=== PATIENT | male | born 1955 | race Caucasian/White ===

== ENCOUNTER 2021-08-02 10:50 | Inpatient (IN) | payer BC ==
[2021-08-02] MEDS ORDERED: IPRATROPIUM-ALBUTEROL 3 ML NEB INHALATION STA (12:41)
[2021-08-02] MEDS ORDERED: SODIUM CHLORIDE 0.9% 500 ML 500 ML IV ONE (12:41)
[2021-08-02] MEDS ORDERED: IBUPROFEN 600 MG TAB PO STA (12:42)
[2021-08-02] MEDS ORDERED: ACETAMINOPHEN TAB 500 MG TAB PO STA (12:42)
[2021-08-02] MEDS ORDERED: ALBUTEROL HFA INHALER INHALATION STA (13:13)
[2021-08-02 13:16] LABS: Basophils % (A) 0 %; Eosinophils % (A) 0 %; HCT 46.9 % (39.0-53.0); HGB 15.6 gm/dL (13.0-17.5); Lymphocytes # (A) 0.4 k/uL (1.0-4.8); Lymphocytes % (A) 5 %; MCH 30.8 pg (25.0-35.0); MCHC 33.3 g/dL (31.0-37.0); MCV 92.4 fL (80.0-100.0); Mean Platelet Volume 8.6; Monocytes # (A) 0.4 k/uL (0-1.0); Monocytes % (A) 6 %; Neutrophils # (A) 6.6 k/uL (1.3-7.7); Neutrophils % (A) 88 %; Platelet Count 207 k/uL (150-450); RBC 5.07 m/uL (4.30-5.90); RDW 13.2 % (11.5-15.5); WBC 7.5 k/uL (3.8-10.6)
--- NOTE | 2021-08-02 13:20 | ED ---
General Adult HPI - General Chief complaint: Shortness of Breath Stated complaint: covid+/sob Time Seen by Provider: 08/02/21 12:15 Source: patient, RN notes reviewed, old records reviewed Mode of arrival: wheelchair - History of Present Illness Initial comments: This is a 65-year-old male who presents to the emergency department complaining of difficulty breathing. Patient states he has not got the COVID vaccine. Patient states he was starting to feel ill on first of July patient tested positive on July 30. Dates difficulty breathing is gotten worse since then. Patient denies chest pain or palpitations. Patient denies abdominal pain patient's nausea vomiting diarrhea. Patient denies lightheadedness or dizziness. Patient states he felt warm last couple of days but he hasn't taken his temperature. - Related Data Home Medications Medication Instructions Recorded Confirmed Atorvastatin [Lipitor] 10 mg PO HS 12/24/15 08/02/21 lisinopriL [Zestril] 2.5 tab PO DAILY 12/24/15 08/02/21 Albuterol Sulfate [Proair Hfa] 2 puff INHALATION RT-Q6H PRN 08/02/21 08/02/21 Azithromycin [Zithromax] 500 mg PO DAILY 08/02/21 08/02/21 Canagliflozin/Metformin HCl 1 tab PO HS 08/02/21 08/02/21 [Invokamet Xr 150-1,000 mg Tab] Dexamethasone 6 mg PO DAILY 08/02/21 08/02/21 Allergies Allergy/AdvReac Type Severity Reaction Status Date / Time No Known Allergies Allergy Verified 08/02/21 14:28 Review of Systems ROS Statement: Those systems with pertinent positive or pertinent negative responses have been documented in the HPI. ROS Other: All systems not noted in ROS Statement are negative. Past Medical History Past Medical History: Hyperlipidemia History of Any Multi-Drug Resistant Organisms: None Reported Past Surgical History: Cholecystectomy, Orthopedic Surgery Past Psychological History: No Psychological Hx Reported Smoking Status: Never smoker Past Alcohol Use History: Rare Past Drug Use History: None Reported General Exam - General Exam Comments Initial Comments: GENERAL: Patient is well-developed and well-nourished. Patient is nontoxic and well- hydrated and is in mild distress. ENT: Neck is soft and supple. No significant lymphadenopathy is noted. Oropharynx is clear. Moist mucous membranes. Neck has full range of motion without daniela citing any pain. EYES: The sclera were anicteric and conjunctiva were pink and moist. Extraocular movements were intact and pupils were equal round and reactive to light. Eyelids were unremarkable. PULMONARY: Patient has crackles bilaterally CARDIOVASCULAR: There is a regular rate and rhythm without any murmurs gallops or rubs. ABDOMEN: Soft and nontender with normal bowel sounds. No palpable organomegaly was noted. There is no palpable pulsatile mass. SKIN: Skin is clear with no lesions or rashes and otherwise unremarkable. NEUROLOGIC: Patient is alert and oriented x3. Cranial nerves II through XII are grossly intact. Motor and sensory are also intact. Normal speech, volume and content. Symmetrical smile. MUSCULOSKELETAL: Normal extremities with adequate strength and full range of motion. LYMPHATICS: No significant lymphadenopathy is noted PSYCHIATRIC: Normal psychiatric evaluation. Course Vital Signs 08/02/21 08/02/21 08/02/21 12:12 12:40 14:00 Temperature 100 F H 98.1 F Pulse Rate 100 68 81 Respiratory 24 26 H 16 Rate Blood Pressure 115/69 125/71 O2 Sat by Pulse 86 L 90 L 93 L Oximetry Medical Decision Making - Medical Decision Making X-ray shows bilateral infiltrates consistent with COVID pneumonia. Patient's COVID test was positive. Patient already took Decadron 6 mg at home today. I spoke with physicians he agreed to admit the patient and the patient I wrote admitting orders I consult to Dr. Grimaldo. - Lab Data Result diagrams: 08/02/21 12:54 08/02/21 12:54 Lab Results 08/02/21 08/02/21 08/02/21 Range/Units 12:54 12:54 12:54 WBC 7.5 (3.8-10.6) k/uL RBC 5.07 (4.30-5.90) m/uL Hgb 15.6 (13.0-17.5) gm/dL Hct 46.9 (39.0-53.0) % MCV 92.4 (80.0-100.0) fL MCH 30.8 (25.0-35.0) pg MCHC 33.3 (31.0-37.0) g/dL RDW 13.2 (11.5-15.5) % Plt Count 207 (150-450) k/uL MPV 8.6 Neutrophils % 88 % Lymphocytes % 5 % Monocytes % 6 % Eosinophils % 0 % Basophils % 0 % Neutrophils # 6.6 (1.3-7.7) k/uL Lymphocytes # 0.4 L (1.0-4.8) k/uL Monocytes # 0.4 (0-1.0) k/uL Eosinophils # 0.0 (0-0.7) k/uL Basophils # 0.0 (0-0.2) k/uL Sodium 132 L (137-145) mmol/L Potassium 5.3 H (3.5-5.1) mmol/L Chloride 103 (98-107) mmol/L Carbon Dioxide 20 L (22-30) mmol/L Anion Gap 9 mmol/L BUN 19 (9-20) mg/dL Creatinine 0.80 (0.66-1.25) mg/dL Est GFR (CKD-EPI)AfAm >90 (>60 ml/min/1.73 sqM) Est GFR (CKD-EPI)NonAf >90 (>60 ml/min/1.73 sqM) Glucose 159 H (74-99) mg/dL Calcium 8.6 (8.4-10.2) mg/dL Total Bilirubin 1.0 (0.2-1.3) mg/dL AST 75 H (17-59) U/L ALT 79 H (4-49) U/L Alkaline Phosphatase 51 (38-126) U/L Total Protein 7.7 (6.3-8.2) g/dL Albumin 3.8 (3.5-5.0) g/dL Coronavirus (PCR) Detected A (Not Detectd) Disposition Clinical Impression: Pneumonia due to COVID-19 virus Disposition: ADMITTED IP TO THIS HOSP Referrals: Jayden Gould MD [Primary Care Provider] - 1-2 days Time of Disposition: 14:40
[2021-08-02 13:36] LABS: ALT 79 U/L (4-49); African American GFR (CKD) >90 (>60 ml/min/1.73 sqM); Anion Gap 9 mmol/L; Blood Urea Nitrogen 19 mg/dL (9-20); Calcium 8.6 mg/dL (8.4-10.2); Carbon Dioxide 20 mmol/L (22-30); Chloride 103 mmol/L (98-107); Glucose 159 mg/dL (74-99); Non-African American GFR(CKD) >90 (>60 ml/min/1.73 sqM); Sodium 132 mmol/L (137-145)
[2021-08-02 13:39] LABS: Albumin 3.8 g/dL (3.5-5.0); Potassium 5.3 mmol/L (3.5-5.1); Total Protein 7.7 g/dL (6.3-8.2)
[2021-08-02 13:40] LABS: AST 75 U/L (17-59); Alkaline Phosphatase 51 U/L (38-126)
--- NOTE | 2021-08-02 13:55 | XR ---
EXAMINATION TYPE: XR chest 2V DATE OF EXAM: 08/02/2021 COMPARISON: Chest x-ray October 31, 2011 HISTORY: Difficulty in breathing. TECHNIQUE: Frontal and lateral views of the chest are obtained. FINDINGS: Low lung volumes redemonstrated. New multifocal bilateral mid to lower lung opacities. No pleural effusion or pneumothorax seen bilaterally. The cardiac silhouette size is stable and upper li mits of normal. The osseous structures are intact. IMPRESSION: New bilateral mid to lower lung multifocal opacities consistent with covid-19 infection are redemonstrated.
[2021-08-02] MEDS ORDERED: SODIUM CHLORIDE 0.9% 1,000 ML IV ONE (14:40)
--- NOTE | 2021-08-02 15:39 | P.HPIM ---
History of Present Illness H&P Date: 08/02/21 The patient is 65-year-old male with a PMH of mild COPD, hypertension, hyperlipidemia, and type II DM who presents to the emergency room with gradually worsening shortness of breath. The patient reports that his symptoms started on 07/25/21 and gradually worsened. On 07/28, he was tested for COVID and was positive. He contacted his PMD who prescribed an oral dexamethasone course. The patient's symptoms however gradually worsened and he subsequently came to the emergency room. He states his primary concern is his shortness of breath. He also reports mild nausea with dry heaving over the past 2 days. Also reports mild cough nonproductive. Denied chest pain, fever, chills, abdominal pain, diarrhea. Also denied headaches, weakness, numbness, tingling, visual disturbances. The patient was hypoxic in the emergency room with an SpO2 of 86% on room air with temperature 100F. Chest x-ray in the emergency room was consistent with COVID-19 pneumonia with laboratory evaluation remarkable for abnormal LFTs with AST 75, ALT 79, glucose 159, and sodium 132. Review of systems: Pertinent positives and negatives as discussed in HPI, a complete review of systems was performed and all other systems are negative. Physical examination: General: non toxic, no distress, appears at stated age, obese Derm: no unusual rashes/lesions no unusual ecchymoses, warm, dry Head: atraumatic, normocephalic, symmetric Eyes: EOMI, no lid lag, anicteric sclera, pupils equal round reactive to light ENT: Nose and ears atraumatic, no thrush, no pharyngeal erythema Neck: No thyromegaly, no cervical lymphadenopathy, trachea midline, supple Mouth: no lip lesion, mucus membranes moist Cardiovascular: S1S2 reg, no murmur, positive posterior tibial pulse bilateral, no edema, capillary refill less than 2 seconds Lungs: Diffuse bilateral rales and rhonchi, no accessory muscle use Abdominal: soft, nontender to palpation, no guarding, no appreciable organomegaly, normal bowel sounds Ext: no gross muscle atrophy, muscle strength 5 out of 5 in all 4 extremities grossly, no contractures, Neuro: CN II-XI grossly intact, light touch intact all 4 extremities, finger to nose within normal limits, Psych: Alert, oriented, appropriate affect Assessment/plan COVID 19 pneumonia with acute hypoxic respiratory failure -Continue Decadron -Zinc, vitamin C, vitamin D -Supplemental oxygen -Pulmonary consult -IV fluids Hyponatremia -Likely secondary to poor oral intake -Continue with IV fluids Chronic conditions: Type II DM, hypertension, hyperlipidemia -Lispro insulin sliding scale blood glucose monitoring -Continue the remaining home medications DVT prophylaxis -Lovenox The patient is admitted with an anticipated greater than 2 midnight stay for evaluation of COVID CODE STATUS: Full Code Discussed with: Patient Anticipated discharge date: Unclear Anticipated discharge place: Home Past Medical History Past Medical History: Hyperlipidemia History of Any Multi-Drug Resistant Organisms: None Reported Past Surgical History: Cholecystectomy, Orthopedic Surgery Past Psychological History: No Psychological Hx Reported Smoking Status: Never smoker Past Alcohol Use History: Rare Past Drug Use History: None Reported - Past Family History Father Family Medical History: Hypertension Medications and Allergies Home Medications Medication Instructions Recorded Confirmed Type Atorvastatin [Lipitor] 10 mg PO HS 12/24/15 08/02/21 History lisinopriL [Zestril] 2.5 tab PO DAILY 12/24/15 08/02/21 History Albuterol Sulfate [Proair Hfa] 2 puff INHALATION RT-Q6H PRN 08/02/21 08/02/21 History Azithromycin [Zithromax] 500 mg PO DAILY 08/02/21 08/02/21 History Canagliflozin/Metformin HCl 1 tab PO HS 08/02/21 08/02/21 History [Invokamet Xr 150-1,000 mg Tab] Dexamethasone 6 mg PO DAILY 08/02/21 08/02/21 History Allergies Allergy/AdvReac Type Severity Reaction Status Date / Time No Known Allergies Allergy Verified 08/02/21 14:28 Physical Exam Vitals: Vital Signs Temp Pulse Resp BP Pulse Ox 08/02/21 14:00 98.1 F 81 16 125/71 93 L 08/02/21 12:40 68 26 H 90 L 08/02/21 12:12 100 F H 100 24 115/69 86 L Intake and Output 08/02/21 08/02/21 08/02/21 06:59 14:59 22:59 Other: Weight 129.274 kg Results CBC & Chem 7: 08/02/21 12:54 08/02/21 12:54 Labs: Abnormal Lab Results - Last 24 Hours (Table) 08/02/21 08/02/21 08/02/21 Range/Units 12:54 12:54 12:54 Lymphocytes # 0.4 L (1.0-4.8) k/uL Sodium 132 L (137-145) mmol/L Potassium 5.3 H (3.5-5.1) mmol/L Carbon Dioxide 20 L (22-30) mmol/L Glucose 159 H (74-99) mg/dL AST 75 H (17-59) U/L ALT 79 H (4-49) U/L Coronavirus (PCR) Detected A (Not Detectd)
[2021-08-02 17:27] LABS: Glucose,Whole Blood 243 mg/dL (75-99)
[2021-08-02] MEDS: INSULIN ASPART (NovoLOG) 100 UNIT/ML VIAL SQ SCH ×2 (17:31→21:27)
--- NOTE | 2021-08-02 18:08 | P.CNPUL ---
History of Present Illness Consult date: 08/02/21 Reason for consult: dyspnea, pneumonia History of present illness: 65-year-old male patient was being Hospital as for COVID 19nrelated pneumonia. The patient is known to have COPD, hypertension and hyperlipidemia and diabetes mellitus. He presented emergency department with worsening shortness of breath. He reports that his symptoms started on 07/26/2021 and he progressively got worse. On he tested positive for COVID 19 and the patient received Decadron through his primary care physician. Unfortunately his condition got worse. He continued to have increased shortness of breath and dry cough. He was febrile. He presented to the ED with a pulse ox of mid 80s. His chest x- ray showed diffuse bilateral pulmonary infiltrates consistent with Covid 19 related pneumonia. His blood work showed a potassium level of 5.3, sodium level of 132, serum bicarb was 20, BUN was 19 with a creatinine of 0.8, lymphocyte count of 0.4 with a white cell count of 7.5. The patient was started on Decadron 6 mg by mouth daily and the patient was also given Lovenox 40 mg subcu daily prophylaxis. He is currently on IV fluids with normal saline at the rate of 75 mL an hour. He is on oxygen. He was placed on 6 L and he is currently do wn to 4 L per minute nasal cannula.He is not vaccinated Review of Systems Constitutional: Reports fatigue, Reports fever, Reports lethargy, Reports weakness Eyes: denies as per HPI, denies blurred vision, denies bulging eye, denies dec reased vision, denies diplopia, denies discharge, denies dry eye, denies irritation, denies itching, denies pain, denies photophobia, denies loss of peripheral vision, denies loss of vision, denies tunnel vision/blind spots Ears: deny: decreased hearing, ear discharge, earache, tinnitus Ears, nose, mouth and throat: Reports as per HPI Breasts: absent: as per HPI, gynecomastia Cardiovascular: Reports decreased exercise tolerance, Reports dyspnea on exertion Respiratory: Reports as per HPI, Reports cough, Reports dyspnea Gastrointestinal: Reports as per HPI Genitourinary: Reports as per HPI Musculoskeletal: Reports as per HPI Musculoskeletal: absent: ankle pain, ankle stiffness, ankle swelling, as per HPI, elbow pain, elbow stiffness, elbow swelling, foot pain, foot stiffness, foot swelling, hand pain, hand stiffness, hand swelling, hip pain, hip stiffness, hip swelling, knee pain, knee stiffness, knee swelling, shoulder pain, shoulder stiffness, shoulder swelling, wrist pain, wrist stiffness, wrist swelling Integumentary: Reports as per HPI, Reports darkening of skin Neurological: Reports weakness Psychiatric: Reports as per HPI Endocrine: Reports as per HPI, Reports fatigue Hematologic/Lymphatic: Reports as per HPI Allergic/Immunologic: Reports as per HPI Past Medical History Past Medical History: Hyperlipidemia Additional Past Medical History / Comment(s): History of pneumonia/empyema requiring percutaneous drainage with the tube probably in the 1980s History of Any Multi-Drug Resistant Organisms: None Reported Past Surgical History: Cholecystectomy, Orthopedic Surgery Past Psychological History: No Psychological Hx Reported Smoking Status: Never smoker Past Alcohol Use History: Rare Past Drug Use History: None Reported - Past Family History Father Family Medical History: Hypertension Medications and Allergies Home Medications Medication Instructions Recorded Confirmed Type Atorvastatin [Lipitor] 10 mg PO HS 12/24/15 08/02/21 History lisinopriL [Zestril] 2.5 tab PO DAILY 12/24/15 08/02/21 History Albuterol Sulfate [Proair Hfa] 2 puff INHALATION RT-Q6H PRN 08/02/21 08/02/21 History Azithromycin [Zithromax] 500 mg PO DAILY 08/02/21 08/02/21 History Canagliflozin/Metformin HCl 1 tab PO HS 08/02/21 08/02/21 History [Invokamet Xr 150-1,000 mg Tab] Dexamethasone 6 mg PO DAILY 08/02/21 08/02/21 History Allergies Allergy/AdvReac Type Severity Reaction Status Date / Time No Known Allergies Allergy Verified 08/02/21 14:28 Physical Exam Vitals: Vital Signs Temp Pulse Resp BP Pulse Ox 08/02/21 15:00 25 H 08/02/21 14:00 98.1 F 81 16 125/71 93 L 08/02/21 12:40 68 26 H 90 L 08/02/21 12:12 100 F H 100 24 115/69 86 L Intake and Output 08/02/21 08/02/21 08/02/21 06:59 14:59 22:59 Other: Weight 129.274 kg General: non toxic, no distress, appears at stated age, obese Derm: no unusual rashes/lesions no unusual ecchymoses, warm, dry Head: atraumatic, normocephalic, symmetric Eyes: EOMI, no lid lag, anicteric sclera, pupils equal round reactive to light ENT: Nose and ears atraumatic, no thrush, no pharyngeal erythema Neck: No thyromegaly, no cervical lymphadenopathy, trachea midline, supple Mouth: no lip lesion, mucus membranes moist Cardiovascular: S1S2 reg, no murmur, positive posterior tibial pulse bilateral, no edema, capillary refill less than 2 seconds Lungs: Diffuse bilateral rales and rhonchi, no accessory muscle use Abdominal: soft, nontender to palpation, no guarding, no appreciable organomegaly, normal bowel sounds Ext: no gross muscle atrophy, muscle strength 5 out of 5 in all 4 extremities grossly, no contractures, Neuro: CN II-XI grossly intact, light touch intact all 4 extremities, finger to nose within normal limits, Results - Laboratory Findings CBC and BMP: 08/02/21 12:54 08/02/21 12:54 Abnormal lab findings: Abnormal Labs 08/02/21 08/02/21 08/02/21 12:54 12:54 12:54 Lymphocytes # 0.4 L Sodium 132 L Potassium 5.3 H Carbon Dioxide 20 L Glucose 159 H AST 75 H ALT 79 H Coronavirus (PCR) Detected A - Diagnostic Findings Chest x-ray: image reviewed Assessment and Plan Plan: 1 acute Covid 19 related pneumonia with diffuse bilateral pulmonary infiltrates. The patient is presenting with worsening shortness of breath and a dry cough and hypoxemia. Currently on 4 L of oxygen when cannula. The patient was treated with Decadron outpatient basis. He is unvaccinated. 2 acute hypoxic respiratory failure secondary to above 3 diabetes mellitus 4 hypertension 5 hyperlipidemia 6 obesity with a BMI of 39.7 Plan titrate the FiO2 to maintain saturation above 90%, currently on 4 L continue Decadron increase the dose up to 6 mg every 12 hours. We'll decrease the steroid dose knowing that the patient has failed outpatient steroid treatment, we'll start the patient also on obesity per protocol as the patient falls within the window. Symptoms started on 07/26/2021 check pro calcitonin levels, d-dimer, LDH, CRP Continue Lovenox 40 mg subcu DVT prophylaxis Monitor the blood sugar and offered the patient a insulin sliding scale coverage Monitor the blood work Chest x-ray was noted \
[2021-08-02] MEDS ORDERED: REMDESIVIR 200 MG in SODIUM CHLORIDE 0.9% 250 ML IVPB ONE (18:30)
[2021-08-02 19:19] LABS: Glucose,Whole Blood 243 mg/dL (75-99)
[2021-08-02] MEDS: dexAMETHasone 2 MG TAB PO SCH (21:02)
[2021-08-02] MEDS: ATORVASTATIN 10 MG TAB PO SCH (21:02)
[2021-08-02 21:22] LABS: Glucose,Whole Blood 147 mg/dL (75-99)
[2021-08-03] MEDS ORDERED: dexAMETHasone 2 MG TAB PO SCH (09:00)
[2021-08-03 09:22] LABS: HGB 14.5 g/dL (13.0-17.0); MCH 30.7 pg (27.0-32.0); Mean Platelet Volume 11.3 fL (9.5-12.2); Platelet Count 227 X 10*3/uL (140-440); RBC 4.73 X 10*6/uL (4.40-5.60); RDW 13.3 % (11.5-14.5); WBC 6.35 X 10*3/uL (4.50-10.00)
[2021-08-03 09:35] LABS: Glucose,Whole Blood 170 mg/dL (75-99)
[2021-08-03] MEDS: INSULIN ASPART (NovoLOG) 100 UNIT/ML VIAL SQ SCH ×4 (09:39→22:05)
[2021-08-03] MEDS: ENOXAPARIN 40 MG/0.4 ML SYRINGE SQ SCH (09:40)
[2021-08-03] MEDS: ASCORBIC ACID 500 MG TAB PO SCH (09:40)
[2021-08-03] MEDS: CHOLECALCIFEROL 25 MCG (1000 IU) TABLET PO SCH (09:41)
[2021-08-03] MEDS: ZINC SULFATE 220 MG CAP PO SCH (09:42)
[2021-08-03] MEDS: dexAMETHasone 2 MG TAB PO SCH ×2 (09:49→22:05)
--- NOTE | 2021-08-03 10:58 | P.PN ---
Subjective Progress Note Date: 08/03/21 65-year-old male patient was being Hospital as for COVID 19nrelated pneumonia. The patient is known to have COPD, hypertension and hyperlipidemia and diabetes mellitus. He presented emergency department with worsening shortness of breath. He reports that his symptoms started on 07/26/2021 and he progressively got worse. On he tested positive for COVID 19 and the patient received Decadron through his primary care physician. Unfortunately his condition got worse. He continued to have increased shortness of breath and dry cough. He was febrile. He presented to the ED with a pulse ox of mid 80s. His chest x- ray showed diffuse bilateral pulmonary infiltrates consistent with Covid 19 related pneumonia. His blood work showed a potassium level of 5.3, sodium level of 132, serum bicarb was 20, BUN was 19 with a creatinine of 0.8, lymphocyte count of 0.4 with a white cell count of 7.5. The patient was started on Decadron 6 mg by mouth daily and the patient was also given Lovenox 40 mg subcu daily prophylaxis. He is currently on IV fluids with normal saline at the rate of 75 mL an hour. He is on oxygen. He was placed on 6 L and he is currently down to 4 L per minute nasal cannula.He is not vaccinated 08/03/2021, the patient is being seen for a follow-up. The patient remains in The emergency department. I saw him yesterday in consultation. He was only on 4 L, he was brought up to 6 L and subsequently he is up to 13 L for now and his current pulse ox is around 88-90%. As such, his FiO2 needs to be further titrated to bring him above 90%. Meanwhile, I started him on a combination of Decadron under the severe yesterday. I think of the severity needs to be switched to Baricitinib and will continue Decadron for now. He is coughing. He is hemodynamically stable. White cell count is 6.3. D-dimer 0.3. Inflammatory markers are still pending for now. Blood sugars today as 170. He is on insulin sliding scale coverage for blood sugar control. Objective - Vital Signs Vital signs: Vital Signs Temp 97.4 F L 08/02/21 20:00 Pulse 79 08/03/21 09:54 Resp 24 08/03/21 09:54 BP 121/70 08/03/21 09:54 Pulse Ox 88 L 08/03/21 09:54 Intake & Output 08/02/21 08/03/21 08/03/21 18:59 06:59 18:59 Intake Total 600 Balance 600 Weight 129.274 kg Intake: Intake, IV Titration 600 Amount Sodium Chloride 0.9% 1, 600 000 ml @ 75 mls/hr IV . [id number] Rx#:[id number] - Exam General: non toxic, no distress, appears at stated age, obese, currently on 13 L per minute nasal cannula Derm: no unusual rashes/lesions no unusual ecchymoses, warm, dry Head: atraumatic, normocephalic, symmetric Eyes: EOMI, no lid lag, anicteric sclera, pupils equal round reactive to light ENT: Nose and ears atraumatic, no thrush, no pharyngeal erythema Neck: No thyromegaly, no cervical lymphadenopathy, trachea midline, supple Mouth: no lip lesion, mucus membranes moist Cardiovascular: S1S2 reg, no murmur, positive posterior tibial pulse bilateral, no edema, capillary refill less than 2 seconds Lungs: Diffuse bilateral rales and rhonchi, no accessory muscle use Abdominal: soft, nontender to palpation, no guarding, no appreciable organomegaly, normal bowel sounds Ext: no gross muscle atrophy, muscle strength 5 out of 5 in all 4 extremities grossly, no contractures, Neuro: CN II-XI grossly intact, light touch intact all 4 extremities, finger to nose within normal limits, - Labs CBC & Chem 7: 08/03/21 05:54 08/02/21 12:54 Labs: Abnormal Lab Results - Last 24 Hours (Table) 08/02/21 08/02/21 08/02/21 Range/Units 12:54 12:54 12:54 Lymphocytes # 0.4 L (1.0-4.8) k/uL Sodium 132 L (137-145) mmol/L Potassium 5.3 H (3.5-5.1) mmol/L Carbon Dioxide 20 L (22-30) mmol/L Glucose 159 H (74-99) mg/dL POC Glucose (mg/dL) (75-99) mg/dL AST 75 H (17-59) U/L ALT 79 H (4-49) U/L Procalcitonin (0.02-0.09) ng/mL Coronavirus (PCR) Detected A (Not Detectd) 08/02/21 08/02/21 08/02/21 Range/Units 12:54 17:26 19:18 Lymphocytes # (1.0-4.8) k/uL Sodium (137-145) mmol/L Potassium (3.5-5.1) mmol/L Carbon Dioxide (22-30) mmol/L Glucose (74-99) mg/dL POC Glucose (mg/dL) 243 H 243 H (75-99) mg/dL AST (17-59) U/L ALT (4-49) U/L Procalcitonin 0.10 H (0.02-0.09) ng/mL Coronavirus (PCR) (Not Detectd) 08/02/21 08/03/21 Range/Units 21:12 09:34 Lymphocytes # (1.0-4.8) k/uL Sodium (137-145) mmol/L Potassium (3.5-5.1) mmol/L Carbon Dioxide (22-30) mmol/L Glucose (74-99) mg/dL POC Glucose (mg/dL) 147 H 170 H (75-99) mg/dL AST (17-59) U/L ALT (4-49) U/L Procalcitonin (0.02-0.09) ng/mL Coronavirus (PCR) (Not Detectd) Assessment and Plan Plan: 1 acute Covid 19 related pneumonia with diffuse bilateral pulmonary infiltrates. The patient is presenting with worsening shortness of breath and a dry cough and hypoxemia. Currently on 13 L nasal cannula. The patient's condition decompensated since yesterday especially with his oxygenation getting progressively worse from 4 L up to 6 L and currently up to 13 L. Would like to step up his treatment specially the patient has been treated with Decadron outpatient basis. The patient was treated with Decadron outpatient basis. He is unvaccinated. The patient was initially started on of the severe and Decadron combination. This will be modified to include a combination of Decadron and Baricitinib. 2 acute hypoxic respiratory failure secondary to above 3 diabetes mellitus 4 hypertension 5 hyperlipidemia 6 obesity with a BMI of 39.7 Plan titrate the FiO2 to maintain saturation above 90%, currently on 13 L continue Decadron increase the dose up to 6 mg every 12 hours. We'll decrease the steroid dose knowing that the patient has failed outpatient steroid treatment, we'll start the patient on Baricitinib and will discontinue the Remdesivir check pro calcitonin levels, d-dimer, LDH, CRP, pro calcitonin level is low and the rest of the inflammatory markers are still pending. D-dimer is also low. Continue Lovenox 40 mg subcu DVT prophylaxis Monitor the blood sugar and offered the patient a insulin sliding scale coverage Monitor the blood work Chest x-ray was noted He will be admitted to the hospital and the patient is still awaiting a room. Meanwhile, he remains in the emergency. \
[2021-08-03 12:42] LABS: African American GFR (CKD) 103.9 (60.0-200.0); Albumin 3.8 g/dL (3.8-4.9); Albumin/Globulin Ratio 1.17 (1.60-3.17); Anion Gap 13.2 mmol/L (4.00-12.00); BUN/Creat Ratio 23.74 Ratio (12.00-20.00); Blood Urea Nitrogen 21.2 mg/dL (9.0-27.0); Calcium 8.5 mg/dL (8.7-10.3); Carbon Dioxide 20.7 mmol/L (21.6-31.8); Globulin 3.3 g/dL (1.6-3.3); Non-African American GFR(CKD) 89.6 (60.0-200.0); Potassium 5.1 mmol/L (3.5-5.5); Total Bilirubin 0.5 mg/dL (0.30-1.20); Total Protein 7.1 g/dL (6.2-8.2)
[2021-08-03 12:45] LABS: Glucose,Whole Blood 113 mg/dL (75-99)
--- NOTE | 2021-08-03 12:48 | P.PN ---
Subjective Progress Note Date: 08/03/21 Principal diagnosis: COVID-19 Patient states that she is feeling okay. No significant pain or shortness of breath. Still requiring oxygen for high flow nasal cannula, currently at 15 L, with O2 saturations in the 90s. Objective - Vital Signs Vital signs: Vital Signs Temp 97.4 F L 08/02/21 20:00 Pulse 79 08/03/21 09:54 Resp 24 08/03/21 09:54 BP 121/70 08/03/21 09:54 Pulse Ox 89 L 08/03/21 12:30 Intake & Output 08/02/21 08/03/21 08/03/21 18:59 06:59 18:59 Intake Total 600 Balance 600 Weight 129.274 kg Intake: Intake, IV Titration 600 Amount Sodium Chloride 0.9% 1, 600 000 ml @ 75 mls/hr IV . [id number] ONE Rx#:[id number] - Exam Constitutional: No acute distress, conversant, pleasant Eyes:Anicteric sclerae, moist conjunctiva, no lid-lag, PERRLA, ENMT: Oropharynx clear, no erythema, exudates Neck: Supple, FROM, no masses, or JVD, No carotid bruits, No thyromegaly Lungs: Clear to auscultation, Clear to percussion, Normal respiratory effort, no accessory muscle use Cardiovascular: Heart regular in rate and rhythm, No murmurs, gallops, or rubs, No peripheral edema Abdominal: Soft, Nontender, no guarding, rebound or rigidity, Normoactive bowel sounds, No hepatomegaly, No splenomegaly, No palpable mass Skin: Normal temperature, tone, texture, turgor, no induration, No subcutaneous nodules, No rash, lesions, No ulcers Extremities: No digital cyanosis, No clubbing, Pedal pulses intact and symmetrical, Radial pulses intact and symmetrical, No calf tenderness Psychiatric: Alert and oriented to person, place and time, appropriate affect, intact judgement Neuro: Muscles Strength 5/5 in all 4 extremities, Sensation to light touch grossly present throughout, Cranial nerves II-XII grossly intact, no focal sensory deficits - Labs CBC & Chem 7: 08/03/21 05:54 08/03/21 05:54 Labs: Abnormal Lab Results - Last 24 Hours (Table) 08/02/21 08/02/21 08/02/21 Range/Units 12:54 12:54 12:54 Lymphocytes # 0.4 L (1.0-4.8) k/uL Sodium 132 L (137-145) mmol/L Potassium 5.3 H (3.5-5.1) mmol/L Carbon Dioxide 20 L (22-30) mmol/L Anion Gap (4.00-12.00) mmol/L BUN/Creatinine Ratio (12.00-20.00) Ratio Glucose 159 H (74-99) mg/dL POC Glucose (mg/dL) (75-99) mg/dL Calcium (8.7-10.3) mg/dL AST 75 H (17-59) U/L ALT 79 H (4-49) U/L Albumin/Globulin Ratio (1.60-3.17) g/dL Procalcitonin (0.02-0.09) ng/mL Coronavirus (PCR) Detected A (Not Detectd) 08/02/21 08/02/21 08/02/21 Range/Units 12:54 17:26 19:18 Lymphocytes # (1.0-4.8) k/uL Sodium (137-145) mmol/L Potassium (3.5-5.1) mmol/L Carbon Dioxide (22-30) mmol/L Anion Gap (4.00-12.00) mmol/L BUN/Creatinine Ratio (12.00-20.00) Ratio Glucose (74-99) mg/dL POC Glucose (mg/dL) 243 H 243 H (75-99) mg/dL Calcium (8.7-10.3) mg/dL AST (17-59) U/L ALT (4-49) U/L Albumin/Globulin Ratio (1.60-3.17) g/dL Procalcitonin 0.10 H (0.02-0.09) ng/mL Coronavirus (PCR) (Not Detectd) 08/02/21 08/03/21 08/03/21 Range/Units 21:12 05:54 09:34 Lymphocytes # (1.0-4.8) k/uL Sodium (137-145) mmol/L Potassium (3.5-5.1) mmol/L Carbon Dioxide 20.7 L (22-30) mmol/L Anion Gap 13.20 H (4.00-12.00) mmol/L BUN/Creatinine Ratio 23.74 H (12.00-20.00) Ratio Glucose 151 H (74-99) mg/dL POC Glucose (mg/dL) 147 H 170 H (75-99) mg/dL Calcium 8.5 L (8.7-10.3) mg/dL AST 53 H (17-59) U/L ALT 76 H (4-49) U/L Albumin/Globulin Ratio 1.17 L (1.60-3.17) g/dL Procalcitonin (0.02-0.09) ng/mL Coronavirus (PCR) (Not Detectd) Assessment and Plan Plan: COVID 19 pneumonia with acute hypoxic respiratory failure -Supplemental oxygen -Pulmonary following, he is being treated with Decadron and barcitinib Hyponatremia -Likely secondary to poor oral intake -D/c IV fluids Chronic conditions: Type II DM, hypertension, hyperlipidemia -Lispro insulin sliding scale blood glucose monitoring -Continue the remaining home medications DVT prophylaxis -Lovenox CODE STATUS: Full Code Discussed with: Patient Anticipated discharge date: Unclear Anticipated discharge place: Home
[2021-08-03] MEDS: BARICITINIB 2 MG TABLET PO SCH (15:59)
[2021-08-03 16:48] LABS: Glucose,Whole Blood 163 mg/dL (75-99)
[2021-08-03] MEDS ORDERED: REMDESIVIR 100 MG in SODIUM CHLORIDE 0.9% 250 ML IVPB SCH (18:30)
[2021-08-03 20:56] LABS: Glucose,Whole Blood 216 mg/dL (75-99)
[2021-08-03] MEDS: ATORVASTATIN 10 MG TAB PO SCH (22:05)
[2021-08-04 00:13] LABS: C Reactive Protein 5.9 mg/dL (0.00-0.80)
[2021-08-04 06:55] LABS: Glucose,Whole Blood 163 mg/dL (75-99)
[2021-08-04] MEDS: dexAMETHasone 2 MG TAB PO SCH ×2 (08:49→23:18)
[2021-08-04] MEDS: ENOXAPARIN 40 MG/0.4 ML SYRINGE SQ SCH (08:49)
[2021-08-04] MEDS: ASCORBIC ACID 500 MG TAB PO SCH (08:50)
[2021-08-04] MEDS: CHOLECALCIFEROL 25 MCG (1000 IU) TABLET PO SCH (08:50)
[2021-08-04] MEDS: INSULIN ASPART (NovoLOG) 100 UNIT/ML VIAL SQ SCH ×4 (08:51→23:17)
[2021-08-04] MEDS: BARICITINIB 2 MG TABLET PO SCH (08:52)
[2021-08-04] MEDS: ZINC SULFATE 220 MG CAP PO SCH (08:53)
--- NOTE | 2021-08-04 09:35 | XR ---
EXAMINATION TYPE: XR chest 1V portable DATE OF EXAM: 08/04/2021 COMPARISON: 08/02/2021 INDICATION: Covid pneumonia TECHNIQUE: Single frontal view of the chest is obtained. FINDINGS: The heart size is normal. The pulmonary vasculature is normal. Scattered bilateral peripheral infiltrates are present. This is nonspecific but can be compatible wit h atypical pneumonia IMPRESSION: 1. Scattered bilateral lung infiltrates are nonspecific but can be compatible with atypical pneumonia . Findings are stable from comparison.
--- NOTE | 2021-08-04 11:54 | P.PN ---
Subjective Progress Note Date: 08/04/21 65-year-old male patient was being Hospital as for COVID 19nrelated pneumonia. The patient is known to have COPD, hypertension and hyperlipidemia and diabetes mellitus. He presented emergency department with worsening shortness of breath. He reports that his symptoms started on 07/26/2021 and he progressively got worse. On he tested positive for COVID 19 and the patient received Decadron through his primary care physician. Unfortunately his condition got worse. He continued to have increased shortness of breath and dry cough. He was febrile. He presented to the ED with a pulse ox of mid 80s. His chest x- ray showed diffuse bilateral pulmonary infiltrates consistent with Covid 19 related pneumonia. His blood work showed a potassium level of 5.3, sodium level of 132, serum bicarb was 20, BUN was 19 with a creatinine of 0.8, lymphocyte count of 0.4 with a white cell count of 7.5. The patient was started on Decadron 6 mg by mouth daily and the patient was also given Lovenox 40 mg subcu daily prophylaxis. He is currently on IV fluids with normal saline at the rate of 75 mL an hour. He is on oxygen. He was placed on 6 L and he is currently down to 4 L per minute nasal cannula.He is not vaccinated 08/03/2021, the patient is being seen for a follow-up. The patient remains in The emergency department. I saw him yesterday in consultation. He was only on 4 L, he was brought up to 6 L and subsequently he is up to 13 L for now and his current pulse ox is around 88-90%. As such, his FiO2 needs to be further titrated to bring him above 90%. Meanwhile, I started him on a combination of Decadron under the severe yesterday. I think of the severity needs to be switched to Baricitinib and will continue Decadron for now. He is coughing. He is hemodynamically stable. White cell count is 6.3. D-dimer 0.3. Inflammatory markers are still pending for now. Blood sugars today as 170. He is on insulin sliding scale coverage for blood sugar control. 08/04/2021, the patient is 1100% nonrebreather facemask. I'm seeing this patient for a follow-up today. Note that his oxygenation was gradually getting worse. He came in to us with 4 L and subsequently and up on a nonrebreather facemask. During the course of his progression, I'm stop the Remdesivir put the patient on a combination of Decadron and Baricitinib. Blood work from today still pending. I do have a d-dimer that is showing is 0.44 level. The glucose is 163. In terms of the inflammatory markers, the pro-calcitonin level was 0.1. The patient remains on Lovenox for DVT prophylaxis. Repeat chest x-ray shows no major interval change in the findings are essentially stable. Objective - Vital Signs Vital signs: Vital Signs Temp 97.8 F 08/04/21 10:05 Pulse 73 08/04/21 10:05 Resp 18 08/04/21 10:05 BP 107/58 08/04/21 10:05 Pulse Ox 91 L 08/04/21 10:05 Intake & Output 08/03/21 08/04/21 08/04/21 18:59 06:59 18:59 Other: Voiding Method Urinal # Voids 1 3 - Exam General: non toxic, no distress, appears at stated age, obese, currently on 15 L per minute nasal cannula and a 100%NRB Derm: no unusual rashes/lesions no unusual ecchymoses, warm, dry Head: atraumatic, normocephalic, symmetric Eyes: EOMI, no lid lag, anicteric sclera, pupils equal round reactive to light ENT: Nose and ears atraumatic, no thrush, no pharyngeal erythema Neck: No thyromegaly, no cervical lymphadenopathy, trachea midline, supple Mouth: no lip lesion, mucus membranes moist Cardiovascular: S1S2 reg, no murmur, positive posterior tibial pulse bilateral, no edema, capillary refill less than 2 seconds Lungs: Diffuse bilateral rales and rhonchi, no accessory muscle use Abdominal: soft, nontender to palpation, no guarding, no appreciable organomegaly, normal bowel sounds Ext: no gross muscle atrophy, muscle strength 5 out of 5 in all 4 extremities grossly, no contractures, Neuro: CN II-XI grossly intact, light touch intact all 4 extremities, finger to nose within normal limits, - Labs CBC & Chem 7: 08/03/21 05:54 08/03/21 05:54 Labs: Abnormal Lab Results - Last 24 Hours (Table) 08/03/21 08/03/21 08/03/21 Range/Units 05:54 05:54 05:54 Carbon Dioxide 20.7 L (21.6-31.8) mmol/L Anion Gap 13.20 H (4.00-12.00) mmol/L BUN/Creatinine Ratio 23.74 H (12.00-20.00) Ratio Glucose 151 H (70-110) mg/dL POC Glucose (mg/dL) (75-99) mg/dL Hemoglobin A1c 6.9 H (4.0-6.0) % Calcium 8.5 L (8.7-10.3) mg/dL AST 53 H (14-35) U/L ALT 76 H (10-49) U/L Lactate Dehydrogenase 401 H (120-246) U/L C-Reactive Protein 5.90 H (0.00-0.80) mg/dL Albumin/Globulin Ratio 1.17 L (1.60-3.17) g/dL 08/03/21 08/03/21 08/03/21 Range/Units 12:42 16:46 20:55 Carbon Dioxide (21.6-31.8) mmol/L Anion Gap (4.00-12.00) mmol/L BUN/Creatinine Ratio (12.00-20.00) Ratio Glucose (70-110) mg/dL POC Glucose (mg/dL) 113 H 163 H 216 H (75-99) mg/dL Hemoglobin A1c (4.0-6.0) % Calcium (8.7-10.3) mg/dL AST (14-35) U/L ALT (10-49) U/L Lactate Dehydrogenase (120-246) U/L C-Reactive Protein (0.00-0.80) mg/dL Albumin/Globulin Ratio (1.60-3.17) g/dL 08/04/21 Range/Units 06:53 Carbon Dioxide (21.6-31.8) mmol/L Anion Gap (4.00-12.00) mmol/L BUN/Creatinine Ratio (12.00-20.00) Ratio Glucose (70-110) mg/dL POC Glucose (mg/dL) 163 H (75-99) mg/dL Hemoglobin A1c (4.0-6.0) % Calcium (8.7-10.3) mg/dL AST (14-35) U/L ALT (10-49) U/L Lactate Dehydrogenase (120-246) U/L C-Reactive Protein (0.00-0.80) mg/dL Albumin/Globulin Ratio (1.60-3.17) g/dL Assessment and Plan Plan: 1 acute Covid 19 related pneumonia with diffuse bilateral pulmonary infiltrates. The patient is presenting with worsening shortness of breath and a dry cough and hypoxemia. Patient is currently on 100% nonrebreather in addition to 15 L nasal cannula. He feels well. He states that since yesterday, he had a good night sleep and is not getting any worse. I started him on a combination of Decadron and Baricitinib. Remdesivir was discontinued. He remains on Lovenox. Extremity markers are being monitored. D-dimer is at low.. 2 acute hypoxic respiratory failure secondary to above 3 diabetes mellitus 4 hypertension 5 hyperlipidemia 6 obesity with a BMI of 39.7 Plan titrate the FiO2 to maintain saturation above 90%, currently on the 15th liters along with 100% nonrebreather continue Decadron 6 mg every 12 hours. Patient was also started on Baricitinib per protocol. Remdesivir was discontinued. check pro calcitonin levels, d-dimer, LDH, CRP, pro calcitonin level is low and the rest of the inflammatory markers are still pending. D-dimer is also low. Continue Lovenox 40 mg subcu DVT prophylaxis Monitor the blood sugar and offered the patient a insulin sliding scale coverage Monitor the blood work Chest x-ray was noted and the chest x-ray stable for now We'll reevaluate the patient's condition in a.m. His condition is stable. He needs to be monitored very closely. . \
[2021-08-04 13:53] LABS: C Reactive Protein 1.8 mg/dL (0.00-0.80)
[2021-08-04 14:00] LABS: Glucose,Whole Blood 203 mg/dL (75-99)
--- NOTE | 2021-08-04 14:24 | P.PN ---
Subjective Progress Note Date: 08/04/21 Patient seen and examined at bedside. Patient continues to be on a nonrebreather saturating 91%. Patient denies chest pain. Patient continues to be short of breath. Patient does have a cough. Patient denies fever or chills. Objective - Vital Signs Vital signs: Vital Signs Temp 97.8 F 08/04/21 10:05 Pulse 73 08/04/21 10:05 Resp 18 08/04/21 10:05 BP 107/58 08/04/21 10:05 Pulse Ox 91 L 08/04/21 10:05 Intake & Output 08/03/21 08/04/21 08/04/21 18:59 06:59 18:59 Other: Voiding Method Urinal Urinal # Voids 1 3 - Exam General: [non toxic], [no distress], [appears at stated age] Derm: [warm], [dry] Head: [atraumatic], [normocephalic], [symmetric] Eyes: [EOMI], [no lid lag], [anicteric sclera] Mouth: [no lip lesion], [mucus membranes moist] Cardiovascular: [S1S2 reg], [no murmur], [positive posterior tibial pulse bilateral], Lungs: [CTA bilateral], [no rhonchi, no rales] , [no accessory muscle use] Abdominal: [soft], [ nontender to palpation], [no guarding], [no appreciable organomegaly] Ext: [no gross muscle atrophy], [no edema], [no contractures] Neuro: [ CN II-XI grossly intact], [no focal neuro deficits] Psych: [Alert], [oriented], [appropriate affect] - Labs CBC & Chem 7: 08/03/21 05:54 08/03/21 05:54 Labs: Abnormal Lab Results - Last 24 Hours (Table) 08/03/21 08/03/21 08/03/21 Range/Units 05:54 05:54 16:46 POC Glucose (mg/dL) 163 H (75-99) mg/dL Hemoglobin A1c 6.9 H (4.0-6.0) % Lactate Dehydrogenase 401 H (120-246) U/L C-Reactive Protein 5.90 H (0.00-0.80) mg/dL 08/03/21 08/04/2121 Range/Units 20:55 06:53 06:59 POC Glucose (mg/dL) 216 H 163 H (75-99) mg/dL Hemoglobin A1c (4.0-6.0) % Lactate Dehydrogenase (120-246) U/L C-Reactive Protein 1.80 H (0.00-0.80) mg/dL 08/04/21 Range/Units 13:58 POC Glucose (mg/dL) 203 H (75-99) mg/dL Hemoglobin A1c (4.0-6.0) % Lactate Dehydrogenase (120-246) U/L C-Reactive Protein (0.00-0.80) mg/dL Assessment and Plan Assessment: COVID 19 pneumonia with acute hypoxic respiratory failure -Supplemental oxygen -Pulmonary following, he is being treated with Decadron and barcitinib Chronic conditions: Type II DM, hypertension, hyperlipidemia -Lispro insulin sliding scale blood glucose monitoring -Continue the remaining home medications DVT prophylaxis -Lovenox CODE STATUS: Full Code Discussed with: Patient Anticipated discharge date: Unclear Anticipated discharge place: Home
[2021-08-04 16:36] LABS: Glucose,Whole Blood 170 mg/dL (75-99)
[2021-08-04 20:53] LABS: Glucose,Whole Blood 191 mg/dL (75-99)
[2021-08-04] MEDS: ATORVASTATIN 10 MG TAB PO SCH (23:18)
[2021-08-05] MEDS: dexAMETHasone 2 MG TAB PO SCH ×2 (07:33→22:17)
[2021-08-05] MEDS: BARICITINIB 2 MG TABLET PO SCH (07:33)
[2021-08-05] MEDS: ASCORBIC ACID 500 MG TAB PO SCH (07:33)
[2021-08-05] MEDS: CHOLECALCIFEROL 25 MCG (1000 IU) TABLET PO SCH (07:33)
[2021-08-05] MEDS: INSULIN ASPART (NovoLOG) 100 UNIT/ML VIAL SQ SCH ×4 (07:34→22:16)
[2021-08-05] MEDS: ZINC SULFATE 220 MG CAP PO SCH (07:34)
[2021-08-05] MEDS: ENOXAPARIN 40 MG/0.4 ML SYRINGE SQ SCH (07:34)
[2021-08-05 10:03] LABS: C Reactive Protein 0.7 mg/dL (<1.0)
[2021-08-05 10:11] LABS: ALT 301 U/L (4-49); AST 250 U/L (17-59); African American GFR (CKD) >90 (>60 ml/min/1.73 sqM); Albumin 3.7 g/dL (3.5-5.0); Alkaline Phosphatase 66 U/L (38-126); Anion Gap 10 mmol/L; Blood Urea Nitrogen 25 mg/dL (9-20); Carbon Dioxide 22 mmol/L (22-30); Chloride 103 mmol/L (98-107); Globulin 3.6 g/dL; Glucose 157 mg/dL (74-99); Non-African American GFR(CKD) >90 (>60 ml/min/1.73 sqM); Potassium 4.8 mmol/L (3.5-5.1); Sodium 135 mmol/L (137-145); Total Bilirubin 0.9 mg/dL (0.2-1.3); Total Protein 7.3 g/dL (6.3-8.2)
[2021-08-05 10:12] LABS: Basophils % (A) 0 %; Eosinophils % (A) 0 %; HCT 46.4 % (39.0-53.0); HGB 15.3 gm/dL (13.0-17.5); Lymphocytes % (A) 10 %; MCH 30.7 pg (25.0-35.0); MCV 93.1 fL (80.0-100.0); Mean Platelet Volume 8.4; Monocytes # (A) 0.7 k/uL (0-1.0); Monocytes % (A) 6 %; Neutrophils # (A) 8.8 k/uL (1.3-7.7); Neutrophils % (A) 82 %; Platelet Count 321 k/uL (150-450); RBC 4.99 m/uL (4.30-5.90); RDW 12.9 % (11.5-15.5); WBC 10.8 k/uL (3.8-10.6)
--- NOTE | 2021-08-05 11:11 | P.PN ---
Subjective Progress Note Date: 08/05/21 65-year-old male patient was being Hospital as for COVID 19nrelated pneumonia. The patient is known to have COPD, hypertension and hyperlipidemia and diabetes mellitus. He presented emergency department with worsening shortness of breath. He reports that his symptoms started on 07/26/2021 and he progressively got worse. On he tested positive for COVID 19 and the patient received Decadron through his primary care physician. Unfortunately his condition got worse. He continued to have increased shortness of breath and dry cough. He was febrile. He presented to the ED with a pulse ox of mid 80s. His chest x- ray showed diffuse bilateral pulmonary infiltrates consistent with Covid 19 related pneumonia. His blood work showed a potassium level of 5.3, sodium level of 132, serum bicarb was 20, BUN was 19 with a creatinine of 0.8, lymphocyte count of 0.4 with a white cell count of 7.5. The patient was started on Decadron 6 mg by mouth daily and the patient was also given Lovenox 40 mg subcu daily prophylaxis. He is currently on IV fluids with normal saline at the rate of 75 mL an hour. He is on oxygen. He was placed on 6 L and he is currently down to 4 L per minute nasal cannula.He is not vaccinated 08/03/2021, the patient is being seen for a follow-up. The patient remains in The emergency department. I saw him yesterday in consultation. He was only on 4 L, he was brought up to 6 L and subsequently he is up to 13 L for now and his current pulse ox is around 88-90%. As such, his FiO2 needs to be further titrated to bring him above 90%. Meanwhile, I started him on a combination of Decadron under the severe yesterday. I think of the severity needs to be switched to Baricitinib and will continue Decadron for now. He is coughing. He is hemodynamically stable. White cell count is 6.3. D-dimer 0.3. Inflammatory markers are still pending for now. Blood sugars today as 170. He is on insulin sliding scale coverage for blood sugar control. 08/04/2021, the patient is 1100% nonrebreather facemask. I'm seeing this patient for a follow-up today. Note that his oxygenation was gradually getting worse. He came in to us with 4 L and subsequently and up on a nonrebreather facemask. During the course of his progression, I'm stop the Remdesivir put the patient on a combination of Decadron and Baricitinib. Blood work from today still pending. I do have a d-dimer that is showing is 0.44 level. The glucose is 163. In terms of the inflammatory markers, the pro-calcitonin level was 0.1. The patient remains on Lovenox for DVT prophylaxis. Repeat chest x-ray shows no major interval change in the findings are essentially stable. On 08/05/2021, the patient remains on 15 L nasal cannula and 100% on a beta facemask. Earlier, there was a unsuccessful attempt by RT to switch this patient to a high flow oxygen. I think the idea was very good. The execution and the results are not to be not good and the patient desaturated significantly and the medication quite anxious. For that reason the patient was placed back o n his original settings. His white cell count is at 10.8 with a hemoglobin of 15.3. D-dimer remains low at 0.55. Electrolytes are all within normal limits per normal renal function. His LDH level is higher and currently is at 1568 with a CRP of 0.7. I have this patient on a combination of Decadron 6 mg twice a day and he is also on Baricitinib per protocol. He remains on Lovenox 40 mg subcu on a daily basis. No other significant events otherwise for now. The most recent chest x-ray from yesterday showed stable bilateral pulmonary infiltrates without any significant interval change. As such, overall condition is still stable. This patient is not vaccinated. He has COVID 19 related pneumonia. He has COPD and hypertension hyperlipidemia and diabetes mellitus. Objective - Vital Signs Vital signs: Vital Signs Temp 98.6 F 08/05/21 05:57 Pulse 74 08/05/21 05:57 Resp 22 08/05/21 05:57 BP 114/76 08/05/21 05:57 Pulse Ox 89 L 08/05/21 05:57 Intake & Output 08/04/21 08/05/21 08/05/21 18:59 06:59 18:59 Other: Voiding Method Urinal Urinal # Voids 3 - Exam General: non toxic, no distress, appears at stated age, obese, currently on 15 L per minute nasal cannula and a 100%NRB Derm: no unusual rashes/lesions no unusual ecchymoses, warm, dry Head: atraumatic, normocephalic, symmetric Eyes: EOMI, no lid lag, anicteric sclera, pupils equal round reactive to light ENT: Nose and ears atraumatic, no thrush, no pharyngeal erythema Neck: No thyromegaly, no cervical lymphadenopathy, trachea midline, supple Mouth: no lip lesion, mucus membranes moist Cardiovascular: S1S2 reg, no murmur, positive posterior tibial pulse bilateral, no edema, capillary refill less than 2 seconds Lungs: Diffuse bilateral rales and rhonchi, no accessory muscle use Abdominal: soft, nontender to palpation, no guarding, no appreciable organomegaly, normal bowel sounds Ext: no gross muscle atrophy, muscle strength 5 out of 5 in all 4 extremities grossly, no contractures, Neuro: CN II-XI grossly intact, light touch intact all 4 extremities, finger to nose within normal limits, - Labs CBC & Chem 7: 08/05/21 09:20 08/05/21 09:20 Labs: Abnormal Lab Results - Last 24 Hours (Table) 08/04/21 08/04/21 08/04/21 Range/Units 06:59 13:58 16:34 WBC (3.8-10.6) k/uL Neutrophils # (1.3-7.7) k/uL Sodium (137-145) mmol/L BUN (9-20) mg/dL Glucose (74-99) mg/dL POC Glucose (mg/dL) 203 H 170 H (75-99) mg/dL AST (17-59) U/L ALT (4-49) U/L Lactate Dehydrogenase 390 H (120-246) U/L C-Reactive Protein 1.80 H (0.00-0.80) mg/dL 08/04/21 08/05/21 08/05/21 Range/Units 20:52 09:20 09:20 WBC 10.8 H (3.8-10.6) k/uL Neutrophils # 8.8 H (1.3-7.7) k/uL Sodium (137-145) mmol/L BUN (9-20) mg/dL Glucose (74-99) mg/dL POC Glucose (mg/dL) 191 H (75-99) mg/dL AST (17-59) U/L ALT (4-49) U/L Lactate Dehydrogenase 1567 H (120-246) U/L C-Reactive Protein (0.00-0.80) mg/dL 08/05/21 Range/Units 09:20 WBC (3.8-10.6) k/uL Neutrophils # (1.3-7.7) k/uL Sodium 135 L (137-145) mmol/L BUN 25 H (9-20) mg/dL Glucose 157 H (74-99) mg/dL POC Glucose (mg/dL) (75-99) mg/dL AST 250 H (17-59) U/L ALT 301 H (4-49) U/L Lactate Dehydrogenase (120-246) U/L C-Reactive Protein (0.00-0.80) mg/dL Assessment and Plan Plan: 1 acute Covid 19 related pneumonia with diffuse bilateral pulmonary infiltrates. The patient is presenting with worsening shortness of breath and a dry cough and hypoxemia. Patient is currently on 100% nonrebreather in addition to 15 L nasal cannula. He feels well. He states that since yesterday, he had a good night sleep and is not getting any worse. I started him on a combination of Decadron and Baricitinib. Remdesivir was discontinued. He remains on Lovenox. The inflammatory markers are being monitored. D-dimer is at low.. I noticed that the patient's LDH level is on the rise. Nevertheless, because the same treatment. Chest x-ray findings from yesterday stable. He remains in the 100% on a beta facemask along with 15 L. He failed airvo 2 acute hypoxic respiratory failure secondary to above 3 diabetes mellitus 4 hypertension 5 hyperlipidemia 6 obesity with a BMI of 39.7 Plan titrate the FiO2 to maintain saturation above 90%, currently on the 15th liters along with 100% nonrebreather continue Decadron 6 mg every 12 hours. Patient was also started on Baricitinib per protocol. Remdesivir was discontinued. The patient will be kept on the same setting. I've instructed RT not to make any switches on his oxygen delivery system at this point in time. He does do better with a full face mask. Inflammatory markers are elevated including LDH. This will be monitored. Chest is a findings are stable. Continue Lovenox 40 mg subcu DVT prophylaxis Monitor the blood sugar and offered the patient a insulin sliding scale coverage Monitor the blood work Chest x-ray was noted and the chest x-ray stable for now We'll reevaluate the patient's condition in a.m. His condition is stable. He needs to be monitored very closely. . \
[2021-08-05 11:44] LABS: Glucose,Whole Blood 198 mg/dL (75-99)
[2021-08-05] MEDS: ALPRAZolam 0.5 MG TAB PO PRN ×2 (11:53→22:17)
--- NOTE | 2021-08-05 13:58 | P.PN ---
Subjective Patient seen and examined at bedside. Patient saturating 94% on high flow 15. Patient denies chest pain. Patient continues to be short of breath. Patient does have a cough. Patient denies fever or chills. Objective - Vital Signs Vital signs: Vital Signs Temp 97.5 F L 08/05/21 13:27 Pulse 79 08/05/21 13:27 Resp 22 08/05/21 13:27 BP 104/68 08/05/21 13:27 Pulse Ox 94 L 08/05/21 13:27 Intake & Output 08/04/21 08/05/21 08/05/21 18:59 06:59 18:59 Other: Voiding Method Urinal Urinal # Voids 3 - Exam General: [non toxic], [no distress], [appears at stated age] Derm: [warm], [dry] Head: [atraumatic], [normocephalic], [symmetric] Eyes: [EOMI], [no lid lag], [anicteric sclera] Mouth: [no lip lesion], [mucus membranes moist] Cardiovascular: [S1S2 reg], [no murmur], [positive posterior tibial pulse bilateral], Lungs: [CTA bilateral], [no rhonchi, no rales] , [no accessory muscle use] Abdominal: [soft], [ nontender to palpation], [no guarding], [no appreciable organomegaly] Ext: [no gross muscle atrophy], [no edema], [no contractures] Neuro: [ CN II-XI grossly intact], [no focal neuro deficits] Psych: [Alert], [oriented], [appropriate affect.] - Labs CBC & Chem 7: 08/05/21 09:20 08/05/21 09:20 Labs: Abnormal Lab Results - Last 24 Hours (Table) 08/04/21 08/04/21 08/04/21 Range/Units 06:59 13:58 16:34 WBC (3.8-10.6) k/uL Neutrophils # (1.3-7.7) k/uL Sodium (137-145) mmol/L BUN (9-20) mg/dL Glucose (74-99) mg/dL POC Glucose (mg/dL) 203 H 170 H (75-99) mg/dL AST (17-59) U/L ALT (4-49) U/L Lactate Dehydrogenase 390 H (120-246) U/L 08/04/21 08/05/21 08/05/21 Range/Units 20:52 09:20 09:20 WBC 10.8 H (3.8-10.6) k/uL Neutrophils # 8.8 H (1.3-7.7) k/uL Sodium (137-145) mmol/L BUN (9-20) mg/dL Glucose (74-99) mg/dL POC Glucose (mg/dL) 191 H (75-99) mg/dL AST (17-59) U/L ALT (4-49) U/L Lactate Dehydrogenase 1567 H (120-246) U/L 08/05/21 08/05/21 Range/Units 09:20 11:38 WBC (3.8-10.6) k/uL Neutrophils # (1.3-7.7) k/uL Sodium 135 L (137-145) mmol/L BUN 25 H (9-20) mg/dL Glucose 157 H (74-99) mg/dL POC Glucose (mg/dL) 198 H (75-99) mg/dL AST 250 H (17-59) U/L ALT 301 H (4-49) U/L Lactate Dehydrogenase (120-246) U/L Assessment and Plan Assessment: COVID 19 pneumonia with acute hypoxic respiratory failure -Supplemental oxygen -Pulmonary following, he is being treated with Decadron and barcitinib Chronic conditions: Type II DM, hypertension, hyperlipidemia -Lispro insulin sliding scale blood glucose monitoring -Continue the remaining home medications DVT prophylaxis -Lovenox CODE STATUS: Full Code Discussed with: Patient Anticipated discharge. date: Unclear Anticipated discharge place: Home
[2021-08-05 16:19] LABS: Glucose,Whole Blood 213 mg/dL (75-99)
[2021-08-05 21:00] LABS: Glucose,Whole Blood 194 mg/dL (75-99)
[2021-08-05] MEDS: ATORVASTATIN 10 MG TAB PO SCH (22:17)
[2021-08-06 07:28] LABS: Glucose,Whole Blood 150 mg/dL (75-99)
[2021-08-06 08:40] LABS: Basophils # (A) 0.1 k/uL (0-0.2); Basophils % (A) 0 %; Eosinophils % (A) 0 %; HCT 48.4 % (39.0-53.0); HGB 15.9 gm/dL (13.0-17.5); Lymphocytes # (A) 0.7 k/uL (1.0-4.8); Lymphocytes % (A) 6 %; MCH 30.7 pg (25.0-35.0); MCHC 32.9 g/dL (31.0-37.0); MCV 93.6 fL (80.0-100.0); Mean Platelet Volume 8.3; Monocytes # (A) 0.6 k/uL (0-1.0); Monocytes % (A) 5 %; Neutrophils # (A) 10.1 k/uL (1.3-7.7); Neutrophils % (A) 86 %; Platelet Count 344 k/uL (150-450); RBC 5.17 m/uL (4.30-5.90); WBC 11.7 k/uL (3.8-10.6)
[2021-08-06 08:50] LABS: ALT 501 U/L (4-49); AST 231 U/L (17-59); African American GFR (CKD) >90 (>60 ml/min/1.73 sqM); Albumin 3.7 g/dL (3.5-5.0); Albumin/Globulin Ratio 1.1; Alkaline Phosphatase 65 U/L (38-126); Anion Gap 14 mmol/L; Blood Urea Nitrogen 23 mg/dL (9-20); Calcium 8.5 mg/dL (8.4-10.2); Carbon Dioxide 21 mmol/L (22-30); Chloride 100 mmol/L (98-107); Globulin 3.5 g/dL; LDH 1598 U/L (313-618); Non-African American GFR(CKD) >90 (>60 ml/min/1.73 sqM); Potassium 5.2 mmol/L (3.5-5.1); Sodium 135 mmol/L (137-145); Total Bilirubin 0.9 mg/dL (0.2-1.3); Total Protein 7.2 g/dL (6.3-8.2)
[2021-08-06 08:51] LABS: Glucose 157 mg/dL (74-99)
[2021-08-06] MEDS: CHOLECALCIFEROL 25 MCG (1000 IU) TABLET PO SCH (08:52)
[2021-08-06] MEDS: INSULIN ASPART (NovoLOG) 100 UNIT/ML VIAL SQ SCH ×4 (08:52→21:15)
[2021-08-06] MEDS: ZINC SULFATE 220 MG CAP PO SCH (08:52)
[2021-08-06] MEDS: ENOXAPARIN 40 MG/0.4 ML SYRINGE SQ SCH (08:52)
[2021-08-06] MEDS: ASCORBIC ACID 500 MG TAB PO SCH (08:52)
[2021-08-06] MEDS: dexAMETHasone 2 MG TAB PO SCH ×2 (08:52→21:15)
[2021-08-06 08:59] LABS: ALT 523 U/L (4-49); AST 252 U/L (17-59); African American GFR (CKD) >90 (>60 ml/min/1.73 sqM); Albumin 3.9 g/dL (3.5-5.0); Albumin/Globulin Ratio 1.1; Alkaline Phosphatase 72 U/L (38-126); Anion Gap 11 mmol/L; Blood Urea Nitrogen 23 mg/dL (9-20); Calcium 9.1 mg/dL (8.4-10.2); Carbon Dioxide 23 mmol/L (22-30); Chloride 103 mmol/L (98-107); Globulin 3.7 g/dL; Glucose 189 mg/dL (74-99); Non-African American GFR(CKD) >90 (>60 ml/min/1.73 sqM); Potassium 4.9 mmol/L (3.5-5.1); Sodium 137 mmol/L (137-145); Total Bilirubin 0.9 mg/dL (0.2-1.3); Total Protein 7.6 g/dL (6.3-8.2)
[2021-08-06 10:13] LABS: C Reactive Protein <0.5 mg/dL (<1.0)
[2021-08-06 11:35] LABS: Glucose,Whole Blood 192 mg/dL (75-99)
--- NOTE | 2021-08-06 16:01 | P.PN ---
Subjective Progress Note Date: 08/06/21 Hospital course: Patient is a 65-year-old male with a past medical history of hypertension, hyperlipidemia, and type II [id number] diabetes mellitus. He presented to the hospital on 08/02/21 with a chief complaint of shortness of breath and coughing. Patient was unvaccinated for Covid and reports he began experiencing complaints of shortness of breath and wheezing around July 23 and after these symptoms progressively worsened he was seen and evaluated on July 30 and tested positive for Covid 19 virus infection. upon arrival to the emergency department, patient found to be significantly hypoxic requiring oxygen supplementation. Patient initially 86% on room air. Chest x-ray revealed bilateral mid to lower lung multifocal opacities consistent with Covid 19 infection. Pt admitted under the services with consultation to pulmonology. LDH 1598 and d-dimer 3.78. CT PE ordered. Physical examination: patient seen and fully evaluated at the bedside this morning. Patient on 15 L high flow nasal cannula and 15 L nonrebreather. Patient was noted conversatio nal dyspnea. Patient reports continued shortness of breath worsening with minimal exertion. Patient encouraged to refrain from exerting self and use urinal at bedside. lungs with equal air movement, no wheezing, rhonchi or rales Pt does have crackles at bilateral bases. patient denies experiencing any headache, lightheadedness, dizziness, chest pain, palpitations, nausea, vomiting, or experiencing any numbness/tingling/weakness in his extremities. General: Nontoxic, mild distress secondary to conversational dyspnea. Derm: Skin warm and dry, normal coloration for ethnicity. Head: Atraumatic, normocephalic and symmetric. Eyes: EOMs intact, no lid lag, and anicteric sclera Mouth: no lip lesions, mucus membranes moist Cardiovascular: regular rate and rhythm with normal S1S2, no murmur, positive posterior tibial pulses bilaterally, and cap refill < 2 seconds. Lungs: increased respiratory effort, conversational dyspnea. bibasilar crackles. Patient on 15 L high flow nasal cannula and 15 L nonrebreather. Abdominal: soft, nontender to palpation, no guarding, no appreciable organome james Ext: ROM intact. No gross muscle atrophy, no edema, no contractures Neuro: Speech clear, face symmetrical and CN II-XII grossly intact with no noted focal neuro deficits Psych: Alert and oriented to person, place, time, and situation. Appropriate and pleasant affect. Assessment and Plan of Care: Acute respiratory failure with hypoxia secondary to COVID 19 pneumonia -Oxygenation to be administered and titrated as needed to maintain SPO2 equal to or greater than 90% -Telemetry monitoring. -Continue trending inflammatory markers -Pt received two doses of Baricitinib -Encourage Incentive Spirometry 10-15x hourly while awake -Steroids: Decadron 6 mg daily, day 01/29 -Continue vitamin C, Vitamin D, and Zinc. -Pulmonology following, appreciate further recommendations. Type II [id number] diabetes mellitus Hold Glucophage at this time and place patient on glycemic protocol with NovoLog sliding scale. Hypertension Monitor vital signs and continue daily medication regimen with lisinopril. CODE STATUS: full code DVT prophylaxis: Lovenox Discussed with: Pt and RN Anticipated discharge date: clinical course to determine Anticipated discharge place: Home A total of 45 minutes was spent on the care of this complex patient more than 50% of the time was spent in counseling and care coordination. Objective - Vital Signs Vital signs: Vital Signs Temp 97.4 F L 08/06/21 05:51 Pulse 80 08/06/21 05:51 Resp 17 08/06/21 05:51 BP 109/74 08/06/21 05:51 Pulse Ox 90 L 08/06/21 05:51 Intake & Output 08/05/21 08/06/21 08/06/21 18:59 06:59 18:59 Output Total 800 Balance -800 Output: Urine 800 Other: Voiding Method Urinal # Voids 3 # Bowel Movements 1 - Labs CBC & Chem 7: 08/06/21 07:43 08/06/21 08:39 Labs: Abnormal Lab Results - Last 24 Hours (Table) 08/05/21 08/05/21 08/05/21 Range/Units 09:20 09:20 09:20 WBC 10.8 H (3.8-10.6) k/uL Neutrophils # 8.8 H (1.3-7.7) k/uL Sodium 135 L (137-145) mmol/L BUN 25 H (9-20) mg/dL Glucose 157 H (74-99) mg/dL POC Glucose (mg/dL) (75-99) mg/dL AST 250 H (17-59) U/L ALT 301 H (4-49) U/L Lactate Dehydrogenase 1567 H (313-618) U/L 08/05/21 08/05/21 08/05/21 Range/Units 11:38 16:18 20:57 WBC (3.8-10.6) k/uL Neutrophils # (1.3-7.7) k/uL Sodium (137-145) mmol/L BUN (9-20) mg/dL Glucose (74-99) mg/dL POC Glucose (mg/dL) 198 H 213 H 194 H (75-99) mg/dL AST (17-59) U/L ALT (4-49) U/L Lactate Dehydrogenase (313-618) U/L 08/06/21 Range/Units 07:17 WBC (3.8-10.6) k/uL Neutrophils # (1.3-7.7) k/uL Sodium (137-145) mmol/L BUN (9-20) mg/dL Glucose (74-99) mg/dL POC Glucose (mg/dL) 150 H (75-99) mg/dL AST (17-59) U/L ALT (4-49) U/L Lactate Dehydrogenase (313-618) U/L
[2021-08-06 17:10] LABS: Glucose,Whole Blood 166 mg/dL (75-99)
--- NOTE | 2021-08-06 18:24 | P.PN ---
Subjective Progress Note Date: 08/06/21 Principal diagnosis: Hypoxia, pneumonia, COVID-19 65-year-old male patient was being Hospital as for COVID 19nrelated pneumonia. The patient is known to have COPD, hypertension and hyperlipidemia and diabetes mellitus. He presented emergency department with worsening shortness of breath. He reports that his symptoms started on 07/26/2021 and he progressively got worse. On he tested positive for COVID 19 and the patient received Decadron through his primary care physician. Unfortunately his condition got worse. He continued to have increased shortness of breath and dry cough. He was febrile. He presented to the ED with a pulse ox of mid 80s. His chest x- ray showed diffuse bilateral pulmonary infiltrates consistent with Covid 19 related pneumonia. His blood work showed a potassium level of 5.3, sodium level of 132, serum bicarb was 20, BUN was 19 with a creatinine of 0.8, lymphocyte count of 0.4 with a white cell count of 7.5. The patient was started on Decadron 6 mg by mouth daily and the patient was also given Lovenox 40 mg subcu daily prophylaxis. He is currently on IV fluids with normal saline at the rate of 75 mL an hour. He is on oxygen. He was placed on 6 L and he is currently down to 4 L per minute nasal cannula.He is not vaccinated 08/03/2021, the patient is being seen for a follow-up. The patient remains in The emergency department. I saw him yesterday in consultation. He was only on 4 L, he was brought up to 6 L and subsequently he is up to 13 L for now and his current pulse ox is around 88-90%. As such, his FiO2 needs to be further titrated to bring him above 90%. Meanwhile, I started him on a combination of D ecadron under the severe yesterday. I think of the severity needs to be switched to Baricitinib and will continue Decadron for now. He is coughing. He is hemodynamically stable. White cell count is 6.3. D-dimer 0.3. Inflammatory markers are still pending for now. Blood sugars today as 170. He is on insulin sliding scale coverage for blood sugar control. 08/04/2021, the patient is 1100% nonrebreather facemask. I'm seeing this patient for a follow-up today. Note that his oxygenation was gradually getting worse. He came in to us with 4 L and subsequently and up on a nonrebreather facemask. During the course of his progression, I'm stop the Remdesivir put the patient on a combination of Decadron and Baricitinib. Blood work from today still pending. I do have a d-dimer that is showing is 0.44 level. The glucose is 163. In terms of the inflammatory markers, the pro-calcitonin level was 0.1. The patient remains on Lovenox for DVT prophylaxis. Repeat chest x-ray shows no major interval change in the findings are essentially stable. On 08/05/2021, the patient remains on 15 L nasal cannula and 100% on a beta facemask. Earlier, there was a unsuccessful attempt by RT to switch this patient to a high flow oxygen. I think the idea was very good. The execution and the results are not to be not good and the patient desaturated significantly and the medication quite anxious. For that reason the patient was placed back on his original settings. His white cell count is at 10.8 with a hemoglobin of 15.3. D-dimer remains low at 0.55. Electrolytes are all within normal limits per normal renal function. His LDH level is higher and currently is at 1568 with a CRP of 0.7. I have this patient on a combination of Decadron 6 mg twice a day and he is also on Baricitinib per protocol. He remains on Lovenox 40 mg subcu on a daily basis. No other significant events otherwise for now. The most recent chest x-ray from yesterday showed stable bilateral pulmonary infilt rates without any significant interval change. As such, overall condition is still stable. This patient is not vaccinated. He has COVID 19 related pneumonia. He has COPD and hypertension hyperlipidemia and diabetes mellitus. On 08/06/2021 patient seen in follow-up on medical surgical floor. He is currently on 15 L per high flow nasal cannula, and 100% nonrebreather mask, his pulse ox is ranging between 80 1993%, afebrile, hemodynamically he is stable, she is short of breath with any activity. Denies any chest discomfort. Has occasional nonproductive cough. On today's labs as LFTs noted to be still elevated with AST 252, ALT of 523, and alkaline phosphatase is 72, and his Baricitinib was discontinued and Lipitor was placed on hold. His LDH on today's labs is 1598, and CRP is less than 0.5. The d-dimer today is 3.78. CT of the chest has been ordered and pending at this time, current treatment for COVID-19 pneumonia it consisting of Decadron 6 mg twice a day, Lovenox 40 mg daily, and COVID-19 vitamins. Objective - Vital Signs Vital signs: Vital Signs Temp 96.9 F L 08/06/21 18:11 Pulse 86 08/06/21 18:11 Resp 17 08/06/21 18:11 BP 133/79 08/06/21 18:11 Pulse Ox 90 L 08/06/21 18:11 Intake & Output 08/05/21 08/06/21 08/06/21 18:59 06:59 18:59 Output Total 800 550 Balance -800 -550 Output: Urine 800 550 Other: Voiding Method Urinal # Voids 3 1 # Bowel Movements 1 - Exam GENERAL EXAM: Alert, very pleasant, 65-year-old white male, on 15 L per high flow nasal cannula, and her percent nonrebreather mask with a pulse ox of 93% comfortable in no apparent distress. HEAD: Normocephalic/atraumatic. EYES: Normal reaction of pupils, equal size. Conjunctiva pink, sclera white. NOSE: Clear with pink turbinates. THROAT: No erythema or exudates. NECK: No masses, no JVD, no thyroid enlargement, no adenopathy. CHEST: No chest wall deformity. Symmetrical expansion. LUNGS: Equal air entry with bilateral crackles CVS: Regular rate and rhythm, normal S1 and S2, no gallops, no murmurs, no rubs ABDOMEN: Soft, nontender. No hepatosplenomegaly, normal bowel sounds, no guarding or rigidity. EXTREMITIES: No clubbing, no edema, no cyanosis, 2+ pulses and upper and lower extremities. MUSCULOSKELETAL: Muscle strength and tone normal. SPINE: No scoliosis or deformity SKIN: No rashes CENTRAL NERVOUS SYSTEM: Alert and oriented -3. No focal deficits, tone is normal in all 4 extremities. PSYCHIATRIC: Alert and oriented -3. Appropriate affect. Intact judgment and insight. - Labs CBC & Chem 7: 08/06/21 07:43 08/06/21 08:39 Labs: Abnormal Lab Results - Last 24 Hours (Table) 08/05/21 08/06/21 08/06/21 Range/Units 20:57 07:17 07:43 WBC 11.7 H (3.8-10.6) k/uL Neutrophils # 10.1 H (1.3-7.7) k/uL Lymphocytes # 0.7 L (1.0-4.8) k/uL D-Dimer (<0.60) mg/L FEU Sodium (137-145) mmol/L Potassium (3.5-5.1) mmol/L Carbon Dioxide (22-30) mmol/L BUN (9-20) mg/dL Glucose (74-99) mg/dL POC Glucose (mg/dL) 194 H 150 H (75-99) mg/dL AST (17-59) U/L ALT (4-49) U/L Lactate Dehydrogenase (313-618) U/L 08/06/21 08/06/21 08/06/21 Range/Units 08:20 08:39 08:39 WBC (3.8-10.6) k/uL Neutrophils # (1.3-7.7) k/uL Lymphocytes # (1.0-4.8) k/uL D-Dimer 3.78 H (<0.60) mg/L FEU Sodium 135 L (137-145) mmol/L Potassium 5.2 H (3.5-5.1) mmol/L Carbon Dioxide 21 L (22-30) mmol/L BUN 23 H 23 H (9-20) mg/dL Glucose 157 H 189 H (74-99) mg/dL POC Glucose (mg/dL) (75-99) mg/dL AST 231 H 252 H (17-59) U/L ALT 501 H 523 H (4-49) U/L Lactate Dehydrogenase 1598 H (313-618) U/L 08/06/21 08/06/21 Range/Units 11:19 17:08 WBC (3.8-10.6) k/uL Neutrophils # (1.3-7.7) k/uL Lymphocytes # (1.0-4.8) k/uL D-Dimer (<0.60) mg/L FEU Sodium (137-145) mmol/L Potassium (3.5-5.1) mmol/L Carbon Dioxide (22-30) mmol/L BUN (9-20) mg/dL Glucose (74-99) mg/dL POC Glucose (mg/dL) 192 H 166 H (75-99) mg/dL AST (17-59) U/L ALT (4-49) U/L Lactate Dehydrogenase (313-618) U/L Assessment and Plan Plan: Assessment: #1. Acute hypoxic respiratory failure related to acute COVID-19 pneumonia. Patient received a single dose of Remdesivir in the emergency department, however in view of rapid progression of his hypoxemia he was started on a combination of Decadron and baricitinib. #2. Increased inflammatory markers related to the above #3. Elevated d-dimer, CTA of the chest is pending #4. Diabetes mellitus type II #5. Hypertension #6. Hyperlipidemia #7. Obesity with BMI of 39.70 #8. Increased LFTs, related to viral pneumonia or medication related, Baricitinib discontinued on 08/06/2021 Plan: Continue current medical treatment Continue Decadron Continue Lovenox We'll stop the Baricitinib We'll monitor LFTs Obtain CTA chest to rule out possibility of pulmonary embolism We'll continue to follow his clinical course Overall prognosis is guarded I performed a history & physical examination of the patient and discussed their management with my nurse practitioner, Mari Le. I reviewed the nurse practitioner's note and agree with the documented findings and plan of care. Lung sounds are positive for diffuse crackles throughout the lung dai. The findings and the impression was discussed with the patient. I attest to the documentation by the nurse practitioner. Time with Patient: Less than 30
[2021-08-06 20:09] LABS: Glucose,Whole Blood 190 mg/dL (75-99)
--- NOTE | 2021-08-06 20:13 | CT ---
EXAMINATION TYPE: CT chest angio for PE DATE OF EXAM: 08/06/2021 COMPARISON: None HISTORY: Difficulty breathing and elevated d-dimer. CT DLP: 636 mGycm Automated exposure control for dose reduction was used. CONTRAST: Performed with IV Contrast, patient injected with 100 mL of Isovue 370. Images obtained from the thoracic inlet to the diaphragm with IV contrast. There are 3-D post process ed images. There is moderate patchy interstitial and airspace infiltrate and atelectasis in both lung dai. Th ere is some coalescent density at the posterior lung bases. Heart size is normal. There is no pericar dial effusion. There is no mediastinal adenopathy. There are no hilar masses. There is normal contras t opacification of the pulmonary arteries. There are a few bronchial lymph nodes up to 1 cm. Thoracic aorta is intact. There is no aneurysm or dissection. The bony thorax is intact. There is no compression fracture. IMPRESSION: No evidence of pulmonary embolism. Extensive bilateral pulmonary infiltrates.
[2021-08-07 07:18] LABS: Glucose,Whole Blood 161 mg/dL (75-99)
[2021-08-07] MEDS: CHOLECALCIFEROL 25 MCG (1000 IU) TABLET PO SCH (07:26)
[2021-08-07] MEDS: dexAMETHasone 2 MG TAB PO SCH ×2 (07:26→21:02)
[2021-08-07] MEDS: ZINC SULFATE 220 MG CAP PO SCH (07:26)
[2021-08-07] MEDS: ASCORBIC ACID 500 MG TAB PO SCH (07:26)
[2021-08-07] MEDS: INSULIN ASPART (NovoLOG) 100 UNIT/ML VIAL SQ SCH ×4 (07:26→21:02)
[2021-08-07] MEDS: ENOXAPARIN 40 MG/0.4 ML SYRINGE SQ SCH (07:27)
--- NOTE | 2021-08-07 10:07 | US ---
EXAMINATION TYPE: US venous doppler duplex LE DATE OF EXAM: 08/07/2021 9:53 AM COMPARISON: NONE CLINICAL HISTORY: elevated d-dimer. SOB SIDE PERFORMED: Bilateral TECHNIQUE: The lower extremity deep venous system is examined utilizing real time linear array sonog sarah with graded compression, doppler sonography and color-flow sonography. VESSELS IMAGED: Common Femoral Vein Deep Femoral Vein Greater Saphenous Vein * Femoral Vein Popliteal Vein Small Saphenous Vein * Proximal Calf Veins (* superficial vessels) Right Leg: Negative for DVT Left Leg: Negative for DVT IMPRESSION: Grayscale, color doppler, spectral doppler imaging performed of the deep veins of the lo wer extremities. There is normal flow, compressibility, vascular waveforms.
[2021-08-07 11:37] LABS: Glucose,Whole Blood 180 mg/dL (75-99)
--- NOTE | 2021-08-07 12:22 | P.PN ---
Subjective Progress Note Date: 08/07/21 Principal diagnosis: Hypoxia, pneumonia, COVID-19 65-year-old male patient was being Hospital as for COVID 19nrelated pneumonia. The patient is known to have COPD, hypertension and hyperlipidemia and diabetes mellitus. He presented emergency department with worsening shortness of breath. He reports that his symptoms started on 07/26/2021 and he progressively got worse. On he tested positive for COVID 19 and the patient received Decadron through his primary care physician. Unfortunately his condition got worse. He continued to have increased shortness of breath and dry cough. He was febrile. He presented to the ED with a pulse ox of mid 80s. His chest x- ray showed diffuse bilateral pulmonary infiltrates consistent with Covid 19 related pneumonia. His blood work showed a potassium level of 5.3, sodium level of 132, serum bicarb was 20, BUN was 19 with a creatinine of 0.8, lymphocyte count of 0.4 with a white cell count of 7.5. The patient was started on Decadron 6 mg by mouth daily and the patient was also given Lovenox 40 mg subcu daily prophylaxis. He is currently on IV fluids with normal saline at the rate of 75 mL an hour. He is on oxygen. He was placed on 6 L and he is currently down to 4 L per minute nasal cannula.He is not vaccinated 08/03/2021, the patient is being seen for a follow-up. The patient remains in The emergency department. I saw him yesterday in consultation. He was only on 4 L, he was brought up to 6 L and subsequently he is up to 13 L for now and his current pulse ox is around 88-90%. As such, his FiO2 needs to be further titrated to bring him above 90%. Meanwhile, I started him on a combination of D ecadron under the severe yesterday. I think of the severity needs to be switched to Baricitinib and will continue Decadron for now. He is coughing. He is hemodynamically stable. White cell count is 6.3. D-dimer 0.3. Inflammatory markers are still pending for now. Blood sugars today as 170. He is on insulin sliding scale coverage for blood sugar control. 08/04/2021, the patient is 1100% nonrebreather facemask. I'm seeing this patient for a follow-up today. Note that his oxygenation was gradually getting worse. He came in to us with 4 L and subsequently and up on a nonrebreather facemask. During the course of his progression, I'm stop the Remdesivir put the patient on a combination of Decadron and Baricitinib. Blood work from today still pending. I do have a d-dimer that is showing is 0.44 level. The glucose is 163. In terms of the inflammatory markers, the pro-calcitonin level was 0.1. The patient remains on Lovenox for DVT prophylaxis. Repeat chest x-ray shows no major interval change in the findings are essentially stable. On 08/05/2021, the patient remains on 15 L nasal cannula and 100% on a beta facemask. Earlier, there was a unsuccessful attempt by RT to switch this patient to a high flow oxygen. I think the idea was very good. The execution and the results are not to be not good and the patient desaturated significantly and the medication quite anxious. For that reason the patient was placed back on his original settings. His white cell count is at 10.8 with a hemoglobin of 15.3. D-dimer remains low at 0.55. Electrolytes are all within normal limits per normal renal function. His LDH level is higher and currently is at 1568 with a CRP of 0.7. I have this patient on a combination of Decadron 6 mg twice a day and he is also on Baricitinib per protocol. He remains on Lovenox 40 mg subcu on a daily basis. No other significant events otherwise for now. The most recent chest x-ray from yesterday showed stable bilateral pulmonary infilt rates without any significant interval change. As such, overall condition is still stable. This patient is not vaccinated. He has COVID 19 related pneumonia. He has COPD and hypertension hyperlipidemia and diabetes mellitus. On 08/06/2021 patient seen in follow-up on medical surgical floor. He is currently on 15 L per high flow nasal cannula, and 100% nonrebreather mask, his pulse ox is ranging between 80 1993%, afebrile, hemodynamically he is stable, she is short of breath with any activity. Denies any chest discomfort. Has occasional nonproductive cough. On today's labs as LFTs noted to be still elevated with AST 252, ALT of 523, and alkaline phosphatase is 72, and his Baricitinib was discontinued and Lipitor was placed on hold. His LDH on today's labs is 1598, and CRP is less than 0.5. The d-dimer today is 3.78. CT of the chest has been ordered and pending at this time, current treatment for COVID-19 pneumonia it consisting of Decadron 6 mg twice a day, Lovenox 40 mg daily, and COVID-19 vitamins. On 08/07/2021 patient seen in follow-up on medical surgical floor. He remains on 15 L per high flow nasal cannula, and 100% nonrebreather mask, his pulse ox is 89-90%, patient easily desaturates with any activity, he is a bit more dyspneic on today's exam, however he could not tolerate the Airvo, he felt that he was very bulky, and was drying out his nasal airways. Denies any chest pain, his been afebrile, hemodynamically has been stable, lung sounds reveal diffuse crackles at bilateral lower bases. CT chest has been completed and showed no evidence of pulmonary embolism, there were extensive bilateral pulmonary infiltrates. Yesterday we stopped his Baricitinib and Lipitor in view of increasing LFTs, today's labs are still pending today. D-dimer and LFTs in addition to inflammatory markers were ordered, however only d-dimer has resulted so far, and it is uptrending and is up to 6.4 on today's labs. Lower extremity Dopplers showed no evidence of DVT. Current treatment includes Decadron 6 mg twice daily, he is on Lovenox 40 mg daily, and he is on COVID-19 vitamins. He is on sliding scale NovoLog, his blood sugars are in the 180s to 190s. Objective - Vital Signs Vital signs: Vital Signs Temp 97.8 F 08/07/21 10:00 Pulse 86 08/07/21 10:00 Resp 22 08/07/21 10:00 BP 121/76 08/07/21 10:00 Pulse Ox 90 L 08/07/21 10:00 Intake & Output 08/06/21 08/07/21 08/07/21 18:59 06:59 18:59 Output Total 550 300 Balance -550 -300 Output: Urine 550 300 Other: Voiding Method Urinal # Voids 1 - Exam GENERAL EXAM: Alert, very pleasant, 65-year-old white male, on 15 L per high flow nasal cannula, and 100% percent nonrebreather mask with a pulse ox of 89- 90% dyspneic at rest HEAD: Normocephalic/atraumatic. EYES: Normal reaction of pupils, equal size. Conjunctiva pink, sclera white. NOSE: Clear with pink turbinates. THROAT: No erythema or exudates. NECK: No masses, no JVD, no thyroid enlargement, no adenopathy. CHEST: No chest wall deformity. Symmetrical expansion. LUNGS: Equal air entry with bilateral crackles CVS: Regular rate and rhythm, normal S1 and S2, no gallops, no murmurs, no rubs ABDOMEN: Soft, nontender. No hepatosplenomegaly, normal bowel sounds, no guarding or rigidity. EXTREMITIES: No clubbing, no edema, no cyanosis, 2+ pulses and upper and lower extremities. MUSCULOSKELETAL: Muscle strength and tone normal. SPINE: No scoliosis or deformity SKIN: No rashes CENTRAL NERVOUS SYSTEM: Alert and oriented -3. No focal deficits, tone is normal in all 4 extremities. PSYCHIATRIC: Alert and oriented -3. Appropriate affect. Intact judgment and insight. - Labs CBC & Chem 7: 08/06/21 07:43 08/06/21 08:39 Labs: Abnormal Lab Results - Last 24 Hours (Table) 08/06/21 08/06/21 08/07/21 Range/Units 17:08 20:06 06:07 D-Dimer 6.40 H (<0.60) mg/L FEU POC Glucose (mg/dL) 166 H 190 H (75-99) mg/dL 08/07/21 08/07/21 Range/Units 07:17 11:36 D-Dimer (<0.60) mg/L FEU POC Glucose (mg/dL) 161 H 180 H (75-99) mg/dL Assessment and Plan Plan: Assessment: #1. Acute hypoxic respiratory failure related to acute COVID-19 pneumonia. Patient received a single dose of Remdesivir in the emergency department, however in view of rapid progression of his hypoxemia he was started on a combination of Decadron and baricitinib. #2. Increased inflammatory markers related to the above #3. Elevated d-dimer, CTA of the chest is pending #4. Diabetes mellitus type II #5. Hypertension #6. Hyperlipidemia #7. Obesity with BMI of 39.70 #8. Increased LFTs, related to viral pneumonia or medication related, Baricitinib discontinued on 08/06/2021 Plan: Patient continues on high flow oxygen, currently with a combination of 15 L nasal cannula and 100 percent nonrebreather mask Could not tolerate Airvo May have to offer BiPAP support if develops worsening dyspnea, and respiratory fatigue Baricitinib remains on hold Follow-up LFTs have been ordered and pending at this time Lower extremity Dopplers were negative for DVT, CT angiogram of the chest was negative for PE continue current dose Lovenox Continue Decadron If further deterioration we will transfer to the intensive care unit Continue current medical treatment Overall prognosis is very guarded I performed a history & physical examination of the patient and discussed their management with my nurse practitioner, Mari Le. I reviewed the nurse practitioner's note and agree with the documented findings and plan of care. Lung sounds are positive for diffuse crackles throughout the lung dai. The findings and the impression was discussed with the patient. I attest to the documentation by the nurse practitioner. Time with Patient: Less than 30
[2021-08-07 16:33] LABS: Glucose,Whole Blood 167 mg/dL (75-99)
--- NOTE | 2021-08-07 17:09 | P.PN ---
Subjective Progress Note Date: 08/07/21 Hospital course: Patient is a 65-year-old male with a past medical history of hypertension, hyperlipidemia, and type II [id number] diabetes mellitus. He presented to the hospital on 08/02/21 with a chief complaint of shortness of breath and coughing. Patient was unvaccinated for Covid and reports he began experiencing complaints of shortness of breath and wheezing around July 23 and after these symptoms progressively worsened he was seen and evaluated on July 30 and tested positive for Covid 19 virus infection. upon arrival to the emergency department, patient found to be significantly hypoxic requiring oxygen supplementation. Patient initially 86% on room air. Chest x-ray revealed bilateral mid to lower lung multifocal opacities consistent with Covid 19 infection. Pt admitted under the services with consultation to pulmonology. LDH 1598 and d-dimer 3.78. CT PE ordered. Physical examination: Patient seen and fully evaluated at the bedside this morning. Patient remains on 15 L high flow nasal cannula +15 L nonrebreather mask. Patient continues to report dyspnea with exertion and at rest. Inflammatory markers continue to rise with d-dimer of 6.40, and LDH of 444. Patient underwent bilateral lower extremity. Dopplers negative for DVT. CTA chest negative for PE showing extensi ve bilateral pulmonary infiltrates consistent with Covid 19 pneumonia. Pt does have crackles at bilateral bases. Patient denies experiencing any headache, lightheadedness, dizziness, chest pain, palpitations, nausea, vomiting, or experiencing any numbness/tingling/weakness in his extremities. General: Nontoxic, mild distress secondary to conversational dyspnea. Derm: Skin warm and dry, normal coloration for ethnicity. Head: Atraumatic, normocephalic and symmetric. Eyes: EOMs intact, no lid lag, and anicteric sclera Mouth: no lip lesions, mucus membranes moist Cardiovascular: regular rate and rhythm with normal S1S2, no murmur, positive posterior tibial pulses bilaterally, and cap refill < 2 seconds. Lungs: increased respiratory effort, conversational dyspnea. bibasilar crackles. Patient on 15 L high flow nasal cannula and 15 L nonrebreather. Abdominal: soft, nontender to palpation, no guarding, no appreciable organomegaly Ext: ROM intact. No gross muscle atrophy, no edema, no contractures. pt with amputation Neuro: Speech clear, face symmetrical and CN II-XII grossly intact with no noted focal neuro deficits Psych: Alert and oriented to person, place, time, and situation. Appropriate and pleasant affect. Assessment and Plan of Care: Acute respiratory failure with hypoxia secondary to COVID 19 pneumonia -Oxygenation to be administered and titrated as needed to maintain SPO2 equal to or greater than 90% -Telemetry monitoring. -Continue trending inflammatory markers -Pt received two doses of Baricitinib -Encourage Incentive Spirometry 10-15x hourly while awake -Steroids: Decadron 6 mg twice daily, day 03/01 -Continue vitamin C, Vitamin D, and Zinc. -Pulmonology following, appreciate further recommendations. Type II [id number] diabetes mellitus Hold Glucophage at this time and place patient on glycemic protocol with NovoLog sliding scale. Hypertension Monitor vital signs and continue daily medication regimen with lisinopril. CODE STATUS: full code DVT prophylaxis: Lovenox Discussed with: Pt and RN and pt's Nancy via telephone Anticipated discharge date: clinical course to determine Anticipated discharge place: Home A total of 45 minutes was spent on the care of this complex patient more than 50% of the time was spent in counseling and care coordination. Objective - Vital Signs Vital signs: Vital Signs Temp 98.3 F 08/06/21 22:12 Pulse 95 08/07/21 05:21 Resp 18 08/07/21 05:21 BP 100/69 08/07/21 05:21 Pulse Ox 94 L 08/07/21 08:25 Intake & Output 08/06/21 08/07/21 08/07/21 18:59 06:59 18:59 Output Total 550 300 Balance -550 -300 Output: Urine 550 300 Other: Voiding Method Urinal # Voids 1 - Labs CBC & Chem 7: 08/06/21 07:43 08/06/21 08:39 Labs: Abnormal Lab Results - Last 24 Hours (Table) 08/06/21 08/06/21 08/06/21 Range/Units 07:43 08:20 08:39 WBC 11.7 H (3.8-10.6) k/uL Neutrophils # 10.1 H (1.3-7.7) k/uL Lymphocytes # 0.7 L (1.0-4.8) k/uL D-Dimer 3.78 H (<0.60) mg/L FEU Sodium 135 L (137-145) mmol/L Potassium 5.2 H (3.5-5.1) mmol/L Carbon Dioxide 21 L (22-30) mmol/L BUN 23 H (9-20) mg/dL Glucose 157 H (74-99) mg/dL POC Glucose (mg/dL) (75-99) mg/dL AST 231 H (17-59) U/L ALT 501 H (4-49) U/L Lactate Dehydrogenase 1598 H (313-618) U/L 08/06/21 08/06/21 08/06/21 Range/Units 08:39 11:19 17:08 WBC (3.8-10.6) k/uL Neutrophils # (1.3-7.7) k/uL Lymphocytes # (1.0-4.8) k/uL D-Dimer (<0.60) mg/L FEU Sodium (137-145) mmol/L Potassium (3.5-5.1) mmol/L Carbon Dioxide (22-30) mmol/L BUN 23 H (9-20) mg/dL Glucose 189 H (74-99) mg/dL POC Glucose (mg/dL) 192 H 166 H (75-99) mg/dL AST 252 H (17-59) U/L ALT 523 H (4-49) U/L Lactate Dehydrogenase (313-618) U/L 08/06/21 08/07/21 08/07/21 Range/Units 20:06 06:07 07:17 WBC (3.8-10.6) k/uL Neutrophils # (1.3-7.7) k/uL Lymphocytes # (1.0-4.8) k/uL D-Dimer 6.40 H (<0.60) mg/L FEU Sodium (137-145) mmol/L Potassium (3.5-5.1) mmol/L Carbon Dioxide (22-30) mmol/L BUN (9-20) mg/dL Glucose (74-99) mg/dL POC Glucose (mg/dL) 190 H 161 H (75-99) mg/dL AST (17-59) U/L ALT (4-49) U/L Lactate Dehydrogenase (313-618) U/L
[2021-08-07] MEDS: ALPRAZolam 0.5 MG TAB PO PRN (17:25)
[2021-08-07 18:44] LABS: African American GFR (CKD) 99.4 (60.0-200.0); Albumin 3.9 g/dL (3.8-4.9); Albumin/Globulin Ratio 1.16 (1.60-3.17); Anion Gap 16.3 mmol/L (4.00-12.00); BUN/Creat Ratio 22.13 Ratio (12.00-20.00); Blood Urea Nitrogen 20.6 mg/dL (9.0-27.0); C Reactive Protein 1.6 mg/dL (0.00-0.80); Calcium 8.9 mg/dL (8.7-10.3); Carbon Dioxide 18.7 mmol/L (21.6-31.8); Globulin 3.3 g/dL (1.6-3.3); Non-African American GFR(CKD) 85.7 (60.0-200.0); Total Bilirubin 0.6 mg/dL (0.30-1.20); Total Protein 7.2 g/dL (6.2-8.2)
[2021-08-07 21:11] LABS: Glucose,Whole Blood 246 mg/dL (75-99)
[2021-08-08] MEDS: ALPRAZolam 0.5 MG TAB PO PRN (00:30)
[2021-08-08 07:31] LABS: Glucose,Whole Blood 144 mg/dL (75-99)
[2021-08-08] MEDS: ENOXAPARIN 40 MG/0.4 ML SYRINGE SQ SCH (07:47)
[2021-08-08] MEDS: INSULIN ASPART (NovoLOG) 100 UNIT/ML VIAL SQ SCH ×4 (07:47→20:30)
[2021-08-08] MEDS: ASCORBIC ACID 500 MG TAB PO SCH (07:47)
[2021-08-08] MEDS: dexAMETHasone 2 MG TAB PO SCH ×2 (07:47→20:30)
[2021-08-08] MEDS: CHOLECALCIFEROL 25 MCG (1000 IU) TABLET PO SCH (07:47)
[2021-08-08] MEDS: ZINC SULFATE 220 MG CAP PO SCH (07:48)
[2021-08-08 11:57] LABS: Glucose,Whole Blood 344 mg/dL (75-99)
--- NOTE | 2021-08-08 12:16 | P.PN ---
Subjective Progress Note Date: 08/08/21 Principal diagnosis: Hypoxia, pneumonia, COVID-19 65-year-old male patient was being Hospital as for COVID 19nrelated pneumonia. The patient is known to have COPD, hypertension and hyperlipidemia and diabetes mellitus. He presented emergency department with worsening shortness of breath. He reports that his symptoms started on 07/26/2021 and he progressively got worse. On he tested positive for COVID 19 and the patient received Decadron through his primary care physician. Unfortunately his condition got worse. He continued to have increased shortness of breath and dry cough. He was febrile. He presented to the ED with a pulse ox of mid 80s. His chest x- ray showed diffuse bilateral pulmonary infiltrates consistent with Covid 19 related pneumonia. His blood work showed a potassium level of 5.3, sodium level of 132, serum bicarb was 20, BUN was 19 with a creatinine of 0.8, lymphocyte count of 0.4 with a white cell count of 7.5. The patient was started on Decadron 6 mg by mouth daily and the patient was also given Lovenox 40 mg subcu daily prophylaxis. He is currently on IV fluids with normal saline at the rate of 75 mL an hour. He is on oxygen. He was placed on 6 L and he is currently down to 4 L per minute nasal cannula.He is not vaccinated 08/03/2021, the patient is being seen for a follow-up. The patient remains in The emergency department. I saw him yesterday in consultation. He was only on 4 L, he was brought up to 6 L and subsequently he is up to 13 L for now and his current pulse ox is around 88-90%. As such, his FiO2 needs to be further titrated to bring him above 90%. Meanwhile, I started him on a combination of D ecadron under the severe yesterday. I think of the severity needs to be switched to Baricitinib and will continue Decadron for now. He is coughing. He is hemodynamically stable. White cell count is 6.3. D-dimer 0.3. Inflammatory markers are still pending for now. Blood sugars today as 170. He is on insulin sliding scale coverage for blood sugar control. 08/04/2021, the patient is 1100% nonrebreather facemask. I'm seeing this patient for a follow-up today. Note that his oxygenation was gradually getting worse. He came in to us with 4 L and subsequently and up on a nonrebreather facemask. During the course of his progression, I'm stop the Remdesivir put the patient on a combination of Decadron and Baricitinib. Blood work from today still pending. I do have a d-dimer that is showing is 0.44 level. The glucose is 163. In terms of the inflammatory markers, the pro-calcitonin level was 0.1. The patient remains on Lovenox for DVT prophylaxis. Repeat chest x-ray shows no major interval change in the findings are essentially stable. On 08/05/2021, the patient remains on 15 L nasal cannula and 100% on a beta facemask. Earlier, there was a unsuccessful attempt by RT to switch this patient to a high flow oxygen. I think the idea was very good. The execution and the results are not to be not good and the patient desaturated significantly and the medication quite anxious. For that reason the patient was placed back on his original settings. His white cell count is at 10.8 with a hemoglobin of 15.3. D-dimer remains low at 0.55. Electrolytes are all within normal limits per normal renal function. His LDH level is higher and currently is at 1568 with a CRP of 0.7. I have this patient on a combination of Decadron 6 mg twice a day and he is also on Baricitinib per protocol. He remains on Lovenox 40 mg subcu on a daily basis. No other significant events otherwise for now. The most recent chest x-ray from yesterday showed stable bilateral pulmonary infilt rates without any significant interval change. As such, overall condition is still stable. This patient is not vaccinated. He has COVID 19 related pneumonia. He has COPD and hypertension hyperlipidemia and diabetes mellitus. On 08/06/2021 patient seen in follow-up on medical surgical floor. He is currently on 15 L per high flow nasal cannula, and 100% nonrebreather mask, his pulse ox is ranging between 80 1993%, afebrile, hemodynamically he is stable, she is short of breath with any activity. Denies any chest discomfort. Has occasional nonproductive cough. On today's labs as LFTs noted to be still elevated with AST 252, ALT of 523, and alkaline phosphatase is 72, and his Baricitinib was discontinued and Lipitor was placed on hold. His LDH on today's labs is 1598, and CRP is less than 0.5. The d-dimer today is 3.78. CT of the chest has been ordered and pending at this time, current treatment for COVID-19 pneumonia it consisting of Decadron 6 mg twice a day, Lovenox 40 mg daily, and COVID-19 vitamins. On 08/07/2021 patient seen in follow-up on medical surgical floor. He remains on 15 L per high flow nasal cannula, and 100% nonrebreather mask, his pulse ox is 89-90%, patient easily desaturates with any activity, he is a bit more dyspneic on today's exam, however he could not tolerate the Airvo, he felt that he was very bulky, and was drying out his nasal airways. Denies any chest pain, his been afebrile, hemodynamically has been stable, lung sounds reveal diffuse crackles at bilateral lower bases. CT chest has been completed and showed no evidence of pulmonary embolism, there were extensive bilateral pulmonary infiltrates. Yesterday we stopped his Baricitinib and Lipitor in view of increasing LFTs, today's labs are still pending today. D-dimer and LFTs in addition to inflammatory markers were ordered, however only d-dimer has resulted so far, and it is uptrending and is up to 6.4 on today's labs. Lower extremity Dopplers showed no evidence of DVT. Current treatment includes Decadron 6 mg twice daily, he is on Lovenox 40 mg daily, and he is on COVID-19 vitamins. He is on sliding scale NovoLog, his blood sugars are in the 180s to 190s. On 08/08/2021 patient seen in follow-up on medical surgical floor. On today's exam although he remains on high flow oxygen with 15 L high flow and 100% nonrebreather he appears to be breathing more comfortably, does not appear to be tachypneic, no use of accessory muscles of breathing, he sitting up on the edge of the bed, and leaning over a table, he states that he breathes better that way. His pulse ox is 94%. He does easily desaturate to 80% even with a brief conversation, and any activity. His Baricitinib remains on hold, his LFTs were improving, follow-up LFTs have been ordered and pending for today, his Decadron dose of 6 mg twice daily, he remains on Lovenox 40 mg daily, CT chest showed no evidence of pulmonary embolism, and lower extremity Dopplers were negative for DVT. His d-dimer today is 13.24, increased from 6.4 on yesterday's labs, follow-up LDH and CRP are pending, however LDH was improving on yesterday's creatinine was down to 444, and CRP was slightly increased at 1.6. Objective - Vital Signs Vital signs: Vital Signs Temp 98.2 F 08/08/21 05:57 Pulse 91 08/08/21 10:08 Resp 17 08/08/21 10:08 BP 114/68 08/08/21 10:08 Pulse Ox 93 L 08/08/21 10:08 Intake & Output 08/07/21 08/08/21 08/08/21 18:59 06:59 18:59 Intake Total 480 Output Total 300 Balance 180 Intake: Oral 480 Output: Urine 300 Other: Voiding Method Urinal # Voids 2 - Exam GENERAL EXAM: Alert, very pleasant, 65-year-old white male, on 15 L per high flow nasal cannula, and 100% percent nonrebreather mask with a pulse ox of 94% dyspneic at rest HEAD: Normocephalic/atraumatic. EYES: Normal reaction of pupils, equal size. Conjunctiva pink, sclera white. NOSE: Clear with pink turbinates. THROAT: No erythema or exudates. NECK: No masses, no JVD, no thyroid enlargement, no adenopathy. CHEST: No chest wall deformity. Symmetrical expansion. LUNGS: Equal air entry with bilateral crackles CVS: Regular rate and rhythm, normal S1 and S2, no gallops, no murmurs, no rubs ABDOMEN: Soft, nontender. No hepatosplenomegaly, normal bowel sounds, no guarding or rigidity. EXTREMITIES: No clubbing, no edema, no cyanosis, 2+ pulses and upper and lower extremities. MUSCULOSKELETAL: Muscle strength and tone normal. SPINE: No scoliosis or deformity SKIN: No rashes CENTRAL NERVOUS SYSTEM: Alert and oriented -3. No focal deficits, tone is normal in all 4 extremities. PSYCHIATRIC: Alert and oriented -3. Appropriate affect. Intact judgment and insight. - Labs CBC & Chem 7: 08/06/21 07:43 08/07/21 06:07 Labs: Abnormal Lab Results - Last 24 Hours (Table) 08/07/21 08/07/21 08/07/21 Range/Units 06:07 16:30 20:56 D-Dimer (<0.60) mg/L FEU Carbon Dioxide 18.7 L (21.6-31.8) mmol/L Anion Gap 16.30 H (4.00-12.00) mmol/L BUN/Creatinine Ratio 22.13 H (12.00-20.00) Ratio Glucose 173 H (70-110) mg/dL POC Glucose (mg/dL) 167 H 246 H (75-99) mg/dL AST 97 H (14-35) U/L ALT 421 H (10-49) U/L Lactate Dehydrogenase 444 H (120-246) U/L C-Reactive Protein 1.60 H (0.00-0.80) mg/dL Albumin/Globulin Ratio 1.16 L (1.60-3.17) g/dL 08/08/21 08/08/21 08/08/21 Range/Units 06:19 07:30 11:56 D-Dimer 13.24 H (<0.60) mg/L FEU Carbon Dioxide (21.6-31.8) mmol/L Anion Gap (4.00-12.00) mmol/L BUN/Creatinine Ratio (12.00-20.00) Ratio Glucose (70-110) mg/dL POC Glucose (mg/dL) 144 H 344 H (75-99) mg/dL AST (14-35) U/L ALT (10-49) U/L Lactate Dehydrogenase (120-246) U/L C-Reactive Protein (0.00-0.80) mg/dL Albumin/Globulin Ratio (1.60-3.17) g/dL Assessment and Plan Plan: Assessment: #1. Acute hypoxic respiratory failure related to acute COVID-19 pneumonia. Patient received a single dose of Remdesivir in the emergency department, however in view of rapid progression of his hypoxemia he was started on a combination of Decadron and baricitinib. #2. Increased inflammatory markers related to the above #3. Elevated d-dimer, CTA of the chest showed no evidence of pulmonary embolism, and lower extremity Dopplers were negative #4. Diabetes mellitus type II #5. Hypertension #6. Hyperlipidemia #7. Obesity with BMI of 39.70 #8. Increased LFTs, related to viral pneumonia or medication related, Baricitinib discontinued on 08/06/2021, improving Plan: Continue current treatment Continue Decadron and Lovenox No CTA evidence of PE and no evidence of DVT Clinically appears better on today's exam, breathing more comfortably Inflammatory markers improved Will continue to follow clinical course I performed a history & physical examination of the patient and discussed their management with my nurse practitioner, Mari Le. I reviewed the nurse practitioner's note and agree with the documented findings and plan of care. Lung sounds are positive for diffuse crackles throughout the lung dai. The findings and the impression was discussed with the patient. I attest to the documentation by the nurse practitioner. Time with Patient: Less than 30
--- NOTE | 2021-08-08 12:47 | P.PN ---
Subjective Progress Note Date: 08/08/21 Hospital course: Patient is a 65-year-old male with a past medical history of hypertension, hyperlipidemia, and type II [id number] diabetes mellitus. He presented to the hospital on 08/02/21 with a chief complaint of shortness of breath and coughing. Patient was unvaccinated for Covid and reports he began experiencing complaints of shortness of breath and wheezing around July 23 and after these symptoms progressively worsened he was seen and evaluated on July 30 and tested positive for Covid 19 virus infection. upon arrival to the emergency department, patient found to be significantly hypoxic requiring oxygen supplementation. Patient initially 86% on room air. Chest x-ray revealed bilateral mid to lower lung multifocal opacities consistent with Covid 19 infection. Pt admitted under the services with consultation to pulmonology. Moy blanca underwent bilateral lower extremity which were negative for DVT. CTA chest negative for PE showing extensive bilateral pulmonary infiltrates consistent with Covid 19 pneumonia. Physical examination: Patient seen and fully evaluated at the bedside this morning. Patient sitting up on edge of bed, remains on 15 L high flow nasal cannula +15 L nonrebreather mask. Pt reports he continues to feel exhausted and short of breath, but states he is starting to feel better. He denies any needs or complaints at this time. Denies headache, lightheadedness, dizziness, chest pain, palpitations, or experiencing any numbness/tingling/weakness in his extremities. Patient continues to have conversational dyspnea with noted desaturations. Pt again encouraged to use beside commode and urinal and refrain from exerting self. Inflammatory markers continue to rise with d-dimer of 13.24, and LDH of 444. General: Nontoxic, mild distress secondary to conversational dyspnea. Derm: Skin warm and dry, normal coloration for ethnicity. Head: Atraumatic, normocephalic and symmetric. Eyes: EOMs intact, no lid lag, and anicteric sclera Mouth: no lip lesions, mucus membranes moist Cardiovascular: regular rate and rhythm with normal S1S2, no murmur, positive posterior tibial pulses bilaterally, and cap refill < 2 seconds. Lungs: increased respiratory effort, conversational dyspnea. bibasilar crackles. Patient on 15 L high flow nasal cannula and 15 L nonrebreather. Abdominal: soft, nontender to palpation, no guarding, no appreciable organomegaly Ext: ROM intact. No gross muscle atrophy, no edema, no contractures. pt with amputation Neuro: Speech clear, face symmetrical and CN II-XII grossly intact with no noted focal neuro deficits Psych: Alert and oriented to person, place, time, and situation. Appropriate and pleasant affect. Assessment and Plan of Care: Acute respiratory failure with hypoxia secondary to COVID 19 pneumonia -Oxygenation to be administered and titrated as needed to maintain SPO2 equal to or greater than 90% -Telemetry monitoring. -Continue trending inflammatory markers -Pt received two doses of Baricitinib, remainder of doses on hold secondary to elevated liver enzymes -Encourage Incentive Spirometry 10-15x hourly while awake -Steroids: Decadron 6 mg twice daily, day 03/31 -Continue vitamin C, Vitamin D, and Zinc. -Pulmonology following, appreciate further recommendations. Type II [id number] diabetes mellitus Hold Glucophage at this time and place patient on glycemic protocol with NovoLog sliding scale. Hypertension Monitor vital signs and continue daily medication regimen with lisinopril. CODE STATUS: full code DVT prophylaxis: Lovenox Discussed with: Pt and RN Anticipated discharge date: clinical course to determine Anticipated discharge place: Home A total of 45 minutes was spent on the care of this complex patient more than 50% of the time was spent in counseling and care coordination. Objective - Vital Signs Vital signs: Vital Signs Temp 98.2 F 08/08/21 05:57 Pulse 85 08/08/21 05:57 Resp 21 08/08/21 05:57 BP 104/66 08/08/21 05:57 Pulse Ox 94 L 08/08/21 05:57 Intake & Output 08/07/21 08/08/21 08/08/21 18:59 06:59 18:59 Intake Total 480 Output Total 300 Balance 180 Intake: Oral 480 Output: Urine 300 Other: # Voids 2 - Labs CBC & Chem 7: 08/06/21 07:43 08/07/21 06:07 Labs: Abnormal Lab Results - Last 24 Hours (Table) 08/07/21 08/07/21 08/07/21 Range/Units 06:07 11:36 16:30 D-Dimer (<0.60) mg/L FEU Carbon Dioxide 18.7 L (21.6-31.8) mmol/L Anion Gap 16.30 H (4.00-12.00) mmol/L BUN/Creatinine Ratio 22.13 H (12.00-20.00) Ratio Glucose 173 H (70-110) mg/dL POC Glucose (mg/dL) 180 H 167 H (75-99) mg/dL AST 97 H (14-35) U/L ALT 421 H (10-49) U/L Lactate Dehydrogenase 444 H (120-246) U/L C-Reactive Protein 1.60 H (0.00-0.80) mg/dL Albumin/Globulin Ratio 1.16 L (1.60-3.17) g/dL 08/07/21 08/08/21 08/08/21 Range/Units 20:56 06:19 07:30 D-Dimer 13.24 H (<0.60) mg/L FEU Carbon Dioxide (21.6-31.8) mmol/L Anion Gap (4.00-12.00) mmol/L BUN/Creatinine Ratio (12.00-20.00) Ratio Glucose (70-110) mg/dL POC Glucose (mg/dL) 246 H 144 H (75-99) mg/dL AST (14-35) U/L ALT (10-49) U/L Lactate Dehydrogenase (120-246) U/L C-Reactive Protein (0.00-0.80) mg/dL Albumin/Globulin Ratio (1.60-3.17) g/dL
[2021-08-08 13:45] VITALS: BMI 39.7
[2021-08-08 17:02] LABS: Glucose,Whole Blood 236 mg/dL (75-99)
[2021-08-08 20:07] LABS: Glucose,Whole Blood 144 mg/dL (75-99)
[2021-08-08 20:49] LABS: Glucose,Whole Blood 166 mg/dL (75-99)
[2021-08-09 07:26] LABS: Glucose,Whole Blood 194 mg/dL (75-99)
[2021-08-09] MEDS: CHOLECALCIFEROL 25 MCG (1000 IU) TABLET PO SCH (08:39)
[2021-08-09] MEDS: ZINC SULFATE 220 MG CAP PO SCH (08:39)
[2021-08-09] MEDS: INSULIN ASPART (NovoLOG) 100 UNIT/ML VIAL SQ SCH ×4 (08:39→20:49)
[2021-08-09] MEDS: dexAMETHasone 2 MG TAB PO SCH ×2 (08:39→20:49)
[2021-08-09] MEDS: ENOXAPARIN 40 MG/0.4 ML SYRINGE SQ SCH (08:40)
[2021-08-09] MEDS: ASCORBIC ACID 500 MG TAB PO SCH (08:40)
[2021-08-09 09:14] LABS: Basophils # (A) 0.05 X 10*3/uL (0.00-0.10); Basophils % (A) 0.4 %; Eosinophils # (A) 0.11 X 10*3/uL (0.04-0.35); Eosinophils % (A) 0.8 %; HCT 44.5 % (39.6-50.0); HGB 15.1 g/dL (13.0-17.0); Lymphocytes # (A) 0.55 X 10*3/uL (0.90-5.00); MCH 31.7 pg (27.0-32.0); MCHC 33.9 g/dL (32.0-37.0); MCV 93.5 fL (80.0-97.0); Monocytes % (A) 2.9 %; Neutrophils # (A) 12.41 X 10*3/uL (1.80-7.70); Neutrophils % (A) 89.3 %; Platelet Count 249 X 10*3/uL (140-440); RBC 4.76 X 10*6/uL (4.40-5.60); RDW 13.2 % (11.5-14.5); WBC 13.88 X 10*3/uL (4.50-10.00)
[2021-08-09 11:36] LABS: Glucose,Whole Blood 160 mg/dL (75-99)
--- NOTE | 2021-08-09 13:21 | P.PN ---
Subjective Progress Note Date: 08/09/21 Principal diagnosis: Hypoxia, pneumonia, COVID-19 65-year-old male patient was being Hospital as for COVID 19nrelated pneumonia. The patient is known to have COPD, hypertension and hyperlipidemia and diabetes mellitus. He presented emergency department with worsening shortness of breath. He reports that his symptoms started on 07/26/2021 and he progressively got worse. On he tested positive for COVID 19 and the patient received Decadron through his primary care physician. Unfortunately his condition got worse. He continued to have increased shortness of breath and dry cough. He was febrile. He presented to the ED with a pulse ox of mid 80s. His chest x- ray showed diffuse bilateral pulmonary infiltrates consistent with Covid 19 related pneumonia. His blood work showed a potassium level of 5.3, sodium level of 132, serum bicarb was 20, BUN was 19 with a creatinine of 0.8, lymphocyte count of 0.4 with a white cell count of 7.5. The patient was started on Decadron 6 mg by mouth daily and the patient was also given Lovenox 40 mg subcu daily prophylaxis. He is currently on IV fluids with normal saline at the rate of 75 mL an hour. He is on oxygen. He was placed on 6 L and he is currently down to 4 L per minute nasal cannula.He is not vaccinated 08/03/2021, the patient is being seen for a follow-up. The patient remains in The emergency department. I saw him yesterday in consultation. He was only on 4 L, he was brought up to 6 L and subsequently he is up to 13 L for now and his current pulse ox is around 88-90%. As such, his FiO2 needs to be further titrated to bring him above 90%. Meanwhile, I started him on a combination of D ecadron under the severe yesterday. I think of the severity needs to be switched to Baricitinib and will continue Decadron for now. He is coughing. He is hemodynamically stable. White cell count is 6.3. D-dimer 0.3. Inflammatory markers are still pending for now. Blood sugars today as 170. He is on insulin sliding scale coverage for blood sugar control. 08/04/2021, the patient is 1100% nonrebreather facemask. I'm seeing this patient for a follow-up today. Note that his oxygenation was gradually getting worse. He came in to us with 4 L and subsequently and up on a nonrebreather facemask. During the course of his progression, I'm stop the Remdesivir put the patient on a combination of Decadron and Baricitinib. Blood work from today still pending. I do have a d-dimer that is showing is 0.44 level. The glucose is 163. In terms of the inflammatory markers, the pro-calcitonin level was 0.1. The patient remains on Lovenox for DVT prophylaxis. Repeat chest x-ray shows no major interval change in the findings are essentially stable. On 08/05/2021, the patient remains on 15 L nasal cannula and 100% on a beta facemask. Earlier, there was a unsuccessful attempt by RT to switch this patient to a high flow oxygen. I think the idea was very good. The execution and the results are not to be not good and the patient desaturated significantly and the medication quite anxious. For that reason the patient was placed back on his original settings. His white cell count is at 10.8 with a hemoglobin of 15.3. D-dimer remains low at 0.55. Electrolytes are all within normal limits per normal renal function. His LDH level is higher and currently is at 1568 with a CRP of 0.7. I have this patient on a combination of Decadron 6 mg twice a day and he is also on Baricitinib per protocol. He remains on Lovenox 40 mg subcu on a daily basis. No other significant events otherwise for now. The most recent chest x-ray from yesterday showed stable bilateral pulmonary infilt rates without any significant interval change. As such, overall condition is still stable. This patient is not vaccinated. He has COVID 19 related pneumonia. He has COPD and hypertension hyperlipidemia and diabetes mellitus. On 08/06/2021 patient seen in follow-up on medical surgical floor. He is currently on 15 L per high flow nasal cannula, and 100% nonrebreather mask, his pulse ox is ranging between 80 1993%, afebrile, hemodynamically he is stable, she is short of breath with any activity. Denies any chest discomfort. Has occasional nonproductive cough. On today's labs as LFTs noted to be still elevated with AST 252, ALT of 523, and alkaline phosphatase is 72, and his Baricitinib was discontinued and Lipitor was placed on hold. His LDH on today's labs is 1598, and CRP is less than 0.5. The d-dimer today is 3.78. CT of the chest has been ordered and pending at this time, current treatment for COVID-19 pneumonia it consisting of Decadron 6 mg twice a day, Lovenox 40 mg daily, and COVID-19 vitamins. On 08/07/2021 patient seen in follow-up on medical surgical floor. He remains on 15 L per high flow nasal cannula, and 100% nonrebreather mask, his pulse ox is 89-90%, patient easily desaturates with any activity, he is a bit more dyspneic on today's exam, however he could not tolerate the Airvo, he felt that he was very bulky, and was drying out his nasal airways. Denies any chest pain, his been afebrile, hemodynamically has been stable, lung sounds reveal diffuse crackles at bilateral lower bases. CT chest has been completed and showed no evidence of pulmonary embolism, there were extensive bilateral pulmonary infiltrates. Yesterday we stopped his Baricitinib and Lipitor in view of increasing LFTs, today's labs are still pending today. D-dimer and LFTs in addition to inflammatory markers were ordered, however only d-dimer has resulted so far, and it is uptrending and is up to 6.4 on today's labs. Lower extremity Dopplers showed no evidence of DVT. Current treatment includes Decadron 6 mg twice daily, he is on Lovenox 40 mg daily, and he is on COVID-19 vitamins. He is on sliding scale NovoLog, his blood sugars are in the 180s to 190s. On 08/08/2021 patient seen in follow-up on medical surgical floor. On today's exam although he remains on high flow oxygen with 15 L high flow and 100% nonrebreather he appears to be breathing more comfortably, does not appear to be tachypneic, no use of accessory muscles of breathing, he sitting up on the edge of the bed, and leaning over a table, he states that he breathes better that way. His pulse ox is 94%. He does easily desaturate to 80% even with a brief conversation, and any activity. His Baricitinib remains on hold, his LFTs were improving, follow-up LFTs have been ordered and pending for today, his Decadron dose of 6 mg twice daily, he remains on Lovenox 40 mg daily, CT chest showed no evidence of pulmonary embolism, and lower extremity Dopplers were negative for DVT. His d-dimer today is 13.24, increased from 6.4 on yesterday's labs, follow-up LDH and CRP are pending, however LDH was improving on yesterday's creatinine was down to 444, and CRP was slightly increased at 1.6. On 08/09/2021 patient seen in follow-up on medical surgical floor. Patient still remains on 15 L per high flow nasal cannula, and on percent nonrebreather, however his O2 saturations seem to have slightly improved and are around 92-94%. However patient easily desaturates with any exertion, and even speaking, does not appear to be tachypneic does not appear to be in any acute distress. Sounds reveal some minimal crackles at bilateral bases, no rhonchi or wheezing, remains on Decadron 6 mg twice daily, prophylactic Lovenox, and COVID-19 vitamins. His LFTs were improving on his labs from 2 days ago, follow-up labs are pending for today, his d-dimer today is improving and is down to 6.16, his white count is 13.8, hemoglobin is 15.1. Vital signs have been stable, has had no fever or chills. Objective - Vital Signs Vital signs: Vital Signs Temp 97.8 F 08/09/21 11:00 Pulse 108 H 08/09/21 11:00 Resp 22 08/09/21 11:00 BP 116/63 08/09/21 11:00 Pulse Ox 92 L 08/09/21 11:00 Intake & Output 08/08/21 08/09/21 08/09/21 18:59 06:59 18:59 Intake Total 500 Balance 500 Weight 129.274 kg Intake: Oral 500 Other: Voiding Method Urinal - Exam GENERAL EXAM: Alert, very pleasant, 65-year-old white male, on 15 L per high flow nasal cannula, and 100% percent nonrebreather mask with a pulse ox of 94% dyspneic at rest HEAD: Normocephalic/atraumatic. EYES: Normal reaction of pupils, equal size. Conjunctiva pink, sclera white. NOSE: Clear with pink turbinates. THROAT: No erythema or exudates. NECK: No masses, no JVD, no thyroid enlargement, no adenopathy. CHEST: No chest wall deformity. Symmetrical expansion. LUNGS: Equal air entry with bilateral crackles CVS: Regular rate and rhythm, normal S1 and S2, no gallops, no murmurs, no rubs ABDOMEN: Soft, nontender. No hepatosplenomegaly, normal bowel sounds, no guarding or rigidity. EXTREMITIES: No clubbing, no edema, no cyanosis, 2+ pulses and upper and lower extremities. MUSCULOSKELETAL: Muscle strength and tone normal. SPINE: No scoliosis or deformity SKIN: No rashes CENTRAL NERVOUS SYSTEM: Alert and oriented -3. No focal deficits, tone is normal in all 4 extremities. PSYCHIATRIC: Alert and oriented -3. Appropriate affect. Intact judgment and insight. - Labs CBC & Chem 7: 08/09/21 06:12 08/07/21 06:07 Labs: Abnormal Lab Results - Last 24 Hours (Table) 08/05/21 08/08/21 08/08/21 Range/Units 06:53 17:01 20:04 WBC (4.50-10.00) X 10*3/uL Immature Gran # (0.00-0.04) X 10*3/uL Neutrophils # (1.80-7.70) X 10*3/uL Lymphocytes # (0.90-5.00) X 10*3/uL D-Dimer (<0.60) mg/L FEU POC Glucose (mg/dL) 166 H 236 H 144 H (75-99) mg/dL 08/09/21 08/09/21 08/09/21 Range/Units 06:07 06:12 07:14 WBC 13.88 H (4.50-10.00) X 10*3/uL Immature Gran # 0.36 H (0.00-0.04) X 10*3/uL Neutrophils # 12.41 H (1.80-7.70) X 10*3/uL Lymphocytes # 0.55 L (0.90-5.00) X 10*3/uL D-Dimer 6.16 H (<0.60) mg/L FEU POC Glucose (mg/dL) 194 H (75-99) mg/dL 11/18/21 Range/Units 11:34 WBC (4.50-10.00) X 10*3/uL Immature Gran # (0.00-0.04) X 10*3/uL Neutrophils # (1.80-7.70) X 10*3/uL Lymphocytes # (0.90-5.00) X 10*3/uL D-Dimer (<0.60) mg/L FEU POC Glucose (mg/dL) 160 H (75-99) mg/dL Assessment and Plan Plan: Assessment: #1. Acute hypoxic respiratory failure related to acute COVID-19 pneumonia. Patient received a single dose of Remdesivir in the emergency department, however in view of rapid progression of his hypoxemia he was started on a combination of Decadron and baricitinib. #2. Increased inflammatory markers related to the above #3. Elevated d-dimer, CTA of the chest showed no evidence of pulmonary embolism, and lower extremity Dopplers were negative #4. Diabetes mellitus type II #5. Hypertension #6. Hyperlipidemia #7. Obesity with BMI of 39.70 #8. Increased LFTs, related to viral pneumonia or medication related, Baricitinib discontinued on 08/06/2021, improving Plan: Continue current treatment Continue Decadron and Lovenox Clinically appears better on today's exam, breathing more comfortably O2 saturations seem to have slightly improved and are around 92-94% on 15 L of high flow oxygen and nonrebreather mask We'll continue following his clinical course, Inflammatory markers and follow-up d-dimer tomorrow in addition to LFTs I performed a history & physical examination of the patient and discussed their management with my nurse practitioner, Mari Le. I reviewed the nurse practitioner's note and agree with the documented findings and plan of care. Lung sounds are positive for diffuse crackles throughout the lung dai. The findings and the impression was discussed with the patient. I attest to the documentation by the nurse practitioner. Time with Patient: Less than 30
[2021-08-09 13:39] LABS: C Reactive Protein 6.8 mg/dL (0.00-0.80)
--- NOTE | 2021-08-09 13:42 | P.PN ---
Subjective Progress Note Date: 08/09/21 Hospital course: Patient is a 65-year-old male with a past medical history of hypertension, hyperlipidemia, and type II [id number] diabetes mellitus. He presented to the hospital on 08/02/21 with a chief complaint of shortness of breath and coughing. Patient was unvaccinated for Covid and reports he began experiencing complaints of shortness of breath and wheezing around July 23 and after these symptoms progressively worsened he was seen and evaluated on July 30 and tested positive for Covid 19 virus infection. upon arrival to the emergency department, patient found to be significantly hypoxic requiring oxygen supplementation. Patient initially 86% on room air. Chest x-ray revealed bilateral mid to lower lung multifocal opacities consistent with Covid 19 infection. Pt admitted under our services with consultation to pulmonology. Moy blanca underwent bilateral lower extremity which were negative for DVT. CTA chest negative for PE showing extensive bilateral pulmonary infiltrates consistent with Covid 19 pneumonia. Physical examination: Patient seen and fully evaluated at the bedside this morning. Patient sitting up on edge of bed again this morning stating that it is easier to breath that way. He remains on 15 L high flow nasal cannula +15 L nonrebreather mask. Pt reports he continues to feel exhausted and short of breath, but denies any needs or complaints at this time. Denies headache, lightheadedness, dizziness, chest pain, palpitations, or experiencing any numbness/tingling/weakness in his extremities. Patient continues to have conversational dyspnea with noted desaturations (SPO2 94% and after a short sentence quickly desaturates down to 88-89%). Respirations are even and unlabored, no accessory muscle usage. D-dimer decreasing down to 6.16 from previous 13.24, awaiting remainder of morning lab results. General: Nontoxic, mild distress secondary to conversational dyspnea. Derm: Skin warm and dry, normal coloration for ethnicity. Head: Atraumatic, normocephalic and symmetric. Eyes: EOMs intact, no lid lag, and anicteric sclera Mouth: no lip lesions, mucus membranes moist Cardiovascular: regular rate and rhythm with normal S1S2, no murmur, positive posterior tibial pulses bilaterally, and cap refill < 2 seconds. Lungs: increased respiratory effort, conversational dyspnea. soft bibasilar crackles nearly resolved in RLL. Patient on 15 L high flow nasal cannula and 15 L nonrebreather. Abdominal: soft, nontender to palpation, no guarding, no appreciable organomegaly Ext: ROM intact. No gross muscle atrophy, no edema, no contractures. pt with amputation Neuro: Speech clear, face symmetrical and CN II-XII grossly intact with no noted focal neuro deficits Psych: Alert and oriented to person, place, time, and situation. Appropriate and pleasant affect. Assessment and Plan of Care: Acute respiratory failure with hypoxia secondary to COVID 19 pneumonia -Oxygenation to be administered and titrated as needed to maintain SPO2 equal to or greater than 90% -Telemetry monitoring. -Continue trending inflammatory markers -Pt received two doses of Baricitinib, remainder of doses on hold secondary to elevated liver enzymes -Encourage Incentive Spirometry 10-15x hourly while awake -Steroids: Decadron 6 mg twice daily, day 03/31 -Continue vitamin C, Vitamin D, and Zinc. -Pulmonology following, appreciate further recommendations. Type II [id number] diabetes mellitus Hold Glucophage at this time and place patient on glycemic protocol with NovoLog sliding scale. Hypertension Monitor vital signs and continue daily medication regimen with lisinopril. CODE STATUS: full code DVT prophylaxis: Lovenox Discussed with: Pt and RN Anticipated discharge date: clinical course to determine Anticipated discharge place: Home A total of 45 minutes was spent on the care of this complex patient more than 50% of the time was spent in counseling and care coordination. Objective - Vital Signs Vital signs: Vital Signs Temp 98.1 F 08/09/21 05:34 Pulse 56 L 08/09/21 05:34 Resp 15 08/09/21 05:34 BP 97/62 08/09/21 05:34 Pulse Ox 94 L 08/09/21 05:34 Intake & Output 08/08/21 08/09/21 08/09/21 18:59 06:59 18:59 Intake Total 500 Balance 500 Weight 129.274 kg Intake: Oral 500 Other: Voiding Method Urinal - Labs CBC & Chem 7: 08/09/21 06:12 08/07/21 06:07 Labs: Abnormal Lab Results - Last 24 Hours (Table) 08/05/21 08/08/21 08/08/21 Range/Units 06:53 11:56 17:01 D-Dimer (<0.60) mg/L FEU POC Glucose (mg/dL) 166 H 344 H 236 H (75-99) mg/dL 08/08/21 08/09/21 08/09/21 Range/Units 20:04 06:07 07:14 D-Dimer 6.16 H (<0.60) mg/L FEU POC Glucose (mg/dL) 144 H 194 H (75-99) mg/dL
[2021-08-09 13:56] LABS: African American GFR (CKD) 99.1 (60.0-200.0); Albumin 3.3 g/dL (3.8-4.9); Albumin/Globulin Ratio 1.01 (1.60-3.17); Anion Gap 14.6 mmol/L (4.00-12.00); BUN/Creat Ratio 24.12 Ratio (12.00-20.00); Blood Urea Nitrogen 22.5 mg/dL (9.0-27.0); Calcium 8.5 mg/dL (8.7-10.3); Carbon Dioxide 20.9 mmol/L (21.6-31.8); Globulin 3.3 g/dL (1.6-3.3); Non-African American GFR(CKD) 85.5 (60.0-200.0); Potassium 5.3 mmol/L (3.5-5.5); Total Bilirubin 0.6 mg/dL (0.30-1.20); Total Protein 6.6 g/dL (6.2-8.2)
[2021-08-09 17:22] LABS: Glucose,Whole Blood 230 mg/dL (75-99)
[2021-08-09 20:46] LABS: Glucose,Whole Blood 163 mg/dL (75-99)
[2021-08-10 07:02] LABS: Glucose,Whole Blood 179 mg/dL (75-99)
[2021-08-10] MEDS: dexAMETHasone 2 MG TAB PO SCH ×2 (07:34→20:47)
[2021-08-10] MEDS: ASCORBIC ACID 500 MG TAB PO SCH (07:34)
[2021-08-10] MEDS: ZINC SULFATE 220 MG CAP PO SCH (07:34)
[2021-08-10] MEDS: CHOLECALCIFEROL 25 MCG (1000 IU) TABLET PO SCH (07:35)
[2021-08-10] MEDS: ENOXAPARIN 40 MG/0.4 ML SYRINGE SQ SCH ×2 (07:37→20:47)
[2021-08-10] MEDS: INSULIN ASPART (NovoLOG) 100 UNIT/ML VIAL SQ SCH ×4 (07:37→20:48)
[2021-08-10 10:24] LABS: HCT 46.7 % (39.6-50.0); MCHC 34.3 g/dL (32.0-37.0); MCV 90.5 fL (80.0-97.0); Mean Platelet Volume 11.6 fL (9.5-12.2); Platelet Count 330 X 10*3/uL (140-440); RBC 5.16 X 10*6/uL (4.40-5.60); RDW 13.2 % (11.5-14.5)
[2021-08-10 11:32] LABS: Glucose,Whole Blood 176 mg/dL (75-99)
--- NOTE | 2021-08-10 11:37 | P.PN ---
Subjective Progress Note Date: 08/10/21 Principal diagnosis: Hypoxia, pneumonia, COVID-19 65-year-old male patient was being Hospital as for COVID 19nrelated pneumonia. The patient is known to have COPD, hypertension and hyperlipidemia and diabetes mellitus. He presented emergency department with worsening shortness of breath. He reports that his symptoms started on 07/26/2021 and he progressively got worse. On he tested positive for COVID 19 and the patient received Decadron through his primary care physician. Unfortunately his condition got worse. He continued to have increased shortness of breath and dry cough. He was febrile. He presented to the ED with a pulse ox of mid 80s. His chest x- ray showed diffuse bilateral pulmonary infiltrates consistent with Covid 19 related pneumonia. His blood work showed a potassium level of 5.3, sodium level of 132, serum bicarb was 20, BUN was 19 with a creatinine of 0.8, lymphocyte count of 0.4 with a white cell count of 7.5. The patient was started on Decadron 6 mg by mouth daily and the patient was also given Lovenox 40 mg subcu daily prophylaxis. He is currently on IV fluids with normal saline at the rate of 75 mL an hour. He is on oxygen. He was placed on 6 L and he is currently down to 4 L per minute nasal cannula.He is not vaccinated 08/03/2021, the patient is being seen for a follow-up. The patient remains in The emergency department. I saw him yesterday in consultation. He was only on 4 L, he was brought up to 6 L and subsequently he is up to 13 L for now and his current pulse ox is around 88-90%. As such, his FiO2 needs to be further titrated to bring him above 90%. Meanwhile, I started him on a combination of D ecadron under the severe yesterday. I think of the severity needs to be switched to Baricitinib and will continue Decadron for now. He is coughing. He is hemodynamically stable. White cell count is 6.3. D-dimer 0.3. Inflammatory markers are still pending for now. Blood sugars today as 170. He is on insulin sliding scale coverage for blood sugar control. 08/04/2021, the patient is 1100% nonrebreather facemask. I'm seeing this patient for a follow-up today. Note that his oxygenation was gradually getting worse. He came in to us with 4 L and subsequently and up on a nonrebreather facemask. During the course of his progression, I'm stop the Remdesivir put the patient on a combination of Decadron and Baricitinib. Blood work from today still pending. I do have a d-dimer that is showing is 0.44 level. The glucose is 163. In terms of the inflammatory markers, the pro-calcitonin level was 0.1. The patient remains on Lovenox for DVT prophylaxis. Repeat chest x-ray shows no major interval change in the findings are essentially stable. On 08/05/2021, the patient remains on 15 L nasal cannula and 100% on a beta facemask. Earlier, there was a unsuccessful attempt by RT to switch this patient to a high flow oxygen. I think the idea was very good. The execution and the results are not to be not good and the patient desaturated significantly and the medication quite anxious. For that reason the patient was placed back on his original settings. His white cell count is at 10.8 with a hemoglobin of 15.3. D-dimer remains low at 0.55. Electrolytes are all within normal limits per normal renal function. His LDH level is higher and currently is at 1568 with a CRP of 0.7. I have this patient on a combination of Decadron 6 mg twice a day and he is also on Baricitinib per protocol. He remains on Lovenox 40 mg subcu on a daily basis. No other significant events otherwise for now. The most recent chest x-ray from yesterday showed stable bilateral pulmonary infilt rates without any significant interval change. As such, overall condition is still stable. This patient is not vaccinated. He has COVID 19 related pneumonia. He has COPD and hypertension hyperlipidemia and diabetes mellitus. On 08/06/2021 patient seen in follow-up on medical surgical floor. He is currently on 15 L per high flow nasal cannula, and 100% nonrebreather mask, his pulse ox is ranging between 80 1993%, afebrile, hemodynamically he is stable, she is short of breath with any activity. Denies any chest discomfort. Has occasional nonproductive cough. On today's labs as LFTs noted to be still elevated with AST 252, ALT of 523, and alkaline phosphatase is 72, and his Baricitinib was discontinued and Lipitor was placed on hold. His LDH on today's labs is 1598, and CRP is less than 0.5. The d-dimer today is 3.78. CT of the chest has been ordered and pending at this time, current treatment for COVID-19 pneumonia it consisting of Decadron 6 mg twice a day, Lovenox 40 mg daily, and COVID-19 vitamins. On 08/07/2021 patient seen in follow-up on medical surgical floor. He remains on 15 L per high flow nasal cannula, and 100% nonrebreather mask, his pulse ox is 89-90%, patient easily desaturates with any activity, he is a bit more dyspneic on today's exam, however he could not tolerate the Airvo, he felt that he was very bulky, and was drying out his nasal airways. Denies any chest pain, his been afebrile, hemodynamically has been stable, lung sounds reveal diffuse crackles at bilateral lower bases. CT chest has been completed and showed no evidence of pulmonary embolism, there were extensive bilateral pulmonary infiltrates. Yesterday we stopped his Baricitinib and Lipitor in view of increasing LFTs, today's labs are still pending today. D-dimer and LFTs in addition to inflammatory markers were ordered, however only d-dimer has resulted so far, and it is uptrending and is up to 6.4 on today's labs. Lower extremity Dopplers showed no evidence of DVT. Current treatment includes Decadron 6 mg twice daily, he is on Lovenox 40 mg daily, and he is on COVID-19 vitamins. He is on sliding scale NovoLog, his blood sugars are in the 180s to 190s. On 08/08/2021 patient seen in follow-up on medical surgical floor. On today's exam although he remains on high flow oxygen with 15 L high flow and 100% nonrebreather he appears to be breathing more comfortably, does not appear to be tachypneic, no use of accessory muscles of breathing, he sitting up on the edge of the bed, and leaning over a table, he states that he breathes better that way. His pulse ox is 94%. He does easily desaturate to 80% even with a brief conversation, and any activity. His Baricitinib remains on hold, his LFTs were improving, follow-up LFTs have been ordered and pending for today, his Decadron dose of 6 mg twice daily, he remains on Lovenox 40 mg daily, CT chest showed no evidence of pulmonary embolism, and lower extremity Dopplers were negative for DVT. His d-dimer today is 13.24, increased from 6.4 on yesterday's labs, follow-up LDH and CRP are pending, however LDH was improving on yesterday's creatinine was down to 444, and CRP was slightly increased at 1.6. On 08/09/2021 patient seen in follow-up on medical surgical floor. Patient still remains on 15 L per high flow nasal cannula, and on percent nonrebreather, however his O2 saturations seem to have slightly improved and are around 92-94%. However patient easily desaturates with any exertion, and even speaking, does not appear to be tachypneic does not appear to be in any acute distress. Sounds reveal some minimal crackles at bilateral bases, no rhonchi or wheezing, remains on Decadron 6 mg twice daily, prophylactic Lovenox, and COVID-19 vitamins. His LFTs were improving on his labs from 2 days ago, follow-up labs are pending for today, his d-dimer today is improving and is down to 6.16, his white count is 13.8, hemoglobin is 15.1. Vital signs have been stable, has had no fever or chills. On 08/10/2021 patient seen in follow-up on medical surgical floor. Patient currently on 15 L of oxygen and nonrebreather mask, he is leaning on his left side, he states he seems to be breathing easier, and oxygenating better when he's laying on his left side, his pulse ox is ranging between 91-95%, afebrile, blood pressure is been stable. Coarse crackles over left upper and lower lung, clear on the right side. Patient has had no acute events overnight, today's labs have been reviewed, d-dimer is improving and is down to 5.15, with blood cell count is 17.1, hemoglobin is 16. Objective - Vital Signs Vital signs: Vital Signs Temp 97.6 F 08/10/21 08:00 Pulse 84 08/10/21 08:00 Resp 16 08/10/21 08:00 BP 102/63 08/10/21 08:00 Pulse Ox 95 08/10/21 08:00 Intake & Output 08/09/21 08/10/21 08/10/21 18:59 06:59 18:59 Output Total 700 Balance -700 Output: Urine 700 Other: Voiding Method Urinal - Exam GENERAL EXAM: Alert, very pleasant, 65-year-old white male, on 15 L per high flow nasal cannula, and 100% percent nonrebreather mask with a pulse ox of 95% dyspneic at rest HEAD: Normocephalic/atraumatic. EYES: Normal reaction of pupils, equal size. Conjunctiva pink, sclera white. NOSE: Clear with pink turbinates. THROAT: No erythema or exudates. NECK: No masses, no JVD, no thyroid enlargement, no adenopathy. CHEST: No chest wall deformity. Symmetrical expansion. LUNGS: Equal air entry with bilateral crackles CVS: Regular rate and rhythm, normal S1 and S2, no gallops, no murmurs, no rubs ABDOMEN: Soft, nontender. No hepatosplenomegaly, normal bowel sounds, no guarding or rigidity. EXTREMITIES: No clubbing, no edema, no cyanosis, 2+ pulses and upper and lower extremities. MUSCULOSKELETAL: Muscle strength and tone normal. SPINE: No scoliosis or deformity SKIN: No rashes CENTRAL NERVOUS SYSTEM: Alert and oriented -3. No focal deficits, tone is normal in all 4 extremities. PSYCHIATRIC: Alert and oriented -3. Appropriate affect. Intact judgment and insight. - Labs CBC & Chem 7: 08/10/21 06:19 08/09/21 06:07 Labs: Abnormal Lab Results - Last 24 Hours (Table) 08/09/21 08/09/21 08/09/21 Range/Units 06:07 11:34 17:21 WBC (4.50-10.00) X 10*3/uL D-Dimer (<0.60) mg/L FEU Sodium 134 L (135-145) mmol/L Carbon Dioxide 20.9 L (21.6-31.8) mmol/L Anion Gap 14.60 H (4.00-12.00) mmol/L BUN/Creatinine Ratio 24.12 H (12.00-20.00) Ratio Glucose 166 H (70-110) mg/dL POC Glucose (mg/dL) 160 H 230 H (75-99) mg/dL Calcium 8.5 L (8.7-10.3) mg/dL AST 38 H (14-35) U/L ALT 186 H (10-49) U/L Lactate Dehydrogenase 426 H (120-246) U/L C-Reactive Protein 6.80 H (0.00-0.80) mg/dL Albumin 3.3 L (3.8-4.9) g/dL Albumin/Globulin Ratio 1.01 L (1.60-3.17) g/dL 08/09/21 08/10/21 08/10/21 Range/Units 20:43 06:19 06:19 WBC 17.10 H (4.50-10.00) X 10*3/uL D-Dimer 5.15 H (<0.60) mg/L FEU Sodium (135-145) mmol/L Carbon Dioxide (21.6-31.8) mmol/L Anion Gap (4.00-12.00) mmol/L BUN/Creatinine Ratio (12.00-20.00) Ratio Glucose (70-110) mg/dL POC Glucose (mg/dL) 163 H (75-99) mg/dL Calcium (8.7-10.3) mg/dL AST (14-35) U/L ALT (10-49) U/L Lactate Dehydrogenase (120-246) U/L C-Reactive Protein (0.00-0.80) mg/dL Albumin (3.8-4.9) g/dL Albumin/Globulin Ratio (1.60-3.17) g/dL 08/10/21 Range/Units 06:59 WBC (4.50-10.00) X 10*3/uL D-Dimer (<0.60) mg/L FEU Sodium (135-145) mmol/L Carbon Dioxide (21.6-31.8) mmol/L Anion Gap (4.00-12.00) mmol/L BUN/Creatinine Ratio (12.00-20.00) Ratio Glucose (70-110) mg/dL POC Glucose (mg/dL) 179 H (75-99) mg/dL Calcium (8.7-10.3) mg/dL AST (14-35) U/L ALT (10-49) U/L Lactate Dehydrogenase (120-246) U/L C-Reactive Protein (0.00-0.80) mg/dL Albumin (3.8-4.9) g/dL Albumin/Globulin Ratio (1.60-3.17) g/dL Assessment and Plan Plan: Assessment: #1. Acute hypoxic respiratory failure related to acute COVID-19 pneumonia. Patient received a single dose of Remdesivir in the emergency department, however in view of rapid progression of his hypoxemia he was started on a combi nation of Decadron and baricitinib. #2. Increased inflammatory markers related to the above #3. Elevated d-dimer, CTA of the chest showed no evidence of pulmonary embolism, and lower extremity Dopplers were negative #4. Diabetes mellitus type II #5. Hypertension #6. Hyperlipidemia #7. Obesity with BMI of 39.70 #8. Increased LFTs, related to viral pneumonia or medication related, Bar icitinib discontinued on 08/06/2021, improving Plan: Continue current treatment Continue Decadron and Lovenox Clinically appears better on today's exam, breathing more comfortably, O2 saturations somewhat improved although still requiring high flow oxygen per nasal cannula and nonrebreather mask Continue encouraging the patient to reposition self in bed, patient has been compliant with this Inflammatory markers and d-dimer are improving LFTs are improving We'll continue to follow his clinical course I performed a history & physical examination of the patient and discussed their management with my nurse practitioner, Mari Le. I reviewed the nurse practitioner's note and agree with the documented findings and plan of care. Lung sounds are positive for diffuse crackles throughout the lung dai. The findings and the impression was discussed with the patient. I attest to the d ocumentation by the nurse practitioner. Time with Patient: Less than 30
--- NOTE | 2021-08-10 11:39 | P.PN ---
Subjective Progress Note Date: 08/10/21 Hospital course: Patient is a 65-year-old male with a past medical history of hypertension, hyperlipidemia, and type II [id number] diabetes mellitus. He presented to the hospital on 08/02/21 with a chief complaint of shortness of breath and coughing. Patient was unvaccinated for Covid and reports he began experiencing complaints of shortness of breath and wheezing around July 23 and after these symptoms progressively worsened he was seen and evaluated on July 30 and tested positive for Covid 19 virus infection. upon arrival to the emergency department, patient found to be significantly hypoxic requiring oxygen supplementation. Patient initially 86% on room air. Chest x-ray revealed bilateral mid to lower lung multifocal opacities consistent with Covid 19 infection. Pt admitted under our services with consultation to pulmonology. Moy blanca underwent bilateral lower extremity which were negative for DVT. CTA chest negative for PE showing extensive bilateral pulmonary infiltrates consistent with Covid 19 pneumonia. Physical examination: Patient seen and fully evaluated at the bedside this morning. Patient lying right lateral recumbent in bed, he remains on 15 L high flow nasal cannula +15 L nonrebreather mask at this time. He is maintaining SpO2 at 93% upon assessment. Patient continues to have conversational dyspnea and desaturations with minimal exertions. Pt encouraged to lie prone, states that he is not able to, but will continue laying as much on his side as he can. He denies having any headache, lightheadedness, dizziness, chest pain, palpitations, or experiencing any numbness/tingling/weakness in his extremities. D-dimer continues to decrease and is down to 5.15 this morning and awaiting remainder of labs to result at this time. General: Nontoxic, mild distress secondary to conversational dyspnea. Derm: Skin warm and dry, normal coloration for ethnicity. Head: Atraumatic, normocephalic and symmetric. Eyes: EOMs intact, no lid lag, and anicteric sclera Mouth: no lip lesions, mucus membranes moist Cardiovascular: regular rate and rhythm with normal S1S2, no murmur, positive posterior tibial pulses bilaterally, and cap refill < 2 seconds. Lungs: increased respiratory effort, conversational dyspnea. soft bibasilar crackles nearly resolved in RLL. Patient on 15 L high flow nasal cannula and 15 L nonrebreather. Abdominal: soft, nontender to palpation, no guarding, no appreciable organomegaly Ext: ROM intact. No gross muscle atrophy, no edema, no contractures. pt with amputation Neuro: Speech clear, face symmetrical and CN II-XII grossly intact with no noted focal neuro deficits Psych: Alert and oriented to person, place, time, and situation. Appropriate and pleasant affect. Assessment and Plan of Care: Acute respiratory failure with hypoxia secondary to COVID 19 pneumonia -Oxygenation to be administered and titrated as needed to maintain SPO2 equal to or greater than 90% -Telemetry monitoring. -Continue trending inflammatory markers -Pt received two doses of Baricitinib, remainder of doses on hold secondary to elevated liver enzymes -Encourage Incentive Spirometry 10-15x hourly while awake -Steroids: Decadron 6 mg twice daily, day 05/01 -Continue vitamin C, Vitamin D, and Zinc. -Pulmonology following, appreciate further recommendations. Type II [id number] diabetes mellitus Hold Glucophage at this time and place patient on glycemic protocol with NovoLog sliding scale. Hypertension Monitor vital signs and continue daily medication regimen with lisinopril. CODE STATUS: full code DVT prophylaxis: Lovenox Discussed with: Pt, pt's and RN Anticipated discharge date: clinical course to determine Anticipated discharge place: Home A total of 45 minutes was spent on the care of this complex patient more than 50% of the time was spent in counseling and care coordination. Objective - Vital Signs Vital signs: Vital Signs Temp 97.1 F L 08/10/21 05:29 Pulse 86 08/10/21 05:29 Resp 21 08/10/21 07:30 BP 117/68 08/10/21 05:29 Pulse Ox 91 L 08/10/21 05:29 Intake & Output 08/09/21 08/10/21 08/10/21 18:59 06:59 18:59 Output Total 700 Balance -700 Output: Urine 700 Other: Voiding Method Urinal - Labs CBC & Chem 7: 08/10/21 06:19 08/09/21 06:07 Labs: Abnormal Lab Results - Last 24 Hours (Table) 08/09/21 08/09/21 08/09/21 Range/Units 06:07 11:34 17:21 D-Dimer (<0.60) mg/L FEU Sodium 134 L (135-145) mmol/L Carbon Dioxide 20.9 L (21.6-31.8) mmol/L Anion Gap 14.60 H (4.00-12.00) mmol/L BUN/Creatinine Ratio 24.12 H (12.00-20.00) Ratio Glucose 166 H (70-110) mg/dL POC Glucose (mg/dL) 160 H 230 H (75-99) mg/dL Calcium 8.5 L (8.7-10.3) mg/dL AST 38 H (14-35) U/L ALT 186 H (10-49) U/L Lactate Dehydrogenase 426 H (120-246) U/L C-Reactive Protein 6.80 H (0.00-0.80) mg/dL Albumin 3.3 L (3.8-4.9) g/dL Albumin/Globulin Ratio 1.01 L (1.60-3.17) g/dL 08/09/21 08/10/21 08/10/21 Range/Units 20:43 06:19 06:59 D-Dimer 5.15 H (<0.60) mg/L FEU Sodium (135-145) mmol/L Carbon Dioxide (21.6-31.8) mmol/L Anion Gap (4.00-12.00) mmol/L BUN/Creatinine Ratio (12.00-20.00) Ratio Glucose (70-110) mg/dL POC Glucose (mg/dL) 163 H 179 H (75-99) mg/dL Calcium (8.7-10.3) mg/dL AST (14-35) U/L ALT (10-49) U/L Lactate Dehydrogenase (120-246) U/L C-Reactive Protein (0.00-0.80) mg/dL Albumin (3.8-4.9) g/dL Albumin/Globulin Ratio (1.60-3.17) g/dL
[2021-08-10 13:07] LABS: C Reactive Protein 4.7 mg/dL (0.00-0.80)
[2021-08-10 16:35] LABS: Glucose,Whole Blood 245 mg/dL (75-99)
[2021-08-10 20:26] LABS: Glucose,Whole Blood 313 mg/dL (75-99)
[2021-08-11 07:04] LABS: Glucose,Whole Blood 120 mg/dL (75-99)
[2021-08-11] MEDS: INSULIN ASPART (NovoLOG) 100 UNIT/ML VIAL SQ SCH ×4 (07:54→21:21)
[2021-08-11] MEDS: ENOXAPARIN 40 MG/0.4 ML SYRINGE SQ SCH ×2 (08:27→21:21)
[2021-08-11] MEDS: ZINC SULFATE 220 MG CAP PO SCH (08:27)
[2021-08-11] MEDS: dexAMETHasone 2 MG TAB PO SCH ×2 (08:27→21:20)
[2021-08-11] MEDS: ASCORBIC ACID 500 MG TAB PO SCH (08:27)
[2021-08-11] MEDS: CHOLECALCIFEROL 25 MCG (1000 IU) TABLET PO SCH (08:27)
[2021-08-11 11:47] LABS: Glucose,Whole Blood 162 mg/dL (75-99)
--- NOTE | 2021-08-11 12:33 | P.PN ---
Subjective Progress Note Date: 08/11/21 Principal diagnosis: COVID-19 pneumonia 65-year-old male patient was being Hospital as for COVID 19nrelated pneumonia. The patient is known to have COPD, hypertension and hyperlipidemia and diabetes mellitus. He presented emergency department with worsening shortness of breath. He reports that his symptoms started on 07/26/2021 and he progressively got worse. On he tested positive for COVID 19 and the patient received Decadron through his primary care physician. Unfortunately his condition got worse. He continued to have increased shortness of breath and dry cough. He was febrile. He presented to the ED with a pulse ox of mid 80s. His chest x- ray showed diffuse bilateral pulmonary infiltrates consistent with Covid 19 related pneumonia. His blood work showed a potassium level of 5.3, sodium level of 132, serum bicarb was 20, BUN was 19 with a creatinine of 0.8, lymphocyte count of 0.4 with a white cell count of 7.5. The patient was started on D ecadron 6 mg by mouth daily and the patient was also given Lovenox 40 mg subcu daily prophylaxis. He is currently on IV fluids with normal saline at the rate of 75 mL an hour. He is on oxygen. He was placed on 6 L and he is currently down to 4 L per minute nasal cannula.He is not vaccinated 08/03/2021, the patient is being seen for a follow-up. The patient remains in The emergency department. I saw him yesterday in consultation. He was only on 4 L, he was brought up to 6 L and subsequently he is up to 13 L for now and his current pulse ox is around 88-90%. As such, his FiO2 needs to be further titrated to bring him above 90%. Meanwhile, I started him on a combination of Decadron under the severe yesterday. I think of the severity needs to be switched to Baricitinib and will continue Decadron for now. He is coughing. He is hemodynamically stable. White cell count is 6.3. D-dimer 0.3. Inflammatory markers are still pending for now. Blood sugars today as 170. He is on insulin sliding scale coverage for blood sugar control. 08/04/2021, the patient is 1100% nonrebreather facemask. I'm seeing this patient for a follow-up today. Note that his oxygenation was gradually getting worse. He came in to us with 4 L and subsequently and up on a nonrebreather facemask. During the course of his progression, I'm stop the Remdesivir put the patient on a combination of Decadron and Baricitinib. Blood work from today still pending. I do have a d-dimer that is showing is 0.44 level. The glucose is 163. In terms of the inflammatory markers, the pro-calcitonin level was 0.1. The patient remains on Lovenox for DVT prophylaxis. Repeat chest x-ray shows no major interval change in the findings are essentially stable. On 08/05/2021, the patient remains on 15 L nasal cannula and 100% on a beta facemask. Earlier, there was a unsuccessful attempt by RT to switch this patient to a high flow oxygen. I think the idea was very good. The execution and the results are not to be not good and the patient desaturated significantly and the medication quite anxious. For that reason the patient was placed back on his original settings. His white cell count is at 10.8 with a hemoglobin of 15.3. D-dimer remains low at 0.55. Electrolytes are all within normal limits per normal renal function. His LDH level is higher and currently is at 1568 with a CRP of 0.7. I have this patient on a combination of Decadron 6 mg twice a day and he is also on Baricitinib per protocol. He remains on Lovenox 40 mg subcu on a daily basis. No other significant events otherwise for now. The most recent chest x-ray from yesterday showed stable bilateral pulmonary infiltrates without any significant interval change. As such, overall condition is still stable. This patient is not vaccinated. He has COVID 19 related pneumonia. He has COPD and hypertension hyperlipidemia and diabetes mellitus. On 08/06/2021 patient seen in follow-up on medical surgical floor. He is curren tly on 15 L per high flow nasal cannula, and 100% nonrebreather mask, his pulse ox is ranging between 80 1993%, afebrile, hemodynamically he is stable, she is short of breath with any activity. Denies any chest discomfort. Has occasional nonproductive cough. On today's labs as LFTs noted to be still elevated with AST 252, ALT of 523, and alkaline phosphatase is 72, and his Baricitinib was discontinued and Lipitor was placed on hold. His LDH on today's labs is 1598, and CRP is less than 0.5. The d-dimer today is 3.78. CT of the chest has been ordered and pending at this time, current treatment for COVID-19 pneumonia it consisting of Decadron 6 mg twice a day, Lovenox 40 mg daily, and COVID-19 vitamins. On 08/07/2021 patient seen in follow-up on medical surgical floor. He remains on 15 L per high flow nasal cannula, and 100% nonrebreather mask, his pulse ox is 89-90%, patient easily desaturates with any activity, he is a bit more dyspneic on today's exam, however he could not tolerate the Airvo, he felt that he was very bulky, and was drying out his nasal airways. Denies any chest pain, his been afebrile, hemodynamically has been stable, lung sounds reveal diffuse crackles at bilateral lower bases. CT chest has been completed and showed no evidence of pulmonary embolism, there were extensive bilateral pulmonary infiltrates. Yesterday we stopped his Baricitinib and Lipitor in view of increasing LFTs, today's labs are still pending today. D-dimer and LFTs in addition to inflammatory markers were ordered, however only d-dimer has resulted so far, and it is uptrending and is up to 6.4 on today's labs. Lower extremity Dopplers showed no evidence of DVT. Current treatment includes Decadron 6 mg twice daily, he is on Lovenox 40 mg daily, and he is on COVID-19 vitamins. He is on sliding scale NovoLog, his blood sugars are in the 180s to 190s. On 08/08/2021 patient seen in follow-up on medical surgical floor. On today's exam although he remains on high flow oxygen with 15 L high flow and 100% nonrebreather he appears to be breathing more comfortably, does not appear to be tachypneic, no use of accessory muscles of breathing, he sitting up on the edge of the bed, and leaning over a table, he states that he breathes better that way. His pulse ox is 94%. He does easily desaturate to 80% even with a brief conversation, and any activity. His Baricitinib remains on hold, his LFTs were improving, follow-up LFTs have been ordered and pending for today, his Decadron dose of 6 mg twice daily, he remains on Lovenox 40 mg daily, CT chest showed no evidence of pulmonary embolism, and lower extremity Dopplers were negative for DVT. His d-dimer today is 13.24, increased from 6.4 on yesterday's labs, follow-up LDH and CRP are pending, however LDH was improving on yesterday's creatinine was down to 444, and CRP was slightly increased at 1.6. On 08/09/2021 patient seen in follow-up on medical surgical floor. Patient still remains on 15 L per high flow nasal cannula, and on percent nonrebreather, however his O2 saturations seem to have slightly improved and are around 92-94%. However patient easily desaturates with any exertion, and even speaking, does not appear to be tachypneic does not appear to be in any acute distress. Sounds reveal some minimal crackles at bilateral bases, no rhonchi or wheezing, remains on Decadron 6 mg twice daily, prophylactic Lovenox, and COVID-19 vitamins. His LFTs were improving on his labs from 2 days ago, follow-up labs are pending for today, his d-dimer today is improving and is down to 6.16, his white count is 13.8, hemoglobin is 15.1. Vital signs have been stable, has had no fever or chills. On 08/10/2021 patient seen in follow-up on medical surgical floor. Patient currently on 15 L of oxygen and nonrebreather mask, he is leaning on his left side, he states he seems to be breathing easier, and oxygenating better when he's laying on his left side, his pulse ox is ranging between 91-95%, afebrile, blood pressure is been stable. Coarse crackles over left upper and lower lung, clear on the right side. Patient has had no acute events overnight, today's labs have been reviewed, d-dimer is improving and is down to 5.15, with blood cell count is 17.1, hemoglobin is 16. The patient is seen today 08/11/2021 in follow-up on the regular medical floor. He is currently resting comfortably in bed. Laying prone. Maintaining O2 saturations in the low 90s on 15 L high flow nasal cannula plus a nonrebreather mask. He's been afebrile. Hemodynamically stable. Glucose 162. Continued on Lovenox 40 mg subcu twice a day, Decadron 6 mg by mouth twice a day, vitamin supplements. Peak d-dimer 13.2. Most recent 5.1. Objective - Vital Signs Vital signs: Vital Signs Temp 96.7 F L 08/11/21 10:00 Pulse 86 08/11/21 10:00 Resp 24 08/11/21 10:00 BP 104/61 08/11/21 10:00 Pulse Ox 97 08/11/21 10:00 Intake & Output 08/10/21 08/11/21 08/11/21 18:59 06:59 18:59 Output Total 640 1250 Balance -640 -1250 Output: Urine 640 1250 Other: Voiding Method Urinal Urinal # Voids 3 # Bowel Movements 0 - Exam GENERAL EXAM: Alert, 65-year-old gentleman, on 15 L high flow pleasant nonrebreather mask, fairly comfortable in no apparent distress. HEAD: Normocephalic. EYES: Normal reaction of pupils, equal size. NOSE: Clear with pink turbinates. THROAT: No erythema or exudates. NECK: No masses, no JVD. CHEST: No chest wall deformity. LUNGS: Equal air entry with crackles in the bilateral bases. CVS: S1 and S2 normal with no audible murmur, regular rhythm. ABDOMEN: No hepatosplenomegaly, normal bowel sounds, no guarding or rigidity. SPINE: No scoliosis or deformity SKIN: No rashes CENTRAL NERVOUS SYSTEM: No focal deficits, tone is normal in all 4 extremities. EXTREMITIES: There is no peripheral edema. No clubbing, no cyanosis. Peripher al pulses are intact. - Labs CBC & Chem 7: 08/10/21 06:19 08/09/21 06:07 Labs: Abnormal Lab Results - Last 24 Hours (Table) 08/10/21 08/10/21 08/10/21 Range/Units 06:19 16:32 20:24 POC Glucose (mg/dL) 245 H 313 H (75-99) mg/dL Lactate Dehydrogenase 373 H (120-246) U/L C-Reactive Protein 4.70 H (0.00-0.80) mg/dL 08/11/21 08/11/21 Range/Units 07:03 11:46 POC Glucose (mg/dL) 120 H 162 H (75-99) mg/dL Lactate Dehydrogenase (120-246) U/L C-Reactive Protein (0.00-0.80) mg/dL Assessment and Plan Assessment: 1 Acute hypoxic respiratory failure related to acute COVID-19 pneumonia. 2 Increased inflammatory markers related to the above 3 Elevated d-dimer, CTA of the chest showed no evidence of pulmonary embolism, and lower extremity Dopplers were negative 4 Diabetes mellitus type II 5 Hypertension 6 Hyperlipidemia 7 Obesity with BMI of 39.70 8 Increased LFTs, related to viral pneumonia or medication related, Baricitinib discontinued on 08/06/2021, improving Plan: The patient was seen and evaluated by Dr. Jones Continue to titrate the FiO2 as tolerated Remains on therapeutic Lovenox, Decadron, vitamin supplements Follow-up is x-ray and labs in the a.m. We will continue to follow I, the cosigning physician, performed a history & physical examination of the patient. Lungs sounds with crackles in the bilateral bases. Maintaining good O2 saturations in the 90s on 15 L high flow nasal cannula plus a nonrebreather mask. I discussed the assessment and plan of care with my nurse practitioner, Swapna Flores. I attest to the above note as dictated by her.
--- NOTE | 2021-08-11 13:22 | P.PN ---
Subjective Progress Note Date: 08/11/21 Hospital course: Patient is a 65-year-old male with a past medical history of hypertension, hyperlipidemia, and type II wqm-fxdmkep-smjioqgxm diabetes mellitus. He presented to the hospital on 08/02/21 with a chief complaint of shortness of breath and coughing. Patient was unvaccinated for Covid and reports he began experiencing complaints of shortness of breath and wheezing around July 23 and after these symptoms progressively worsened he was seen and evaluated on July 30 and tested positive for Covid 19 virus infection. upon arrival to the emergency department, patient found to be significantly hypoxic requiring oxygen supplementation. Patient initially 86% on room air. Chest x-ray revealed bilateral mid to lower lung multifocal opacities consistent with Covid 19 infection. Pt admitted under our services with consultation to pulmonology. Moy blanca underwent bilateral lower extremity which were negative for DVT. CTA chest negative for PE showing extensive bilateral pulmonary infiltrates consistent with Covid 19 pneumonia. Physical examination: Patient seen and fully evaluated at the bedside this morning. Patient was sitting up at time of assessment this morning. He remains on 15 L high flow nasal cannula +15 L nonrebreather mask. Oxygen saturations at time of assessment were 95%. Attempts made at removing nonrebreather mask and only leaving patient on 15L high flow NC resulted in patient desaturating quickly down to 82% accompanied by increased shortness of breath. Nonrebreather mask placed back on 15 L in addition to his 15 L NC with SpO2 increasing back to 91%. He denies having any headache, lightheadedness, dizziness, chest pain, palpitations, or experiencing any numbness/tingling/weakness in his extremities. General: Nontoxic, mild distress secondary to conversational dyspnea. Derm: Skin warm and dry, normal coloration for ethnicity. Head: Atraumatic, normocephalic and symmetric. Eyes: EOMs intact, no lid lag, and anicteric sclera Mouth: no lip lesions, mucus membranes moist Cardiovascular: regular rate and rhythm with normal S1S2, no murmur, positive posterior tibial pulses bilaterally, and cap refill < 2 seconds. Lungs: increased respiratory effort, conversational dyspnea. soft bibasilar crackles nearly resolved in RLL. Patient on 15 L high flow nasal cannula and 15 L nonrebreather. Abdominal: soft, nontender to palpation, no guarding, no appreciable organomegaly Ext: ROM intact. No gross muscle atrophy, no edema, no contractures. pt with amputation Neuro: Speech clear, face symmetrical and CN II-XII grossly intact with no noted focal neuro deficits Psych: Alert and oriented to person, place, time, and situation. Appropriate and pleasant affect. Assessment and Plan of Care: Acute respiratory failure with hypoxia secondary to COVID 19 pneumonia -Oxygenation to be administered and titrated as needed to maintain SPO2 equal to or greater than 90% -Telemetry monitoring. -Continue trending inflammatory markers -Pt received two doses of Baricitinib, remainder of doses on hold secondary to elevated liver enzymes -Encourage Incentive Spirometry 10-15x hourly while awake -Steroids: Decadron 6 mg twice daily, day 06/01 -Continue vitamin C, Vitamin D, and Zinc. -Pulmonology following, appreciate further recommendations. -Continue DVT prophylaxis with Lovenox 40 mg subcu every 12 hours Type II gbs-cjgmozw-ymfdhfohc diabetes mellitus Hold Glucophage at this time and place patient on glycemic protocol with NovoLog sliding scale. Hypertension Monitor vital signs and continue daily medication regimen with lisinopril. CODE STATUS: full code DVT prophylaxis: Lovenox Discussed with: Pt and RN Anticipated discharge date: clinical course to determine Anticipated discharge place: Home A total of 45 minutes was spent on the care of this complex patient more than 50% of the time was spent in counseling and care coordination. Objective - Vital Signs Vital signs: Vital Signs Temp 97.7 F 08/11/21 06:05 Pulse 79 08/11/21 06:05 Resp 20 08/11/21 06:05 BP 93/58 08/11/21 06:05 Pulse Ox 93 L 08/11/21 06:05 Intake & Output 08/10/21 08/11/21 08/11/21 18:59 06:59 18:59 Output Total 640 1250 Balance -640 -1250 Output: Urine 640 1250 Other: Voiding Method Urinal Urinal # Voids 3 # Bowel Movements 0 - Labs CBC & Chem 7: 08/10/21 06:19 08/09/21 06:07 Labs: Abnormal Lab Results - Last 24 Hours (Table) 08/10/21 08/10/21 08/10/21 Range/Units 06:19 06:19 11:27 WBC 17.10 H (4.50-10.00) X 10*3/uL POC Glucose (mg/dL) 176 H (75-99) mg/dL Lactate Dehydrogenase 373 H (120-246) U/L C-Reactive Protein 4.70 H (0.00-0.80) mg/dL 08/10/21 08/10/21 08/11/21 Range/Units 16:32 20:24 07:03 WBC (4.50-10.00) X 10*3/uL POC Glucose (mg/dL) 245 H 313 H 120 H (75-99) mg/dL Lactate Dehydrogenase (120-246) U/L C-Reactive Protein (0.00-0.80) mg/dL
[2021-08-11 16:35] LABS: Glucose,Whole Blood 194 mg/dL (75-99)
[2021-08-11 20:37] LABS: Glucose,Whole Blood 190 mg/dL (75-99)
[2021-08-12 07:16] LABS: Glucose,Whole Blood 168 mg/dL (75-99)
[2021-08-12] MEDS: CHOLECALCIFEROL 25 MCG (1000 IU) TABLET PO SCH (07:33)
[2021-08-12] MEDS: ZINC SULFATE 220 MG CAP PO SCH (07:33)
[2021-08-12] MEDS: ASCORBIC ACID 500 MG TAB PO SCH (07:33)
[2021-08-12] MEDS: ENOXAPARIN 40 MG/0.4 ML SYRINGE SQ SCH ×2 (07:33→21:41)
[2021-08-12] MEDS: dexAMETHasone 2 MG TAB PO SCH ×2 (07:33→21:41)
[2021-08-12] MEDS: INSULIN ASPART (NovoLOG) 100 UNIT/ML VIAL SQ SCH ×4 (07:33→21:41)
--- NOTE | 2021-08-12 09:47 | XR ---
EXAMINATION TYPE: XR chest 1V portable DATE OF EXAM: 08/12/2021 COMPARISON: 08/04/2021 HISTORY: 65 years Male. STUDY INDICATION GIVEN: CoVID pneumonia . TECHNIQUE: AP chest radiograph IMPRESSION: Bilateral left greater than right patchy airspace and interstitial opacities appear more prominent co mpared to the prior study which may be reflective of mild worsening however this may be just related to difference in x-ray technique. No pneumothorax or pleural effusion. Stable cardiomediastinal silhouette.
[2021-08-12 11:41] LABS: Glucose,Whole Blood 197 mg/dL (75-99)
[2021-08-12 12:10] LABS: Basophils % (A) 0 %; Eosinophils % (A) 0 %; HCT 47.6 % (39.0-53.0); HGB 15.4 gm/dL (13.0-17.5); Lymphocytes # (A) 0.5 k/uL (1.0-4.8); Lymphocytes % (A) 3 %; MCH 30.2 pg (25.0-35.0); MCHC 32.3 g/dL (31.0-37.0); MCV 93.4 fL (80.0-100.0); Mean Platelet Volume 8.5; Monocytes # (A) 0.7 k/uL (0-1.0); Monocytes % (A) 5 %; Neutrophils # (A) 13.3 k/uL (1.3-7.7); Neutrophils % (A) 91 %; Platelet Count 294 k/uL (150-450); RBC 5.09 m/uL (4.30-5.90); RDW 12.9 % (11.5-15.5); WBC 14.7 k/uL (3.8-10.6)
--- NOTE | 2021-08-12 13:22 | P.PN ---
<Jaquan Torrez - Last Filed: 08/12/21 13:12> Subjective Progress Note Date: 08/12/21 Hospital course: Patient is a 65-year-old male with a past medical history of hypertension, hyp erlipidemia, and type II xwi-jktkcrd-gshfkmbii diabetes mellitus. He presented to the hospital on 08/02/21 with a chief complaint of shortness of breath and coughing. Patient was unvaccinated for Covid and reports he began experiencing complaints of shortness of breath and wheezing around July 23 and after these symptoms progressively worsened he was seen and evaluated on July 30 and tested positive for Covid 19 virus infection. upon arrival to the emergency department, patient found to be significantly hypoxic requiring oxygen supplementation. Patient initially 86% on room air. Chest x-ray revealed bilateral mid to lower lung multifocal opacities consistent with Covid 19 infection. Pt admitted under our services with consultation to pulmonology. Patient underwent bilateral lower extremity which were negative for DVT. CTA chest negative for PE showing extensive bilateral pulmonary infiltrates consistent with Covid 19 pneumonia. Physical examination: Patient seen and fully evaluated at the bedside this morning. He remains on 15 L flow nasal cannula +15 L nonrebreather mask. Patient laying left lateral recumbent at time of assessment. Inflammatory markers continue to decrease with d-dimer 3.18, LDH 373, and CRP of 4.73. Patient reports overall that he is feeling a lot better, SpO2 currently 96% on 15+15. We will attempt to wean oxygen as patient tolerates. At this time patient to continue with medication regimen consisting of vitamin C, vitamin D, zinc, Decadron, and Lovenox. He denies having any headache, lightheadedness, dizziness, chest pain, palpitations, or experiencing any numbness/tingling/weakness in his extremities. General: Nontoxic, mild distress secondary to conversational dyspnea. Derm: Skin warm and dry, normal coloration for ethnicity. Head: Atraumatic, normocephalic and symmetric. Eyes: EOMs intact, no lid lag, and anicteric sclera Mouth: no lip lesions, mucus membranes moist Cardiovascular: regular rate and rhythm with normal S1S2, no murmur, positive posterior tibial pulses bilaterally, and cap refill < 2 seconds. Lungs: increased respiratory effort, conversational dyspnea. soft bibasilar crackles nearly resolved in RLL, more coarse left lower lobe. Patient on 15 L high flow nasal cannula and 15 L nonrebreather. Abdominal: soft, nontender to palpation, no guarding, no appreciable organomegaly Ext: ROM intact. No gross muscle atrophy, no edema, no contractures. pt with amputation Neuro: Speech clear, face symmetrical and CN II-XII grossly intact with no noted focal neuro deficits Psych: Alert and oriented to person, place, time, and situation. Appropriate and pleasant affect. Assessment and Plan of Care: Acute respiratory failure with hypoxia secondary to COVID 19 pneumonia -Oxygenation to be administered and titrated as needed to maintain SPO2 equal to or greater than 90% -Telemetry monitoring. -Continue trending inflammatory markers -Pt received two doses of Baricitinib, remainder of doses on hold secondary to elevated liver enzymes -Encourage Incentive Spirometry 10-15x hourly while awake -Steroids: Decadron 6 mg twice daily, day 06/01 -Continue vitamin C, Vitamin D, and Zinc. -Pulmonology following, appreciate further recommendations. -Continue DVT prophylaxis with Lovenox 40 mg subcu every 12 hours Type II xaz-qcjlyow-qtymbgvsa diabetes mellitus Hold Glucophage at this time and place patient on glycemic protocol with NovoLog sliding scale. Hypertension Monitor vital signs and continue daily medication regimen with lisinopril. CODE STATUS: full code DVT prophylaxis: Lovenox Discussed with: Pt and RN Anticipated discharge date: clinical course to determine Anticipated discharge place: Home A total of 45 minutes was spent on the care of this complex patient more than 50% of the time was spent in counseling and care coordination. Objective - Vital Signs Vital signs: Vital Signs Temp 97.6 F 08/12/21 05:57 Pulse 84 08/12/21 05:57 Resp 20 08/12/21 05:57 BP 108/71 08/12/21 05:57 Pulse Ox 90 L 08/12/21 05:57 Intake & Output 08/11/21 08/12/21 08/12/21 18:59 06:59 18:59 Other: Voiding Method Urinal # Voids 4 3 - Labs CBC & Chem 7: 08/12/21 11:48 08/09/21 06:07 Labs: Abnormal Lab Results - Last 24 Hours (Table) 08/11/21 08/11/21 08/11/21 Range/Units 11:46 16:34 20:34 POC Glucose (mg/dL) 162 H 194 H 190 H (75-99) mg/dL 08/12/21 Range/Units 07:15 POC Glucose (mg/dL) 168 H (75-99) mg/dL <Kassidy Abrams - Last Filed: 08/12/21 17:59> Subjective I reviewed the documentation as provided by the KALINA above, who is the original author of this note. I agree with the documented assessment and plan, with the following changes: None Objective - Vital Signs Vital signs: Vital Signs Temp 98.4 F 08/12/21 14:00 Pulse 85 08/12/21 14:00 Resp 18 08/12/21 14:00 BP 103/65 08/12/21 14:00 Pulse Ox 94 L 08/12/21 15:58 Intake & Output 08/11/21 08/12/21 08/12/21 18:59 06:59 18:59 Other: Voiding Method Urinal # Voids 4 3 - Labs CBC & Chem 7: 08/12/21 11:48 08/12/21 09:25 Labs: Abnormal Lab Results - Last 24 Hours (Table) 08/11/21 08/12/21 08/12/21 Range/Units 20:34 07:15 09:25 WBC (3.8-10.6) k/uL Neutrophils # (1.3-7.7) k/uL Lymphocytes # (1.0-4.8) k/uL D-Dimer (<0.60) mg/L FEU Carbon Dioxide 13.8 L (21.6-31.8) mmol/L Anion Gap 23.10 H (4.00-12.00) mmol/L BUN/Creatinine Ratio 28.86 H (12.00-20.00) Ratio Glucose 175 H (70-110) mg/dL POC Glucose (mg/dL) 190 H 168 H (75-99) mg/dL AST 53 H (14-35) U/L ALT 191 H (10-49) U/L Lactate Dehydrogenase 439 H (120-246) U/L C-Reactive Protein 1.90 H (0.00-0.80) mg/dL Albumin 3.3 L (3.8-4.9) g/dL Globulin 3.6 H (1.6-3.3) g/dL Albumin/Globulin Ratio 0.91 L (1.60-3.17) g/dL 08/12/21 08/12/21 08/12/21 Range/Units 11:39 11:48 11:48 WBC 14.7 H (3.8-10.6) k/uL Neutrophils # 13.3 H (1.3-7.7) k/uL Lymphocytes # 0.5 L (1.0-4.8) k/uL D-Dimer 3.18 H (<0.60) mg/L FEU Carbon Dioxide (21.6-31.8) mmol/L Anion Gap (4.00-12.00) mmol/L BUN/Creatinine Ratio (12.00-20.00) Ratio Glucose (70-110) mg/dL POC Glucose (mg/dL) 197 H (75-99) mg/dL AST (14-35) U/L ALT (10-49) U/L Lactate Dehydrogenase (120-246) U/L C-Reactive Protein (0.00-0.80) mg/dL Albumin (3.8-4.9) g/dL Globulin (1.6-3.3) g/dL Albumin/Globulin Ratio (1.60-3.17) g/dL 08/12/21 Range/Units 17:08 WBC (3.8-10.6) k/uL Neutrophils # (1.3-7.7) k/uL Lymphocytes # (1.0-4.8) k/uL D-Dimer (<0.60) mg/L FEU Carbon Dioxide (21.6-31.8) mmol/L Anion Gap (4.00-12.00) mmol/L BUN/Creatinine Ratio (12.00-20.00) Ratio Glucose (70-110) mg/dL POC Glucose (mg/dL) 198 H (75-99) mg/dL AST (14-35) U/L ALT (10-49) U/L Lactate Dehydrogenase (120-246) U/L C-Reactive Protein (0.00-0.80) mg/dL Albumin (3.8-4.9) g/dL Globulin (1.6-3.3) g/dL Albumin/Globulin Ratio (1.60-3.17) g/dL
[2021-08-12 15:55] LABS: C Reactive Protein 1.9 mg/dL (0.00-0.80)
--- NOTE | 2021-08-12 16:01 | P.PN ---
Subjective Progress Note Date: 08/12/21 Principal diagnosis: COVID-19 pneumonia 65-year-old male patient was being Hospital as for COVID 19nrelated pneumonia. The patient is known to have COPD, hypertension and hyperlipidemia and diabetes mellitus. He presented emergency department with worsening shortness of breath. He reports that his symptoms started on 07/26/2021 and he progressively got worse. On he tested positive for COVID 19 and the patient received Decadron through his primary care physician. Unfortunately his condition got worse. He continued to have increased shortness of breath and dry cough. He was febrile. He presented to the ED with a pulse ox of mid 80s. His chest x- ray showed diffuse bilateral pulmonary infiltrates consistent with Covid 19 related pneumonia. His blood work showed a potassium level of 5.3, sodium level of 132, serum bicarb was 20, BUN was 19 with a creatinine of 0.8, lymphocyte count of 0.4 with a white cell count of 7.5. The patient was started on D ecadron 6 mg by mouth daily and the patient was also given Lovenox 40 mg subcu daily prophylaxis. He is currently on IV fluids with normal saline at the rate of 75 mL an hour. He is on oxygen. He was placed on 6 L and he is currently down to 4 L per minute nasal cannula.He is not vaccinated 08/03/2021, the patient is being seen for a follow-up. The patient remains in The emergency department. I saw him yesterday in consultation. He was only on 4 L, he was brought up to 6 L and subsequently he is up to 13 L for now and his current pulse ox is around 88-90%. As such, his FiO2 needs to be further titrated to bring him above 90%. Meanwhile, I started him on a combination of Decadron under the severe yesterday. I think of the severity needs to be switched to Baricitinib and will continue Decadron for now. He is coughing. He is hemodynamically stable. White cell count is 6.3. D-dimer 0.3. Inflammatory markers are still pending for now. Blood sugars today as 170. He is on insulin sliding scale coverage for blood sugar control. 08/04/2021, the patient is 1100% nonrebreather facemask. I'm seeing this patient for a follow-up today. Note that his oxygenation was gradually getting worse. He came in to us with 4 L and subsequently and up on a nonrebreather facemask. During the course of his progression, I'm stop the Remdesivir put the patient on a combination of Decadron and Baricitinib. Blood work from today still pending. I do have a d-dimer that is showing is 0.44 level. The glucose is 163. In terms of the inflammatory markers, the pro-calcitonin level was 0.1. The patient remains on Lovenox for DVT prophylaxis. Repeat chest x-ray shows no major interval change in the findings are essentially stable. On 08/05/2021, the patient remains on 15 L nasal cannula and 100% on a beta facemask. Earlier, there was a unsuccessful attempt by RT to switch this patient to a high flow oxygen. I think the idea was very good. The execution and the results are not to be not good and the patient desaturated significantly and the medication quite anxious. For that reason the patient was placed back on his original settings. His white cell count is at 10.8 with a hemoglobin of 15.3. D-dimer remains low at 0.55. Electrolytes are all within normal limits per normal renal function. His LDH level is higher and currently is at 1568 with a CRP of 0.7. I have this patient on a combination of Decadron 6 mg twice a day and he is also on Baricitinib per protocol. He remains on Lovenox 40 mg subcu on a daily basis. No other significant events otherwise for now. The most recent chest x-ray from yesterday showed stable bilateral pulmonary infiltrates without any significant interval change. As such, overall condition is still stable. This patient is not vaccinated. He has COVID 19 related pneumonia. He has COPD and hypertension hyperlipidemia and diabetes mellitus. On 08/06/2021 patient seen in follow-up on medical surgical floor. He is curren tly on 15 L per high flow nasal cannula, and 100% nonrebreather mask, his pulse ox is ranging between 80 1993%, afebrile, hemodynamically he is stable, she is short of breath with any activity. Denies any chest discomfort. Has occasional nonproductive cough. On today's labs as LFTs noted to be still elevated with AST 252, ALT of 523, and alkaline phosphatase is 72, and his Baricitinib was discontinued and Lipitor was placed on hold. His LDH on today's labs is 1598, and CRP is less than 0.5. The d-dimer today is 3.78. CT of the chest has been ordered and pending at this time, current treatment for COVID-19 pneumonia it consisting of Decadron 6 mg twice a day, Lovenox 40 mg daily, and COVID-19 vitamins. On 08/07/2021 patient seen in follow-up on medical surgical floor. He remains on 15 L per high flow nasal cannula, and 100% nonrebreather mask, his pulse ox is 89-90%, patient easily desaturates with any activity, he is a bit more dyspneic on today's exam, however he could not tolerate the Airvo, he felt that he was very bulky, and was drying out his nasal airways. Denies any chest pain, his been afebrile, hemodynamically has been stable, lung sounds reveal diffuse crackles at bilateral lower bases. CT chest has been completed and showed no evidence of pulmonary embolism, there were extensive bilateral pulmonary infiltrates. Yesterday we stopped his Baricitinib and Lipitor in view of increasing LFTs, today's labs are still pending today. D-dimer and LFTs in addition to inflammatory markers were ordered, however only d-dimer has resulted so far, and it is uptrending and is up to 6.4 on today's labs. Lower extremity Dopplers showed no evidence of DVT. Current treatment includes Decadron 6 mg twice daily, he is on Lovenox 40 mg daily, and he is on COVID-19 vitamins. He is on sliding scale NovoLog, his blood sugars are in the 180s to 190s. On 08/08/2021 patient seen in follow-up on medical surgical floor. On today's exam although he remains on high flow oxygen with 15 L high flow and 100% nonrebreather he appears to be breathing more comfortably, does not appear to be tachypneic, no use of accessory muscles of breathing, he sitting up on the edge of the bed, and leaning over a table, he states that he breathes better that way. His pulse ox is 94%. He does easily desaturate to 80% even with a brief conversation, and any activity. His Baricitinib remains on hold, his LFTs were improving, follow-up LFTs have been ordered and pending for today, his Decadron dose of 6 mg twice daily, he remains on Lovenox 40 mg daily, CT chest showed no evidence of pulmonary embolism, and lower extremity Dopplers were negative for DVT. His d-dimer today is 13.24, increased from 6.4 on yesterday's labs, follow-up LDH and CRP are pending, however LDH was improving on yesterday's creatinine was down to 444, and CRP was slightly increased at 1.6. On 08/09/2021 patient seen in follow-up on medical surgical floor. Patient still remains on 15 L per high flow nasal cannula, and on percent nonrebreather, however his O2 saturations seem to have slightly improved and are around 92-94%. However patient easily desaturates with any exertion, and even speaking, does not appear to be tachypneic does not appear to be in any acute distress. Sounds reveal some minimal crackles at bilateral bases, no rhonchi or wheezing, remains on Decadron 6 mg twice daily, prophylactic Lovenox, and COVID-19 vitamins. His LFTs were improving on his labs from 2 days ago, follow-up labs are pending for today, his d-dimer today is improving and is down to 6.16, his white count is 13.8, hemoglobin is 15.1. Vital signs have been stable, has had no fever or chills. On 08/10/2021 patient seen in follow-up on medical surgical floor. Patient currently on 15 L of oxygen and nonrebreather mask, he is leaning on his left side, he states he seems to be breathing easier, and oxygenating better when he's laying on his left side, his pulse ox is ranging between 91-95%, afebrile, blood pressure is been stable. Coarse crackles over left upper and lower lung, clear on the right side. Patient has had no acute events overnight, today's labs have been reviewed, d-dimer is improving and is down to 5.15, with blood cell count is 17.1, hemoglobin is 16. The patient is seen today 08/11/2021 in follow-up on the regular medical floor. He is currently resting comfortably in bed. Laying prone. Maintaining O2 saturations in the low 90s on 15 L high flow nasal cannula plus a nonrebreather mask. He's been afebrile. Hemodynamically stable. Glucose 162. Continued on Lovenox 40 mg subcu twice a day, Decadron 6 mg by mouth twice a day, vitamin supplements. Peak d-dimer 13.2. Most recent 5.1. The patient is seen today 08/12/2021 in follow-up on the regular medical floor. He is currently sitting up at the bedside. Awake alert in no acute distress. Still requiring 15 L high flow nasal cannula plus a nonrebreather mask to have an O2 saturation at 88%. He is feeling a bit better today compared to yesterday. His appetite is improved. He is feeling a bit stronger. X-ray continues to show bilateral left greater than right patchy airspace and interstitial opacities. No significant improvement. White count 14.7. Hemoglobin 15.4. Lymphocytes 0.5. D-dimer 3.18. He is continued on Decadron, Lovenox, vitamin supplements. Objective - Vital Signs Vital signs: Vital Signs Temp 97.6 F 08/12/21 10:00 Pulse 76 08/12/21 10:00 Resp 17 08/12/21 10:00 BP 108/71 08/12/21 05:57 Pulse Ox 99 08/12/21 10:00 Intake & Output 08/11/21 08/12/21 08/12/21 18:59 06:59 18:59 Other: Voiding Method Urinal # Voids 4 3 - Exam GENERAL EXAM: Alert, very pleasant 65-year-old gentleman, on 15 L high flow nasal cannula plus a nonrebreather mask, fairly comfortable in no apparent distress. HEAD: Normocephalic. EYES: Normal reaction of pupils, equal size. NOSE: Clear with pink turbinates. THROAT: No erythema or exudates. NECK: No masses, no JVD. CHEST: No chest wall deformity. LUNGS: Equal air entry with crackles in the bilateral bases. CVS: S1 and S2 normal with no audible murmur, regular rhythm. ABDOMEN: No hepatosplenomegaly, normal bowel sounds, no guarding or rigidity. SPINE: No scoliosis or deformity SKIN: No rashes CENTRAL NERVOUS SYSTEM: No focal deficits, tone is normal in all 4 extremities. EXTREMITIES: There is no peripheral edema. No clubbing, no cyanosis. Peripheral pulses are intact. - Labs CBC & Chem 7: 08/12/21 11:48 08/09/21 06:07 Labs: Abnormal Lab Results - Last 24 Hours (Table) 08/11/21 08/11/21 08/12/21 Range/Units 16:34 20:34 07:15 WBC (3.8-10.6) k/uL Neutrophils # (1.3-7.7) k/uL Lymphocytes # (1.0-4.8) k/uL D-Dimer (<0.60) mg/L FEU POC Glucose (mg/dL) 194 H 190 H 168 H (75-99) mg/dL 08/12/21 08/12/21 08/12/21 Range/Units 11:39 11:48 11:48 WBC 14.7 H (3.8-10.6) k/uL Neutrophils # 13.3 H (1.3-7.7) k/uL Lymphocytes # 0.5 L (1.0-4.8) k/uL D-Dimer 3.18 H (<0.60) mg/L FEU POC Glucose (mg/dL) 197 H (75-99) mg/dL Assessment and Plan Assessment: 1 Acute hypoxic respiratory failure related to acute COVID-19 pneumonia. 2 Increased inflammatory markers related to the above 3 Elevated d-dimer, CTA of the chest showed no evidence of pulmonary embolism, and lower extremity Dopplers were negative 4 Diabetes mellitus type II 5 Hypertension 6 Hyperlipidemia 7 Obesity with BMI of 39.70 8 Increased LFTs, related to viral pneumonia or medication related, Baricitinib discontinued on 08/06/2021, improving Plan: The patient was seen and evaluated by Dr. Jones Continue to titrate the FiO2 as tolerated Remains on therapeutic Lovenox, Decadron, vitamin supplements We will continue to follow I, the cosigning physician, performed a history & physical examination of the patient. Lungs sounds with crackles in the bilateral bases. Maintaining good O2 saturations in the 90s on 15 L high flow nasal cannula plus a nonrebreather mask. I discussed the assessment and plan of care with my nurse practitioner, Swapna Flores. I attest to the above note as dictated by her.
[2021-08-12 16:07] LABS: African American GFR (CKD) 108.4 (60.0-200.0); Albumin 3.3 g/dL (3.8-4.9); Albumin/Globulin Ratio 0.91 (1.60-3.17); Anion Gap 23.1 mmol/L (4.00-12.00); BUN/Creat Ratio 28.86 Ratio (12.00-20.00); Blood Urea Nitrogen 23.2 mg/dL (9.0-27.0); Calcium 8.8 mg/dL (8.7-10.3); Carbon Dioxide 13.8 mmol/L (21.6-31.8); Globulin 3.6 g/dL (1.6-3.3); Non-African American GFR(CKD) 93.6 (60.0-200.0); Potassium 5.1 mmol/L (3.5-5.5); Total Bilirubin 0.7 mg/dL (0.30-1.20)
[2021-08-12 17:09] LABS: Glucose,Whole Blood 198 mg/dL (75-99)
[2021-08-12 21:05] LABS: Glucose,Whole Blood 167 mg/dL (75-99)
[2021-08-13 07:46] LABS: Glucose,Whole Blood 136 mg/dL (75-99)
[2021-08-13] MEDS: ASCORBIC ACID 500 MG TAB PO SCH (07:52)
[2021-08-13] MEDS: CHOLECALCIFEROL 25 MCG (1000 IU) TABLET PO SCH (07:52)
[2021-08-13] MEDS: dexAMETHasone 2 MG TAB PO SCH ×2 (07:52→20:55)
[2021-08-13] MEDS: ZINC SULFATE 220 MG CAP PO SCH (07:52)
[2021-08-13] MEDS: INSULIN ASPART (NovoLOG) 100 UNIT/ML VIAL SQ SCH ×4 (07:52→21:24)
[2021-08-13] MEDS: ENOXAPARIN 40 MG/0.4 ML SYRINGE SQ SCH ×2 (07:53→20:55)
[2021-08-13 11:28] LABS: Glucose,Whole Blood 167 mg/dL (75-99)
--- NOTE | 2021-08-13 12:15 | P.PN ---
<Jaquan Torrez - Last Filed: 08/13/21 12:07> Subjective Progress Note Date: 08/13/21 Hospital course: Patient is a 65-year-old male with a past medical history of hypertension, hyp erlipidemia, and type II [id number] diabetes mellitus. He presented to the hospital on 08/02/21 with a chief complaint of shortness of breath and coughing. Patient was unvaccinated for Covid and reports he began experiencing complaints of shortness of breath and wheezing around July 23 and after these symptoms progressively worsened he was seen and evaluated on July 30 and tested positive for Covid 19 virus infection. upon arrival to the emergency department, patient found to be significantly hypoxic requiring oxygen supplementation. Patient initially 86% on room air. Chest x-ray revealed bilateral mid to lower lung multifocal opacities consistent with Covid 19 infection. Pt admitted under our services with consultation to pulmonology. Patient underwent bilateral lower extremity which were negative for DVT. CTA chest negative for PE showing extensive bilateral pulmonary infiltrates consistent with Covid 19 pneumonia. Physical examination: Patient seen and fully evaluated at the bedside this morning. He is now on 13 L flow nasal cannula +15 L nonrebreather mask. Patient sitting up at bedside upon assessment. He reports overall he feels as though it is beginning to get easier to breathe, it is getting easier to eat, and he feels as though he has more energy. He continues to deny any headache, lightheadedness, dizziness, chest pain, palpitations, or experiencing any numbness/tingling/weakness in his extremities. He appears to have an overall better outlook and reports that he has been calling his on face time a bit more because he is now able to talk more without his oxygen saturations dropping. At this time patient to continue with medication regimen consisting of vitamin C, vitamin D, zinc, Decadron, and Lovenox. We will continue to wean down oxygen as patient tolerates. General: Nontoxic, mild distress secondary to conversational dyspnea. Derm: Skin warm and dry, normal coloration for ethnicity. Head: Atraumatic, normocephalic and symmetric. Eyes: EOMs intact, no lid lag, and anicteric sclera Mouth: no lip lesions, mucus membranes moist Cardiovascular: regular rate and rhythm with normal S1S2, no murmur, positive posterior tibial pulses bilaterally, and cap refill < 2 seconds. Lungs: increased respiratory effort, conversational dyspnea. soft bibasilar crac kles nearly resolved in RLL, crackles in left lower lobe remain. Patient on 13 L high flow nasal cannula and 15 L nonrebreather. Abdominal: soft, nontender to palpation, no guarding, no appreciable organomegaly Ext: ROM intact. No gross muscle atrophy, no edema, no contractures. pt with amputation Neuro: Speech clear, face symmetrical and CN II-XII grossly intact with no noted focal neuro deficits Psych: Alert and oriented to person, place, time, and situation. Appropriate and pleasant affect. Assessment and Plan of Care: Acute respiratory failure with hypoxia secondary to COVID 19 pneumonia -Oxygenation to be administered and titrated as needed to maintain SPO2 equal to or greater than 90% -Telemetry monitoring. -Continue trending inflammatory markers -Pt received two doses of Baricitinib, remainder of doses held secondary to elevated liver enzymes -Encourage Incentive Spirometry 10-15x hourly while awake -Steroids: Decadron 6 mg twice daily, day 10 of steroid treatment -Continue vitamin C, Vitamin D, and Zinc. -Pulmonology following, appreciate further recommendations. -Continue DVT prophylaxis with Lovenox 40 mg subcu every 12 hours Type II [id number] diabetes mellitus Hold Glucophage at this time and place patient on glycemic protocol with NovoLog sliding scale. Hypertension Monitor vital signs and continue daily medication regimen with lisinopril. CODE STATUS: full code DVT prophylaxis: Lovenox Discussed with: Pt, pt's and RN Anticipated discharge date: clinical course to determine Anticipated discharge place: Home A total of 45 minutes was spent on the care of this complex patient more than 50% of the time was spent in counseling and care coordination. Objective - Vital Signs Vital signs: Vital Signs Temp 97.5 F L 08/13/21 10:00 Pulse 90 08/13/21 10:00 Resp 17 08/13/21 10:00 BP 102/63 08/13/21 06:29 Pulse Ox 93 L 08/13/21 10:00 Intake & Output 08/12/21 08/13/21 08/13/21 18:59 06:59 18:59 Output Total 1250 Balance -1250 Output: Urine 1250 Other: Voiding Method Urinal # Voids 3 2 # Bowel Movements 0 - Labs CBC & Chem 7: 08/12/21 11:48 08/12/21 09:25 Labs: Abnormal Lab Results - Last 24 Hours (Table) 08/12/21 08/12/21 08/12/21 Range/Units 09:25 11:48 11:48 WBC 14.7 H (3.8-10.6) k/uL Neutrophils # 13.3 H (1.3-7.7) k/uL Lymphocytes # 0.5 L (1.0-4.8) k/uL D-Dimer 3.18 H (<0.60) mg/L FEU Carbon Dioxide 13.8 L (21.6-31.8) mmol/L Anion Gap 23.10 H (4.00-12.00) mmol/L BUN/Creatinine Ratio 28.86 H (12.00-20.00) Ratio Glucose 175 H (70-110) mg/dL POC Glucose (mg/dL) (75-99) mg/dL AST 53 H (14-35) U/L ALT 191 H (10-49) U/L Lactate Dehydrogenase 439 H (120-246) U/L C-Reactive Protein 1.90 H (0.00-0.80) mg/dL Albumin 3.3 L (3.8-4.9) g/dL Globulin 3.6 H (1.6-3.3) g/dL Albumin/Globulin Ratio 0.91 L (1.60-3.17) g/dL 08/12/21 08/12/21 08/13/21 Range/Units 17:08 21:04 07:44 WBC (3.8-10.6) k/uL Neutrophils # (1.3-7.7) k/uL Lymphocytes # (1.0-4.8) k/uL D-Dimer (<0.60) mg/L FEU Carbon Dioxide (21.6-31.8) mmol/L Anion Gap (4.00-12.00) mmol/L BUN/Creatinine Ratio (12.00-20.00) Ratio Glucose (70-110) mg/dL POC Glucose (mg/dL) 198 H 167 H 136 H (75-99) mg/dL AST (14-35) U/L ALT (10-49) U/L Lactate Dehydrogenase (120-246) U/L C-Reactive Protein (0.00-0.80) mg/dL Albumin (3.8-4.9) g/dL Globulin (1.6-3.3) g/dL Albumin/Globulin Ratio (1.60-3.17) g/dL 08/13/21 Range/Units 11:26 WBC (3.8-10.6) k/uL Neutrophils # (1.3-7.7) k/uL Lymphocytes # (1.0-4.8) k/uL D-Dimer (<0.60) mg/L FEU Carbon Dioxide (21.6-31.8) mmol/L Anion Gap (4.00-12.00) mmol/L BUN/Creatinine Ratio (12.00-20.00) Ratio Glucose (70-110) mg/dL POC Glucose (mg/dL) 167 H (75-99) mg/dL AST (14-35) U/L ALT (10-49) U/L Lactate Dehydrogenase (120-246) U/L C-Reactive Protein (0.00-0.80) mg/dL Albumin (3.8-4.9) g/dL Globulin (1.6-3.3) g/dL Albumin/Globulin Ratio (1.60-3.17) g/dL <Kassidy Abrams - Last Filed: 08/13/21 13:56> Subjective I reviewed the documentation as provided by the KALINA above, who is the original author of this note. I agree with the documented assessment and plan, with the following changes: None Objective - Vital Signs Vital signs: Vital Signs Temp 97.5 F L 08/13/21 10:00 Pulse 90 08/13/21 10:00 Resp 17 08/13/21 10:00 BP 102/63 08/13/21 06:29 Pulse Ox 93 L 08/13/21 10:00 Intake & Output 08/12/21 08/13/21 08/13/21 18:59 06:59 18:59 Output Total 1250 Balance -1250 Output: Urine 1250 Other: Voiding Method Urinal # Voids 3 2 3 # Bowel Movements 0 - Labs CBC & Chem 7: 08/12/21 11:48 08/12/21 09:25 Labs: Abnormal Lab Results - Last 24 Hours (Table) 08/12/21 08/12/21 08/12/21 Range/Units 09:25 17:08 21:04 Carbon Dioxide 13.8 L (21.6-31.8) mmol/L Anion Gap 23.10 H (4.00-12.00) mmol/L BUN/Creatinine Ratio 28.86 H (12.00-20.00) Ratio Glucose 175 H (70-110) mg/dL POC Glucose (mg/dL) 198 H 167 H (75-99) mg/dL AST 53 H (14-35) U/L ALT 191 H (10-49) U/L Lactate Dehydrogenase 439 H (120-246) U/L C-Reactive Protein 1.90 H (0.00-0.80) mg/dL Albumin 3.3 L (3.8-4.9) g/dL Globulin 3.6 H (1.6-3.3) g/dL Albumin/Globulin Ratio 0.91 L (1.60-3.17) g/dL 08/13/21 08/13/21 Range/Units 07:44 11:26 Carbon Dioxide (21.6-31.8) mmol/L Anion Gap (4.00-12.00) mmol/L BUN/Creatinine Ratio (12.00-20.00) Ratio Glucose (70-110) mg/dL POC Glucose (mg/dL) 136 H 167 H (75-99) mg/dL AST (14-35) U/L ALT (10-49) U/L Lactate Dehydrogenase (120-246) U/L C-Reactive Protein (0.00-0.80) mg/dL Albumin (3.8-4.9) g/dL Globulin (1.6-3.3) g/dL Albumin/Globulin Ratio (1.60-3.17) g/dL
--- NOTE | 2021-08-13 14:30 | P.PN ---
Subjective Progress Note Date: 08/13/21 Principal diagnosis: Hypoxia, pneumonia, COVID-19 65-year-old male patient was being Hospital as for COVID 19nrelated pneumonia. The patient is known to have COPD, hypertension and hyperlipidemia and diabetes mellitus. He presented emergency department with worsening shortness of breath. He reports that his symptoms started on 07/26/2021 and he progressively got worse. On he tested positive for COVID 19 and the patient received Decadron through his primary care physician. Unfortunately his condition got worse. He continued to have increased shortness of breath and dry cough. He was febrile. He presented to the ED with a pulse ox of mid 80s. His chest x- ray showed diffuse bilateral pulmonary infiltrates consistent with Covid 19 related pneumonia. His blood work showed a potassium level of 5.3, sodium level of 132, serum bicarb was 20, BUN was 19 with a creatinine of 0.8, lymphocyte count of 0.4 with a white cell count of 7.5. The patient was started on Decadron 6 mg by mouth daily and the patient was also given Lovenox 40 mg subcu daily prophylaxis. He is currently on IV fluids with normal saline at the rate of 75 mL an hour. He is on oxygen. He was placed on 6 L and he is currently down to 4 L per minute nasal cannula.He is not vaccinated 08/03/2021, the patient is being seen for a follow-up. The patient remains in The emergency department. I saw him yesterday in consultation. He was only on 4 L, he was brought up to 6 L and subsequently he is up to 13 L for now and his current pulse ox is around 88-90%. As such, his FiO2 needs to be further titrated to bring him above 90%. Meanwhile, I started him on a combination of D ecadron under the severe yesterday. I think of the severity needs to be switched to Baricitinib and will continue Decadron for now. He is coughing. He is hemodynamically stable. White cell count is 6.3. D-dimer 0.3. Inflammatory markers are still pending for now. Blood sugars today as 170. He is on insulin sliding scale coverage for blood sugar control. 08/04/2021, the patient is 1100% nonrebreather facemask. I'm seeing this patient for a follow-up today. Note that his oxygenation was gradually getting worse. He came in to us with 4 L and subsequently and up on a nonrebreather facemask. During the course of his progression, I'm stop the Remdesivir put the patient on a combination of Decadron and Baricitinib. Blood work from today still pending. I do have a d-dimer that is showing is 0.44 level. The glucose is 163. In terms of the inflammatory markers, the pro-calcitonin level was 0.1. The patient remains on Lovenox for DVT prophylaxis. Repeat chest x-ray shows no major interval change in the findings are essentially stable. On 08/05/2021, the patient remains on 15 L nasal cannula and 100% on a beta facemask. Earlier, there was a unsuccessful attempt by RT to switch this patient to a high flow oxygen. I think the idea was very good. The execution and the results are not to be not good and the patient desaturated significantly and the medication quite anxious. For that reason the patient was placed back on his original settings. His white cell count is at 10.8 with a hemoglobin of 15.3. D-dimer remains low at 0.55. Electrolytes are all within normal limits per normal renal function. His LDH level is higher and currently is at 1568 with a CRP of 0.7. I have this patient on a combination of Decadron 6 mg twice a day and he is also on Baricitinib per protocol. He remains on Lovenox 40 mg subcu on a daily basis. No other significant events otherwise for now. The most recent chest x-ray from yesterday showed stable bilateral pulmonary infilt rates without any significant interval change. As such, overall condition is still stable. This patient is not vaccinated. He has COVID 19 related pneumonia. He has COPD and hypertension hyperlipidemia and diabetes mellitus. On 08/06/2021 patient seen in follow-up on medical surgical floor. He is currently on 15 L per high flow nasal cannula, and 100% nonrebreather mask, his pulse ox is ranging between 80 1993%, afebrile, hemodynamically he is stable, she is short of breath with any activity. Denies any chest discomfort. Has occasional nonproductive cough. On today's labs as LFTs noted to be still elevated with AST 252, ALT of 523, and alkaline phosphatase is 72, and his Baricitinib was discontinued and Lipitor was placed on hold. His LDH on today's labs is 1598, and CRP is less than 0.5. The d-dimer today is 3.78. CT of the chest has been ordered and pending at this time, current treatment for COVID-19 pneumonia it consisting of Decadron 6 mg twice a day, Lovenox 40 mg daily, and COVID-19 vitamins. On 08/07/2021 patient seen in follow-up on medical surgical floor. He remains on 15 L per high flow nasal cannula, and 100% nonrebreather mask, his pulse ox is 89-90%, patient easily desaturates with any activity, he is a bit more dyspneic on today's exam, however he could not tolerate the Airvo, he felt that he was very bulky, and was drying out his nasal airways. Denies any chest pain, his been afebrile, hemodynamically has been stable, lung sounds reveal diffuse crackles at bilateral lower bases. CT chest has been completed and showed no evidence of pulmonary embolism, there were extensive bilateral pulmonary infiltrates. Yesterday we stopped his Baricitinib and Lipitor in view of increasing LFTs, today's labs are still pending today. D-dimer and LFTs in addition to inflammatory markers were ordered, however only d-dimer has resulted so far, and it is uptrending and is up to 6.4 on today's labs. Lower extremity Dopplers showed no evidence of DVT. Current treatment includes Decadron 6 mg twice daily, he is on Lovenox 40 mg daily, and he is on COVID-19 vitamins. He is on sliding scale NovoLog, his blood sugars are in the 180s to 190s. On 08/08/2021 patient seen in follow-up on medical surgical floor. On today's exam although he remains on high flow oxygen with 15 L high flow and 100% nonrebreather he appears to be breathing more comfortably, does not appear to be tachypneic, no use of accessory muscles of breathing, he sitting up on the edge of the bed, and leaning over a table, he states that he breathes better that way. His pulse ox is 94%. He does easily desaturate to 80% even with a brief conversation, and any activity. His Baricitinib remains on hold, his LFTs were improving, follow-up LFTs have been ordered and pending for today, his Decadron dose of 6 mg twice daily, he remains on Lovenox 40 mg daily, CT chest showed no evidence of pulmonary embolism, and lower extremity Dopplers were negative for DVT. His d-dimer today is 13.24, increased from 6.4 on yesterday's labs, follow-up LDH and CRP are pending, however LDH was improving on yesterday's creatinine was down to 444, and CRP was slightly increased at 1.6. On 08/09/2021 patient seen in follow-up on medical surgical floor. Patient still remains on 15 L per high flow nasal cannula, and on percent nonrebreather, however his O2 saturations seem to have slightly improved and are around 92-94%. However patient easily desaturates with any exertion, and even speaking, does not appear to be tachypneic does not appear to be in any acute distress. Sounds reveal some minimal crackles at bilateral bases, no rhonchi or wheezing, remains on Decadron 6 mg twice daily, prophylactic Lovenox, and COVID-19 vitamins. His LFTs were improving on his labs from 2 days ago, follow-up labs are pending for today, his d-dimer today is improving and is down to 6.16, his white count is 13.8, hemoglobin is 15.1. Vital signs have been stable, has had no fever or chills. On 08/10/2021 patient seen in follow-up on medical surgical floor. Patient currently on 15 L of oxygen and nonrebreather mask, he is leaning on his left side, he states he seems to be breathing easier, and oxygenating better when he's laying on his left side, his pulse ox is ranging between 91-95%, afebrile, blood pressure is been stable. Coarse crackles over left upper and lower lung, clear on the right side. Patient has had no acute events overnight, today's labs have been reviewed, d-dimer is improving and is down to 5.15, with blood cell count is 17.1, hemoglobin is 16. On 08/13/2021 patient seen in follow-up on medical surgical floor, he is breathing fairly comfortably, he is currently on 15 L per high flow nasal cannula, and the nonrebreather mask, he is eating lunch, he does desaturate with eating and speaking, but overall he is breathing comfortably, he states he feels better, does occasionally cough, no phlegm production, no chest discomfort, no fever or chills, less tachypneic and looks quite comfortable. He remains on Decadron 6 mg twice daily, he is on Lovenox for milligrams twice daily, and he is on vitamin C, vitamin D and zinc. His chest x-ray from yesterday showing bilateral left greater than right patchy airspace and interstitial opacities that appeared more prominent compared to the prior study. No new labs today, his d-dimer from yesterday approving it was down to 3.18, his LDH was 439, and CRP was improving and down to 1.9. Objective - Vital Signs Vital signs: Vital Signs Temp 97.5 F L 08/13/21 10:00 Pulse 90 08/13/21 10:00 Resp 17 08/13/21 10:00 BP 102/63 08/13/21 06:29 Pulse Ox 93 L 08/13/21 10:00 Intake & Output 08/12/21 08/13/21 08/13/21 18:59 06:59 18:59 Output Total 1250 Balance -1250 Output: Urine 1250 Other: Voiding Method Urinal # Voids 3 2 3 # Bowel Movements 0 - Exam GENERAL EXAM: Alert, very pleasant, 65-year-old white male, on 15 L per high flow nasal cannula, and 100% percent nonrebreather mask with a pulse ox of 95% dyspneic at rest HEAD: Normocephalic/atraumatic. EYES: Normal reaction of pupils, equal size. Conjunctiva pink, sclera white. NOSE: Clear with pink turbinates. THROAT: No erythema or exudates. NECK: No masses, no JVD, no thyroid enlargement, no adenopathy. CHEST: No chest wall deformity. Symmetrical expansion. LUNGS: Equal air entry with bilateral crackles CVS: Regular rate and rhythm, normal S1 and S2, no gallops, no murmurs, no rubs ABDOMEN: Soft, nontender. No hepatosplenomegaly, normal bowel sounds, no guarding or rigidity. EXTREMITIES: No clubbing, no edema, no cyanosis, 2+ pulses and upper and lower extremities. MUSCULOSKELETAL: Muscle strength and tone normal. SPINE: No scoliosis or deformity SKIN: No rashes CENTRAL NERVOUS SYSTEM: Alert and oriented -3. No focal deficits, tone is normal in all 4 extremities. PSYCHIATRIC: Alert and oriented -3. Appropriate affect. Intact judgment and insight. - Labs CBC & Chem 7: 08/12/21 11:48 08/12/21 09:25 Labs: Abnormal Lab Results - Last 24 Hours (Table) 08/12/21 08/12/21 08/12/21 Range/Units 09:25 17:08 21:04 Carbon Dioxide 13.8 L (21.6-31.8) mmol/L Anion Gap 23.10 H (4.00-12.00) mmol/L BUN/Creatinine Ratio 28.86 H (12.00-20.00) Ratio Glucose 175 H (70-110) mg/dL POC Glucose (mg/dL) 198 H 167 H (75-99) mg/dL AST 53 H (14-35) U/L ALT 191 H (10-49) U/L Lactate Dehydrogenase 439 H (120-246) U/L C-Reactive Protein 1.90 H (0.00-0.80) mg/dL Albumin 3.3 L (3.8-4.9) g/dL Globulin 3.6 H (1.6-3.3) g/dL Albumin/Globulin Ratio 0.91 L (1.60-3.17) g/dL 08/13/21 08/13/21 Range/Units 07:44 11:26 Carbon Dioxide (21.6-31.8) mmol/L Anion Gap (4.00-12.00) mmol/L BUN/Creatinine Ratio (12.00-20.00) Ratio Glucose (70-110) mg/dL POC Glucose (mg/dL) 136 H 167 H (75-99) mg/dL AST (14-35) U/L ALT (10-49) U/L Lactate Dehydrogenase (120-246) U/L C-Reactive Protein (0.00-0.80) mg/dL Albumin (3.8-4.9) g/dL Globulin (1.6-3.3) g/dL Albumin/Globulin Ratio (1.60-3.17) g/dL Assessment and Plan Plan: Assessment: #1. Acute hypoxic respiratory failure related to acute COVID-19 pneumonia. P atient received a single dose of Remdesivir in the emergency department, however in view of rapid progression of his hypoxemia he was started on a combination of Decadron and baricitinib. #2. Increased inflammatory markers related to the above #3. Elevated d-dimer, CTA of the chest showed no evidence of pulmonary embolism, and lower extremity Dopplers were negative #4. Diabetes mellitus type II #5. Hypertension #6. Hyperlipidemia #7. Obesity with BMI of 39.70 #8. Increased LFTs, related to viral pneumonia or medication related, Baricitinib discontinued on 08/06/2021, improving Plan: Patient is breathing comfortably although still requiring high concentration of oxygen Continue current treatment Continue Decadron and Lovenox Current the patient to reposition self in bed, Obtain follow-up labs for tomorrow, inflammatory markers, d-dimer and CMP We'll continue to monitor his clinical course Overall seems to be stable, without worsening dyspnea or hypoxia I performed a history & physical examination of the patient and discussed their management with my nurse practitioner, Mari Le. I reviewed the nurse practitioner's note and agree with the documented findings and plan of care. Lung sounds are positive for diffuse crackles throughout the lung dai. The findings and the impression was discussed with the patient. I attest to the documentation by the nurse practitioner. Time with Patient: Less than 30
[2021-08-13 17:19] LABS: Glucose,Whole Blood 203 mg/dL (75-99)
[2021-08-13] MEDS: ALPRAZolam 0.5 MG TAB PO PRN (20:55)
[2021-08-13 21:21] LABS: Glucose,Whole Blood 163 mg/dL (75-99)
[2021-08-13] MEDS ORDERED: DOCUSATE 100 MG CAP PO STA (21:50)
[2021-08-14 07:08] LABS: Glucose,Whole Blood 171 mg/dL (75-99)
[2021-08-14] MEDS: dexAMETHasone 2 MG TAB PO SCH ×2 (07:37→20:44)
[2021-08-14] MEDS: ZINC SULFATE 220 MG CAP PO SCH (07:38)
[2021-08-14] MEDS: ASCORBIC ACID 500 MG TAB PO SCH (07:38)
[2021-08-14] MEDS: ENOXAPARIN 40 MG/0.4 ML SYRINGE SQ SCH ×2 (07:38→20:43)
[2021-08-14] MEDS: CHOLECALCIFEROL 25 MCG (1000 IU) TABLET PO SCH (07:38)
[2021-08-14] MEDS: INSULIN ASPART (NovoLOG) 100 UNIT/ML VIAL SQ SCH ×6 (07:39→20:44)
[2021-08-14 09:20] LABS: HCT 44.5 % (39.6-50.0); HGB 14.6 g/dL (13.0-17.0); MCH 30.8 pg (27.0-32.0); MCHC 32.8 g/dL (32.0-37.0); MCV 93.9 fL (80.0-97.0); Mean Platelet Volume 11.7 fL (9.5-12.2); Platelet Count 248 X 10*3/uL (140-440); RBC 4.74 X 10*6/uL (4.40-5.60); WBC 11.96 X 10*3/uL (4.50-10.00)
[2021-08-14 10:04] LABS: C Reactive Protein 0.7 mg/dL (0.00-0.80); Magnesium 2.3 mg/dL (1.5-2.4)
[2021-08-14 10:18] LABS: African American GFR (CKD) 108.6 (60.0-200.0); Albumin 3.3 g/dL (3.8-4.9); Albumin/Globulin Ratio 1.06 (1.60-3.17); Anion Gap 9.9 mmol/L (4.00-12.00); BUN/Creat Ratio 25.75 Ratio (12.00-20.00); Blood Urea Nitrogen 20.6 mg/dL (9.0-27.0); Calcium 8.4 mg/dL (8.7-10.3); Carbon Dioxide 26.1 mmol/L (21.6-31.8); Globulin 3.1 g/dL (1.6-3.3); Non-African American GFR(CKD) 93.7 (60.0-200.0); Potassium 5.2 mmol/L (3.5-5.5); Total Bilirubin 0.6 mg/dL (0.30-1.20); Total Protein 6.4 g/dL (6.2-8.2)
[2021-08-14 11:48] LABS: Glucose,Whole Blood 157 mg/dL (75-99)
--- NOTE | 2021-08-14 14:00 | P.PN ---
Subjective Progress Note Date: 08/14/21 Patient has no new complaints, inflammatory markers are slightly improved. Ongoing oxygen requirement. Objective - Vital Signs Vital signs: Vital Signs Temp 97.7 F 08/14/21 10:00 Pulse 78 08/14/21 10:00 Resp 18 08/14/21 10:00 BP 122/69 08/14/21 10:00 Pulse Ox 88 L 08/14/21 12:32 Intake & Output 08/13/21 08/14/21 08/14/21 18:59 06:59 18:59 Output Total 600 Balance -600 Output: Urine 600 Other: Voiding Method Urinal Urinal # Voids 3 # Bowel Movements 1 - Exam Gen: awake, alert HEENT: normocephalic, atraumatic, good hearing acuity, moist mucous membranes Resp: Diminished air exchange, breathing comfortably with no accessory muscle use CVS: good distal perfusion x 4, GI: soft, NTTP, ND : no SPT, no CVAT, medina catheter not present MSK: no pitting edema, no clubbing Neuro: non-focal, moving all extremities Psych: cooperative, euthymic mood - Labs CBC & Chem 7: 08/14/21 05:59 08/14/21 05:59 Labs: Abnormal Lab Results - Last 24 Hours (Table) 08/13/21 08/13/21 08/14/21 Range/Units 17:14 21:01 05:59 WBC 11.96 H (4.50-10.00) X 10*3/uL D-Dimer (<0.60) mg/L FEU Sodium (135-145) mmol/L BUN/Creatinine Ratio (12.00-20.00) Ratio Glucose (70-110) mg/dL POC Glucose (mg/dL) 203 H 163 H (75-99) mg/dL Calcium (8.7-10.3) mg/dL AST (14-35) U/L ALT (10-49) U/L Lactate Dehydrogenase (120-246) U/L Albumin (3.8-4.9) g/dL Albumin/Globulin Ratio (1.60-3.17) g/dL 08/14/21 08/14/21 08/14/21 Range/Units 05:59 05:59 07:04 WBC (4.50-10.00) X 10*3/uL D-Dimer 2.90 H (<0.60) mg/L FEU Sodium 134 L (135-145) mmol/L BUN/Creatinine Ratio 25.75 H (12.00-20.00) Ratio Glucose 166 H (70-110) mg/dL POC Glucose (mg/dL) 171 H (75-99) mg/dL Calcium 8.4 L (8.7-10.3) mg/dL AST 53 H (14-35) U/L ALT 227 H (10-49) U/L Lactate Dehydrogenase 319 H (120-246) U/L Albumin 3.3 L (3.8-4.9) g/dL Albumin/Globulin Ratio 1.06 L (1.60-3.17) g/dL 08/14/21 Range/Units 11:47 WBC (4.50-10.00) X 10*3/uL D-Dimer (<0.60) mg/L FEU Sodium (135-145) mmol/L BUN/Creatinine Ratio (12.00-20.00) Ratio Glucose (70-110) mg/dL POC Glucose (mg/dL) 157 H (75-99) mg/dL Calcium (8.7-10.3) mg/dL AST (14-35) U/L ALT (10-49) U/L Lactate Dehydrogenase (120-246) U/L Albumin (3.8-4.9) g/dL Albumin/Globulin Ratio (1.60-3.17) g/dL Assessment and Plan Assessment: Acute respiratory failure with hypoxia ARDS secondary to COVID 19 pneumonia -Oxygenation to be administered and titrated as needed to maintain SPO2 equal to or greater than 90% -Telemetry monitoring. -Continue trending inflammatory markers -Pt received two doses of Baricitinib, remainder of doses held secondary to elevated liver enzymes -Encourage Incentive Spirometry 10-15x hourly while awake -Steroids: Decadron 6 mg twice daily, day 10 of steroid treatment -Continue vitamin C, Vitamin D, and Zinc. -Pulmonology following, appreciate further recommendations. -Continue DVT prophylaxis with Lovenox 40 mg subcu every 12 hours Type II [id number] diabetes mellitus Hold Glucophage at this time and place patient on glycemic protocol with NovoLog sliding scale. Hypertension Monitor vital signs and continue daily medication regimen with lisinopril. CODE STATUS: full code DVT prophylaxis: Lovenox Anticipated discharge date: clinical course to determine
--- NOTE | 2021-08-14 14:54 | P.PN ---
Subjective Progress Note Date: 08/14/21 Principal diagnosis: Hypoxia, pneumonia, COVID-19 65-year-old male patient was being Hospital as for COVID 19nrelated pneumonia. The patient is known to have COPD, hypertension and hyperlipidemia and diabetes mellitus. He presented emergency department with worsening shortness of breath. He reports that his symptoms started on 07/26/2021 and he progressively got worse. On he tested positive for COVID 19 and the patient received Decadron through his primary care physician. Unfortunately his condition got worse. He continued to have increased shortness of breath and dry cough. He was febrile. He presented to the ED with a pulse ox of mid 80s. His chest x- ray showed diffuse bilateral pulmonary infiltrates consistent with Covid 19 related pneumonia. His blood work showed a potassium level of 5.3, sodium level of 132, serum bicarb was 20, BUN was 19 with a creatinine of 0.8, lymphocyte count of 0.4 with a white cell count of 7.5. The patient was started on Decadron 6 mg by mouth daily and the patient was also given Lovenox 40 mg subcu daily prophylaxis. He is currently on IV fluids with normal saline at the rate of 75 mL an hour. He is on oxygen. He was placed on 6 L and he is currently down to 4 L per minute nasal cannula.He is not vaccinated 08/03/2021, the patient is being seen for a follow-up. The patient remains in The emergency department. I saw him yesterday in consultation. He was only on 4 L, he was brought up to 6 L and subsequently he is up to 13 L for now and his current pulse ox is around 88-90%. As such, his FiO2 needs to be further titrated to bring him above 90%. Meanwhile, I started him on a combination of D ecadron under the severe yesterday. I think of the severity needs to be switched to Baricitinib and will continue Decadron for now. He is coughing. He is hemodynamically stable. White cell count is 6.3. D-dimer 0.3. Inflammatory markers are still pending for now. Blood sugars today as 170. He is on insulin sliding scale coverage for blood sugar control. 08/04/2021, the patient is 1100% nonrebreather facemask. I'm seeing this patient for a follow-up today. Note that his oxygenation was gradually getting worse. He came in to us with 4 L and subsequently and up on a nonrebreather facemask. During the course of his progression, I'm stop the Remdesivir put the patient on a combination of Decadron and Baricitinib. Blood work from today still pending. I do have a d-dimer that is showing is 0.44 level. The glucose is 163. In terms of the inflammatory markers, the pro-calcitonin level was 0.1. The patient remains on Lovenox for DVT prophylaxis. Repeat chest x-ray shows no major interval change in the findings are essentially stable. On 08/05/2021, the patient remains on 15 L nasal cannula and 100% on a beta facemask. Earlier, there was a unsuccessful attempt by RT to switch this patient to a high flow oxygen. I think the idea was very good. The execution and the results are not to be not good and the patient desaturated significantly and the medication quite anxious. For that reason the patient was placed back on his original settings. His white cell count is at 10.8 with a hemoglobin of 15.3. D-dimer remains low at 0.55. Electrolytes are all within normal limits per normal renal function. His LDH level is higher and currently is at 1568 with a CRP of 0.7. I have this patient on a combination of Decadron 6 mg twice a day and he is also on Baricitinib per protocol. He remains on Lovenox 40 mg subcu on a daily basis. No other significant events otherwise for now. The most recent chest x-ray from yesterday showed stable bilateral pulmonary infilt rates without any significant interval change. As such, overall condition is still stable. This patient is not vaccinated. He has COVID 19 related pneumonia. He has COPD and hypertension hyperlipidemia and diabetes mellitus. On 08/06/2021 patient seen in follow-up on medical surgical floor. He is currently on 15 L per high flow nasal cannula, and 100% nonrebreather mask, his pulse ox is ranging between 80 1993%, afebrile, hemodynamically he is stable, she is short of breath with any activity. Denies any chest discomfort. Has occasional nonproductive cough. On today's labs as LFTs noted to be still elevated with AST 252, ALT of 523, and alkaline phosphatase is 72, and his Baricitinib was discontinued and Lipitor was placed on hold. His LDH on today's labs is 1598, and CRP is less than 0.5. The d-dimer today is 3.78. CT of the chest has been ordered and pending at this time, current treatment for COVID-19 pneumonia it consisting of Decadron 6 mg twice a day, Lovenox 40 mg daily, and COVID-19 vitamins. On 08/07/2021 patient seen in follow-up on medical surgical floor. He remains on 15 L per high flow nasal cannula, and 100% nonrebreather mask, his pulse ox is 89-90%, patient easily desaturates with any activity, he is a bit more dyspneic on today's exam, however he could not tolerate the Airvo, he felt that he was very bulky, and was drying out his nasal airways. Denies any chest pain, his been afebrile, hemodynamically has been stable, lung sounds reveal diffuse crackles at bilateral lower bases. CT chest has been completed and showed no evidence of pulmonary embolism, there were extensive bilateral pulmonary infiltrates. Yesterday we stopped his Baricitinib and Lipitor in view of increasing LFTs, today's labs are still pending today. D-dimer and LFTs in addition to inflammatory markers were ordered, however only d-dimer has resulted so far, and it is uptrending and is up to 6.4 on today's labs. Lower extremity Dopplers showed no evidence of DVT. Current treatment includes Decadron 6 mg twice daily, he is on Lovenox 40 mg daily, and he is on COVID-19 vitamins. He is on sliding scale NovoLog, his blood sugars are in the 180s to 190s. On 08/08/2021 patient seen in follow-up on medical surgical floor. On today's exam although he remains on high flow oxygen with 15 L high flow and 100% nonrebreather he appears to be breathing more comfortably, does not appear to be tachypneic, no use of accessory muscles of breathing, he sitting up on the edge of the bed, and leaning over a table, he states that he breathes better that way. His pulse ox is 94%. He does easily desaturate to 80% even with a brief conversation, and any activity. His Baricitinib remains on hold, his LFTs were improving, follow-up LFTs have been ordered and pending for today, his Decadron dose of 6 mg twice daily, he remains on Lovenox 40 mg daily, CT chest showed no evidence of pulmonary embolism, and lower extremity Dopplers were negative for DVT. His d-dimer today is 13.24, increased from 6.4 on yesterday's labs, follow-up LDH and CRP are pending, however LDH was improving on yesterday's creatinine was down to 444, and CRP was slightly increased at 1.6. On 08/09/2021 patient seen in follow-up on medical surgical floor. Patient still remains on 15 L per high flow nasal cannula, and on percent nonrebreather, however his O2 saturations seem to have slightly improved and are around 92-94%. However patient easily desaturates with any exertion, and even speaking, does not appear to be tachypneic does not appear to be in any acute distress. Sounds reveal some minimal crackles at bilateral bases, no rhonchi or wheezing, remains on Decadron 6 mg twice daily, prophylactic Lovenox, and COVID-19 vitamins. His LFTs were improving on his labs from 2 days ago, follow-up labs are pending for today, his d-dimer today is improving and is down to 6.16, his white count is 13.8, hemoglobin is 15.1. Vital signs have been stable, has had no fever or chills. On 08/10/2021 patient seen in follow-up on medical surgical floor. Patient currently on 15 L of oxygen and nonrebreather mask, he is leaning on his left side, he states he seems to be breathing easier, and oxygenating better when he's laying on his left side, his pulse ox is ranging between 91-95%, afebrile, blood pressure is been stable. Coarse crackles over left upper and lower lung, clear on the right side. Patient has had no acute events overnight, today's labs have been reviewed, d-dimer is improving and is down to 5.15, with blood cell count is 17.1, hemoglobin is 16. On 08/13/2021 patient seen in follow-up on medical surgical floor, he is breathing fairly comfortably, he is currently on 15 L per high flow nasal cannula, and the nonrebreather mask, he is eating lunch, he does desaturate with eating and speaking, but overall he is breathing comfortably, he states he feels better, does occasionally cough, no phlegm production, no chest discomfort, no fever or chills, less tachypneic and looks quite comfortable. He remains on Decadron 6 mg twice daily, he is on Lovenox for milligrams twice daily, and he is on vitamin C, vitamin D and zinc. His chest x-ray from yesterday showing bilateral left greater than right patchy airspace and interstitial opacities that appeared more prominent compared to the prior study. No new labs today, his d-dimer from yesterday approving it was down to 3.18, his LDH was 439, and CRP was improving and down to 1.9. On 08/14/2021 patient seen in follow-up on medical surgical floor. He is accompanied to bed, breathing comfortably, patient still remains on 15 L of oxygen per high flow nasal cannula, and nonrebreather mask, he does desaturate with eating, attempts have been made to wean down the FiO2 however during times of desaturation during meals FiO2 is turned back up. Otherwise he denies any worsening dyspnea, he states overall he is feeling better, lung sounds reveal mild crackles over right base. No fever or chills, repositioning self in bed, is on Decadron 6 mg twice daily, he remains on multivitamins and Lovenox 40 mg twice daily. Objective - Vital Signs Vital signs: Vital Signs Temp 97.7 F 08/14/21 10:00 Pulse 78 08/14/21 10:00 Resp 18 08/14/21 10:00 BP 122/69 08/14/21 10:00 Pulse Ox 88 L 08/14/21 12:32 Intake & Output 08/13/21 08/14/21 08/14/21 18:59 06:59 18:59 Output Total 600 Balance -600 Output: Urine 600 Other: Voiding Method Urinal Urinal # Voids 3 # Bowel Movements 1 - Exam GENERAL EXAM: Alert, very pleasant, 65-year-old white male, on 15 L per high flow nasal cannula, and 100% percent nonrebreather mask with a pulse ox of 88% dyspneic at rest HEAD: Normocephalic/atraumatic. EYES: Normal reaction of pupils, equal size. Conjunctiva pink, sclera white. NOSE: Clear with pink turbinates. THROAT: No erythema or exudates. NECK: No masses, no JVD, no thyroid enlargement, no adenopathy. CHEST: No chest wall deformity. Symmetrical expansion. LUNGS: Equal air entry with bilateral crackles CVS: Regular rate and rhythm, normal S1 and S2, no gallops, no murmurs, no rubs ABDOMEN: Soft, nontender. No hepatosplenomegaly, normal bowel sounds, no guarding or rigidity. EXTREMITIES: No clubbing, no edema, no cyanosis, 2+ pulses and upper and lower extremities. MUSCULOSKELETAL: Muscle strength and tone normal. SPINE: No scoliosis or deformity SKIN: No rashes CENTRAL NERVOUS SYSTEM: Alert and oriented -3. No focal deficits, tone is normal in all 4 extremities. PSYCHIATRIC: Alert and oriented -3. Appropriate affect. Intact judgment and insight. - Labs CBC & Chem 7: 08/14/21 05:59 08/14/21 05:59 Labs: Abnormal Lab Results - Last 24 Hours (Table) 08/13/21 08/13/21 08/14/21 Range/Units 17:14 21:01 05:59 WBC 11.96 H (4.50-10.00) X 10*3/uL D-Dimer (<0.60) mg/L FEU Sodium (135-145) mmol/L BUN/Creatinine Ratio (12.00-20.00) Ratio Glucose (70-110) mg/dL POC Glucose (mg/dL) 203 H 163 H (75-99) mg/dL Calcium (8.7-10.3) mg/dL AST (14-35) U/L ALT (10-49) U/L Lactate Dehydrogenase (120-246) U/L Albumin (3.8-4.9) g/dL Albumin/Globulin Ratio (1.60-3.17) g/dL 08/14/21 08/14/21 08/14/21 Range/Units 05:59 05:59 07:04 WBC (4.50-10.00) X 10*3/uL D-Dimer 2.90 H (<0.60) mg/L FEU Sodium 134 L (135-145) mmol/L BUN/Creatinine Ratio 25.75 H (12.00-20.00) Ratio Glucose 166 H (70-110) mg/dL POC Glucose (mg/dL) 171 H (75-99) mg/dL Calcium 8.4 L (8.7-10.3) mg/dL AST 53 H (14-35) U/L ALT 227 H (10-49) U/L Lactate Dehydrogenase 319 H (120-246) U/L Albumin 3.3 L (3.8-4.9) g/dL Albumin/Globulin Ratio 1.06 L (1.60-3.17) g/dL 08/14/21 Range/Units 11:47 WBC (4.50-10.00) X 10*3/uL D-Dimer (<0.60) mg/L FEU Sodium (135-145) mmol/L BUN/Creatinine Ratio (12.00-20.00) Ratio Glucose (70-110) mg/dL POC Glucose (mg/dL) 157 H (75-99) mg/dL Calcium (8.7-10.3) mg/dL AST (14-35) U/L ALT (10-49) U/L Lactate Dehydrogenase (120-246) U/L Albumin (3.8-4.9) g/dL Albumin/Globulin Ratio (1.60-3.17) g/dL Assessment and Plan Plan: Assessment: #1. Acute hypoxic respiratory failure related to acute COVID-19 pneumonia. Patient received a single dose of Remdesivir in the emergency department, however in view of rapid progression of his hypoxemia he was started on a combination of Decadron and baricitinib. #2. Increased inflammatory markers related to the above #3. Elevated d-dimer, CTA of the chest showed no evidence of pulmonary embolism, and lower extremity Dopplers were negative #4. Diabetes mellitus type II #5. Hypertension #6. Hyperlipidemia #7. Obesity with BMI of 39.70 #8. Increased LFTs, related to viral pneumonia or medication related, Baricitin ib discontinued on 08/06/2021, improving Plan: No acute events overnight Clinically stable, no worsening hypoxia or work of breathing Still requiring high concentration of oxygen Continue current treatment We'll continue to monitor his clinical course I performed a history & physical examination of the patient and discussed their management with my nurse practitioner, Mari Le. I reviewed the nurse practitioner's note and agree with the documented findings and plan of care. Lung sounds are positive for diffuse crackles throughout the lung dai. The findings and the impression was discussed with the patient. I attest to the documentation by the nurse practitioner. Time with Patient: Less than 30
[2021-08-14 17:06] LABS: Glucose,Whole Blood 161 mg/dL (75-99)
[2021-08-14 20:16] LABS: Glucose,Whole Blood 171 mg/dL (75-99)
[2021-08-15 07:31] LABS: Glucose,Whole Blood 147 mg/dL (75-99)
[2021-08-15] MEDS: INSULIN ASPART (NovoLOG) 100 UNIT/ML VIAL SQ SCH ×7 (08:15→21:36)
[2021-08-15] MEDS: ASCORBIC ACID 500 MG TAB PO SCH (08:15)
[2021-08-15] MEDS: dexAMETHasone 2 MG TAB PO SCH ×2 (08:15→21:35)
[2021-08-15] MEDS: CHOLECALCIFEROL 25 MCG (1000 IU) TABLET PO SCH (08:15)
[2021-08-15] MEDS: ENOXAPARIN 40 MG/0.4 ML SYRINGE SQ SCH ×2 (08:15→21:36)
[2021-08-15] MEDS: ZINC SULFATE 220 MG CAP PO SCH (08:15)
[2021-08-15 11:17] LABS: Glucose,Whole Blood 166 mg/dL (75-99)
--- NOTE | 2021-08-15 13:21 | P.PN ---
Subjective Progress Note Date: 08/15/21 Patient has no new complaints, inflammatory markers are slightly improved. Ongoing oxygen requirement, but breathing is improved per patient. Objective - Vital Signs Vital signs: Vital Signs Temp 97.9 F 08/15/21 09:33 Pulse 62 08/15/21 09:33 Resp 18 08/15/21 09:33 BP 107/62 08/15/21 04:56 Pulse Ox 96 08/15/21 09:33 Intake & Output 08/14/21 08/15/21 08/15/21 18:59 06:59 18:59 Output Total 600 1000 450 Balance -600 -1000 -450 Output: Urine 600 1000 450 Other: Voiding Method Urinal # Voids 1 - Exam Gen: awake, alert HEENT: normocephalic, atraumatic, good hearing acuity, moist mucous membranes Resp: Diminished air exchange, breathing comfortably with no accessory muscle use CVS: good distal perfusion x 4, GI: soft, NTTP, ND : no SPT, no CVAT, medina catheter not present MSK: no pitting edema, no clubbing Neuro: non-focal, moving all extremities Psych: cooperative, euthymic mood - Labs CBC & Chem 7: 08/14/21 05:59 08/14/21 05:59 Labs: Abnormal Lab Results - Last 24 Hours (Table) 08/14/21 08/14/21 08/15/21 Range/Units 17:04 20:14 07:25 POC Glucose (mg/dL) 161 H 171 H 147 H (75-99) mg/dL 08/15/21 Range/Units 11:00 POC Glucose (mg/dL) 166 H (75-99) mg/dL Assessment and Plan Assessment: Acute respiratory failure with hypoxia ARDS secondary to COVID 19 pneumonia -Oxygenation to be administered and titrated as needed to maintain SPO2 equal to or greater than 90% -Telemetry monitoring. -Continue trending inflammatory markers -Pt received two doses of Baricitinib, remainder of doses held secondary to elevated liver enzymes -Encourage Incentive Spirometry 10-15x hourly while awake -Steroids: Decadron 6 mg twice daily, day 10 of steroid treatment -Continue vitamin C, Vitamin D, and Zinc. -Pulmonology following, appreciate further recommendations. -Continue DVT prophylaxis with Lovenox 40 mg subcu every 12 hours Type II [id number] diabetes mellitus Hold Glucophage at this time and place patient on glycemic protocol with NovoLog sliding scale. Hypertension Monitor vital signs and continue daily medication regimen with lisinopril. CODE STATUS: full code DVT prophylaxis: Lovenox Anticipated discharge date: clinical course to determine
[2021-08-15 16:10] LABS: Glucose,Whole Blood 169 mg/dL (75-99)
--- NOTE | 2021-08-15 16:44 | P.PN ---
Subjective Progress Note Date: 08/15/21 Principal diagnosis: COVID-19 pneumonia 65-year-old male patient was being Hospital as for COVID 19nrelated pneumonia. The patient is known to have COPD, hypertension and hyperlipidemia and diabetes mellitus. He presented emergency department with worsening shortness of breath. He reports that his symptoms started on 07/26/2021 and he progressively got worse. On he tested positive for COVID 19 and the patient received Decadron through his primary care physician. Unfortunately his condition got worse. He continued to have increased shortness of breath and dry cough. He was febrile. He presented to the ED with a pulse ox of mid 80s. His chest x- ray showed diffuse bilateral pulmonary infiltrates consistent with Covid 19 related pneumonia. His blood work showed a potassium level of 5.3, sodium level of 132, serum bicarb was 20, BUN was 19 with a creatinine of 0.8, lymphocyte count of 0.4 with a white cell count of 7.5. The patient was started on D ecadron 6 mg by mouth daily and the patient was also given Lovenox 40 mg subcu daily prophylaxis. He is currently on IV fluids with normal saline at the rate of 75 mL an hour. He is on oxygen. He was placed on 6 L and he is currently down to 4 L per minute nasal cannula.He is not vaccinated 08/03/2021, the patient is being seen for a follow-up. The patient remains in The emergency department. I saw him yesterday in consultation. He was only on 4 L, he was brought up to 6 L and subsequently he is up to 13 L for now and his current pulse ox is around 88-90%. As such, his FiO2 needs to be further titrated to bring him above 90%. Meanwhile, I started him on a combination of Decadron under the severe yesterday. I think of the severity needs to be switched to Baricitinib and will continue Decadron for now. He is coughing. He is hemodynamically stable. White cell count is 6.3. D-dimer 0.3. Inflammatory markers are still pending for now. Blood sugars today as 170. He is on insulin sliding scale coverage for blood sugar control. 08/04/2021, the patient is 1100% nonrebreather facemask. I'm seeing this patient for a follow-up today. Note that his oxygenation was gradually getting worse. He came in to us with 4 L and subsequently and up on a nonrebreather facemask. During the course of his progression, I'm stop the Remdesivir put the patient on a combination of Decadron and Baricitinib. Blood work from today still pending. I do have a d-dimer that is showing is 0.44 level. The glucose is 163. In terms of the inflammatory markers, the pro-calcitonin level was 0.1. The patient remains on Lovenox for DVT prophylaxis. Repeat chest x-ray shows no major interval change in the findings are essentially stable. On 08/05/2021, the patient remains on 15 L nasal cannula and 100% on a beta facemask. Earlier, there was a unsuccessful attempt by RT to switch this patient to a high flow oxygen. I think the idea was very good. The execution and the results are not to be not good and the patient desaturated significantly and the medication quite anxious. For that reason the patient was placed back on his original settings. His white cell count is at 10.8 with a hemoglobin of 15.3. D-dimer remains low at 0.55. Electrolytes are all within normal limits per normal renal function. His LDH level is higher and currently is at 1568 with a CRP of 0.7. I have this patient on a combination of Decadron 6 mg twice a day and he is also on Baricitinib per protocol. He remains on Lovenox 40 mg subcu on a daily basis. No other significant events otherwise for now. The most recent chest x-ray from yesterday showed stable bilateral pulmonary infiltrates without any significant interval change. As such, overall condition is still stable. This patient is not vaccinated. He has COVID 19 related pneumonia. He has COPD and hypertension hyperlipidemia and diabetes mellitus. On 08/06/2021 patient seen in follow-up on medical surgical floor. He is curren tly on 15 L per high flow nasal cannula, and 100% nonrebreather mask, his pulse ox is ranging between 80 1993%, afebrile, hemodynamically he is stable, she is short of breath with any activity. Denies any chest discomfort. Has occasional nonproductive cough. On today's labs as LFTs noted to be still elevated with AST 252, ALT of 523, and alkaline phosphatase is 72, and his Baricitinib was discontinued and Lipitor was placed on hold. His LDH on today's labs is 1598, and CRP is less than 0.5. The d-dimer today is 3.78. CT of the chest has been ordered and pending at this time, current treatment for COVID-19 pneumonia it consisting of Decadron 6 mg twice a day, Lovenox 40 mg daily, and COVID-19 vitamins. On 08/07/2021 patient seen in follow-up on medical surgical floor. He remains on 15 L per high flow nasal cannula, and 100% nonrebreather mask, his pulse ox is 89-90%, patient easily desaturates with any activity, he is a bit more dyspneic on today's exam, however he could not tolerate the Airvo, he felt that he was very bulky, and was drying out his nasal airways. Denies any chest pain, his been afebrile, hemodynamically has been stable, lung sounds reveal diffuse crackles at bilateral lower bases. CT chest has been completed and showed no evidence of pulmonary embolism, there were extensive bilateral pulmonary infiltrates. Yesterday we stopped his Baricitinib and Lipitor in view of increasing LFTs, today's labs are still pending today. D-dimer and LFTs in addition to inflammatory markers were ordered, however only d-dimer has resulted so far, and it is uptrending and is up to 6.4 on today's labs. Lower extremity Dopplers showed no evidence of DVT. Current treatment includes Decadron 6 mg twice daily, he is on Lovenox 40 mg daily, and he is on COVID-19 vitamins. He is on sliding scale NovoLog, his blood sugars are in the 180s to 190s. On 08/08/2021 patient seen in follow-up on medical surgical floor. On today's exam although he remains on high flow oxygen with 15 L high flow and 100% nonrebreather he appears to be breathing more comfortably, does not appear to be tachypneic, no use of accessory muscles of breathing, he sitting up on the edge of the bed, and leaning over a table, he states that he breathes better that way. His pulse ox is 94%. He does easily desaturate to 80% even with a brief conversation, and any activity. His Baricitinib remains on hold, his LFTs were improving, follow-up LFTs have been ordered and pending for today, his Decadron dose of 6 mg twice daily, he remains on Lovenox 40 mg daily, CT chest showed no evidence of pulmonary embolism, and lower extremity Dopplers were negative for DVT. His d-dimer today is 13.24, increased from 6.4 on yesterday's labs, follow-up LDH and CRP are pending, however LDH was improving on yesterday's creatinine was down to 444, and CRP was slightly increased at 1.6. On 08/09/2021 patient seen in follow-up on medical surgical floor. Patient still remains on 15 L per high flow nasal cannula, and on percent nonrebreather, however his O2 saturations seem to have slightly improved and are around 92-94%. However patient easily desaturates with any exertion, and even speaking, does not appear to be tachypneic does not appear to be in any acute distress. Sounds reveal some minimal crackles at bilateral bases, no rhonchi or wheezing, remains on Decadron 6 mg twice daily, prophylactic Lovenox, and COVID-19 vitamins. His LFTs were improving on his labs from 2 days ago, follow-up labs are pending for today, his d-dimer today is improving and is down to 6.16, his white count is 13.8, hemoglobin is 15.1. Vital signs have been stable, has had no fever or chills. On 08/10/2021 patient seen in follow-up on medical surgical floor. Patient currently on 15 L of oxygen and nonrebreather mask, he is leaning on his left side, he states he seems to be breathing easier, and oxygenating better when he's laying on his left side, his pulse ox is ranging between 91-95%, afebrile, blood pressure is been stable. Coarse crackles over left upper and lower lung, clear on the right side. Patient has had no acute events overnight, today's labs have been reviewed, d-dimer is improving and is down to 5.15, with blood cell count is 17.1, hemoglobin is 16. The patient is seen today 08/11/2021 in follow-up on the regular medical floor. He is currently resting comfortably in bed. Laying prone. Maintaining O2 saturations in the low 90s on 15 L high flow nasal cannula plus a nonrebreather mask. He's been afebrile. Hemodynamically stable. Glucose 162. Continued on Lovenox 40 mg subcu twice a day, Decadron 6 mg by mouth twice a day, vitamin supplements. Peak d-dimer 13.2. Most recent 5.1. The patient is seen today 08/12/2021 in follow-up on the regular medical floor. He is currently sitting up at the bedside. Awake alert in no acute distress. Still requiring 15 L high flow nasal cannula plus a nonrebreather mask to have an O2 saturation at 88%. He is feeling a bit better today compared to yesterday. His appetite is improved. He is feeling a bit stronger. X-ray continues to show bilateral left greater than right patchy airspace and interstitial opacities. No significant improvement. White count 14.7. Hemoglobin 15.4. Lymphocytes 0.5. D-dimer 3.18. He is continued on Decadron, Lovenox, vitamin supplements. The patient is seen today 08/15/2021 in follow-up on the regular medical floor. He is currently resting comfortably in bed. Awake and alert in no acute distress. Breathing a bit easier today compared to yesterday. He is still on 13 L high flow nasal cannula plus a partial rebreather mask at times. No worsening shortness of breath. Blood glucose 169. He remains on Decadron, Lovenox, vitamin supplements. Objective - Vital Signs Vital signs: Vital Signs Temp 97.5 F L 08/15/21 14:15 Pulse 74 08/15/21 14:15 Resp 20 08/15/21 14:15 BP 104/63 08/15/21 14:15 Pulse Ox 95 08/15/21 14:15 Intake & Output 08/14/21 08/15/21 08/15/21 18:59 06:59 18:59 Output Total 600 1000 450 Balance -600 -1000 -450 Output: Urine 600 1000 450 Other: Voiding Method Urinal # Voids 1 - Exam GENERAL EXAM: Alert, very pleasant 65-year-old gentleman, on 13 L high flow nasal cannula plus a partial rebreather mask, fairly comfortable in no apparent distress. HEAD: Normocephalic. EYES: Normal reaction of pupils, equal size. NOSE: Clear with pink turbinates. THROAT: No erythema or exudates. NECK: No masses, no JVD. CHEST: No chest wall deformity. LUNGS: Equal air entry with crackles in the bilateral bases. CVS: S1 and S2 normal with no audible murmur, regular rhythm. ABDOMEN: No hepatosplenomegaly, normal bowel sounds, no guarding or rigidity. SPINE: No scoliosis or deformity SKIN: No rashes CENTRAL NERVOUS SYSTEM: No focal deficits, tone is normal in all 4 extremities. EXTREMITIES: There is no peripheral edema. No clubbing, no cyanosis. Peripheral pulses are intact. - Labs CBC & Chem 7: 08/14/21 05:59 08/14/21 05:59 Labs: Abnormal Lab Results - Last 24 Hours (Table) 08/14/21 08/14/21 08/15/21 Range/Units 17:04 20:14 07:25 POC Glucose (mg/dL) 161 H 171 H 147 H (75-99) mg/dL 08/15/21 08/15/21 Range/Units 11:00 16:07 POC Glucose (mg/dL) 166 H 169 H (75-99) mg/dL Assessment and Plan Assessment: 1 Acute hypoxic respiratory failure related to acute COVID-19 pneumonia. 2 Increased inflammatory markers related to the above 3 Elevated d-dimer, CTA of the chest showed no evidence of pulmonary embolism, and lower extremity Dopplers were negative 4 Diabetes mellitus type II 5 Hypertension 6 Hyperlipidemia 7 Obesity with BMI of 39.70 8 Increased LFTs, related to viral pneumonia or medication related, Baricitinib discontinued on 08/06/2021, improving Plan: The patient was seen and evaluated by Dr. Camilo Continue to titrate the FiO2 as tolerated Increase his activity as tolerated Remains on Lovenox, Decadron, vitamin supplements We will continue to follow I, the cosigning physician, performed a history & physical examination of the patient. Lungs sounds with crackles in the bilateral bases. Maintaining good O2 saturations in the 90s on 13 L high flow nasal cannula plus a partial rebreather mask. I discussed the assessment and plan of care with my nurse practitioner, Swapna Flores. I attest to the above note as dictated by her.
[2021-08-15 20:50] LABS: Glucose,Whole Blood 129 mg/dL (75-99)
--- NOTE | 2021-08-16 07:15 | XR ---
EXAMINATION TYPE: XR chest 1V portable DATE OF EXAM: 08/16/2021 CLINICAL HISTORY: Difficulty breathing and covid progress study. TECHNIQUE: Single AP portable upright view of the chest is obtained. COMPARISON: Chest x-ray from 4 days earlier and older studies FINDINGS: Persistent bilateral left greater than right multifocal and confluent opacities on backgro und low lung volumes. Cardiac silhouette size stable and within normal limits. Osseous structures are intact. IMPRESSION: Findings consistent with known covid-19 infection redemonstrated, no significant change f rom most recent x-ray.
[2021-08-16 07:43] LABS: Glucose,Whole Blood 145 mg/dL (75-99)
[2021-08-16] MEDS: ENOXAPARIN 40 MG/0.4 ML SYRINGE SQ SCH ×2 (08:18→20:23)
[2021-08-16] MEDS: ZINC SULFATE 220 MG CAP PO SCH (08:18)
[2021-08-16] MEDS: INSULIN ASPART (NovoLOG) 100 UNIT/ML VIAL SQ SCH ×7 (08:18→20:24)
[2021-08-16] MEDS: ASCORBIC ACID 500 MG TAB PO SCH (08:19)
[2021-08-16] MEDS: CHOLECALCIFEROL 25 MCG (1000 IU) TABLET PO SCH (08:19)
[2021-08-16] MEDS: dexAMETHasone 2 MG TAB PO SCH ×2 (08:19→20:22)
[2021-08-16] MEDS: ALPRAZolam 0.5 MG TAB PO PRN (10:33)
[2021-08-16 11:26] LABS: Glucose,Whole Blood 148 mg/dL (75-99)
--- NOTE | 2021-08-16 12:07 | P.PN ---
Subjective Progress Note Date: 08/16/21 Patient has no new complaints, inflammatory markers pending today. Ongoing oxygen requirement with no change. Pt reports breathing is the same as yesterday. Objective - Vital Signs Vital signs: Vital Signs Temp 96.0 F L 08/16/21 10:00 Pulse 91 08/16/21 10:00 Resp 18 08/16/21 10:00 BP 111/70 08/16/21 10:00 Pulse Ox 95 08/16/21 10:00 Intake & Output 08/15/21 08/16/21 08/16/21 18:59 06:59 18:59 Output Total 1050 500 Balance -1050 -500 Output: Urine 1050 500 Other: Voiding Method Urinal # Voids 1 1 - Exam Gen: awake, alert HEENT: normocephalic, atraumatic, good hearing acuity, moist mucous membranes Resp: Diminished air exchange, breathing comfortably with no accessory muscle use CVS: good distal perfusion x 4, GI: soft, NTTP, ND : no SPT, no CVAT, medina catheter not present MSK: no pitting edema, no clubbing Neuro: non-focal, moving all extremities Psych: cooperative, euthymic mood - Labs CBC & Chem 7: 08/14/21 05:59 08/14/21 05:59 Labs: Abnormal Lab Results - Last 24 Hours (Table) 08/15/21 08/15/21 08/16/21 Range/Units 16:07 20:49 07:41 POC Glucose (mg/dL) 169 H 129 H 145 H (75-99) mg/dL 08/16/21 Range/Units 11:23 POC Glucose (mg/dL) 148 H (75-99) mg/dL Assessment and Plan Assessment: Acute respiratory failure with hypoxia ARDS secondary to COVID 19 pneumonia -Oxygenation to be administered and titrated as needed to maintain SPO2 equal to or greater than 90% -Telemetry monitoring. -Continue trending inflammatory markers -Pt received two doses of Baricitinib, remainder of doses held secondary to elevated liver enzymes -Encourage Incentive Spirometry 10-15x hourly while awake -Steroids: Decadron 6 mg twice daily, day 14 of steroid treatment -Continue vitamin C, Vitamin D, and Zinc. -Pulmonology following, appreciate further recommendations. -Continue DVT prophylaxis with Lovenox 40 mg subcu every 12 hours Type II [id number] diabetes mellitus Hold Glucophage at this time and place patient on glycemic protocol with NovoLog sliding scale. Hypertension Monitor vital signs and continue daily medication regimen with lisinopril. CODE STATUS: full code DVT prophylaxis: Lovenox Anticipated discharge date: clinical course to determine
--- NOTE | 2021-08-16 15:50 | P.PN ---
Subjective Progress Note Date: 08/16/21 Principal diagnosis: COVID-19 pneumonia 65-year-old male patient was being Hospital as for COVID 19nrelated pneumonia. The patient is known to have COPD, hypertension and hyperlipidemia and diabetes mellitus. He presented emergency department with worsening shortness of breath. He reports that his symptoms started on 07/26/2021 and he progressively got worse. On he tested positive for COVID 19 and the patient received Decadron through his primary care physician. Unfortunately his condition got worse. He continued to have increased shortness of breath and dry cough. He was febrile. He presented to the ED with a pulse ox of mid 80s. His chest x- ray showed diffuse bilateral pulmonary infiltrates consistent with Covid 19 related pneumonia. His blood work showed a potassium level of 5.3, sodium level of 132, serum bicarb was 20, BUN was 19 with a creatinine of 0.8, lymphocyte count of 0.4 with a white cell count of 7.5. The patient was started on D ecadron 6 mg by mouth daily and the patient was also given Lovenox 40 mg subcu daily prophylaxis. He is currently on IV fluids with normal saline at the rate of 75 mL an hour. He is on oxygen. He was placed on 6 L and he is currently down to 4 L per minute nasal cannula.He is not vaccinated 08/03/2021, the patient is being seen for a follow-up. The patient remains in The emergency department. I saw him yesterday in consultation. He was only on 4 L, he was brought up to 6 L and subsequently he is up to 13 L for now and his current pulse ox is around 88-90%. As such, his FiO2 needs to be further titrated to bring him above 90%. Meanwhile, I started him on a combination of Decadron under the severe yesterday. I think of the severity needs to be switched to Baricitinib and will continue Decadron for now. He is coughing. He is hemodynamically stable. White cell count is 6.3. D-dimer 0.3. Inflammatory markers are still pending for now. Blood sugars today as 170. He is on insulin sliding scale coverage for blood sugar control. 08/04/2021, the patient is 1100% nonrebreather facemask. I'm seeing this patient for a follow-up today. Note that his oxygenation was gradually getting worse. He came in to us with 4 L and subsequently and up on a nonrebreather facemask. During the course of his progression, I'm stop the Remdesivir put the patient on a combination of Decadron and Baricitinib. Blood work from today still pending. I do have a d-dimer that is showing is 0.44 level. The glucose is 163. In terms of the inflammatory markers, the pro-calcitonin level was 0.1. The patient remains on Lovenox for DVT prophylaxis. Repeat chest x-ray shows no major interval change in the findings are essentially stable. On 08/05/2021, the patient remains on 15 L nasal cannula and 100% on a beta facemask. Earlier, there was a unsuccessful attempt by RT to switch this patient to a high flow oxygen. I think the idea was very good. The execution and the results are not to be not good and the patient desaturated significantly and the medication quite anxious. For that reason the patient was placed back on his original settings. His white cell count is at 10.8 with a hemoglobin of 15.3. D-dimer remains low at 0.55. Electrolytes are all within normal limits per normal renal function. His LDH level is higher and currently is at 1568 with a CRP of 0.7. I have this patient on a combination of Decadron 6 mg twice a day and he is also on Baricitinib per protocol. He remains on Lovenox 40 mg subcu on a daily basis. No other significant events otherwise for now. The most recent chest x-ray from yesterday showed stable bilateral pulmonary infiltrates without any significant interval change. As such, overall condition is still stable. This patient is not vaccinated. He has COVID 19 related pneumonia. He has COPD and hypertension hyperlipidemia and diabetes mellitus. On 08/06/2021 patient seen in follow-up on medical surgical floor. He is curren tly on 15 L per high flow nasal cannula, and 100% nonrebreather mask, his pulse ox is ranging between 80 1993%, afebrile, hemodynamically he is stable, she is short of breath with any activity. Denies any chest discomfort. Has occasional nonproductive cough. On today's labs as LFTs noted to be still elevated with AST 252, ALT of 523, and alkaline phosphatase is 72, and his Baricitinib was discontinued and Lipitor was placed on hold. His LDH on today's labs is 1598, and CRP is less than 0.5. The d-dimer today is 3.78. CT of the chest has been ordered and pending at this time, current treatment for COVID-19 pneumonia it consisting of Decadron 6 mg twice a day, Lovenox 40 mg daily, and COVID-19 vitamins. On 08/07/2021 patient seen in follow-up on medical surgical floor. He remains on 15 L per high flow nasal cannula, and 100% nonrebreather mask, his pulse ox is 89-90%, patient easily desaturates with any activity, he is a bit more dyspneic on today's exam, however he could not tolerate the Airvo, he felt that he was very bulky, and was drying out his nasal airways. Denies any chest pain, his been afebrile, hemodynamically has been stable, lung sounds reveal diffuse crackles at bilateral lower bases. CT chest has been completed and showed no evidence of pulmonary embolism, there were extensive bilateral pulmonary infiltrates. Yesterday we stopped his Baricitinib and Lipitor in view of increasing LFTs, today's labs are still pending today. D-dimer and LFTs in addition to inflammatory markers were ordered, however only d-dimer has resulted so far, and it is uptrending and is up to 6.4 on today's labs. Lower extremity Dopplers showed no evidence of DVT. Current treatment includes Decadron 6 mg twice daily, he is on Lovenox 40 mg daily, and he is on COVID-19 vitamins. He is on sliding scale NovoLog, his blood sugars are in the 180s to 190s. On 08/08/2021 patient seen in follow-up on medical surgical floor. On today's exam although he remains on high flow oxygen with 15 L high flow and 100% nonrebreather he appears to be breathing more comfortably, does not appear to be tachypneic, no use of accessory muscles of breathing, he sitting up on the edge of the bed, and leaning over a table, he states that he breathes better that way. His pulse ox is 94%. He does easily desaturate to 80% even with a brief conversation, and any activity. His Baricitinib remains on hold, his LFTs were improving, follow-up LFTs have been ordered and pending for today, his Decadron dose of 6 mg twice daily, he remains on Lovenox 40 mg daily, CT chest showed no evidence of pulmonary embolism, and lower extremity Dopplers were negative for DVT. His d-dimer today is 13.24, increased from 6.4 on yesterday's labs, follow-up LDH and CRP are pending, however LDH was improving on yesterday's creatinine was down to 444, and CRP was slightly increased at 1.6. On 08/09/2021 patient seen in follow-up on medical surgical floor. Patient still remains on 15 L per high flow nasal cannula, and on percent nonrebreather, however his O2 saturations seem to have slightly improved and are around 92-94%. However patient easily desaturates with any exertion, and even speaking, does not appear to be tachypneic does not appear to be in any acute distress. Sounds reveal some minimal crackles at bilateral bases, no rhonchi or wheezing, remains on Decadron 6 mg twice daily, prophylactic Lovenox, and COVID-19 vitamins. His LFTs were improving on his labs from 2 days ago, follow-up labs are pending for today, his d-dimer today is improving and is down to 6.16, his white count is 13.8, hemoglobin is 15.1. Vital signs have been stable, has had no fever or chills. On 08/10/2021 patient seen in follow-up on medical surgical floor. Patient currently on 15 L of oxygen and nonrebreather mask, he is leaning on his left side, he states he seems to be breathing easier, and oxygenating better when he's laying on his left side, his pulse ox is ranging between 91-95%, afebrile, blood pressure is been stable. Coarse crackles over left upper and lower lung, clear on the right side. Patient has had no acute events overnight, today's labs have been reviewed, d-dimer is improving and is down to 5.15, with blood cell count is 17.1, hemoglobin is 16. The patient is seen today 08/11/2021 in follow-up on the regular medical floor. He is currently resting comfortably in bed. Laying prone. Maintaining O2 saturations in the low 90s on 15 L high flow nasal cannula plus a nonrebreather mask. He's been afebrile. Hemodynamically stable. Glucose 162. Continued on Lovenox 40 mg subcu twice a day, Decadron 6 mg by mouth twice a day, vitamin supplements. Peak d-dimer 13.2. Most recent 5.1. The patient is seen today 08/12/2021 in follow-up on the regular medical floor. He is currently sitting up at the bedside. Awake alert in no acute distress. Still requiring 15 L high flow nasal cannula plus a nonrebreather mask to have an O2 saturation at 88%. He is feeling a bit better today compared to yesterday. His appetite is improved. He is feeling a bit stronger. X-ray continues to show bilateral left greater than right patchy airspace and interstitial opacities. No significant improvement. White count 14.7. Hemoglobin 15.4. Lymphocytes 0.5. D-dimer 3.18. He is continued on Decadron, Lovenox, vitamin supplements. The patient is seen today 08/15/2021 in follow-up on the regular medical floor. He is currently resting comfortably in bed. Awake and alert in no acute distress. Breathing a bit easier today compared to yesterday. He is still on 13 L high flow nasal cannula plus a partial rebreather mask at times. No worsening shortness of breath. Blood glucose 169. He remains on Decadron, Lovenox, vitamin supplements. The patient is seen today 08/16/2021 in follow-up on the regular medical floor. He is currently sitting up at the bedside. Awake and alert in no acute distress. Doing about the same today compared to yesterday. No worse. He is maintaining O2 saturations in the mid 90s on 13 L high flow nasal cannula occasionally he is in the nonrebreather mask. He is afebrile. Chest x-ray continues to show bilateral left greater than right multifocal and confluent opacities consistent with COVID-19 infection. No significant change compared to previous. Blood glucose 148. He remains on Lovenox, Decadron, vitamin supplements. Objective - Vital Signs Vital signs: Vital Signs Temp 97.6 F 08/16/21 13:44 Pulse 117 H 08/16/21 13:44 Resp 17 08/16/21 13:44 BP 106/60 08/16/21 13:44 Pulse Ox 87 L 08/16/21 13:44 Intake & Output 08/15/21 08/16/21 08/16/21 18:59 06:59 18:59 Output Total 1050 500 Balance -1050 -500 Output: Urine 1050 500 Other: Voiding Method Urinal # Voids 1 1 - Exam GENERAL EXAM: Alert, very pleasant 65-year-old gentleman, on 13 L high flow nasa l cannula plus a partial rebreather mask, fairly comfortable in no apparent distress. HEAD: Normocephalic. EYES: Normal reaction of pupils, equal size. NOSE: Clear with pink turbinates. THROAT: No erythema or exudates. NECK: No masses, no JVD. CHEST: No chest wall deformity. LUNGS: Equal air entry with crackles in the bilateral bases. CVS: S1 and S2 normal with no audible murmur, regular rhythm. ABDOMEN: No hepatosplenomegaly, normal bowel sounds, no guarding or rigidity. SPINE: No scoliosis or deformity SKIN: No rashes CENTRAL NERVOUS SYSTEM: No focal deficits, tone is normal in all 4 extremities. EXTREMITIES: There is no peripheral edema. No clubbing, no cyanosis. Peripheral pulses are intact. - Labs CBC & Chem 7: 08/14/21 05:59 08/14/21 05:59 Labs: Abnormal Lab Results - Last 24 Hours (Table) 08/15/21 08/15/21 08/16/21 Range/Units 16:07 20:49 07:41 POC Glucose (mg/dL) 169 H 129 H 145 H (75-99) mg/dL 08/16/21 Range/Units 11:23 POC Glucose (mg/dL) 148 H (75-99) mg/dL Assessment and Plan Assessment: 1 Acute hypoxic respiratory failure related to acute COVID-19 pneumonia. 2 Increased inflammatory markers related to the above 3 Elevated d-dimer, CTA of the chest showed no evidence of pulmonary embolism, and lower extremity Dopplers were negative 4 Diabetes mellitus type II 5 Hypertension 6 Hyperlipidemia 7 Obesity with BMI of 39.70 8 Increased LFTs, related to viral pneumonia or medication related, Baricitinib discontinued on 08/06/2021, improving Plan: The patient was seen and evaluated by Dr. Camilo Chest x-ray reviewed, no significant changes Remains on 13 L high flow nasal cannula plus a nonrebreather mask Continue to titrate the FiO2 as tolerated Increase his activity as tolerated Remains on Lovenox, Decadron, vitamin supplements We will continue to follow I, the cosigning physician, performed a history & physical examination of the patient. Lungs sounds with crackles in the bilateral bases. Maintaining good O2 saturations in the 90s on 13 L high flow nasal cannula plus a partial rebreather mask. I discussed the assessment and plan of care with my nurse practitioner, Swapna Flores. I attest to the above note as dictated by her.
[2021-08-16 16:37] LABS: Glucose,Whole Blood 278 mg/dL (75-99)
[2021-08-16 20:23] LABS: Glucose,Whole Blood 164 mg/dL (75-99)
[2021-08-16 23:12] LABS: Basophils # (A) 0.1 k/uL (0-0.2); Basophils % (A) 1 %; Eosinophils # (A) 0.2 k/uL (0-0.7); Eosinophils % (A) 2 %; HCT 42.8 % (39.0-53.0); HGB 13.9 gm/dL (13.0-17.5); Lymphocytes # (A) 0.7 k/uL (1.0-4.8); Lymphocytes % (A) 6 %; MCH 30.2 pg (25.0-35.0); MCHC 32.5 g/dL (31.0-37.0); MCV 93.1 fL (80.0-100.0); Mean Platelet Volume 8.3; Monocytes # (A) 0.8 k/uL (0-1.0); Monocytes % (A) 6 %; Neutrophils # (A) 10.7 k/uL (1.3-7.7); Neutrophils % (A) 84 %; Platelet Count 231 k/uL (150-450); WBC 12.7 k/uL (3.8-10.6)
[2021-08-16 23:30] LABS: African American GFR (CKD) >90 (>60 ml/min/1.73 sqM); Anion Gap 5 mmol/L; Blood Urea Nitrogen 25 mg/dL (9-20); C Reactive Protein 1.2 mg/dL (<1.0); Calcium 8.7 mg/dL (8.4-10.2); Carbon Dioxide 25 mmol/L (22-30); Chloride 101 mmol/L (98-107); Glucose 147 mg/dL (74-99); LDH 671 U/L (313-618); Non-African American GFR(CKD) >90 (>60 ml/min/1.73 sqM); Potassium 4.9 mmol/L (3.5-5.1); Sodium 131 mmol/L (137-145)
[2021-08-17 06:59] LABS: Glucose,Whole Blood 155 mg/dL (75-99)
[2021-08-17] MEDS: ENOXAPARIN 40 MG/0.4 ML SYRINGE SQ SCH ×2 (08:00→21:21)
[2021-08-17] MEDS: ZINC SULFATE 220 MG CAP PO SCH (08:01)
[2021-08-17] MEDS: CHOLECALCIFEROL 25 MCG (1000 IU) TABLET PO SCH (08:01)
[2021-08-17] MEDS: INSULIN ASPART (NovoLOG) 100 UNIT/ML VIAL SQ SCH ×7 (08:01→21:21)
[2021-08-17] MEDS: ASCORBIC ACID 500 MG TAB PO SCH (08:01)
[2021-08-17] MEDS: dexAMETHasone 2 MG TAB PO SCH ×2 (08:02→21:21)
--- NOTE | 2021-08-17 11:05 | P.PN ---
Subjective Progress Note Date: 08/17/21 Patient has no new complaints, inflammatory markers mildly worse to stable. Ongoing oxygen requirement with mild improvement. Pt reports breathing is the same as yesterday. Objective - Vital Signs Vital signs: Vital Signs Temp 97.6 F 08/17/21 09:32 Pulse 75 08/17/21 09:32 Resp 17 08/17/21 09:32 BP 103/64 08/17/21 09:32 Pulse Ox 95 08/17/21 09:32 Intake & Output 08/16/21 08/17/21 08/17/21 18:59 06:59 18:59 Intake Total 240 Balance 240 Intake: Oral 240 Other: Voiding Method Toilet Toilet Urinal Urinal # Voids 1 # Bowel Movements 1 - Exam Gen: awake, alert HEENT: normocephalic, atraumatic, good hearing acuity, moist mucous membranes Resp: Diminished air exchange, breathing comfortably with no accessory muscle use CVS: good distal perfusion x 4, GI: soft, NTTP, ND : no SPT, no CVAT, medina catheter not present MSK: no pitting edema, no clubbing Neuro: non-focal, moving all extremities Psych: cooperative, euthymic mood - Labs CBC & Chem 7: 08/16/21 22:54 08/16/21 22:54 Labs: Abnormal Lab Results - Last 24 Hours (Table) 08/16/21 08/16/21 08/16/21 Range/Units 11:23 16:34 20:22 WBC (3.8-10.6) k/uL Neutrophils # (1.3-7.7) k/uL Lymphocytes # (1.0-4.8) k/uL D-Dimer (<0.60) mg/L FEU Sodium (137-145) mmol/L BUN (9-20) mg/dL Glucose (74-99) mg/dL POC Glucose (mg/dL) 148 H 278 H 164 H (75-99) mg/dL Lactate Dehydrogenase (313-618) U/L C-Reactive Protein (<1.0) mg/dL 08/16/21 08/16/21 08/16/21 Range/Units 22:54 22:54 22:54 WBC 12.7 H (3.8-10.6) k/uL Neutrophils # 10.7 H (1.3-7.7) k/uL Lymphocytes # 0.7 L (1.0-4.8) k/uL D-Dimer 2.45 H (<0.60) mg/L FEU Sodium 131 L (137-145) mmol/L BUN 25 H (9-20) mg/dL Glucose 147 H (74-99) mg/dL POC Glucose (mg/dL) (75-99) mg/dL Lactate Dehydrogenase 671 H (313-618) U/L C-Reactive Protein 1.2 H (<1.0) mg/dL 08/17/21 Range/Units 06:56 WBC (3.8-10.6) k/uL Neutrophils # (1.3-7.7) k/uL Lymphocytes # (1.0-4.8) k/uL D-Dimer (<0.60) mg/L FEU Sodium (137-145) mmol/L BUN (9-20) mg/dL Glucose (74-99) mg/dL POC Glucose (mg/dL) 155 H (75-99) mg/dL Lactate Dehydrogenase (313-618) U/L C-Reactive Protein (<1.0) mg/dL Assessment and Plan Assessment: Acute respiratory failure with hypoxia ARDS secondary to COVID 19 pneumonia -Oxygenation to be administered and titrated as needed to maintain SPO2 equal to or greater than 90% -Telemetry monitoring. -Continue trending inflammatory markers -Pt received two doses of Baricitinib, remainder of doses held secondary to elevated liver enzymes -Encourage Incentive Spirometry 10-15x hourly while awake -Steroids: Decadron 6 mg twice daily, day 15 of steroid treatment -Continue vitamin C, Vitamin D, and Zinc. -Pulmonology following, appreciate further recommendations. -Continue DVT prophylaxis with Lovenox 40 mg subcu every 12 hours Type II [id number] diabetes mellitus Hold Glucophage at this time and place patient on glycemic protocol with NovoLog sliding scale. Hypertension Monitor vital signs and continue daily medication regimen with lisinopril. CODE STATUS: full code DVT prophylaxis: Lovenox Anticipated discharge date: clinical course to determine
[2021-08-17 11:46] LABS: Glucose,Whole Blood 145 mg/dL (75-99)
[2021-08-17 16:42] LABS: Glucose,Whole Blood 180 mg/dL (75-99)
--- NOTE | 2021-08-17 19:36 | P.PN ---
Subjective Progress Note Date: 08/17/21 Principal diagnosis: COVID-19 pneumonia 65-year-old male patient was being Hospital as for COVID 19nrelated pneumonia. The patient is known to have COPD, hypertension and hyperlipidemia and diabetes mellitus. He presented emergency department with worsening shortness of breath. He reports that his symptoms started on 07/26/2021 and he progressively got worse. On he tested positive for COVID 19 and the patient received Decadron through his primary care physician. Unfortunately his condition got worse. He continued to have increased shortness of breath and dry cough. He was febrile. He presented to the ED with a pulse ox of mid 80s. His chest x- ray showed diffuse bilateral pulmonary infiltrates consistent with Covid 19 related pneumonia. His blood work showed a potassium level of 5.3, sodium level of 132, serum bicarb was 20, BUN was 19 with a creatinine of 0.8, lymphocyte count of 0.4 with a white cell count of 7.5. The patient was started on D ecadron 6 mg by mouth daily and the patient was also given Lovenox 40 mg subcu daily prophylaxis. He is currently on IV fluids with normal saline at the rate of 75 mL an hour. He is on oxygen. He was placed on 6 L and he is currently down to 4 L per minute nasal cannula.He is not vaccinated 08/03/2021, the patient is being seen for a follow-up. The patient remains in The emergency department. I saw him yesterday in consultation. He was only on 4 L, he was brought up to 6 L and subsequently he is up to 13 L for now and his current pulse ox is around 88-90%. As such, his FiO2 needs to be further titrated to bring him above 90%. Meanwhile, I started him on a combination of Decadron under the severe yesterday. I think of the severity needs to be switched to Baricitinib and will continue Decadron for now. He is coughing. He is hemodynamically stable. White cell count is 6.3. D-dimer 0.3. Inflammatory markers are still pending for now. Blood sugars today as 170. He is on insulin sliding scale coverage for blood sugar control. 08/04/2021, the patient is 1100% nonrebreather facemask. I'm seeing this patient for a follow-up today. Note that his oxygenation was gradually getting worse. He came in to us with 4 L and subsequently and up on a nonrebreather facemask. During the course of his progression, I'm stop the Remdesivir put the patient on a combination of Decadron and Baricitinib. Blood work from today still pending. I do have a d-dimer that is showing is 0.44 level. The glucose is 163. In terms of the inflammatory markers, the pro-calcitonin level was 0.1. The patient remains on Lovenox for DVT prophylaxis. Repeat chest x-ray shows no major interval change in the findings are essentially stable. On 08/05/2021, the patient remains on 15 L nasal cannula and 100% on a beta facemask. Earlier, there was a unsuccessful attempt by RT to switch this patient to a high flow oxygen. I think the idea was very good. The execution and the results are not to be not good and the patient desaturated significantly and the medication quite anxious. For that reason the patient was placed back on his original settings. His white cell count is at 10.8 with a hemoglobin of 15.3. D-dimer remains low at 0.55. Electrolytes are all within normal limits per normal renal function. His LDH level is higher and currently is at 1568 with a CRP of 0.7. I have this patient on a combination of Decadron 6 mg twice a day and he is also on Baricitinib per protocol. He remains on Lovenox 40 mg subcu on a daily basis. No other significant events otherwise for now. The most recent chest x-ray from yesterday showed stable bilateral pulmonary infiltrates without any significant interval change. As such, overall condition is still stable. This patient is not vaccinated. He has COVID 19 related pneumonia. He has COPD and hypertension hyperlipidemia and diabetes mellitus. On 08/06/2021 patient seen in follow-up on medical surgical floor. He is curren tly on 15 L per high flow nasal cannula, and 100% nonrebreather mask, his pulse ox is ranging between 80 1993%, afebrile, hemodynamically he is stable, she is short of breath with any activity. Denies any chest discomfort. Has occasional nonproductive cough. On today's labs as LFTs noted to be still elevated with AST 252, ALT of 523, and alkaline phosphatase is 72, and his Baricitinib was discontinued and Lipitor was placed on hold. His LDH on today's labs is 1598, and CRP is less than 0.5. The d-dimer today is 3.78. CT of the chest has been ordered and pending at this time, current treatment for COVID-19 pneumonia it consisting of Decadron 6 mg twice a day, Lovenox 40 mg daily, and COVID-19 vitamins. On 08/07/2021 patient seen in follow-up on medical surgical floor. He remains on 15 L per high flow nasal cannula, and 100% nonrebreather mask, his pulse ox is 89-90%, patient easily desaturates with any activity, he is a bit more dyspneic on today's exam, however he could not tolerate the Airvo, he felt that he was very bulky, and was drying out his nasal airways. Denies any chest pain, his been afebrile, hemodynamically has been stable, lung sounds reveal diffuse crackles at bilateral lower bases. CT chest has been completed and showed no evidence of pulmonary embolism, there were extensive bilateral pulmonary infiltrates. Yesterday we stopped his Baricitinib and Lipitor in view of increasing LFTs, today's labs are still pending today. D-dimer and LFTs in addition to inflammatory markers were ordered, however only d-dimer has resulted so far, and it is uptrending and is up to 6.4 on today's labs. Lower extremity Dopplers showed no evidence of DVT. Current treatment includes Decadron 6 mg twice daily, he is on Lovenox 40 mg daily, and he is on COVID-19 vitamins. He is on sliding scale NovoLog, his blood sugars are in the 180s to 190s. On 08/08/2021 patient seen in follow-up on medical surgical floor. On today's exam although he remains on high flow oxygen with 15 L high flow and 100% nonrebreather he appears to be breathing more comfortably, does not appear to be tachypneic, no use of accessory muscles of breathing, he sitting up on the edge of the bed, and leaning over a table, he states that he breathes better that way. His pulse ox is 94%. He does easily desaturate to 80% even with a brief conversation, and any activity. His Baricitinib remains on hold, his LFTs were improving, follow-up LFTs have been ordered and pending for today, his Decadron dose of 6 mg twice daily, he remains on Lovenox 40 mg daily, CT chest showed no evidence of pulmonary embolism, and lower extremity Dopplers were negative for DVT. His d-dimer today is 13.24, increased from 6.4 on yesterday's labs, follow-up LDH and CRP are pending, however LDH was improving on yesterday's creatinine was down to 444, and CRP was slightly increased at 1.6. On 08/09/2021 patient seen in follow-up on medical surgical floor. Patient still remains on 15 L per high flow nasal cannula, and on percent nonrebreather, however his O2 saturations seem to have slightly improved and are around 92-94%. However patient easily desaturates with any exertion, and even speaking, does not appear to be tachypneic does not appear to be in any acute distress. Sounds reveal some minimal crackles at bilateral bases, no rhonchi or wheezing, remains on Decadron 6 mg twice daily, prophylactic Lovenox, and COVID-19 vitamins. His LFTs were improving on his labs from 2 days ago, follow-up labs are pending for today, his d-dimer today is improving and is down to 6.16, his white count is 13.8, hemoglobin is 15.1. Vital signs have been stable, has had no fever or chills. On 08/10/2021 patient seen in follow-up on medical surgical floor. Patient currently on 15 L of oxygen and nonrebreather mask, he is leaning on his left side, he states he seems to be breathing easier, and oxygenating better when he's laying on his left side, his pulse ox is ranging between 91-95%, afebrile, blood pressure is been stable. Coarse crackles over left upper and lower lung, clear on the right side. Patient has had no acute events overnight, today's labs have been reviewed, d-dimer is improving and is down to 5.15, with blood cell count is 17.1, hemoglobin is 16. The patient is seen today 08/11/2021 in follow-up on the regular medical floor. He is currently resting comfortably in bed. Laying prone. Maintaining O2 saturations in the low 90s on 15 L high flow nasal cannula plus a nonrebreather mask. He's been afebrile. Hemodynamically stable. Glucose 162. Continued on Lovenox 40 mg subcu twice a day, Decadron 6 mg by mouth twice a day, vitamin supplements. Peak d-dimer 13.2. Most recent 5.1. The patient is seen today 08/12/2021 in follow-up on the regular medical floor. He is currently sitting up at the bedside. Awake alert in no acute distress. Still requiring 15 L high flow nasal cannula plus a nonrebreather mask to have an O2 saturation at 88%. He is feeling a bit better today compared to yesterday. His appetite is improved. He is feeling a bit stronger. X-ray continues to show bilateral left greater than right patchy airspace and interstitial opacities. No significant improvement. White count 14.7. Hemoglobin 15.4. Lymphocytes 0.5. D-dimer 3.18. He is continued on Decadron, Lovenox, vitamin supplements. The patient is seen today 08/15/2021 in follow-up on the regular medical floor. He is currently resting comfortably in bed. Awake and alert in no acute distress. Breathing a bit easier today compared to yesterday. He is still on 13 L high flow nasal cannula plus a partial rebreather mask at times. No worsening shortness of breath. Blood glucose 169. He remains on Decadron, Lovenox, vitamin supplements. The patient is seen today 08/16/2021 in follow-up on the regular medical floor. He is currently sitting up at the bedside. Awake and alert in no acute distress. Doing about the same today compared to yesterday. No worse. He is maintaining O2 saturations in the mid 90s on 13 L high flow nasal cannula occasionally he is in the nonrebreather mask. He is afebrile. Chest x-ray continues to show bilateral left greater than right multifocal and confluent opacities consistent with COVID-19 infection. No significant change compared to previous. Blood glucose 148. He remains on Lovenox, Decadron, vitamin supplements. The patient is seen today 08/17/2021 in follow-up on the regular medical floor. He is currently awake and alert in no acute distress. Sitting up at the bedside. Denies any worsening shortness of breath, cough or congestion. Still requiring 14 L high flow nasal cannula to maintain O2 saturations in the 90s. He is continued on Lovenox, Decadron, vitamin supplements. Blood glucose 180. Objective - Vital Signs Vital signs: Vital Signs Temp 98.0 F 08/17/21 17:30 Pulse 71 08/17/21 17:30 Resp 18 08/17/21 17:30 BP 108/72 08/17/21 17:30 Pulse Ox 97 08/17/21 17:30 Intake & Output 08/17/21 08/17/21 08/18/21 06:59 18:59 06:59 Intake Total 240 Balance 240 Intake: Oral 240 Other: Voiding Method Toilet Toilet Urinal Urinal # Voids 1 - Exam GENERAL EXAM: Alert, very pleasant 65-year-old gentleman, on 14 L high flow nasal cannula plus a partial rebreather mask, fairly comfortable in no apparent distress. HEAD: Normocephalic. EYES: Normal reaction of pupils, equal size. NOSE: Clear with pink turbinates. THROAT: No erythema or exudates. NECK: No masses, no JVD. CHEST: No chest wall deformity. LUNGS: Equal air entry with crackles in the bilateral bases. CVS: S1 and S2 normal with no audible murmur, regular rhythm. ABDOMEN: No hepatosplenomegaly, normal bowel sounds, no guarding or rigidity. SPINE: No scoliosis or deformity SKIN: No rashes CENTRAL NERVOUS SYSTEM: No focal deficits, tone is normal in all 4 extremities. EXTREMITIES: There is no peripheral edema. No clubbing, no cyanosis. Peripheral pulses are intact. - Labs CBC & Chem 7: 08/16/21 22:54 08/16/21 22:54 Labs: Abnormal Lab Results - Last 24 Hours (Table) 08/16/21 08/16/21 08/16/21 Range/Units 20:22 22:54 22:54 WBC 12.7 H (3.8-10.6) k/uL Neutrophils # 10.7 H (1.3-7.7) k/uL Lymphocytes # 0.7 L (1.0-4.8) k/uL D-Dimer 2.45 H (<0.60) mg/L FEU Sodium (137-145) mmol/L BUN (9-20) mg/dL Glucose (74-99) mg/dL POC Glucose (mg/dL) 164 H (75-99) mg/dL Lactate Dehydrogenase (313-618) U/L C-Reactive Protein (<1.0) mg/dL 08/16/21 08/17/21 08/17/21 Range/Units 22:54 06:56 11:33 WBC (3.8-10.6) k/uL Neutrophils # (1.3-7.7) k/uL Lymphocytes # (1.0-4.8) k/uL D-Dimer (<0.60) mg/L FEU Sodium 131 L (137-145) mmol/L BUN 25 H (9-20) mg/dL Glucose 147 H (74-99) mg/dL POC Glucose (mg/dL) 155 H 145 H (75-99) mg/dL Lactate Dehydrogenase 671 H (313-618) U/L C-Reactive Protein 1.2 H (<1.0) mg/dL 08/17/21 Range/Units 16:40 WBC (3.8-10.6) k/uL Neutrophils # (1.3-7.7) k/uL Lymphocytes # (1.0-4.8) k/uL D-Dimer (<0.60) mg/L FEU Sodium (137-145) mmol/L BUN (9-20) mg/dL Glucose (74-99) mg/dL POC Glucose (mg/dL) 180 H (75-99) mg/dL Lactate Dehydrogenase (313-618) U/L C-Reactive Protein (<1.0) mg/dL Assessment and Plan Assessment: 1 Acute hypoxic respiratory failure related to acute COVID-19 pneumonia. 2 Increased inflammatory markers related to the above 3 Elevated d-dimer, CTA of the chest showed no evidence of pulmonary embolism, and lower extremity Dopplers were negative 4 Diabetes mellitus type II 5 Hypertension 6 Hyperlipidemia 7 Obesity with BMI of 39.70 8 Increased LFTs, related to viral pneumonia or medication related, Baricitinib discontinued on 08/06/2021, improving Plan: The patient was seen and evaluated by Dr. Camilo Remains on 14 L high flow nasal cannula Continue to titrate the FiO2 as tolerated Increase his activity as tolerated Remains on Lovenox, Decadron, vitamin supplements We will continue to follow I, the cosigning physician, performed a history & physical examination of the patient. Lungs sounds with crackles in the bilateral bases. Maintaining good O2 saturations in the 90s on 14 L high flow nasal cannula plus a partial rebreather mask. I discussed the assessment and plan of care with my nurse practitioner, Swapna Flores. I attest to the above note as dictated by her.
[2021-08-17 20:23] LABS: Glucose,Whole Blood 165 mg/dL (75-99)
[2021-08-18 06:57] LABS: Glucose,Whole Blood 131 mg/dL (75-99)
[2021-08-18] MEDS: ENOXAPARIN 40 MG/0.4 ML SYRINGE SQ SCH ×2 (08:55→21:06)
[2021-08-18] MEDS: CHOLECALCIFEROL 25 MCG (1000 IU) TABLET PO SCH (08:56)
[2021-08-18] MEDS: dexAMETHasone 2 MG TAB PO SCH ×2 (08:56→21:05)
[2021-08-18] MEDS: ZINC SULFATE 220 MG CAP PO SCH (08:56)
[2021-08-18] MEDS: INSULIN ASPART (NovoLOG) 100 UNIT/ML VIAL SQ SCH ×7 (08:56→21:06)
[2021-08-18] MEDS: ASCORBIC ACID 500 MG TAB PO SCH (08:56)
[2021-08-18 11:33] LABS: Glucose,Whole Blood 115 mg/dL (75-99)
--- NOTE | 2021-08-18 11:34 | P.PN ---
Subjective Progress Note Date: 08/18/21 Patient has no new complaints. Ongoing oxygen requirement with no change. Patient had a rough night overnight, where he tried to take off his mask in get by with nasal cannula only, however, patient was unable to sustain this for very long and feels behind in terms of his breathing today. Objective - Vital Signs Vital signs: Vital Signs Temp 97.4 F L 08/18/21 08:50 Pulse 80 08/18/21 08:50 Resp 18 08/18/21 08:50 BP 108/69 08/18/21 08:50 Pulse Ox 98 08/18/21 08:50 Intake & Output 08/17/21 08/18/21 08/18/21 18:59 06:59 18:59 Other: Voiding Method Toilet Toilet Urinal Urinal # Voids 2 - Exam Gen: awake, alert HEENT: normocephalic, atraumatic, good hearing acuity, moist mucous membranes Resp: Diminished air exchange, breathing comfortably with no accessory muscle use CVS: good distal perfusion x 4, GI: soft, NTTP, ND : no SPT, no CVAT, medina catheter not present MSK: no pitting edema, no clubbing Neuro: non-focal, moving all extremities Psych: cooperative, euthymic mood - Labs CBC & Chem 7: 08/16/21 22:54 08/16/21 22:54 Labs: Abnormal Lab Results - Last 24 Hours (Table) 08/17/21 08/17/21 08/17/21 Range/Units 11:33 16:40 20:21 POC Glucose (mg/dL) 145 H 180 H 165 H (75-99) mg/dL 08/18/21 08/18/21 Range/Units 06:55 11:31 POC Glucose (mg/dL) 131 H 115 H (75-99) mg/dL Assessment and Plan Assessment: Acute respiratory failure with hypoxia ARDS secondary to COVID 19 pneumonia -Oxygenation to be administered and titrated as needed to maintain SPO2 equal to or greater than 90% -Telemetry monitoring. -Continue trending inflammatory markers -Pt received two doses of Baricitinib, remainder of doses held secondary to elevated liver enzymes -Encourage Incentive Spirometry 10-15x hourly while awake -Steroids: Decadron 6 mg twice daily, day 16 of steroid treatment -Continue vitamin C, Vitamin D, and Zinc. -Pulmonology following, appreciate further recommendations. -Continue DVT prophylaxis with Lovenox 40 mg subcu every 12 hours Type II [id number] diabetes mellitus Hold Glucophage at this time and place patient on glycemic protocol with NovoLog sliding scale. Hypertension Monitor vital signs and continue daily medication regimen with lisinopril. CODE STATUS: full code DVT prophylaxis: Lovenox Anticipated discharge date: clinical course to determine
[2021-08-18 16:29] LABS: Glucose,Whole Blood 171 mg/dL (75-99)
--- NOTE | 2021-08-18 16:56 | P.PN ---
Subjective Progress Note Date: 08/18/21 Principal diagnosis: Hypoxia, pneumonia, COVID-19 65-year-old male patient was being Hospital as for COVID 19nrelated pneumonia. The patient is known to have COPD, hypertension and hyperlipidemia and diabetes mellitus. He presented emergency department with worsening shortness of breath. He reports that his symptoms started on 07/26/2021 and he progressively got worse. On he tested positive for COVID 19 and the patient received Decadron through his primary care physician. Unfortunately his condition got worse. He continued to have increased shortness of breath and dry cough. He was febrile. He presented to the ED with a pulse ox of mid 80s. His chest x- ray showed diffuse bilateral pulmonary infiltrates consistent with Covid 19 related pneumonia. His blood work showed a potassium level of 5.3, sodium level of 132, serum bicarb was 20, BUN was 19 with a creatinine of 0.8, lymphocyte count of 0.4 with a white cell count of 7.5. The patient was started on Decadron 6 mg by mouth daily and the patient was also given Lovenox 40 mg subcu daily prophylaxis. He is currently on IV fluids with normal saline at the rate of 75 mL an hour. He is on oxygen. He was placed on 6 L and he is currently down to 4 L per minute nasal cannula.He is not vaccinated 08/03/2021, the patient is being seen for a follow-up. The patient remains in The emergency department. I saw him yesterday in consultation. He was only on 4 L, he was brought up to 6 L and subsequently he is up to 13 L for now and his current pulse ox is around 88-90%. As such, his FiO2 needs to be further titrated to bring him above 90%. Meanwhile, I started him on a combination of D ecadron under the severe yesterday. I think of the severity needs to be switched to Baricitinib and will continue Decadron for now. He is coughing. He is hemodynamically stable. White cell count is 6.3. D-dimer 0.3. Inflammatory markers are still pending for now. Blood sugars today as 170. He is on insulin sliding scale coverage for blood sugar control. 08/04/2021, the patient is 1100% nonrebreather facemask. I'm seeing this patient for a follow-up today. Note that his oxygenation was gradually getting worse. He came in to us with 4 L and subsequently and up on a nonrebreather facemask. During the course of his progression, I'm stop the Remdesivir put the patient on a combination of Decadron and Baricitinib. Blood work from today still pending. I do have a d-dimer that is showing is 0.44 level. The glucose is 163. In terms of the inflammatory markers, the pro-calcitonin level was 0.1. The patient remains on Lovenox for DVT prophylaxis. Repeat chest x-ray shows no major interval change in the findings are essentially stable. On 08/05/2021, the patient remains on 15 L nasal cannula and 100% on a beta facemask. Earlier, there was a unsuccessful attempt by RT to switch this patient to a high flow oxygen. I think the idea was very good. The execution and the results are not to be not good and the patient desaturated significantly and the medication quite anxious. For that reason the patient was placed back on his original settings. His white cell count is at 10.8 with a hemoglobin of 15.3. D-dimer remains low at 0.55. Electrolytes are all within normal limits per normal renal function. His LDH level is higher and currently is at 1568 with a CRP of 0.7. I have this patient on a combination of Decadron 6 mg twice a day and he is also on Baricitinib per protocol. He remains on Lovenox 40 mg subcu on a daily basis. No other significant events otherwise for now. The most recent chest x-ray from yesterday showed stable bilateral pulmonary infilt rates without any significant interval change. As such, overall condition is still stable. This patient is not vaccinated. He has COVID 19 related pneumonia. He has COPD and hypertension hyperlipidemia and diabetes mellitus. On 08/06/2021 patient seen in follow-up on medical surgical floor. He is currently on 15 L per high flow nasal cannula, and 100% nonrebreather mask, his pulse ox is ranging between 80 1993%, afebrile, hemodynamically he is stable, she is short of breath with any activity. Denies any chest discomfort. Has occasional nonproductive cough. On today's labs as LFTs noted to be still elevated with AST 252, ALT of 523, and alkaline phosphatase is 72, and his Baricitinib was discontinued and Lipitor was placed on hold. His LDH on today's labs is 1598, and CRP is less than 0.5. The d-dimer today is 3.78. CT of the chest has been ordered and pending at this time, current treatment for COVID-19 pneumonia it consisting of Decadron 6 mg twice a day, Lovenox 40 mg daily, and COVID-19 vitamins. On 08/07/2021 patient seen in follow-up on medical surgical floor. He remains on 15 L per high flow nasal cannula, and 100% nonrebreather mask, his pulse ox is 89-90%, patient easily desaturates with any activity, he is a bit more dyspneic on today's exam, however he could not tolerate the Airvo, he felt that he was very bulky, and was drying out his nasal airways. Denies any chest pain, his been afebrile, hemodynamically has been stable, lung sounds reveal diffuse crackles at bilateral lower bases. CT chest has been completed and showed no evidence of pulmonary embolism, there were extensive bilateral pulmonary infiltrates. Yesterday we stopped his Baricitinib and Lipitor in view of increasing LFTs, today's labs are still pending today. D-dimer and LFTs in addition to inflammatory markers were ordered, however only d-dimer has resulted so far, and it is uptrending and is up to 6.4 on today's labs. Lower extremity Dopplers showed no evidence of DVT. Current treatment includes Decadron 6 mg twice daily, he is on Lovenox 40 mg daily, and he is on COVID-19 vitamins. He is on sliding scale NovoLog, his blood sugars are in the 180s to 190s. On 08/08/2021 patient seen in follow-up on medical surgical floor. On today's exam although he remains on high flow oxygen with 15 L high flow and 100% nonrebreather he appears to be breathing more comfortably, does not appear to be tachypneic, no use of accessory muscles of breathing, he sitting up on the edge of the bed, and leaning over a table, he states that he breathes better that way. His pulse ox is 94%. He does easily desaturate to 80% even with a brief conversation, and any activity. His Baricitinib remains on hold, his LFTs were improving, follow-up LFTs have been ordered and pending for today, his Decadron dose of 6 mg twice daily, he remains on Lovenox 40 mg daily, CT chest showed no evidence of pulmonary embolism, and lower extremity Dopplers were negative for DVT. His d-dimer today is 13.24, increased from 6.4 on yesterday's labs, follow-up LDH and CRP are pending, however LDH was improving on yesterday's creatinine was down to 444, and CRP was slightly increased at 1.6. On 08/09/2021 patient seen in follow-up on medical surgical floor. Patient still remains on 15 L per high flow nasal cannula, and on percent nonrebreather, however his O2 saturations seem to have slightly improved and are around 92-94%. However patient easily desaturates with any exertion, and even speaking, does not appear to be tachypneic does not appear to be in any acute distress. Sounds reveal some minimal crackles at bilateral bases, no rhonchi or wheezing, remains on Decadron 6 mg twice daily, prophylactic Lovenox, and COVID-19 vitamins. His LFTs were improving on his labs from 2 days ago, follow-up labs are pending for today, his d-dimer today is improving and is down to 6.16, his white count is 13.8, hemoglobin is 15.1. Vital signs have been stable, has had no fever or chills. On 08/10/2021 patient seen in follow-up on medical surgical floor. Patient currently on 15 L of oxygen and nonrebreather mask, he is leaning on his left side, he states he seems to be breathing easier, and oxygenating better when he's laying on his left side, his pulse ox is ranging between 91-95%, afebrile, blood pressure is been stable. Coarse crackles over left upper and lower lung, clear on the right side. Patient has had no acute events overnight, today's labs have been reviewed, d-dimer is improving and is down to 5.15, with blood cell count is 17.1, hemoglobin is 16. On 08/13/2021 patient seen in follow-up on medical surgical floor, he is breathing fairly comfortably, he is currently on 15 L per high flow nasal cannula, and the nonrebreather mask, he is eating lunch, he does desaturate with eating and speaking, but overall he is breathing comfortably, he states he feels better, does occasionally cough, no phlegm production, no chest discomfort, no fever or chills, less tachypneic and looks quite comfortable. He remains on Decadron 6 mg twice daily, he is on Lovenox for milligrams twice daily, and he is on vitamin C, vitamin D and zinc. His chest x-ray from yesterday showing bilateral left greater than right patchy airspace and interstitial opacities that appeared more prominent compared to the prior study. No new labs today, his d-dimer from yesterday approving it was down to 3.18, his LDH was 439, and CRP was improving and down to 1.9. On 08/14/2021 patient seen in follow-up on medical surgical floor. He is accompanied to bed, breathing comfortably, patient still remains on 15 L of oxygen per high flow nasal cannula, and nonrebreather mask, he does desaturate with eating, attempts have been made to wean down the FiO2 however during times of desaturation during meals FiO2 is turned back up. Otherwise he denies any worsening dyspnea, he states overall he is feeling better, lung sounds reveal mild crackles over right base. No fever or chills, repositioning self in bed, is on Decadron 6 mg twice daily, he remains on multivitamins and Lovenox 40 mg twice daily. On 08/18/2001 patient in follow-up on medical surgical floor. He is currently on 13 L per high flow nasal cannula and nonrebreather mask. Yesterday nonrebreather mask was removed however patient subsequently became very short of breath, desatted, and he is currently back on both high flow nasal cannula and nonrebreather mask, he is dyspneic with conversation, dyspnea with exertion, but no acute distress, he states he feels that overall his breathing has improved since admission although he is still requiring high flow oxygen. His been repositioning self in bed from side to side. He remains on Decadron 6 mg twice daily, he is on Lovenox 40 mg twice daily, and COVID-19 vitamins. No new labs for last couple of days. His chest x-ray from 08/16/2021 showed persistent bilateral left greater than right multifocal and confluent opacities. Overall his inflammatory markers were improving compared admission levels Objective - Vital Signs Vital signs: Vital Signs Temp 97.6 F 08/18/21 14:17 Pulse 87 08/18/21 14:17 Resp 18 08/18/21 14:17 BP 150/99 08/18/21 14:17 Pulse Ox 99 08/18/21 14:17 Intake & Output 08/17/21 08/18/21 08/18/21 18:59 06:59 18:59 Other: Voiding Method Toilet Toilet Urinal Urinal # Voids 2 - Exam GENERAL EXAM: Alert, very pleasant, 65-year-old white male, on 15 L per high flow nasal cannula, and 100% percent nonrebreather mask with a pulse ox of 99% dyspneic at rest HEAD: Normocephalic/atraumatic. EYES: Normal reaction of pupils, equal size. Conjunctiva pink, sclera white. NOSE: Clear with pink turbinates. THROAT: No erythema or exudates. NECK: No masses, no JVD, no thyroid enlargement, no adenopathy. CHEST: No chest wall deformity. Symmetrical expansion. LUNGS: Equal air entry with bilateral crackles CVS: Regular rate and rhythm, normal S1 and S2, no gallops, no murmurs, no rubs ABDOMEN: Soft, nontender. No hepatosplenomegaly, normal bowel sounds, no guarding or rigidity. EXTREMITIES: No clubbing, no edema, no cyanosis, 2+ pulses and upper and lower extremities. MUSCULOSKELETAL: Muscle strength and tone normal. SPINE: No scoliosis or deformity SKIN: No rashes CENTRAL NERVOUS SYSTEM: Alert and oriented -3. No focal deficits, tone is normal in all 4 extremities. PSYCHIATRIC: Alert and oriented -3. Appropriate affect. Intact judgment and insight. - Labs CBC & Chem 7: 08/16/21 22:54 08/16/21 22:54 Labs: Abnormal Lab Results - Last 24 Hours (Table) 08/17/21 08/18/21 08/18/21 Range/Units 20:21 06:55 11:31 POC Glucose (mg/dL) 165 H 131 H 115 H (75-99) mg/dL 08/18/21 Range/Units 16:26 POC Glucose (mg/dL) 171 H (75-99) mg/dL Assessment and Plan Plan: Assessment: #1. Acute hypoxic respiratory failure related to acute COVID-19 pneumonia. Patient received a single dose of Remdesivir in the emergency department, however in view of rapid progression of his hypoxemia he was started on a combination of Decadron and baricitinib. Baricitinib discontinued on 08/06/2021 related to increase in LFTs #2. Increased inflammatory markers related to the above #3. Elevated d-dimer, CTA of the chest showed no evidence of pulmonary embolism, and lower extremity Dopplers were negative #4. Diabetes mellitus type II #5. Hypertension #6. Hyperlipidemia #7. Obesity with BMI of 39.70 #8. Increased LFTs, related to viral pneumonia or medication related, Baricitinib discontinued on 08/06/2021, improving Plan: Continue attempting to wean FiO2 to maintain O2 saturations at or above 90% Currently on 13 L per high flow nasal cannula and nonrebreather mask We'll continue to wean FiO2 as tolerated No worsening dyspnea Inflammatory markers were improving since admission Obtain follow-up levels of LDH, CRP, and d-dimer Obtain basic labs including CBC and CMP We'll continue to follow I performed a history & physical examination of the patient and discussed their management with my nurse practitioner, Mari Le. I reviewed the nurse practitioner's note and agree with the documented findings and plan of care. Lung sounds are positive for diffuse crackles throughout the lung dai. The findings and the impression was discussed with the patient. I attest to the documentation by the nurse practitioner. Time with Patient: Less than 30
[2021-08-18 20:56] LABS: Glucose,Whole Blood 220 mg/dL (75-99)
[2021-08-19 06:54] LABS: Glucose,Whole Blood 145 mg/dL (75-99)
[2021-08-19] MEDS: ASCORBIC ACID 500 MG TAB PO SCH (09:04)
[2021-08-19] MEDS: dexAMETHasone 2 MG TAB PO SCH (09:04)
[2021-08-19] MEDS: ENOXAPARIN 40 MG/0.4 ML SYRINGE SQ SCH (09:04)
[2021-08-19] MEDS: INSULIN ASPART (NovoLOG) 100 UNIT/ML VIAL SQ SCH ×7 (09:04→21:04)
[2021-08-19] MEDS: CHOLECALCIFEROL 25 MCG (1000 IU) TABLET PO SCH (09:05)
[2021-08-19] MEDS: ZINC SULFATE 220 MG CAP PO SCH (09:05)
[2021-08-19 11:23] LABS: Basophils # (A) 0.04 X 10*3/uL (0.00-0.10); Basophils % (A) 0.4 %; Eosinophils # (A) 0.12 X 10*3/uL (0.04-0.35); Eosinophils % (A) 1.2 %; HCT 45.2 % (39.6-50.0); HGB 14.1 g/dL (13.0-17.0); Lymphocytes # (A) 1.01 X 10*3/uL (0.90-5.00); Lymphocytes % (A) 10.4 %; MCH 29.3 pg (27.0-32.0); MCHC 31.2 g/dL (32.0-37.0); Monocytes # (A) 0.54 X 10*3/uL (0.20-1.00); Monocytes % (A) 5.5 %; Neutrophils # (A) 7.92 X 10*3/uL (1.80-7.70); Neutrophils % (A) 81.5 %; Platelet Count 194 X 10*3/uL (140-440); RBC 4.81 X 10*6/uL (4.40-5.60); RDW 13.5 % (11.5-14.5); WBC 9.73 X 10*3/uL (4.50-10.00)
[2021-08-19 11:29] LABS: Glucose,Whole Blood 110 mg/dL (75-99)
[2021-08-19] MEDS: ALPRAZolam 0.5 MG TAB PO PRN (11:59)
[2021-08-19 12:00] LABS: ALT 202 U/L (10-49); AST 44 U/L (14-35); African American GFR (CKD) 113.3 (60.0-200.0); Albumin 3.3 g/dL (3.8-4.9); Albumin/Globulin Ratio 1.05 (1.60-3.17); Alkaline Phosphatase 84 U/L (41-126); BUN/Creat Ratio 31.26 Ratio (12.00-20.00); Bilirubin, Conjugated <0.20 mg/dL (0.20-0.40); Blood Urea Nitrogen 22.6 mg/dL (9.0-27.0); Calcium 8.7 mg/dL (8.7-10.3); Carbon Dioxide 22.3 mmol/L (20.0-27.5); Chloride 98 mmol/L (96-109); Globulin 3.1 g/dL (1.6-3.3); Glucose 139 mg/dL (70-110); Non-African American GFR(CKD) 97.7 (60.0-200.0); Sodium 132 mmol/L (135-145); Total Protein 6.5 g/dL (6.2-8.2)
[2021-08-19 12:06] LABS: LDH 375 U/L (120-246)
--- NOTE | 2021-08-19 13:37 | P.PN ---
Subjective Progress Note Date: 08/19/21 Pts oxygen mildly downtitrated to 12L HFNC + NRB. Inflammatory markers improving. Objective - Vital Signs Vital signs: Vital Signs Temp 97.1 F L 08/19/21 09:00 Pulse 99 08/19/21 09:00 Resp 18 08/19/21 09:00 BP 104/67 08/19/21 09:00 Pulse Ox 90 L 08/19/21 09:00 Intake & Output 08/18/21 08/19/21 08/19/21 18:59 06:59 18:59 Output Total 1500 600 Balance -1500 -600 Output: Urine 1500 600 Other: Voiding Method Urinal Urinal - Exam Gen: awake, alert HEENT: normocephalic, atraumatic, good hearing acuity, moist mucous membranes Resp: Diminished air exchange, breathing comfortably with no accessory muscle use CVS: good distal perfusion x 4, GI: soft, NTTP, ND : no SPT, no CVAT, medina catheter not present MSK: no pitting edema, no clubbing Neuro: non-focal, moving all extremities Psych: cooperative, euthymic mood - Labs CBC & Chem 7: 08/19/21 07:15 08/19/21 07:15 Labs: Abnormal Lab Results - Last 24 Hours (Table) 08/18/21 08/18/21 08/19/21 Range/Units 16:26 20:54 06:51 MCHC (32.0-37.0) g/dL Immature Gran # (0.00-0.04) X 10*3/uL Neutrophils # (1.80-7.70) X 10*3/uL D-Dimer (<0.60) mg/L FEU Sodium (135-145) mmol/L BUN/Creatinine Ratio (12.00-20.00) Ratio Glucose (70-110) mg/dL POC Glucose (mg/dL) 171 H 220 H 145 H (75-99) mg/dL Conjugated Bilirubin (0.20-0.40) mg/dL AST (14-35) U/L ALT (10-49) U/L Lactate Dehydrogenase (120-246) U/L Albumin (3.8-4.9) g/dL Albumin/Globulin Ratio (1.60-3.17) g/dL 08/19/21 08/19/21 08/19/21 Range/Units 07:15 07:15 07:15 MCHC 31.2 L (32.0-37.0) g/dL Immature Gran # 0.10 H (0.00-0.04) X 10*3/uL Neutrophils # 7.92 H (1.80-7.70) X 10*3/uL D-Dimer 1.43 H (<0.60) mg/L FEU Sodium 132 L (135-145) mmol/L BUN/Creatinine Ratio 31.26 H (12.00-20.00) Ratio Glucose 139 H (70-110) mg/dL POC Glucose (mg/dL) (75-99) mg/dL Conjugated Bilirubin <0.20 L (0.20-0.40) mg/dL AST 44 H (14-35) U/L ALT 202 H (10-49) U/L Lactate Dehydrogenase 375 H (120-246) U/L Albumin 3.3 L (3.8-4.9) g/dL Albumin/Globulin Ratio 1.05 L (1.60-3.17) g/dL 08/19/21 Range/Units 11:27 MCHC (32.0-37.0) g/dL Immature Gran # (0.00-0.04) X 10*3/uL Neutrophils # (1.80-7.70) X 10*3/uL D-Dimer (<0.60) mg/L FEU Sodium (135-145) mmol/L BUN/Creatinine Ratio (12.00-20.00) Ratio Glucose (70-110) mg/dL POC Glucose (mg/dL) 110 H (75-99) mg/dL Conjugated Bilirubin (0.20-0.40) mg/dL AST (14-35) U/L ALT (10-49) U/L Lactate Dehydrogenase (120-246) U/L Albumin (3.8-4.9) g/dL Albumin/Globulin Ratio (1.60-3.17) g/dL Assessment and Plan Assessment: Acute respiratory failure with hypoxia ARDS secondary to COVID 19 pneumonia -Oxygenation to be administered and titrated as needed to maintain SPO2 equal to or greater than 90% -Telemetry monitoring. -Continue trending inflammatory markers -Pt received two doses of Baricitinib, remainder of doses held secondary to elevated liver enzymes -Encourage Incentive Spirometry 10-15x hourly while awake -Steroids: Decadron 6 mg twice daily, day 17 of steroid treatment -Continue vitamin C, Vitamin D, and Zinc. -Pulmonology following, appreciate further recommendations. -Continue DVT prophylaxis with Lovenox 40 mg subcu every 12 hours Type II pob-[id number] diabetes mellitus Hold Glucophage at this time and place patient on glycemic protocol with NovoLog sliding scale. Hypertension Monitor vital signs and continue daily medication regimen with lisinopril. CODE STATUS: full code DVT prophylaxis: Lovenox Anticipated discharge date: clinical course to determine
[2021-08-19 16:29] LABS: Glucose,Whole Blood 200 mg/dL (75-99)
--- NOTE | 2021-08-19 17:50 | P.PN ---
Subjective Progress Note Date: 08/19/21 Principal diagnosis: COVID-19 pneumonia 65-year-old male patient was being Hospital as for COVID 19nrelated pneumonia. The patient is known to have COPD, hypertension and hyperlipidemia and diabetes mellitus. He presented emergency department with worsening shortness of breath. He reports that his symptoms started on 07/26/2021 and he progressively got worse. On he tested positive for COVID 19 and the patient received Decadron through his primary care physician. Unfortunately his condition got worse. He continued to have increased shortness of breath and dry cough. He was febrile. He presented to the ED with a pulse ox of mid 80s. His chest x- ray showed diffuse bilateral pulmonary infiltrates consistent with Covid 19 related pneumonia. His blood work showed a potassium level of 5.3, sodium level of 132, serum bicarb was 20, BUN was 19 with a creatinine of 0.8, lymphocyte count of 0.4 with a white cell count of 7.5. The patient was started on D ecadron 6 mg by mouth daily and the patient was also given Lovenox 40 mg subcu daily prophylaxis. He is currently on IV fluids with normal saline at the rate of 75 mL an hour. He is on oxygen. He was placed on 6 L and he is currently down to 4 L per minute nasal cannula.He is not vaccinated 08/03/2021, the patient is being seen for a follow-up. The patient remains in The emergency department. I saw him yesterday in consultation. He was only on 4 L, he was brought up to 6 L and subsequently he is up to 13 L for now and his current pulse ox is around 88-90%. As such, his FiO2 needs to be further titrated to bring him above 90%. Meanwhile, I started him on a combination of Decadron under the severe yesterday. I think of the severity needs to be switched to Baricitinib and will continue Decadron for now. He is coughing. He is hemodynamically stable. White cell count is 6.3. D-dimer 0.3. Inflammatory markers are still pending for now. Blood sugars today as 170. He is on insulin sliding scale coverage for blood sugar control. 08/04/2021, the patient is 1100% nonrebreather facemask. I'm seeing this patient for a follow-up today. Note that his oxygenation was gradually getting worse. He came in to us with 4 L and subsequently and up on a nonrebreather facemask. During the course of his progression, I'm stop the Remdesivir put the patient on a combination of Decadron and Baricitinib. Blood work from today still pending. I do have a d-dimer that is showing is 0.44 level. The glucose is 163. In terms of the inflammatory markers, the pro-calcitonin level was 0.1. The patient remains on Lovenox for DVT prophylaxis. Repeat chest x-ray shows no major interval change in the findings are essentially stable. On 08/05/2021, the patient remains on 15 L nasal cannula and 100% on a beta facemask. Earlier, there was a unsuccessful attempt by RT to switch this patient to a high flow oxygen. I think the idea was very good. The execution and the results are not to be not good and the patient desaturated significantly and the medication quite anxious. For that reason the patient was placed back on his original settings. His white cell count is at 10.8 with a hemoglobin of 15.3. D-dimer remains low at 0.55. Electrolytes are all within normal limits per normal renal function. His LDH level is higher and currently is at 1568 with a CRP of 0.7. I have this patient on a combination of Decadron 6 mg twice a day and he is also on Baricitinib per protocol. He remains on Lovenox 40 mg subcu on a daily basis. No other significant events otherwise for now. The most recent chest x-ray from yesterday showed stable bilateral pulmonary infiltrates without any significant interval change. As such, overall condition is still stable. This patient is not vaccinated. He has COVID 19 related pneumonia. He has COPD and hypertension hyperlipidemia and diabetes mellitus. On 08/06/2021 patient seen in follow-up on medical surgical floor. He is curren tly on 15 L per high flow nasal cannula, and 100% nonrebreather mask, his pulse ox is ranging between 80 1993%, afebrile, hemodynamically he is stable, she is short of breath with any activity. Denies any chest discomfort. Has occasional nonproductive cough. On today's labs as LFTs noted to be still elevated with AST 252, ALT of 523, and alkaline phosphatase is 72, and his Baricitinib was discontinued and Lipitor was placed on hold. His LDH on today's labs is 1598, and CRP is less than 0.5. The d-dimer today is 3.78. CT of the chest has been ordered and pending at this time, current treatment for COVID-19 pneumonia it consisting of Decadron 6 mg twice a day, Lovenox 40 mg daily, and COVID-19 vitamins. On 08/07/2021 patient seen in follow-up on medical surgical floor. He remains on 15 L per high flow nasal cannula, and 100% nonrebreather mask, his pulse ox is 89-90%, patient easily desaturates with any activity, he is a bit more dyspneic on today's exam, however he could not tolerate the Airvo, he felt that he was very bulky, and was drying out his nasal airways. Denies any chest pain, his been afebrile, hemodynamically has been stable, lung sounds reveal diffuse crackles at bilateral lower bases. CT chest has been completed and showed no evidence of pulmonary embolism, there were extensive bilateral pulmonary infiltrates. Yesterday we stopped his Baricitinib and Lipitor in view of increasing LFTs, today's labs are still pending today. D-dimer and LFTs in addition to inflammatory markers were ordered, however only d-dimer has resulted so far, and it is uptrending and is up to 6.4 on today's labs. Lower extremity Dopplers showed no evidence of DVT. Current treatment includes Decadron 6 mg twice daily, he is on Lovenox 40 mg daily, and he is on COVID-19 vitamins. He is on sliding scale NovoLog, his blood sugars are in the 180s to 190s. On 08/08/2021 patient seen in follow-up on medical surgical floor. On today's exam although he remains on high flow oxygen with 15 L high flow and 100% nonrebreather he appears to be breathing more comfortably, does not appear to be tachypneic, no use of accessory muscles of breathing, he sitting up on the edge of the bed, and leaning over a table, he states that he breathes better that way. His pulse ox is 94%. He does easily desaturate to 80% even with a brief conversation, and any activity. His Baricitinib remains on hold, his LFTs were improving, follow-up LFTs have been ordered and pending for today, his Decadron dose of 6 mg twice daily, he remains on Lovenox 40 mg daily, CT chest showed no evidence of pulmonary embolism, and lower extremity Dopplers were negative for DVT. His d-dimer today is 13.24, increased from 6.4 on yesterday's labs, follow-up LDH and CRP are pending, however LDH was improving on yesterday's creatinine was down to 444, and CRP was slightly increased at 1.6. On 08/09/2021 patient seen in follow-up on medical surgical floor. Patient still remains on 15 L per high flow nasal cannula, and on percent nonrebreather, however his O2 saturations seem to have slightly improved and are around 92-94%. However patient easily desaturates with any exertion, and even speaking, does not appear to be tachypneic does not appear to be in any acute distress. Sounds reveal some minimal crackles at bilateral bases, no rhonchi or wheezing, remains on Decadron 6 mg twice daily, prophylactic Lovenox, and COVID-19 vitamins. His LFTs were improving on his labs from 2 days ago, follow-up labs are pending for today, his d-dimer today is improving and is down to 6.16, his white count is 13.8, hemoglobin is 15.1. Vital signs have been stable, has had no fever or chills. On 08/10/2021 patient seen in follow-up on medical surgical floor. Patient currently on 15 L of oxygen and nonrebreather mask, he is leaning on his left side, he states he seems to be breathing easier, and oxygenating better when he's laying on his left side, his pulse ox is ranging between 91-95%, afebrile, blood pressure is been stable. Coarse crackles over left upper and lower lung, clear on the right side. Patient has had no acute events overnight, today's labs have been reviewed, d-dimer is improving and is down to 5.15, with blood cell count is 17.1, hemoglobin is 16. The patient is seen today 08/11/2021 in follow-up on the regular medical floor. He is currently resting comfortably in bed. Laying prone. Maintaining O2 saturations in the low 90s on 15 L high flow nasal cannula plus a nonrebreather mask. He's been afebrile. Hemodynamically stable. Glucose 162. Continued on Lovenox 40 mg subcu twice a day, Decadron 6 mg by mouth twice a day, vitamin supplements. Peak d-dimer 13.2. Most recent 5.1. The patient is seen today 08/12/2021 in follow-up on the regular medical floor. He is currently sitting up at the bedside. Awake alert in no acute distress. Still requiring 15 L high flow nasal cannula plus a nonrebreather mask to have an O2 saturation at 88%. He is feeling a bit better today compared to yesterday. His appetite is improved. He is feeling a bit stronger. X-ray continues to show bilateral left greater than right patchy airspace and interstitial opacities. No significant improvement. White count 14.7. Hemoglobin 15.4. Lymphocytes 0.5. D-dimer 3.18. He is continued on Decadron, Lovenox, vitamin supplements. The patient is seen today 08/15/2021 in follow-up on the regular medical floor. He is currently resting comfortably in bed. Awake and alert in no acute distress. Breathing a bit easier today compared to yesterday. He is still on 13 L high flow nasal cannula plus a partial rebreather mask at times. No worsening shortness of breath. Blood glucose 169. He remains on Decadron, Lovenox, vitamin supplements. The patient is seen today 08/16/2021 in follow-up on the regular medical floor. He is currently sitting up at the bedside. Awake and alert in no acute distress. Doing about the same today compared to yesterday. No worse. He is maintaining O2 saturations in the mid 90s on 13 L high flow nasal cannula occasionally he is in the nonrebreather mask. He is afebrile. Chest x-ray continues to show bilateral left greater than right multifocal and confluent opacities consistent with COVID-19 infection. No significant change compared to previous. Blood glucose 148. He remains on Lovenox, Decadron, vitamin supplements. The patient is seen today 08/17/2021 in follow-up on the regular medical floor. He is currently awake and alert in no acute distress. Sitting up at the bedside. Denies any worsening shortness of breath, cough or congestion. Still requiring 14 L high flow nasal cannula to maintain O2 saturations in the 90s. He is continued on Lovenox, Decadron, vitamin supplements. Blood glucose 180. The patient is seen today 08/19/2021 in follow-up on the regular medical floor. He is currently sitting up at the bedside. Awake and alert in no acute distress. She does still have some dyspnea on minimal exertion. He still gets quite anxious when he is short of breath. He is currently on 15 L high flow nasal cannula. He does use the nonrebreather mask in addition occasionally. white count 9.7. Hemoglobin 14.1. Lymphocytes 1.01. D-dimer 1.43. Sodium 132. Potassium 5.0. Creatinine 0.7. Glucose 139. LDH 375. C-reactive protein 0.6. He remains on Lovenox, Decadron, vitamin supplements. Objective - Vital Signs Vital signs: Vital Signs Temp 97.7 F 08/19/21 13:58 Pulse 94 08/19/21 13:58 Resp 18 08/19/21 09:00 BP 136/51 08/19/21 13:58 Pulse Ox 99 08/19/21 14:58 Intake & Output 08/18/21 08/19/21 08/19/21 18:59 06:59 18:59 Output Total 1500 600 900 Balance -1500 -600 -900 Output: Urine 1500 600 900 Other: Voiding Method Urinal Urinal # Bowel Movements 1 - Exam GENERAL EXAM: Alert, very pleasant 65-year-old gentleman, on 15 L high flow nasal cannula plus a partial rebreather mask, fairly comfortable in no apparent distress. HEAD: Normocephalic. EYES: Normal reaction of pupils, equal size. NOSE: Clear with pink turbinates. THROAT: No erythema or exudates. NECK: No masses, no JVD. CHEST: No chest wall deformity. LUNGS: Equal air entry with crackles in the bilateral bases. CVS: S1 and S2 normal with no audible murmur, regular rhythm. ABDOMEN: No hepatosplenomegaly, normal bowel sounds, no guarding or rigidity. SPINE: No scoliosis or deformity SKIN: No rashes CENTRAL NERVOUS SYSTEM: No focal deficits, tone is normal in all 4 extremities. EXTREMITIES: There is no peripheral edema. No clubbing, no cyanosis. P eripheral pulses are intact. - Labs CBC & Chem 7: 08/19/21 07:15 08/19/21 07:15 Labs: Abnormal Lab Results - Last 24 Hours (Table) 08/18/21 08/19/21 08/19/21 Range/Units 20:54 06:51 07:15 MCHC 31.2 L (32.0-37.0) g/dL Immature Gran # 0.10 H (0.00-0.04) X 10*3/uL Neutrophils # 7.92 H (1.80-7.70) X 10*3/uL D-Dimer (<0.60) mg/L FEU Sodium (135-145) mmol/L BUN/Creatinine Ratio (12.00-20.00) Ratio Glucose (70-110) mg/dL POC Glucose (mg/dL) 220 H 145 H (75-99) mg/dL Conjugated Bilirubin (0.20-0.40) mg/dL AST (14-35) U/L ALT (10-49) U/L Lactate Dehydrogenase (120-246) U/L Albumin (3.8-4.9) g/dL Albumin/Globulin Ratio (1.60-3.17) g/dL 08/19/21 08/19/21 08/19/21 Range/Units 07:15 07:15 11:27 MCHC (32.0-37.0) g/dL Immature Gran # (0.00-0.04) X 10*3/uL Neutrophils # (1.80-7.70) X 10*3/uL D-Dimer 1.43 H (<0.60) mg/L FEU Sodium 132 L (135-145) mmol/L BUN/Creatinine Ratio 31.26 H (12.00-20.00) Ratio Glucose 139 H (70-110) mg/dL POC Glucose (mg/dL) 110 H (75-99) mg/dL Conjugated Bilirubin <0.20 L (0.20-0.40) mg/dL AST 44 H (14-35) U/L ALT 202 H (10-49) U/L Lactate Dehydrogenase 375 H (120-246) U/L Albumin 3.3 L (3.8-4.9) g/dL Albumin/Globulin Ratio 1.05 L (1.60-3.17) g/dL 08/19/21 Range/Units 16:26 MCHC (32.0-37.0) g/dL Immature Gran # (0.00-0.04) X 10*3/uL Neutrophils # (1.80-7.70) X 10*3/uL D-Dimer (<0.60) mg/L FEU Sodium (135-145) mmol/L BUN/Creatinine Ratio (12.00-20.00) Ratio Glucose (70-110) mg/dL POC Glucose (mg/dL) 200 H (75-99) mg/dL Conjugated Bilirubin (0.20-0.40) mg/dL AST (14-35) U/L ALT (10-49) U/L Lactate Dehydrogenase (120-246) U/L Albumin (3.8-4.9) g/dL Albumin/Globulin Ratio (1.60-3.17) g/dL Assessment and Plan Assessment: 1 Acute hypoxic respiratory failure related to acute COVID-19 pneumonia. 2 Increased inflammatory markers related to the above 3 Elevated d-dimer, CTA of the chest showed no evidence of pulmonary embolism, and lower extremity Dopplers were negative 4 Diabetes mellitus type II 5 Hypertension 6 Hyperlipidemia 7 Obesity with BMI of 39.70 8 Increased LFTs, related to viral pneumonia or medication related, Baricitinib discontinued on 08/06/2021, improving Plan: The patient was seen and evaluated by Dr. Camilo He has been slow to progress Remains on 15 L high flow nasal cannula Continue to titrate the FiO2 as tolerated Increase his activity as tolerated Remains on Lovenox, Decadron, vitamin supplements We will continue to follow I, the cosigning physician, performed a history & physical examination of the patient. Lungs sounds with crackles in the bilateral bases. Maintaining good O2 saturations in the 90s on 15 L high flow nasal cannula plus a partial rebreather mask. I discussed the assessment and plan of care with my nurse practitioner, Swapna Flores. I attest to the above note as dictated by her.
[2021-08-19 20:38] LABS: Glucose,Whole Blood 187 mg/dL (75-99)
[2021-08-20 07:29] LABS: Glucose,Whole Blood 89 mg/dL (75-99)
--- NOTE | 2021-08-20 08:40 | XR ---
EXAMINATION TYPE: XR chest 1V portable DATE OF EXAM: 08/20/2021 COMPARISON: 08/16/2021 INDICATION: Covid TECHNIQUE: Single frontal view of the chest is obtained. FINDINGS: The heart size is normal. The pulmonary vasculature is normal. Peripheral infiltrates are present bilaterally. Findings have improved from comparison. IMPRESSION: 1. Improving peripheral bilateral lung infiltrates can be compatible with atypical pneumonia.
[2021-08-20] MEDS: INSULIN ASPART (NovoLOG) 100 UNIT/ML VIAL SQ SCH ×7 (09:48→21:23)
[2021-08-20] MEDS: ENOXAPARIN 40 MG/0.4 ML SYRINGE SQ SCH (09:52)
[2021-08-20] MEDS: dexAMETHasone 2 MG TAB PO SCH (09:53)
[2021-08-20] MEDS: CHOLECALCIFEROL 25 MCG (1000 IU) TABLET PO SCH (09:54)
[2021-08-20] MEDS: ASCORBIC ACID 500 MG TAB PO SCH (09:55)
[2021-08-20] MEDS: ZINC SULFATE 220 MG CAP PO SCH (10:02)
[2021-08-20 10:51] LABS: Basophils # (A) 0.05 X 10*3/uL (0.00-0.10); Basophils % (A) 0.5 %; Eosinophils # (A) 0.56 X 10*3/uL (0.04-0.35); Eosinophils % (A) 5.5 %; HCT 45.9 % (39.6-50.0); HGB 14.3 g/dL (13.0-17.0); Lymphocytes # (A) 1.34 X 10*3/uL (0.90-5.00); Lymphocytes % (A) 13.1 %; MCH 29.7 pg (27.0-32.0); MCHC 31.2 g/dL (32.0-37.0); MCV 95.4 fL (80.0-97.0); Mean Platelet Volume 11.6 fL (9.5-12.2); Monocytes # (A) 0.76 X 10*3/uL (0.20-1.00); Monocytes % (A) 7.4 %; Neutrophils # (A) 7.35 X 10*3/uL (1.80-7.70); Platelet Count 205 X 10*3/uL (140-440); RBC 4.81 X 10*6/uL (4.40-5.60); RDW 13.6 % (11.5-14.5); WBC 10.21 X 10*3/uL (4.50-10.00)
[2021-08-20 11:23] LABS: ALT 203 U/L (10-49); AST 43 U/L (14-35); African American GFR (CKD) 106.2 (60.0-200.0); Albumin 3.5 g/dL (3.8-4.9); Albumin/Globulin Ratio 1.09 (1.60-3.17); Alkaline Phosphatase 80 U/L (41-126); BUN/Creat Ratio 25.41 Ratio (12.00-20.00); Bilirubin, Conjugated <0.20 mg/dL (0.20-0.40); Blood Urea Nitrogen 21.5 mg/dL (9.0-27.0); Calcium 8.8 mg/dL (8.7-10.3); Chloride 97 mmol/L (96-109); Globulin 3.2 g/dL (1.6-3.3); Glucose 91 mg/dL (70-110); LDH 315 U/L (120-246); Magnesium 2.2 mg/dL (1.5-2.4); Non-African American GFR(CKD) 91.6 (60.0-200.0); Potassium 5.1 mmol/L (3.5-5.5); Sodium 136 mmol/L (135-145); Total Protein 6.7 g/dL (6.2-8.2)
[2021-08-20 11:32] LABS: Glucose,Whole Blood 106 mg/dL (75-99)
--- NOTE | 2021-08-20 13:24 | P.PN ---
Subjective Progress Note Date: 08/20/21 Principal diagnosis: Hypoxia, pneumonia, COVID-19 65-year-old male patient was being Hospital as for COVID 19nrelated pneumonia. The patient is known to have COPD, hypertension and hyperlipidemia and diabetes mellitus. He presented emergency department with worsening shortness of breath. He reports that his symptoms started on 07/26/2021 and he progressively got worse. On he tested positive for COVID 19 and the patient received Decadron through his primary care physician. Unfortunately his condition got worse. He continued to have increased shortness of breath and dry cough. He was febrile. He presented to the ED with a pulse ox of mid 80s. His chest x- ray showed diffuse bilateral pulmonary infiltrates consistent with Covid 19 related pneumonia. His blood work showed a potassium level of 5.3, sodium level of 132, serum bicarb was 20, BUN was 19 with a creatinine of 0.8, lymphocyte count of 0.4 with a white cell count of 7.5. The patient was started on Decadron 6 mg by mouth daily and the patient was also given Lovenox 40 mg subcu daily prophylaxis. He is currently on IV fluids with normal saline at the rate of 75 mL an hour. He is on oxygen. He was placed on 6 L and he is currently down to 4 L per minute nasal cannula.He is not vaccinated 08/03/2021, the patient is being seen for a follow-up. The patient remains in The emergency department. I saw him yesterday in consultation. He was only on 4 L, he was brought up to 6 L and subsequently he is up to 13 L for now and his current pulse ox is around 88-90%. As such, his FiO2 needs to be further titrated to bring him above 90%. Meanwhile, I started him on a combination of D ecadron under the severe yesterday. I think of the severity needs to be switched to Baricitinib and will continue Decadron for now. He is coughing. He is hemodynamically stable. White cell count is 6.3. D-dimer 0.3. Inflammatory markers are still pending for now. Blood sugars today as 170. He is on insulin sliding scale coverage for blood sugar control. 08/04/2021, the patient is 1100% nonrebreather facemask. I'm seeing this patient for a follow-up today. Note that his oxygenation was gradually getting worse. He came in to us with 4 L and subsequently and up on a nonrebreather facemask. During the course of his progression, I'm stop the Remdesivir put the patient on a combination of Decadron and Baricitinib. Blood work from today still pending. I do have a d-dimer that is showing is 0.44 level. The glucose is 163. In terms of the inflammatory markers, the pro-calcitonin level was 0.1. The patient remains on Lovenox for DVT prophylaxis. Repeat chest x-ray shows no major interval change in the findings are essentially stable. On 08/05/2021, the patient remains on 15 L nasal cannula and 100% on a beta facemask. Earlier, there was a unsuccessful attempt by RT to switch this patient to a high flow oxygen. I think the idea was very good. The execution and the results are not to be not good and the patient desaturated significantly and the medication quite anxious. For that reason the patient was placed back on his original settings. His white cell count is at 10.8 with a hemoglobin of 15.3. D-dimer remains low at 0.55. Electrolytes are all within normal limits per normal renal function. His LDH level is higher and currently is at 1568 with a CRP of 0.7. I have this patient on a combination of Decadron 6 mg twice a day and he is also on Baricitinib per protocol. He remains on Lovenox 40 mg subcu on a daily basis. No other significant events otherwise for now. The most recent chest x-ray from yesterday showed stable bilateral pulmonary infilt rates without any significant interval change. As such, overall condition is still stable. This patient is not vaccinated. He has COVID 19 related pneumonia. He has COPD and hypertension hyperlipidemia and diabetes mellitus. On 08/06/2021 patient seen in follow-up on medical surgical floor. He is currently on 15 L per high flow nasal cannula, and 100% nonrebreather mask, his pulse ox is ranging between 80 1993%, afebrile, hemodynamically he is stable, she is short of breath with any activity. Denies any chest discomfort. Has occasional nonproductive cough. On today's labs as LFTs noted to be still elevated with AST 252, ALT of 523, and alkaline phosphatase is 72, and his Baricitinib was discontinued and Lipitor was placed on hold. His LDH on today's labs is 1598, and CRP is less than 0.5. The d-dimer today is 3.78. CT of the chest has been ordered and pending at this time, current treatment for COVID-19 pneumonia it consisting of Decadron 6 mg twice a day, Lovenox 40 mg daily, and COVID-19 vitamins. On 08/07/2021 patient seen in follow-up on medical surgical floor. He remains on 15 L per high flow nasal cannula, and 100% nonrebreather mask, his pulse ox is 89-90%, patient easily desaturates with any activity, he is a bit more dyspneic on today's exam, however he could not tolerate the Airvo, he felt that he was very bulky, and was drying out his nasal airways. Denies any chest pain, his been afebrile, hemodynamically has been stable, lung sounds reveal diffuse crackles at bilateral lower bases. CT chest has been completed and showed no evidence of pulmonary embolism, there were extensive bilateral pulmonary infiltrates. Yesterday we stopped his Baricitinib and Lipitor in view of increasing LFTs, today's labs are still pending today. D-dimer and LFTs in addition to inflammatory markers were ordered, however only d-dimer has resulted so far, and it is uptrending and is up to 6.4 on today's labs. Lower extremity Dopplers showed no evidence of DVT. Current treatment includes Decadron 6 mg twice daily, he is on Lovenox 40 mg daily, and he is on COVID-19 vitamins. He is on sliding scale NovoLog, his blood sugars are in the 180s to 190s. On 08/08/2021 patient seen in follow-up on medical surgical floor. On today's exam although he remains on high flow oxygen with 15 L high flow and 100% nonrebreather he appears to be breathing more comfortably, does not appear to be tachypneic, no use of accessory muscles of breathing, he sitting up on the edge of the bed, and leaning over a table, he states that he breathes better that way. His pulse ox is 94%. He does easily desaturate to 80% even with a brief conversation, and any activity. His Baricitinib remains on hold, his LFTs were improving, follow-up LFTs have been ordered and pending for today, his Decadron dose of 6 mg twice daily, he remains on Lovenox 40 mg daily, CT chest showed no evidence of pulmonary embolism, and lower extremity Dopplers were negative for DVT. His d-dimer today is 13.24, increased from 6.4 on yesterday's labs, follow-up LDH and CRP are pending, however LDH was improving on yesterday's creatinine was down to 444, and CRP was slightly increased at 1.6. On 08/09/2021 patient seen in follow-up on medical surgical floor. Patient still remains on 15 L per high flow nasal cannula, and on percent nonrebreather, however his O2 saturations seem to have slightly improved and are around 92-94%. However patient easily desaturates with any exertion, and even speaking, does not appear to be tachypneic does not appear to be in any acute distress. Sounds reveal some minimal crackles at bilateral bases, no rhonchi or wheezing, remains on Decadron 6 mg twice daily, prophylactic Lovenox, and COVID-19 vitamins. His LFTs were improving on his labs from 2 days ago, follow-up labs are pending for today, his d-dimer today is improving and is down to 6.16, his white count is 13.8, hemoglobin is 15.1. Vital signs have been stable, has had no fever or chills. On 08/10/2021 patient seen in follow-up on medical surgical floor. Patient currently on 15 L of oxygen and nonrebreather mask, he is leaning on his left side, he states he seems to be breathing easier, and oxygenating better when he's laying on his left side, his pulse ox is ranging between 91-95%, afebrile, blood pressure is been stable. Coarse crackles over left upper and lower lung, clear on the right side. Patient has had no acute events overnight, today's labs have been reviewed, d-dimer is improving and is down to 5.15, with blood cell count is 17.1, hemoglobin is 16. On 08/13/2021 patient seen in follow-up on medical surgical floor, he is breathing fairly comfortably, he is currently on 15 L per high flow nasal cannula, and the nonrebreather mask, he is eating lunch, he does desaturate with eating and speaking, but overall he is breathing comfortably, he states he feels better, does occasionally cough, no phlegm production, no chest discomfort, no fever or chills, less tachypneic and looks quite comfortable. He remains on Decadron 6 mg twice daily, he is on Lovenox for milligrams twice daily, and he is on vitamin C, vitamin D and zinc. His chest x-ray from yesterday showing bilateral left greater than right patchy airspace and interstitial opacities that appeared more prominent compared to the prior study. No new labs today, his d-dimer from yesterday approving it was down to 3.18, his LDH was 439, and CRP was improving and down to 1.9. On 08/14/2021 patient seen in follow-up on medical surgical floor. He is accompanied to bed, breathing comfortably, patient still remains on 15 L of oxygen per high flow nasal cannula, and nonrebreather mask, he does desaturate with eating, attempts have been made to wean down the FiO2 however during times of desaturation during meals FiO2 is turned back up. Otherwise he denies any worsening dyspnea, he states overall he is feeling better, lung sounds reveal mild crackles over right base. No fever or chills, repositioning self in bed, is on Decadron 6 mg twice daily, he remains on multivitamins and Lovenox 40 mg twice daily. On 08/18/2001 patient in follow-up on medical surgical floor. He is currently on 13 L per high flow nasal cannula and nonrebreather mask. Yesterday nonrebreather mask was removed however patient subsequently became very short of breath, desatted, and he is currently back on both high flow nasal cannula and nonrebreather mask, he is dyspneic with conversation, dyspnea with exertion, but no acute distress, he states he feels that overall his breathing has improved since admission although he is still requiring high flow oxygen. His been repositioning self in bed from side to side. He remains on Decadron 6 mg twice daily, he is on Lovenox 40 mg twice daily, and COVID-19 vitamins. No new labs for last couple of days. His chest x-ray from 08/16/2021 showed persistent bilateral left greater than right multifocal and confluent opacities. Overall his inflammatory markers were improving compared admission levels On 08/20/2021 patient seen in follow-up on surgical surgical floor, he continues on 15 L per high flow nasal cannula, and 100% nonrebreather mask, and his pulse ox is 90-94%, afebrile, vital signs have been stable, no worsening dyspnea, still reports exertional dyspnea and desaturation with any exertion, even with eating. Today's chest x-ray shows improving bilateral infiltrates. Today's labs have been reviewed, his blood blood cell count is fairly stable at 10.2, hemoglobin stable at 14.3, d-dimer is 2.5, electrolytes and renal profile were unremarkable, of inflammatory markers have significantly improved since their peak, and LDH is currently at 315, and CRP at 0.40. Decadron has been cut back to once daily dosing and currently patient is receiving 6 mg daily, patient is on COVID-19 vitamins, and Lovenox 40 mg subcu daily. Objective - Vital Signs Vital signs: Vital Signs Temp 97.7 F 08/20/21 10:00 Pulse 77 08/20/21 10:00 Resp 17 08/20/21 10:00 BP 116/72 08/20/21 10:00 Pulse Ox 90 L 08/20/21 10:00 Intake & Output 08/19/21 08/20/21 08/20/21 18:59 06:59 18:59 Intake Total 300 Output Total 900 700 Balance -900 -400 Intake: Oral 300 Output: Urine 900 700 Other: Voiding Method Urinal Urinal Urinal # Bowel Movements 1 - Exam GENERAL EXAM: Alert, very pleasant, 65-year-old white male, on 15 L per high flow nasal cannula, and 100% percent nonrebreather mask with a pulse ox of 92% dyspneic at rest HEAD: Normocephalic/atraumatic. EYES: Normal reaction of pupils, equal size. Conjunctiva pink, sclera white. NOSE: Clear with pink turbinates. THROAT: No erythema or exudates. NECK: No masses, no JVD, no thyroid enlargement, no adenopathy. CHEST: No chest wall deformity. Symmetrical expansion. LUNGS: Equal air entry with bilateral crackles CVS: Regular rate and rhythm, normal S1 and S2, no gallops, no murmurs, no rubs ABDOMEN: Soft, nontender. No hepatosplenomegaly, normal bowel sounds, no guarding or rigidity. EXTREMITIES: No clubbing, no edema, no cyanosis, 2+ pulses and upper and lower extremities. MUSCULOSKELETAL: Muscle strength and tone normal. SPINE: No scoliosis or deformity SKIN: No rashes CENTRAL NERVOUS SYSTEM: Alert and oriented -3. No focal deficits, tone is normal in all 4 extremities. PSYCHIATRIC: Alert and oriented -3. Appropriate affect. Intact judgment and insight. - Labs CBC & Chem 7: 08/20/21 06:06 08/20/21 06:06 Labs: Abnormal Lab Results - Last 24 Hours (Table) 08/19/21 08/19/21 08/20/21 Range/Units 16:26 20:37 06:06 WBC 10.21 H (4.50-10.00) X 10*3/uL MCHC 31.2 L (32.0-37.0) g/dL Immature Gran # 0.15 H (0.00-0.04) X 10*3/uL Eosinophils # 0.56 H (0.04-0.35) X 10*3/uL D-Dimer (<0.60) mg/L FEU Carbon Dioxide (20.0-27.5) mmol/L BUN/Creatinine Ratio (12.00-20.00) Ratio POC Glucose (mg/dL) 200 H 187 H (75-99) mg/dL Conjugated Bilirubin (0.20-0.40) mg/dL AST (14-35) U/L ALT (10-49) U/L Lactate Dehydrogenase (120-246) U/L Albumin (3.8-4.9) g/dL Albumin/Globulin Ratio (1.60-3.17) g/dL 08/20/21 08/20/21 08/20/21 Range/Units 06:06 06:06 11:29 WBC (4.50-10.00) X 10*3/uL MCHC (32.0-37.0) g/dL Immature Gran # (0.00-0.04) X 10*3/uL Eosinophils # (0.04-0.35) X 10*3/uL D-Dimer 2.54 H (<0.60) mg/L FEU Carbon Dioxide 28.0 H (20.0-27.5) mmol/L BUN/Creatinine Ratio 25.41 H (12.00-20.00) Ratio POC Glucose (mg/dL) 106 H (75-99) mg/dL Conjugated Bilirubin <0.20 L (0.20-0.40) mg/dL AST 43 H (14-35) U/L ALT 203 H (10-49) U/L Lactate Dehydrogenase 315 H (120-246) U/L Albumin 3.5 L (3.8-4.9) g/dL Albumin/Globulin Ratio 1.09 L (1.60-3.17) g/dL Assessment and Plan Plan: Assessment: #1. Acute hypoxic respiratory failure related to acute COVID-19 pneumonia. Patient received a single dose of Remdesivir in the emergency department, however in view of rapid progression of his hypoxemia he was started on a combination of Decadron and baricitinib. Baricitinib discontinued on 08/06/2021 related to increase in LFTs #2. Increased inflammatory markers related to the above, continue improved sin e admission #3. Elevated d-dimer, CTA of the chest showed no evidence of pulmonary embolism, and lower extremity Dopplers were negative #4. Diabetes mellitus type II #5. Hypertension #6. Hyperlipidemia #7. Obesity with BMI of 39.70 #8. Increased LFTs, related to viral pneumonia or medication related, Baricitinib discontinued on 08/06/2021, improving Plan: Continue current medical treatment Patient seems to require high flow oxygen per high flow nasal cannula and nonrebreather mask Desaturates with any activity Today's chest x-ray has been reviewed showing improving bilateral infiltrates Today's labs have been reviewed showing improving inflammatory markers We'll continue with Decadron, continue current dose Lovenox Encouraged to patient to deep breathe and cough, reposition self in bed We'll continue to follow his clinical course I performed a history & physical examination of the patient and discussed their management with my nurse practitioner, Mari Le. I reviewed the nurse practitioner's note and agree with the documented findings and plan of care. Lung sounds are positive for diffuse crackles throughout the lung dai. The findings and the impression was discussed with the patient. I attest to the documentation by the nurse practitioner. Time with Patient: Less than 30
[2021-08-20 16:37] LABS: Glucose,Whole Blood 228 mg/dL (75-99)
--- NOTE | 2021-08-20 18:04 | P.PN ---
<Jaquan Torrez - Last Filed: 08/20/21 17:48> Subjective Progress Note Date: 08/20/21 Hospital course: Patient is a 65-year-old male with a past medical history of hypertension, hyp erlipidemia, and type II [id number] diabetes mellitus. He presented to the hospital on 08/02/21 with a chief complaint of shortness of breath and coughing. Patient was unvaccinated for Covid and reports he began experiencing complaints of shortness of breath and wheezing around July 23 and after these symptoms progressively worsened he was seen and evaluated on July 30 and tested positive for Covid 19 virus infection. upon arrival to the emergency department, patient found to be significantly hypoxic requiring oxygen supplementation. Patient initially 86% on room air. Chest x-ray revealed bilateral mid to lower lung multifocal opacities consistent with Covid 19 infection. Pt admitted under our services with consultation to pulmonology. Patient underwent bilateral lower extremity which were negative for DVT. CTA chest negative for PE showing extensive bilateral pulmonary infiltrates consistent with Covid 19 pneumonia. Physical examination: Patient seen and fully evaluated at the bedside this morning. He remains on 15 L flow nasal cannula +15 L nonrebreather mask. Patient lying left lateral recumbent upon assessment. Patient discouraged today and reports continued shortness of breath and dyspnea with mild exertion. Patient desaturated down to 78 this morning with eating and reports taking a little while to get his oxygen saturations back up. Morning labs reviewed and reveal continued improvement in inflammatory markers with LDH of 315 and CRP of 0.40 and d-dimer of 2.54. He remains on vitamin C, vitamin D, zinc, Decadron, and DVT prophylaxis with Lovenox. Repeat chest x-ray completed this morning revealing improving peripheral bilateral lung infiltrates. Updated patient's on patient's condition and answered all questions at this time. General: Nontoxic, mild distress secondary to conversational dyspnea. Derm: Skin warm and dry, normal coloration for ethnicity. Head: Atraumatic, normocephalic and symmetric. Eyes: EOMs intact, no lid lag, and anicteric sclera Mouth: no lip lesions, mucus membranes moist Cardiovascular: regular rate and rhythm with normal S1S2, no murmur, positive posterior tibial pulses bilaterally, and cap refill < 2 seconds. Lungs: increased respiratory effort, conversational dyspnea. Soft bibasilar crackles, Crackles in left lower lobe remain. Patient on 15 L high flow nasal cannula and 15 L nonrebreather. Abdominal: soft, nontender to palpation, no guarding, no appreciable o rganomegaly Ext: ROM intact. No gross muscle atrophy, no edema, no contractures. pt with amputation Neuro: Speech clear, face symmetrical and CN II-XII grossly intact with no noted focal neuro deficits Psych: Alert and oriented to person, place, time, and situation. Appropriate and pleasant affect. Assessment and Plan of Care: Acute respiratory failure with hypoxia secondary to COVID 19 pneumonia -Oxygenation to be administered and titrated as needed to maintain SPO2 equal to or greater than 90% -Telemetry monitoring. -Continue trending inflammatory markers. -Pt received two doses of Baricitinib, remainder of doses held secondary to elevated liver enzymes -Encourage Incentive Spirometry 10-15x hourly while awake. -Steroids: Decadron 6 mg daily -Continue vitamin C, Vitamin D, and Zinc. -Pulmonology following, appreciate further recommendations. -Continue DVT prophylaxis with Lovenox 40 mg subcu daily Type II [id number] diabetes mellitus Hold Glucophage at this time and place patient on glycemic protocol with NovoLog sliding scale. Hypertension Monitor vital signs and continue daily medication regimen with lisinopril. CODE STATUS: Full code DVT prophylaxis: Lovenox Discussed with: Pt and RN, as well pt's Anticipated discharge date: clinical course to determine Anticipated discharge place: Home A total of 45 minutes was spent on the care of this complex patient more than 50% of the time was spent in counseling and care coordination. Objective - Vital Signs Vital signs: Vital Signs Temp 97.7 F 08/20/21 10:00 Pulse 77 08/20/21 10:00 Resp 17 08/20/21 10:00 BP 116/72 08/20/21 10:00 Pulse Ox 90 L 08/20/21 10:00 Intake & Output 08/19/21 08/20/21 08/20/21 18:59 06:59 18:59 Intake Total 300 Output Total 900 700 Balance -900 -400 Intake: Oral 300 Output: Urine 900 700 Other: Voiding Method Urinal Urinal Urinal # Bowel Movements 1 - Labs CBC & Chem 7: 08/20/21 06:06 08/20/21 06:06 Labs: Abnormal Lab Results - Last 24 Hours (Table) 08/19/21 08/19/21 08/19/21 Range/Units 07:15 11:27 16:26 WBC (4.50-10.00) X 10*3/uL MCHC (32.0-37.0) g/dL Immature Gran # (0.00-0.04) X 10*3/uL Eosinophils # (0.04-0.35) X 10*3/uL D-Dimer (<0.60) mg/L FEU Sodium 132 L (135-145) mmol/L Carbon Dioxide (20.0-27.5) mmol/L BUN/Creatinine Ratio 31.26 H (12.00-20.00) Ratio Glucose 139 H (70-110) mg/dL POC Glucose (mg/dL) 110 H 200 H (75-99) mg/dL Conjugated Bilirubin <0.20 L (0.20-0.40) mg/dL AST 44 H (14-35) U/L ALT 202 H (10-49) U/L Lactate Dehydrogenase 375 H (120-246) U/L Albumin 3.3 L (3.8-4.9) g/dL Albumin/Globulin Ratio 1.05 L (1.60-3.17) g/dL 08/19/21 08/20/21 08/20/21 Range/Units 20:37 06:06 06:06 WBC 10.21 H (4.50-10.00) X 10*3/uL MCHC 31.2 L (32.0-37.0) g/dL Immature Gran # 0.15 H (0.00-0.04) X 10*3/uL Eosinophils # 0.56 H (0.04-0.35) X 10*3/uL D-Dimer 2.54 H (<0.60) mg/L FEU Sodium (135-145) mmol/L Carbon Dioxide (20.0-27.5) mmol/L BUN/Creatinine Ratio (12.00-20.00) Ratio Glucose (70-110) mg/dL POC Glucose (mg/dL) 187 H (75-99) mg/dL Conjugated Bilirubin (0.20-0.40) mg/dL AST (14-35) U/L ALT (10-49) U/L Lactate Dehydrogenase (120-246) U/L Albumin (3.8-4.9) g/dL Albumin/Globulin Ratio (1.60-3.17) g/dL 08/20/21 Range/Units 06:06 WBC (4.50-10.00) X 10*3/uL MCHC (32.0-37.0) g/dL Immature Gran # (0.00-0.04) X 10*3/uL Eosinophils # (0.04-0.35) X 10*3/uL D-Dimer (<0.60) mg/L FEU Sodium (135-145) mmol/L Carbon Dioxide 28.0 H (20.0-27.5) mmol/L BUN/Creatinine Ratio 25.41 H (12.00-20.00) Ratio Glucose (70-110) mg/dL POC Glucose (mg/dL) (75-99) mg/dL Conjugated Bilirubin <0.20 L (0.20-0.40) mg/dL AST 43 H (14-35) U/L ALT 203 H (10-49) U/L Lactate Dehydrogenase 315 H (120-246) U/L Albumin 3.5 L (3.8-4.9) g/dL Albumin/Globulin Ratio 1.09 L (1.60-3.17) g/dL <Kassidy Abrams - Last Filed: 08/20/21 18:04> Subjective I reviewed the documentation as provided by the KALINA above, who is the original author of this note. I agree with the documented assessment and plan, with the following changes: None Objective - Vital Signs Vital signs: Vital Signs Temp 97.7 F 08/20/21 13:47 Pulse 111 H 08/20/21 13:47 Resp 18 08/20/21 13:47 BP 108/71 08/20/21 13:47 Pulse Ox 95 08/20/21 13:47 Intake & Output 08/19/21 08/20/21 08/20/21 18:59 06:59 18:59 Intake Total 300 Output Total 900 700 600 Balance -900 -400 -600 Intake: Oral 300 Output: Urine 900 700 600 Other: Voiding Method Urinal Urinal Urinal # Bowel Movements 1 1 - Labs CBC & Chem 7: 08/20/21 06:06 08/20/21 06:06 Labs: Abnormal Lab Results - Last 24 Hours (Table) 08/19/21 08/20/21 08/20/21 Range/Units 20:37 06:06 06:06 WBC 10.21 H (4.50-10.00) X 10*3/uL MCHC 31.2 L (32.0-37.0) g/dL Immature Gran # 0.15 H (0.00-0.04) X 10*3/uL Eosinophils # 0.56 H (0.04-0.35) X 10*3/uL D-Dimer 2.54 H (<0.60) mg/L FEU Carbon Dioxide (20.0-27.5) mmol/L BUN/Creatinine Ratio (12.00-20.00) Ratio POC Glucose (mg/dL) 187 H (75-99) mg/dL Conjugated Bilirubin (0.20-0.40) mg/dL AST (14-35) U/L ALT (10-49) U/L Lactate Dehydrogenase (120-246) U/L Albumin (3.8-4.9) g/dL Albumin/Globulin Ratio (1.60-3.17) g/dL 08/20/21 08/20/21 08/20/21 Range/Units 06:06 11:29 16:33 WBC (4.50-10.00) X 10*3/uL MCHC (32.0-37.0) g/dL Immature Gran # (0.00-0.04) X 10*3/uL Eosinophils # (0.04-0.35) X 10*3/uL D-Dimer (<0.60) mg/L FEU Carbon Dioxide 28.0 H (20.0-27.5) mmol/L BUN/Creatinine Ratio 25.41 H (12.00-20.00) Ratio POC Glucose (mg/dL) 106 H 228 H (75-99) mg/dL Conjugated Bilirubin <0.20 L (0.20-0.40) mg/dL AST 43 H (14-35) U/L ALT 203 H (10-49) U/L Lactate Dehydrogenase 315 H (120-246) U/L Albumin 3.5 L (3.8-4.9) g/dL Albumin/Globulin Ratio 1.09 L (1.60-3.17) g/dL
[2021-08-20 20:57] LABS: Glucose,Whole Blood 159 mg/dL (75-99)
[2021-08-20] MEDS: MELATONIN 5 MG TABLET PO PRN (21:23)
[2021-08-21 06:57] LABS: Glucose,Whole Blood 152 mg/dL (75-99)
[2021-08-21] MEDS: INSULIN ASPART (NovoLOG) 100 UNIT/ML VIAL SQ SCH ×7 (07:53→21:23)
[2021-08-21] MEDS: dexAMETHasone 2 MG TAB PO SCH (07:54)
[2021-08-21] MEDS: ZINC SULFATE 220 MG CAP PO SCH (07:54)
[2021-08-21] MEDS: CHOLECALCIFEROL 25 MCG (1000 IU) TABLET PO SCH (07:54)
[2021-08-21] MEDS: ENOXAPARIN 40 MG/0.4 ML SYRINGE SQ SCH (07:54)
[2021-08-21] MEDS: ASCORBIC ACID 500 MG TAB PO SCH (07:54)
[2021-08-21 11:54] LABS: Glucose,Whole Blood 167 mg/dL (75-99)
--- NOTE | 2021-08-21 13:17 | P.PN ---
Subjective Progress Note Date: 08/21/21 Principal diagnosis: Hypoxia, pneumonia, COVID-19 65-year-old male patient was being Hospital as for COVID 19nrelated pneumonia. The patient is known to have COPD, hypertension and hyperlipidemia and diabetes mellitus. He presented emergency department with worsening shortness of breath. He reports that his symptoms started on 07/26/2021 and he progressively got worse. On he tested positive for COVID 19 and the patient received Decadron through his primary care physician. Unfortunately his condition got worse. He continued to have increased shortness of breath and dry cough. He was febrile. He presented to the ED with a pulse ox of mid 80s. His chest x- ray showed diffuse bilateral pulmonary infiltrates consistent with Covid 19 related pneumonia. His blood work showed a potassium level of 5.3, sodium level of 132, serum bicarb was 20, BUN was 19 with a creatinine of 0.8, lymphocyte count of 0.4 with a white cell count of 7.5. The patient was started on Decadron 6 mg by mouth daily and the patient was also given Lovenox 40 mg subcu daily prophylaxis. He is currently on IV fluids with normal saline at the rate of 75 mL an hour. He is on oxygen. He was placed on 6 L and he is currently down to 4 L per minute nasal cannula.He is not vaccinated 08/03/2021, the patient is being seen for a follow-up. The patient remains in The emergency department. I saw him yesterday in consultation. He was only on 4 L, he was brought up to 6 L and subsequently he is up to 13 L for now and his current pulse ox is around 88-90%. As such, his FiO2 needs to be further titrated to bring him above 90%. Meanwhile, I started him on a combination of D ecadron under the severe yesterday. I think of the severity needs to be switched to Baricitinib and will continue Decadron for now. He is coughing. He is hemodynamically stable. White cell count is 6.3. D-dimer 0.3. Inflammatory markers are still pending for now. Blood sugars today as 170. He is on insulin sliding scale coverage for blood sugar control. 08/04/2021, the patient is 1100% nonrebreather facemask. I'm seeing this patient for a follow-up today. Note that his oxygenation was gradually getting worse. He came in to us with 4 L and subsequently and up on a nonrebreather facemask. During the course of his progression, I'm stop the Remdesivir put the patient on a combination of Decadron and Baricitinib. Blood work from today still pending. I do have a d-dimer that is showing is 0.44 level. The glucose is 163. In terms of the inflammatory markers, the pro-calcitonin level was 0.1. The patient remains on Lovenox for DVT prophylaxis. Repeat chest x-ray shows no major interval change in the findings are essentially stable. On 08/05/2021, the patient remains on 15 L nasal cannula and 100% on a beta facemask. Earlier, there was a unsuccessful attempt by RT to switch this patient to a high flow oxygen. I think the idea was very good. The execution and the results are not to be not good and the patient desaturated significantly and the medication quite anxious. For that reason the patient was placed back on his original settings. His white cell count is at 10.8 with a hemoglobin of 15.3. D-dimer remains low at 0.55. Electrolytes are all within normal limits per normal renal function. His LDH level is higher and currently is at 1568 with a CRP of 0.7. I have this patient on a combination of Decadron 6 mg twice a day and he is also on Baricitinib per protocol. He remains on Lovenox 40 mg subcu on a daily basis. No other significant events otherwise for now. The most recent chest x-ray from yesterday showed stable bilateral pulmonary infilt rates without any significant interval change. As such, overall condition is still stable. This patient is not vaccinated. He has COVID 19 related pneumonia. He has COPD and hypertension hyperlipidemia and diabetes mellitus. On 08/06/2021 patient seen in follow-up on medical surgical floor. He is currently on 15 L per high flow nasal cannula, and 100% nonrebreather mask, his pulse ox is ranging between 80 1993%, afebrile, hemodynamically he is stable, she is short of breath with any activity. Denies any chest discomfort. Has occasional nonproductive cough. On today's labs as LFTs noted to be still elevated with AST 252, ALT of 523, and alkaline phosphatase is 72, and his Baricitinib was discontinued and Lipitor was placed on hold. His LDH on today's labs is 1598, and CRP is less than 0.5. The d-dimer today is 3.78. CT of the chest has been ordered and pending at this time, current treatment for COVID-19 pneumonia it consisting of Decadron 6 mg twice a day, Lovenox 40 mg daily, and COVID-19 vitamins. On 08/07/2021 patient seen in follow-up on medical surgical floor. He remains on 15 L per high flow nasal cannula, and 100% nonrebreather mask, his pulse ox is 89-90%, patient easily desaturates with any activity, he is a bit more dyspneic on today's exam, however he could not tolerate the Airvo, he felt that he was very bulky, and was drying out his nasal airways. Denies any chest pain, his been afebrile, hemodynamically has been stable, lung sounds reveal diffuse crackles at bilateral lower bases. CT chest has been completed and showed no evidence of pulmonary embolism, there were extensive bilateral pulmonary infiltrates. Yesterday we stopped his Baricitinib and Lipitor in view of increasing LFTs, today's labs are still pending today. D-dimer and LFTs in addition to inflammatory markers were ordered, however only d-dimer has resulted so far, and it is uptrending and is up to 6.4 on today's labs. Lower extremity Dopplers showed no evidence of DVT. Current treatment includes Decadron 6 mg twice daily, he is on Lovenox 40 mg daily, and he is on COVID-19 vitamins. He is on sliding scale NovoLog, his blood sugars are in the 180s to 190s. On 08/08/2021 patient seen in follow-up on medical surgical floor. On today's exam although he remains on high flow oxygen with 15 L high flow and 100% nonrebreather he appears to be breathing more comfortably, does not appear to be tachypneic, no use of accessory muscles of breathing, he sitting up on the edge of the bed, and leaning over a table, he states that he breathes better that way. His pulse ox is 94%. He does easily desaturate to 80% even with a brief conversation, and any activity. His Baricitinib remains on hold, his LFTs were improving, follow-up LFTs have been ordered and pending for today, his Decadron dose of 6 mg twice daily, he remains on Lovenox 40 mg daily, CT chest showed no evidence of pulmonary embolism, and lower extremity Dopplers were negative for DVT. His d-dimer today is 13.24, increased from 6.4 on yesterday's labs, follow-up LDH and CRP are pending, however LDH was improving on yesterday's creatinine was down to 444, and CRP was slightly increased at 1.6. On 08/09/2021 patient seen in follow-up on medical surgical floor. Patient still remains on 15 L per high flow nasal cannula, and on percent nonrebreather, however his O2 saturations seem to have slightly improved and are around 92-94%. However patient easily desaturates with any exertion, and even speaking, does not appear to be tachypneic does not appear to be in any acute distress. Sounds reveal some minimal crackles at bilateral bases, no rhonchi or wheezing, remains on Decadron 6 mg twice daily, prophylactic Lovenox, and COVID-19 vitamins. His LFTs were improving on his labs from 2 days ago, follow-up labs are pending for today, his d-dimer today is improving and is down to 6.16, his white count is 13.8, hemoglobin is 15.1. Vital signs have been stable, has had no fever or chills. On 08/10/2021 patient seen in follow-up on medical surgical floor. Patient currently on 15 L of oxygen and nonrebreather mask, he is leaning on his left side, he states he seems to be breathing easier, and oxygenating better when he's laying on his left side, his pulse ox is ranging between 91-95%, afebrile, blood pressure is been stable. Coarse crackles over left upper and lower lung, clear on the right side. Patient has had no acute events overnight, today's labs have been reviewed, d-dimer is improving and is down to 5.15, with blood cell count is 17.1, hemoglobin is 16. On 08/13/2021 patient seen in follow-up on medical surgical floor, he is breathing fairly comfortably, he is currently on 15 L per high flow nasal cannula, and the nonrebreather mask, he is eating lunch, he does desaturate with eating and speaking, but overall he is breathing comfortably, he states he feels better, does occasionally cough, no phlegm production, no chest discomfort, no fever or chills, less tachypneic and looks quite comfortable. He remains on Decadron 6 mg twice daily, he is on Lovenox for milligrams twice daily, and he is on vitamin C, vitamin D and zinc. His chest x-ray from yesterday showing bilateral left greater than right patchy airspace and interstitial opacities that appeared more prominent compared to the prior study. No new labs today, his d-dimer from yesterday approving it was down to 3.18, his LDH was 439, and CRP was improving and down to 1.9. On 08/14/2021 patient seen in follow-up on medical surgical floor. He is accompanied to bed, breathing comfortably, patient still remains on 15 L of oxygen per high flow nasal cannula, and nonrebreather mask, he does desaturate with eating, attempts have been made to wean down the FiO2 however during times of desaturation during meals FiO2 is turned back up. Otherwise he denies any worsening dyspnea, he states overall he is feeling better, lung sounds reveal mild crackles over right base. No fever or chills, repositioning self in bed, is on Decadron 6 mg twice daily, he remains on multivitamins and Lovenox 40 mg twice daily. On 08/18/2001 patient in follow-up on medical surgical floor. He is currently on 13 L per high flow nasal cannula and nonrebreather mask. Yesterday nonrebreather mask was removed however patient subsequently became very short of breath, desatted, and he is currently back on both high flow nasal cannula and nonrebreather mask, he is dyspneic with conversation, dyspnea with exertion, but no acute distress, he states he feels that overall his breathing has improved since admission although he is still requiring high flow oxygen. His been repositioning self in bed from side to side. He remains on Decadron 6 mg twice daily, he is on Lovenox 40 mg twice daily, and COVID-19 vitamins. No new labs for last couple of days. His chest x-ray from 08/16/2021 showed persistent bilateral left greater than right multifocal and confluent opacities. Overall his inflammatory markers were improving compared admission levels On 08/20/2021 patient seen in follow-up on surgical surgical floor, he continues on 15 L per high flow nasal cannula, and 100% nonrebreather mask, and his pulse ox is 90-94%, afebrile, vital signs have been stable, no worsening dyspnea, still reports exertional dyspnea and desaturation with any exertion, even with eating. Today's chest x-ray shows improving bilateral infiltrates. Today's labs have been reviewed, his blood blood cell count is fairly stable at 10.2, hemoglobin stable at 14.3, d-dimer is 2.5, electrolytes and renal profile were unremarkable, of inflammatory markers have significantly improved since their peak, and LDH is currently at 315, and CRP at 0.40. Decadron has been cut back to once daily dosing and currently patient is receiving 6 mg daily, patient is on COVID-19 vitamins, and Lovenox 40 mg subcu daily. On 08/21/2021 patient seen in follow-up on medical surgical floor, he remains on 15 L per high flow nasal cannula and 100% nonrebreather mask, his pulse ox is 92-93%. He looks the same, although he quickly desaturates to 59% with any exertion and when he got up to use the commode earlier he desaturated down to 59% per nursing staff and it took him a long time to recover. He is dyspneic with conversation, and any lightening exertion, however he he states is no worse then he has been. No complaints of chest discomfort, he does have occasional cough, yesterday's chest x-ray was showing improvement in the appearance of bilateral infiltrates, lung sounds revealed coarse crackles mainly at the left posterior lower base. No fever or chills, he remains on Decadron 6 mg daily, he is on Lovenox 40 mg daily, vitamin C, zinc, and vitamin D. His inflammatory markers were improving and yesterday's labs, his LDH was down to 315, and CRP was 0.40. Objective - Vital Signs Vital signs: Vital Signs Temp 98.1 F 08/21/21 10:35 Pulse 92 08/21/21 10:35 Resp 20 08/21/21 10:35 BP 112/69 08/21/21 10:35 Pulse Ox 92 L 08/21/21 10:35 Intake & Output 08/20/21 08/21/21 08/21/21 18:59 06:59 18:59 Output Total 600 150 Balance -600 -150 Output: Urine 600 150 Other: Voiding Method Urinal Urinal # Voids 3 1 # Bowel Movements 1 - Exam GENERAL EXAM: Alert, very pleasant, 65-year-old white male, on 15 L per high flow nasal cannula, and 100% percent nonrebreather mask with a pulse ox of 92% dyspneic at rest HEAD: Normocephalic/atraumatic. EYES: Normal reaction of pupils, equal size. Conjunctiva pink, sclera white. NOSE: Clear with pink turbinates. THROAT: No erythema or exudates. NECK: No masses, no JVD, no thyroid enlargement, no adenopathy. CHEST: No chest wall deformity. Symmetrical expansion. LUNGS: Equal air entry with bilateral crackles CVS: Regular rate and rhythm, normal S1 and S2, no gallops, no murmurs, no rubs ABDOMEN: Soft, nontender. No hepatosplenomegaly, normal bowel sounds, no guarding or rigidity. EXTREMITIES: No clubbing, no edema, no cyanosis, 2+ pulses and upper and lower extremities. MUSCULOSKELETAL: Muscle strength and tone normal. SPINE: No scoliosis or deformity SKIN: No rashes CENTRAL NERVOUS SYSTEM: Alert and oriented -3. No focal deficits, tone is normal in all 4 extremities. PSYCHIATRIC: Alert and oriented -3. Appropriate affect. Intact judgment and insight. - Labs CBC & Chem 7: 08/20/21 06:06 08/20/21 06:06 Labs: Abnormal Lab Results - Last 24 Hours (Table) 08/20/21 08/20/21 08/21/21 Range/Units 16:33 20:56 06:56 POC Glucose (mg/dL) 228 H 159 H 152 H (75-99) mg/dL 08/21/21 Range/Units 11:52 POC Glucose (mg/dL) 167 H (75-99) mg/dL Assessment and Plan Plan: Assessment: #1. Acute hypoxic respiratory failure related to acute COVID-19 pneumonia. Patient received a single dose of Remdesivir in the emergency department, however in view of rapid progression of his hypoxemia he was started on a combination of Decadron and baricitinib. Baricitinib discontinued on 08/06/2021 related to increase in LFTs #2. Increased inflammatory markers related to the above, continue improved since admission #3. Elevated d-dimer, CTA of the chest showed no evidence of pulmonary embolism, and lower extremity Dopplers were negative #4. Diabetes mellitus type II #5. Hypertension #6. Hyperlipidemia #7. Obesity with BMI of 39.70 #8. Increased LFTs, related to viral pneumonia or medication related, Baricitinib discontinued on 08/06/2021, improving Plan: Continue current medical treatment Patient has been on 15 L per high flow nasal cannula and nonrebreather mask Stable, although he still desaturates quite rapidly with any exertion We'll continue current dose Decadron, continue Lovenox continue multivitamins Yesterday's chest x-ray was showing improving pulmonary infiltrates, and his inflammatory markers were improving and yesterday's labs Continue encouraging the patient to deep breathe and cough, reposition self in bed We'll continue to follow his clinical course I performed a history & physical examination of the patient and discussed their management with my nurse practitioner, Mari Le. I reviewed the nurse practitioner's note and agree with the documented findings and plan of care. Lung sounds are positive for diffuse crackles throughout the lung dai. The findings and the impression was discussed with the patient. I attest to the documentation by the nurse practitioner. Time with Patient: Less than 30
--- NOTE | 2021-08-21 15:35 | P.PN ---
<Jaquan Torrez - Last Filed: 08/21/21 15:28> Subjective Progress Note Date: 08/21/21 Hospital course: Patient is a 65-year-old male with a past medical history of hypertension, hyp erlipidemia, and type II [id number] diabetes mellitus. He presented to the hospital on 08/02/21 with a chief complaint of shortness of breath and coughing. Patient was unvaccinated for Covid and reports he began experiencing complaints of shortness of breath and wheezing around July 23 and after these symptoms progressively worsened he was seen and evaluated on July 30 and tested positive for Covid 19 virus infection. upon arrival to the emergency department, patient found to be significantly hypoxic requiring oxygen supplementation. Patient initially 86% on room air. Chest x-ray revealed bilateral mid to lower lung multifocal opacities consistent with Covid 19 infection. Pt admitted under our services with consultation to pulmonology. Patient underwent bilateral lower extremity which were negative for DVT. CTA chest negative for PE showing extensive bilateral pulmonary infiltrates consistent with Covid 19 pneumonia. Physical examination: Patient seen and fully evaluated at the bedside this morning. He remains on 15 L flow nasal cannula +15 L nonrebreather mask. Upon evaluation patient reports continued shortness of breath with minimal exertion. RN states patient got up to bedside commode this morning and desaturated down into the 50s taking approximately 15 minutes prior to recovering and stabilizing oxygenation. Patient reports he is having a difficult time just sitting up on the edge of bed, eating, or use a bedside commode. Patient strongly encouraged to refrain from any exertion. He was instructed not to get out of bed without assistance and close monitoring, use urinal, and keep oxygen on at all times. Patient again encouraged to prone but states he is unable and has been rotating from left lateral and right lateral recumbent positions. Patient denies having any further needs or concerns at this time. He denies having any headache, lightheadedness, dizziness, chest pain, palpitations, nausea, vomiting, or experiencing any numbness/tingling/weakness in his extremities. Patient was started on ensure to increase caloric intake. General: Nontoxic, mild distress secondary to conversational dyspnea. Derm: Skin warm and dry, normal coloration for ethnicity. Head: Atraumatic, normocephalic and symmetric. Eyes: EOMs intact, no lid lag, and anicteric sclera Mouth: no lip lesions, mucus membranes moist Cardiovascular: regular rate and rhythm with normal S1S2, no murmur, positive posterior tibial pulses bilaterally, and cap refill < 2 seconds. Lungs: increased respiratory effort, moderate conversational dyspnea. soft bibasilar crackles nearly resolved in RLL and crackles remain to left mid and lower lung. Patient remains on 15 L high flow nasal cannula and 15 L nonrebreather. Abdominal: soft, nontender to palpation, no guarding, no appreciable organomegaly Ext: ROM intact. No gross muscle atrophy, no edema, no contractures. pt with amputation Neuro: Speech clear, face symmetrical and CN II-XII grossly intact with no noted focal neuro deficits Psych: Alert and oriented to person, place, time, and situation. Appropriate and pleasant affect. Assessment and Plan of Care: Acute respiratory failure with hypoxia secondary to COVID 19 pneumonia -Oxygenation to be administered and titrated as needed to maintain SPO2 equal to or greater than 90% -Telemetry monitoring. -Continue trending inflammatory markers. -Pt received two doses of Baricitinib, remainder of doses held secondary to elevated liver enzymes -Encourage Incentive Spirometry 10-15x hourly while awake. -Steroids: Decadron 6 mg daily -Continue vitamin C, Vitamin D, and Zinc. -Pulmonology following, appreciate further recommendations. -Continue DVT prophylaxis with Lovenox 40 mg subcu daily Type II [id number]-nfixdybpd diabetes mellitus Hold Glucophage at this time and place patient on glycemic protocol with NovoLog sliding scale. Hypertension Monitor vital signs and continue daily medication regimen with lisinopril. CODE STATUS: Full code DVT prophylaxis: Lovenox Discussed with: Pt and RN, as well pt's Anticipated discharge date: clinical course to determine Anticipated discharge place: Home A total of 45 minutes was spent on the care of this complex patient more than 50 % of the time was spent in counseling and care coordination. Objective - Vital Signs Vital signs: Vital Signs Temp 98.7 F 08/21/21 06:15 Pulse 85 08/21/21 06:15 Resp 16 08/21/21 06:15 BP 98/66 08/21/21 06:15 Pulse Ox 94 L 08/21/21 06:15 Intake & Output 08/20/21 08/21/21 08/21/21 18:59 06:59 18:59 Output Total 600 Balance -600 Output: Urine 600 Other: Voiding Method Urinal Urinal # Voids 3 # Bowel Movements 1 - Labs CBC & Chem 7: 08/20/21 06:06 08/20/21 06:06 Labs: Abnormal Lab Results - Last 24 Hours (Table) 08/20/21 08/20/21 08/20/21 Range/Units 11: 16:33 20:56 POC Glucose (mg/dL) 106 H 228 H 159 H (75-99) mg/dL 08/21/21 Range/Units 06:56 POC Glucose (mg/dL) 152 H (75-99) mg/dL <AlizaKassidy acnnon - Last Filed: 08/21/21 18:40> Subjective I reviewed the documentation as provided by the KALINA above, who is the original author of this note. I agree with the documented assessment and plan, with the following changes: None Objective - Vital Signs Vital signs: Vital Signs Temp 98.3 F 08/21/21 17:43 Pulse 96 08/21/21 17:43 Resp 16 08/21/21 17:43 BP 124/72 08/21/21 17:43 Pulse Ox 92 L 08/21/21 17:43 Intake & Output 08/20/21 08/21/21 08/21/21 18:59 06:59 18:59 Intake Total 236 Output Total 600 500 Balance -600 -264 Weight 129.274 kg Intake: Oral 236 Output: Urine 600 500 Other: Voiding Method Urinal Urinal # Voids 3 1 # Bowel Movements 1 1 - Labs CBC & Chem 7: 08/20/21 06:06 08/20/21 06:06 Labs: Abnormal Lab Results - Last 24 Hours (Table) 08/20/21 08/21/21 08/21/21 Range/Units 20:56 06:56 11:52 POC Glucose (mg/dL) 159 H 152 H 167 H (75-99) mg/dL 08/21/21 Range/Units 16:43 POC Glucose (mg/dL) 229 H (75-99) mg/dL
[2021-08-21 16:44] LABS: Glucose,Whole Blood 229 mg/dL (75-99)
[2021-08-21 20:35] LABS: Glucose,Whole Blood 182 mg/dL (75-99)
[2021-08-21] MEDS: MELATONIN 5 MG TABLET PO PRN (21:22)
[2021-08-22 07:03] LABS: Glucose,Whole Blood 125 mg/dL (75-99)
[2021-08-22] MEDS: INSULIN ASPART (NovoLOG) 100 UNIT/ML VIAL SQ SCH ×5 (07:06→21:40)
[2021-08-22] MEDS: ENOXAPARIN 40 MG/0.4 ML SYRINGE SQ SCH (08:37)
[2021-08-22] MEDS: CHOLECALCIFEROL 25 MCG (1000 IU) TABLET PO SCH (08:37)
[2021-08-22] MEDS: ASCORBIC ACID 500 MG TAB PO SCH (08:37)
[2021-08-22] MEDS: ZINC SULFATE 220 MG CAP PO SCH (08:38)
[2021-08-22] MEDS: dexAMETHasone 2 MG TAB PO SCH (08:38)
[2021-08-22 09:10] LABS: Basophils # (A) 0.05 X 10*3/uL (0.00-0.10); Basophils % (A) 0.5 %; Eosinophils # (A) 0.81 X 10*3/uL (0.04-0.35); Eosinophils % (A) 7.8 %; HCT 45.4 % (39.6-50.0); HGB 13.9 g/dL (13.0-17.0); Lymphocytes # (A) 0.89 X 10*3/uL (0.90-5.00); Lymphocytes % (A) 8.6 %; MCH 29.2 pg (27.0-32.0); MCHC 30.6 g/dL (32.0-37.0); MCV 95.4 fL (80.0-97.0); Mean Platelet Volume 11.5 fL (9.5-12.2); Monocytes # (A) 0.74 X 10*3/uL (0.20-1.00); Monocytes % (A) 7.2 %; Neutrophils # (A) 7.72 X 10*3/uL (1.80-7.70); Neutrophils % (A) 74.8 %; Platelet Count 194 X 10*3/uL (140-440); RBC 4.76 X 10*6/uL (4.40-5.60); RDW 13.4 % (11.5-14.5); WBC 10.32 X 10*3/uL (4.50-10.00)
[2021-08-22 09:37] LABS: African American GFR (CKD) 109.3 (60.0-200.0); Anion Gap 10.1 mmol/L (10.00-18.00); BUN/Creat Ratio 27.41 Ratio (12.00-20.00); Blood Urea Nitrogen 21.6 mg/dL (9.0-27.0); C Reactive Protein 1.5 mg/dL (0.00-0.80); Calcium 8.6 mg/dL (8.7-10.3); Carbon Dioxide 28.1 mmol/L (20.0-27.5); Non-African American GFR(CKD) 94.3 (60.0-200.0); Potassium 4.5 mmol/L (3.5-5.5)
--- NOTE | 2021-08-22 09:46 | US ---
EXAMINATION TYPE: US venous doppler duplex LE DATE OF EXAM: 08/22/2021 9:08 AM COMPARISON: US CLINICAL HISTORY: elevating d-dimer, covid. Elevated d-dimer, SOB, Covid SIDE PERFORMED: Bilateral TECHNIQUE: The lower extremity deep venous system is examined utilizing real time linear array sonog sarah with graded compression, doppler sonography and color-flow sonography. VESSELS IMAGED: Common Femoral Vein Deep Femoral Vein Greater Saphenous Vein * Femoral Vein Popliteal Vein Small Saphenous Vein * Proximal Calf Veins (* superficial vessels) Right Leg: Negative for DVT Left Leg: Negative for DVT IMPRESSION: No evidence of DVT
--- NOTE | 2021-08-22 11:28 | CT ---
EXAMINATION TYPE: CT chest angio for PE DATE OF EXAM: 08/22/2021 COMPARISON: 08/06/2021 HISTORY: elevated d dimer, covid CT DLP: 687.7 mGycm CONTRAST: CT chest with contrast and 3D reconstruction with MIP imaging is performed with IV Contrast, patient injected with 100 mL of Isovue 370. Contrast-enhanced CT of the chest was performed through the course of the pulmonary arteries with jesus g and mediastinal window settings submitted. 3D reconstruction with MIP imaging was also performed. PULMONARY ARTERIES: The pulmonary arteries and their major tributaries are patent. I do not see cyndi dence for sizable filling defect to suggest pulmonary embolic process. LUNGS: Scattered groundglass and airspace infiltrates persist. Interval development of fibrotic hunter e. No evidence for atelectasis. No pulmonary nodule or mass is detected. No pleural effusion. MEDIASTINUM: Thoracic aorta is of normal caliber,however, evaluation is limited given timing of the contrast bolus. If there is concern for thoracic aortic pathology consider STALIN. Correlate clinicall y . The heart is not enlarged. No evidence for mediastinal mass. No mediastinal lymph nodes greater than 1cm. HILAR STRUCTURES: No evidence for mass. No hilar lymph nodes greater than 1 cm. UPPER ABDOMEN: No significant abnormality is seen. IMPRESSION: 1. No evidence for Pulmonary embolism at this time. 2.Scattered groundglass and airspace infiltrates persist. Interval development of fibrotic change.
[2021-08-22 11:32] LABS: Glucose,Whole Blood 162 mg/dL (75-99)
--- NOTE | 2021-08-22 15:54 | P.PN ---
Subjective Progress Note Date: 08/22/21 Principal diagnosis: Hypoxia, pneumonia, COVID-19 65-year-old male patient was being Hospital as for COVID 19nrelated pneumonia. The patient is known to have COPD, hypertension and hyperlipidemia and diabetes mellitus. He presented emergency department with worsening shortness of breath. He reports that his symptoms started on 07/26/2021 and he progressively got worse. On he tested positive for COVID 19 and the patient received Decadron through his primary care physician. Unfortunately his condition got worse. He continued to have increased shortness of breath and dry cough. He was febrile. He presented to the ED with a pulse ox of mid 80s. His chest x- ray showed diffuse bilateral pulmonary infiltrates consistent with Covid 19 related pneumonia. His blood work showed a potassium level of 5.3, sodium level of 132, serum bicarb was 20, BUN was 19 with a creatinine of 0.8, lymphocyte count of 0.4 with a white cell count of 7.5. The patient was started on Decadron 6 mg by mouth daily and the patient was also given Lovenox 40 mg subcu daily prophylaxis. He is currently on IV fluids with normal saline at the rate of 75 mL an hour. He is on oxygen. He was placed on 6 L and he is currently down to 4 L per minute nasal cannula.He is not vaccinated 08/03/2021, the patient is being seen for a follow-up. The patient remains in The emergency department. I saw him yesterday in consultation. He was only on 4 L, he was brought up to 6 L and subsequently he is up to 13 L for now and his current pulse ox is around 88-90%. As such, his FiO2 needs to be further titrated to bring him above 90%. Meanwhile, I started him on a combination of D ecadron under the severe yesterday. I think of the severity needs to be switched to Baricitinib and will continue Decadron for now. He is coughing. He is hemodynamically stable. White cell count is 6.3. D-dimer 0.3. Inflammatory markers are still pending for now. Blood sugars today as 170. He is on insulin sliding scale coverage for blood sugar control. 08/04/2021, the patient is 1100% nonrebreather facemask. I'm seeing this patient for a follow-up today. Note that his oxygenation was gradually getting worse. He came in to us with 4 L and subsequently and up on a nonrebreather facemask. During the course of his progression, I'm stop the Remdesivir put the patient on a combination of Decadron and Baricitinib. Blood work from today still pending. I do have a d-dimer that is showing is 0.44 level. The glucose is 163. In terms of the inflammatory markers, the pro-calcitonin level was 0.1. The patient remains on Lovenox for DVT prophylaxis. Repeat chest x-ray shows no major interval change in the findings are essentially stable. On 08/05/2021, the patient remains on 15 L nasal cannula and 100% on a beta facemask. Earlier, there was a unsuccessful attempt by RT to switch this patient to a high flow oxygen. I think the idea was very good. The execution and the results are not to be not good and the patient desaturated significantly and the medication quite anxious. For that reason the patient was placed back on his original settings. His white cell count is at 10.8 with a hemoglobin of 15.3. D-dimer remains low at 0.55. Electrolytes are all within normal limits per normal renal function. His LDH level is higher and currently is at 1568 with a CRP of 0.7. I have this patient on a combination of Decadron 6 mg twice a day and he is also on Baricitinib per protocol. He remains on Lovenox 40 mg subcu on a daily basis. No other significant events otherwise for now. The most recent chest x-ray from yesterday showed stable bilateral pulmonary infilt rates without any significant interval change. As such, overall condition is still stable. This patient is not vaccinated. He has COVID 19 related pneumonia. He has COPD and hypertension hyperlipidemia and diabetes mellitus. On 08/06/2021 patient seen in follow-up on medical surgical floor. He is currently on 15 L per high flow nasal cannula, and 100% nonrebreather mask, his pulse ox is ranging between 80 1993%, afebrile, hemodynamically he is stable, she is short of breath with any activity. Denies any chest discomfort. Has occasional nonproductive cough. On today's labs as LFTs noted to be still elevated with AST 252, ALT of 523, and alkaline phosphatase is 72, and his Baricitinib was discontinued and Lipitor was placed on hold. His LDH on today's labs is 1598, and CRP is less than 0.5. The d-dimer today is 3.78. CT of the chest has been ordered and pending at this time, current treatment for COVID-19 pneumonia it consisting of Decadron 6 mg twice a day, Lovenox 40 mg daily, and COVID-19 vitamins. On 08/07/2021 patient seen in follow-up on medical surgical floor. He remains on 15 L per high flow nasal cannula, and 100% nonrebreather mask, his pulse ox is 89-90%, patient easily desaturates with any activity, he is a bit more dyspneic on today's exam, however he could not tolerate the Airvo, he felt that he was very bulky, and was drying out his nasal airways. Denies any chest pain, his been afebrile, hemodynamically has been stable, lung sounds reveal diffuse crackles at bilateral lower bases. CT chest has been completed and showed no evidence of pulmonary embolism, there were extensive bilateral pulmonary infiltrates. Yesterday we stopped his Baricitinib and Lipitor in view of increasing LFTs, today's labs are still pending today. D-dimer and LFTs in addition to inflammatory markers were ordered, however only d-dimer has resulted so far, and it is uptrending and is up to 6.4 on today's labs. Lower extremity Dopplers showed no evidence of DVT. Current treatment includes Decadron 6 mg twice daily, he is on Lovenox 40 mg daily, and he is on COVID-19 vitamins. He is on sliding scale NovoLog, his blood sugars are in the 180s to 190s. On 08/08/2021 patient seen in follow-up on medical surgical floor. On today's exam although he remains on high flow oxygen with 15 L high flow and 100% nonrebreather he appears to be breathing more comfortably, does not appear to be tachypneic, no use of accessory muscles of breathing, he sitting up on the edge of the bed, and leaning over a table, he states that he breathes better that way. His pulse ox is 94%. He does easily desaturate to 80% even with a brief conversation, and any activity. His Baricitinib remains on hold, his LFTs were improving, follow-up LFTs have been ordered and pending for today, his Decadron dose of 6 mg twice daily, he remains on Lovenox 40 mg daily, CT chest showed no evidence of pulmonary embolism, and lower extremity Dopplers were negative for DVT. His d-dimer today is 13.24, increased from 6.4 on yesterday's labs, follow-up LDH and CRP are pending, however LDH was improving on yesterday's creatinine was down to 444, and CRP was slightly increased at 1.6. On 08/09/2021 patient seen in follow-up on medical surgical floor. Patient still remains on 15 L per high flow nasal cannula, and on percent nonrebreather, however his O2 saturations seem to have slightly improved and are around 92-94%. However patient easily desaturates with any exertion, and even speaking, does not appear to be tachypneic does not appear to be in any acute distress. Sounds reveal some minimal crackles at bilateral bases, no rhonchi or wheezing, remains on Decadron 6 mg twice daily, prophylactic Lovenox, and COVID-19 vitamins. His LFTs were improving on his labs from 2 days ago, follow-up labs are pending for today, his d-dimer today is improving and is down to 6.16, his white count is 13.8, hemoglobin is 15.1. Vital signs have been stable, has had no fever or chills. On 08/10/2021 patient seen in follow-up on medical surgical floor. Patient currently on 15 L of oxygen and nonrebreather mask, he is leaning on his left side, he states he seems to be breathing easier, and oxygenating better when he's laying on his left side, his pulse ox is ranging between 91-95%, afebrile, blood pressure is been stable. Coarse crackles over left upper and lower lung, clear on the right side. Patient has had no acute events overnight, today's labs have been reviewed, d-dimer is improving and is down to 5.15, with blood cell count is 17.1, hemoglobin is 16. On 08/13/2021 patient seen in follow-up on medical surgical floor, he is breathing fairly comfortably, he is currently on 15 L per high flow nasal cannula, and the nonrebreather mask, he is eating lunch, he does desaturate with eating and speaking, but overall he is breathing comfortably, he states he feels better, does occasionally cough, no phlegm production, no chest discomfort, no fever or chills, less tachypneic and looks quite comfortable. He remains on Decadron 6 mg twice daily, he is on Lovenox for milligrams twice daily, and he is on vitamin C, vitamin D and zinc. His chest x-ray from yesterday showing bilateral left greater than right patchy airspace and interstitial opacities that appeared more prominent compared to the prior study. No new labs today, his d-dimer from yesterday approving it was down to 3.18, his LDH was 439, and CRP was improving and down to 1.9. On 08/14/2021 patient seen in follow-up on medical surgical floor. He is accompanied to bed, breathing comfortably, patient still remains on 15 L of oxygen per high flow nasal cannula, and nonrebreather mask, he does desaturate with eating, attempts have been made to wean down the FiO2 however during times of desaturation during meals FiO2 is turned back up. Otherwise he denies any worsening dyspnea, he states overall he is feeling better, lung sounds reveal mild crackles over right base. No fever or chills, repositioning self in bed, is on Decadron 6 mg twice daily, he remains on multivitamins and Lovenox 40 mg twice daily. On 08/18/2001 patient in follow-up on medical surgical floor. He is currently on 13 L per high flow nasal cannula and nonrebreather mask. Yesterday nonrebreather mask was removed however patient subsequently became very short of breath, desatted, and he is currently back on both high flow nasal cannula and nonrebreather mask, he is dyspneic with conversation, dyspnea with exertion, but no acute distress, he states he feels that overall his breathing has improved since admission although he is still requiring high flow oxygen. His been repositioning self in bed from side to side. He remains on Decadron 6 mg twice daily, he is on Lovenox 40 mg twice daily, and COVID-19 vitamins. No new labs for last couple of days. His chest x-ray from 08/16/2021 showed persistent bilateral left greater than right multifocal and confluent opacities. Overall his inflammatory markers were improving compared admission levels On 08/20/2021 patient seen in follow-up on surgical surgical floor, he continues on 15 L per high flow nasal cannula, and 100% nonrebreather mask, and his pulse ox is 90-94%, afebrile, vital signs have been stable, no worsening dyspnea, still reports exertional dyspnea and desaturation with any exertion, even with eating. Today's chest x-ray shows improving bilateral infiltrates. Today's labs have been reviewed, his blood blood cell count is fairly stable at 10.2, hemoglobin stable at 14.3, d-dimer is 2.5, electrolytes and renal profile were unremarkable, of inflammatory markers have significantly improved since their peak, and LDH is currently at 315, and CRP at 0.40. Decadron has been cut back to once daily dosing and currently patient is receiving 6 mg daily, patient is on COVID-19 vitamins, and Lovenox 40 mg subcu daily. On 08/21/2021 patient seen in follow-up on medical surgical floor, he remains on 15 L per high flow nasal cannula and 100% nonrebreather mask, his pulse ox is 92-93%. He looks the same, although he quickly desaturates to 59% with any exertion and when he got up to use the commode earlier he desaturated down to 59% per nursing staff and it took him a long time to recover. He is dyspneic with conversation, and any lightening exertion, however he he states is no worse then he has been. No complaints of chest discomfort, he does have occasional cough, yesterday's chest x-ray was showing improvement in the appearance of bilateral infiltrates, lung sounds revealed coarse crackles mainly at the left posterior lower base. No fever or chills, he remains on Decadron 6 mg daily, he is on Lovenox 40 mg daily, vitamin C, zinc, and vitamin D. His inflammatory markers were improving and yesterday's labs, his LDH was down to 315, and CRP was 0.40. On 08/22/2001 patient seen in follow-up on medical surgical floor, he still requires high flow oxygen via 15 L high flow nasal cannula and nonrebreather mask, his pulse ox is 96%, hold with any exertion patient does desaturate, clinically he states his breathing is about the same, no worsening, CTA chest has been repeated and showed no evidence of pulmonary embolism, it did not scattered groundglass and airspace infiltrates and interval development of fibrotic change. Lower extremity Dopplers were repeated and showed no evidence of DVT, patient remains on Lovenox 40 mg daily, and he is on Decadron 6 mg daily in addition to multivitamins, today's labs have been reviewed, white blood cell count is 10.3, hemoglobin is 13.9, d-dimer is 3.1, slightly obtunded compared to yesterday's value, and his electrolytes are unremarkable, renal profile is within normal limits. His inflammatory markers are improving, LDH is down to 271 and CRP is 1.5. No nausea vomiting or diarrhea, he is tolerating oral intake, his appetite is very good. Objective - Vital Signs Vital signs: Vital Signs Temp 98.3 F 08/22/21 14:06 Pulse 98 08/22/21 14:06 Resp 18 08/22/21 14:06 BP 117/69 08/22/21 14:06 Pulse Ox 90 L 08/22/21 14:06 Intake & Output 08/21/21 08/22/21 08/22/21 18:59 06:59 18:59 Intake Total 236 Output Total 500 400 Balance -264 -400 Weight 129.274 kg Intake: Oral 236 Output: Urine 500 400 Other: Voiding Method Urinal # Voids 1 # Bowel Movements 1 - Exam GENERAL EXAM: Alert, very pleasant, 65-year-old white male, on 15 L per high flow nasal cannula, and 100% percent nonrebreather mask with a pulse ox of 92% dyspneic at rest HEAD: Normocephalic/atraumatic. EYES: Normal reaction of pupils, equal size. Conjunctiva pink, sclera white. NOSE: Clear with pink turbinates. THROAT: No erythema or exudates. NECK: No masses, no JVD, no thyroid enlargement, no adenopathy. CHEST: No chest wall deformity. Symmetrical expansion. LUNGS: Equal air entry with bilateral crackles CVS: Regular rate and rhythm, normal S1 and S2, no gallops, no murmurs, no rubs ABDOMEN: Soft, nontender. No hepatosplenomegaly, normal bowel sounds, no guarding or rigidity. EXTREMITIES: No clubbing, no edema, no cyanosis, 2+ pulses and upper and lower extremities. MUSCULOSKELETAL: Muscle strength and tone normal. SPINE: No scoliosis or deformity SKIN: No rashes CENTRAL NERVOUS SYSTEM: Alert and oriented -3. No focal deficits, tone is normal in all 4 extremities. PSYCHIATRIC: Alert and oriented -3. Appropriate affect. Intact judgment and insight. - Labs CBC & Chem 7: 08/22/21 05:50 08/22/21 05:50 Labs: Abnormal Lab Results - Last 24 Hours (Table) 08/21/21 08/21/21 08/22/21 Range/Units 16:43 20:34 05:50 WBC 10.32 H (4.50-10.00) X 10*3/uL MCHC 30.6 L (32.0-37.0) g/dL Immature Gran # 0.11 H (0.00-0.04) X 10*3/uL Neutrophils # 7.72 H (1.80-7.70) X 10*3/uL Lymphocytes # 0.89 L (0.90-5.00) X 10*3/uL Eosinophils # 0.81 H (0.04-0.35) X 10*3/uL D-Dimer (<0.60) mg/L FEU Carbon Dioxide (20.0-27.5) mmol/L BUN/Creatinine Ratio (12.00-20.00) Ratio Glucose (70-110) mg/dL POC Glucose (mg/dL) 229 H 182 H (75-99) mg/dL Calcium (8.7-10.3) mg/dL Lactate Dehydrogenase (120-246) U/L C-Reactive Protein (0.00-0.80) mg/dL 08/22/21 08/22/21 08/22/21 Range/Units 05:50 05:50 07:01 WBC (4.50-10.00) X 10*3/uL MCHC (32.0-37.0) g/dL Immature Gran # (0.00-0.04) X 10*3/uL Neutrophils # (1.80-7.70) X 10*3/uL Lymphocytes # (0.90-5.00) X 10*3/uL Eosinophils # (0.04-0.35) X 10*3/uL D-Dimer 3.10 H (<0.60) mg/L FEU Carbon Dioxide 28.1 H (20.0-27.5) mmol/L BUN/Creatinine Ratio 27.41 H (12.00-20.00) Ratio Glucose 116 H (70-110) mg/dL POC Glucose (mg/dL) 125 H (75-99) mg/dL Calcium 8.6 L (8.7-10.3) mg/dL Lactate Dehydrogenase 271 H (120-246) U/L C-Reactive Protein 1.50 H (0.00-0.80) mg/dL 08/22/21 Range/Units 11:30 WBC (4.50-10.00) X 10*3/uL MCHC (32.0-37.0) g/dL Immature Gran # (0.00-0.04) X 10*3/uL Neutrophils # (1.80-7.70) X 10*3/uL Lymphocytes # (0.90-5.00) X 10*3/uL Eosinophils # (0.04-0.35) X 10*3/uL D-Dimer (<0.60) mg/L FEU Carbon Dioxide (20.0-27.5) mmol/L BUN/Creatinine Ratio (12.00-20.00) Ratio Glucose (70-110) mg/dL POC Glucose (mg/dL) 162 H (75-99) mg/dL Calcium (8.7-10.3) mg/dL Lactate Dehydrogenase (120-246) U/L C-Reactive Protein (0.00-0.80) mg/dL Assessment and Plan Plan: Assessment: #1. Acute hypoxic respiratory failure related to acute COVID-19 pneumonia. Patient received a single dose of Remdesivir in the emergency department, however in view of rapid progression of his hypoxemia he was started on a combination of Decadron and baricitinib. Baricitinib discontinued on 08/06/2021 related to increase in LFTs #2. Increased inflammatory markers related to the above, continue improved since admission #3. Elevated d-dimer, CTA of the chest showed no evidence of pulmonary embolism, and lower extremity Dopplers were negative #4. Diabetes mellitus type II #5. Hypertension #6. Hyperlipidemia #7. Obesity with BMI of 39.70 #8. Increased LFTs, related to viral pneumonia or medication related, Baricitinib discontinued on 08/06/2021, improving Plan: Continue current medical treatment Patient has been on 15 L per high flow nasal cannula and nonrebreather mask Stable, although he still desaturates quite rapidly with any exertion Repeat CTA chest and lower extremity Dopplers showed no evidence of PE or DVTs continue current dose of Lovenox Continue Decadron, and multivitamins Inflammatory markers are improving Clinically patient states he feels the same, with no worsening dyspnea We'll continue to follow I performed a history & physical examination of the patient and discussed their management with my nurse practitioner, Mari Le. I reviewed the nurse practitioner's note and agree with the documented findings and plan of care. Lung sounds are positive for diffuse crackles throughout the lung dai. The findings and the impression was discussed with the patient. I attest to the documentation by the nurse practitioner. Time with Patient: Less than 30
--- NOTE | 2021-08-22 16:21 | P.PN ---
<Jaquan Torrez - Last Filed: 08/22/21 16:17> Subjective Progress Note Date: 08/22/21 Hospital course: Patient is a 65-year-old male with a past medical history of hypertension, hyp erlipidemia, and type II [id number] diabetes mellitus. He presented to the hospital on 08/02/21 with a chief complaint of shortness of breath and coughing. Patient was unvaccinated for Covid and reports he began experiencing complaints of shortness of breath and wheezing around July 23 and after these symptoms progressively worsened he was seen and evaluated on July 30 and tested positive for Covid 19 virus infection. upon arrival to the emergency department, patient found to be significantly hypoxic requiring oxygen supplementation. Patient initially 86% on room air. Chest x-ray revealed bilateral mid to lower lung multifocal opacities consistent with Covid 19 infection. Pt admitted under our services with consultation to pulmonology. Patient underwent bilateral lower extremity which were negative for DVT. CTA chest negative for PE showing extensive bilateral pulmonary infiltrates consistent with Covid 19 pneumonia. Physical examination: Patient seen and fully evaluated at the bedside this morning. He remains on 15 L flow nasal cannula +15 L nonrebreather mask. He continues to have conversational dyspnea as well as shortness of breath with minimal exertion. D- dimer elevating up to 3.10 with LDH of 271 and CRP of 1.50. Order placed for repeat Dopplers and CTA of chest to rule out development of blood clots. Called to update and left voice mail message. Patient continues to deny any dizziness, lightheadedness, chest pain, palpitations, or experiencing any numbness/tingling/weakness/swelling in his extremities. General: Nontoxic, mild distress secondary to conversational dyspnea. Derm: Skin warm and dry, normal coloration for ethnicity. Head: Atraumatic, normocephalic and symmetric. Eyes: EOMs intact, no lid lag, and anicteric sclera Mouth: no lip lesions, mucus membranes moist Cardiovascular: regular rate and rhythm with normal S1S2, no murmur, positive posterior tibial pulses bilaterally, and cap refill < 2 seconds. Lungs: increased respiratory effort, moderate conversational dyspnea. soft bibasilar crackles worse on the left. Patient remains on 15 L high flow nasal cannula and 15 L nonrebreather. Abdominal: soft, nontender to palpation, no guarding, no appreciable organomegaly Ext: ROM intact. No gross muscle atrophy, no edema, no contractures. pt with amputation Neuro: Speech clear, face symmetrical and CN II-XII grossly intact with no noted focal neuro deficits Psych: Alert and oriented to person, place, time, and situation. Appropriate and pleasant affect. Assessment and Plan of Care: Acute respiratory failure with hypoxia secondary to COVID 19 pneumonia -Oxygenation to be administered and titrated as needed to maintain SPO2 equal to or greater than 90% -Telemetry monitoring. -Continue trending inflammatory markers. -Pt received two doses of Baricitinib, remainder of doses held secondary to elevated liver enzymes -Encourage Incentive Spirometry 10-15x hourly while awake. -Steroids: Decadron 6 mg daily -Continue vitamin C, Vitamin D, and Zinc. -Pulmonology following, appreciate further recommendations. -Continue DVT prophylaxis with Lovenox 40 mg subcu daily Type II [id number] diabetes mellitus Hold Glucophage at this time and place patient on glycemic protocol with NovoL og sliding scale. Hypertension Monitor vital signs and continue daily medication regimen with lisinopril. CODE STATUS: Full code DVT prophylaxis: Lovenox Discussed with: Pt and RN, and left voice mail message with patient's . Anticipated discharge date: clinical course to determine Anticipated discharge place: Home A total of 45 minutes was spent on the care of this complex patient more than 50% of the time was spent in counseling and care coordination. Objective - Vital Signs Vital signs: Vital Signs Temp 97.6 F 08/22/21 06:00 Pulse 94 08/22/21 06:00 Resp 22 08/22/21 06:00 BP 101/66 08/22/21 06:00 Pulse Ox 92 L 08/22/21 06:00 Intake & Output 08/21/21 08/22/21 08/22/21 18:59 06:59 18:59 Intake Total 236 Output Total 500 400 Balance -264 -400 Weight 129.274 kg Intake: Oral 236 Output: Urine 500 400 Other: Voiding Method Urinal # Voids 1 # Bowel Movements 1 - Labs CBC & Chem 7: 08/22/21 05:50 08/22/21 05:50 Labs: Abnormal Lab Results - Last 24 Hours (Table) 08/21/21 08/21/21 08/21/21 Range/Units 11:52 16:43 20:34 D-Dimer (<0.60) mg/L FEU POC Glucose (mg/dL) 167 H 229 H 182 H (75-99) mg/dL 08/22/21 08/22/21 Range/Units 05:50 07:01 D-Dimer 3.10 H (<0.60) mg/L FEU POC Glucose (mg/dL) 125 H (75-99) mg/dL <Adrian Spear - Last Filed: 08/22/21 18:31> Subjective I am in agreement with assessment and plan as written above Objective - Vital Signs Vital signs: Vital Signs Temp 99.2 F 08/22/21 17:12 Pulse 92 08/22/21 17:12 Resp 17 08/22/21 17:12 BP 113/70 08/22/21 17:12 Pulse Ox 90 L 08/22/21 17:12 Intake & Output 08/21/21 08/22/21 08/22/21 18:59 06:59 18:59 Intake Total 236 Output Total 500 400 500 Balance -264 -400 -500 Weight 129.274 kg Intake: Oral 236 Output: Urine 500 400 500 Other: Voiding Method Urinal # Voids 1 # Bowel Movements 1 - Labs CBC & Chem 7: 08/22/21 05:50 08/22/21 05:50 Labs: Abnormal Lab Results - Last 24 Hours (Table) 08/21/21 08/22/21 08/22/21 Range/Units 20:34 05:50 05:50 WBC 10.32 H (4.50-10.00) X 10*3/uL MCHC 30.6 L (32.0-37.0) g/dL Immature Gran # 0.11 H (0.00-0.04) X 10*3/uL Neutrophils # 7.72 H (1.80-7.70) X 10*3/uL Lymphocytes # 0.89 L (0.90-5.00) X 10*3/uL Eosinophils # 0.81 H (0.04-0.35) X 10*3/uL D-Dimer 3.10 H (<0.60) mg/L FEU Carbon Dioxide (20.0-27.5) mmol/L BUN/Creatinine Ratio (12.00-20.00) Ratio Glucose (70-110) mg/dL POC Glucose (mg/dL) 182 H (75-99) mg/dL Calcium (8.7-10.3) mg/dL Lactate Dehydrogenase (120-246) U/L C-Reactive Protein (0.00-0.80) mg/dL 08/22/21 08/22/21 08/22/21 Range/Units 05:50 07:01 11:30 WBC (4.50-10.00) X 10*3/uL MCHC (32.0-37.0) g/dL Immature Gran # (0.00-0.04) X 10*3/uL Neutrophils # (1.80-7.70) X 10*3/uL Lymphocytes # (0.90-5.00) X 10*3/uL Eosinophils # (0.04-0.35) X 10*3/uL D-Dimer (<0.60) mg/L FEU Carbon Dioxide 28.1 H (20.0-27.5) mmol/L BUN/Creatinine Ratio 27.41 H (12.00-20.00) Ratio Glucose 116 H (70-110) mg/dL POC Glucose (mg/dL) 125 H 162 H (75-99) mg/dL Calcium 8.6 L (8.7-10.3) mg/dL Lactate Dehydrogenase 271 H (120-246) U/L C-Reactive Protein 1.50 H (0.00-0.80) mg/dL 08/22/21 Range/Units 16:48 WBC (4.50-10.00) X 10*3/uL MCHC (32.0-37.0) g/dL Immature Gran # (0.00-0.04) X 10*3/uL Neutrophils # (1.80-7.70) X 10*3/uL Lymphocytes # (0.90-5.00) X 10*3/uL Eosinophils # (0.04-0.35) X 10*3/uL D-Dimer (<0.60) mg/L FEU Carbon Dioxide (20.0-27.5) mmol/L BUN/Creatinine Ratio (12.00-20.00) Ratio Glucose (70-110) mg/dL POC Glucose (mg/dL) 189 H (75-99) mg/dL Calcium (8.7-10.3) mg/dL Lactate Dehydrogenase (120-246) U/L C-Reactive Protein (0.00-0.80) mg/dL
[2021-08-22 16:53] LABS: Glucose,Whole Blood 189 mg/dL (75-99)
[2021-08-22] MEDS: ALPRAZolam 0.5 MG TAB PO PRN (19:55)
[2021-08-22 20:38] LABS: Glucose,Whole Blood 143 mg/dL (75-99)
[2021-08-22] MEDS: MELATONIN 5 MG TABLET PO PRN (21:40)
[2021-08-23] MEDS: ACETAMINOPHEN TAB 325 MG TAB PO PRN (00:53)
[2021-08-23 08:07] LABS: Glucose,Whole Blood 138 mg/dL (75-99)
[2021-08-23] MEDS: INSULIN ASPART (NovoLOG) 100 UNIT/ML VIAL SQ SCH ×7 (08:11→20:09)
[2021-08-23] MEDS ORDERED: VANCOMYCIN IV PER PHARMACY 1 EACH MISC MISCELLANE PRN (08:23)
--- NOTE | 2021-08-23 09:00 | XR ---
EXAMINATION TYPE: XR chest 1V portable DATE OF EXAM: 08/23/2021 CLINICAL HISTORY: Difficulty breathing and hypoxia progress study. TECHNIQUE: Single AP portable upright view of the chest is obtained. COMPARISON: Chest x-ray from 3 days earlier and older studies. CTA chest one day ago. FINDINGS: Persistent low lung volumes with worsening multifocal and confluent and reticulonodular op acities slightly more prominent in the left lung versus right lung with relative sparing of the apice s. No pleural effusion or pneumothorax seen bilaterally. Cardiac silhouette size is stable and within normal limits. Silhouetting left heart border redemonstrated. Osseous structures intact. IMPRESSION: Low lung volumes with worsening multifocal and confluent reticulonodular opacities left g reater than right consistent with covid-19 infection progression.
[2021-08-23 09:13] LABS: HCT 47.8 % (39.0-53.0); HGB 15.9 gm/dL (13.0-17.5); MCH 30.8 pg (25.0-35.0); MCHC 33.4 g/dL (31.0-37.0); MCV 92.2 fL (80.0-100.0); Mean Platelet Volume 7.9; Platelet Count 216 k/uL (150-450); RBC 5.18 m/uL (4.30-5.90); RDW 13.9 % (11.5-15.5); WBC 12.4 k/uL (3.8-10.6)
[2021-08-23 09:27] LABS: ALT 127 U/L (4-49); AST 41 U/L (17-59); African American GFR (CKD) >90 (>60 ml/min/1.73 sqM); Albumin 3.1 g/dL (3.5-5.0); Albumin/Globulin Ratio 0.8; Alkaline Phosphatase 88 U/L (38-126); Anion Gap 8 mmol/L; Blood Urea Nitrogen 28 mg/dL (9-20); C Reactive Protein 6.4 mg/dL (<1.0); Calcium 8.6 mg/dL (8.4-10.2); Carbon Dioxide 27 mmol/L (22-30); Chloride 95 mmol/L (98-107); Globulin 3.9 g/dL; Glucose 153 mg/dL (74-99); LDH 798 U/L (313-618); Magnesium 1.8 mg/dL (1.6-2.3); Non-African American GFR(CKD) 84 (>60 ml/min/1.73 sqM); Potassium 5.5 mmol/L (3.5-5.1); Sodium 130 mmol/L (137-145); Total Bilirubin 0.6 mg/dL (0.2-1.3)
[2021-08-23] MEDS ORDERED: VANCOMYCIN 2,500 MG in SODIUM CHLORIDE 0.9% 500 ML 500 ML IVPB ONE (10:00)
[2021-08-23] MEDS: ENOXAPARIN 40 MG/0.4 ML SYRINGE SQ SCH (10:40)
[2021-08-23] MEDS: dexAMETHasone 2 MG TAB PO SCH (10:46)
[2021-08-23] MEDS: ASCORBIC ACID 500 MG TAB PO SCH (10:46)
[2021-08-23] MEDS: ZINC SULFATE 220 MG CAP PO SCH (10:46)
[2021-08-23] MEDS: CHOLECALCIFEROL 25 MCG (1000 IU) TABLET PO SCH (10:46)
[2021-08-23 11:49] LABS: Glucose,Whole Blood 117 mg/dL (75-99)
[2021-08-23] MEDS ORDERED: CEFEPIME 2 GM in SODIUM CHLORIDE 0.9% 100 ML IVPB ONE (12:30)
--- NOTE | 2021-08-23 12:30 | P.PN ---
Subjective Progress Note Date: 08/23/21 Principal diagnosis: Hypoxia, pneumonia, COVID-19 65-year-old male patient was being Hospital as for COVID 19nrelated pneumonia. The patient is known to have COPD, hypertension and hyperlipidemia and diabetes mellitus. He presented emergency department with worsening shortness of breath. He reports that his symptoms started on 07/26/2021 and he progressively got worse. On he tested positive for COVID 19 and the patient received Decadron through his primary care physician. Unfortunately his condition got worse. He continued to have increased shortness of breath and dry cough. He was febrile. He presented to the ED with a pulse ox of mid 80s. His chest x- ray showed diffuse bilateral pulmonary infiltrates consistent with Covid 19 related pneumonia. His blood work showed a potassium level of 5.3, sodium level of 132, serum bicarb was 20, BUN was 19 with a creatinine of 0.8, lymphocyte count of 0.4 with a white cell count of 7.5. The patient was started on Decadron 6 mg by mouth daily and the patient was also given Lovenox 40 mg subcu daily prophylaxis. He is currently on IV fluids with normal saline at the rate of 75 mL an hour. He is on oxygen. He was placed on 6 L and he is currently down to 4 L per minute nasal cannula.He is not vaccinated 08/03/2021, the patient is being seen for a follow-up. The patient remains in The emergency department. I saw him yesterday in consultation. He was only on 4 L, he was brought up to 6 L and subsequently he is up to 13 L for now and his current pulse ox is around 88-90%. As such, his FiO2 needs to be further titrated to bring him above 90%. Meanwhile, I started him on a combination of D ecadron under the severe yesterday. I think of the severity needs to be switched to Baricitinib and will continue Decadron for now. He is coughing. He is hemodynamically stable. White cell count is 6.3. D-dimer 0.3. Inflammatory markers are still pending for now. Blood sugars today as 170. He is on insulin sliding scale coverage for blood sugar control. 08/04/2021, the patient is 1100% nonrebreather facemask. I'm seeing this patient for a follow-up today. Note that his oxygenation was gradually getting worse. He came in to us with 4 L and subsequently and up on a nonrebreather facemask. During the course of his progression, I'm stop the Remdesivir put the patient on a combination of Decadron and Baricitinib. Blood work from today still pending. I do have a d-dimer that is showing is 0.44 level. The glucose is 163. In terms of the inflammatory markers, the pro-calcitonin level was 0.1. The patient remains on Lovenox for DVT prophylaxis. Repeat chest x-ray shows no major interval change in the findings are essentially stable. On 08/05/2021, the patient remains on 15 L nasal cannula and 100% on a beta facemask. Earlier, there was a unsuccessful attempt by RT to switch this patient to a high flow oxygen. I think the idea was very good. The execution and the results are not to be not good and the patient desaturated significantly and the medication quite anxious. For that reason the patient was placed back on his original settings. His white cell count is at 10.8 with a hemoglobin of 15.3. D-dimer remains low at 0.55. Electrolytes are all within normal limits per normal renal function. His LDH level is higher and currently is at 1568 with a CRP of 0.7. I have this patient on a combination of Decadron 6 mg twice a day and he is also on Baricitinib per protocol. He remains on Lovenox 40 mg subcu on a daily basis. No other significant events otherwise for now. The most recent chest x-ray from yesterday showed stable bilateral pulmonary infilt rates without any significant interval change. As such, overall condition is still stable. This patient is not vaccinated. He has COVID 19 related pneumonia. He has COPD and hypertension hyperlipidemia and diabetes mellitus. On 08/06/2021 patient seen in follow-up on medical surgical floor. He is currently on 15 L per high flow nasal cannula, and 100% nonrebreather mask, his pulse ox is ranging between 80 1993%, afebrile, hemodynamically he is stable, she is short of breath with any activity. Denies any chest discomfort. Has occasional nonproductive cough. On today's labs as LFTs noted to be still elevated with AST 252, ALT of 523, and alkaline phosphatase is 72, and his Baricitinib was discontinued and Lipitor was placed on hold. His LDH on today's labs is 1598, and CRP is less than 0.5. The d-dimer today is 3.78. CT of the chest has been ordered and pending at this time, current treatment for COVID-19 pneumonia it consisting of Decadron 6 mg twice a day, Lovenox 40 mg daily, and COVID-19 vitamins. On 08/07/2021 patient seen in follow-up on medical surgical floor. He remains on 15 L per high flow nasal cannula, and 100% nonrebreather mask, his pulse ox is 89-90%, patient easily desaturates with any activity, he is a bit more dyspneic on today's exam, however he could not tolerate the Airvo, he felt that he was very bulky, and was drying out his nasal airways. Denies any chest pain, his been afebrile, hemodynamically has been stable, lung sounds reveal diffuse crackles at bilateral lower bases. CT chest has been completed and showed no evidence of pulmonary embolism, there were extensive bilateral pulmonary infiltrates. Yesterday we stopped his Baricitinib and Lipitor in view of increasing LFTs, today's labs are still pending today. D-dimer and LFTs in addition to inflammatory markers were ordered, however only d-dimer has resulted so far, and it is uptrending and is up to 6.4 on today's labs. Lower extremity Dopplers showed no evidence of DVT. Current treatment includes Decadron 6 mg twice daily, he is on Lovenox 40 mg daily, and he is on COVID-19 vitamins. He is on sliding scale NovoLog, his blood sugars are in the 180s to 190s. On 08/08/2021 patient seen in follow-up on medical surgical floor. On today's exam although he remains on high flow oxygen with 15 L high flow and 100% nonrebreather he appears to be breathing more comfortably, does not appear to be tachypneic, no use of accessory muscles of breathing, he sitting up on the edge of the bed, and leaning over a table, he states that he breathes better that way. His pulse ox is 94%. He does easily desaturate to 80% even with a brief conversation, and any activity. His Baricitinib remains on hold, his LFTs were improving, follow-up LFTs have been ordered and pending for today, his Decadron dose of 6 mg twice daily, he remains on Lovenox 40 mg daily, CT chest showed no evidence of pulmonary embolism, and lower extremity Dopplers were negative for DVT. His d-dimer today is 13.24, increased from 6.4 on yesterday's labs, follow-up LDH and CRP are pending, however LDH was improving on yesterday's creatinine was down to 444, and CRP was slightly increased at 1.6. On 08/09/2021 patient seen in follow-up on medical surgical floor. Patient still remains on 15 L per high flow nasal cannula, and on percent nonrebreather, however his O2 saturations seem to have slightly improved and are around 92-94%. However patient easily desaturates with any exertion, and even speaking, does not appear to be tachypneic does not appear to be in any acute distress. Sounds reveal some minimal crackles at bilateral bases, no rhonchi or wheezing, remains on Decadron 6 mg twice daily, prophylactic Lovenox, and COVID-19 vitamins. His LFTs were improving on his labs from 2 days ago, follow-up labs are pending for today, his d-dimer today is improving and is down to 6.16, his white count is 13.8, hemoglobin is 15.1. Vital signs have been stable, has had no fever or chills. On 08/10/2021 patient seen in follow-up on medical surgical floor. Patient currently on 15 L of oxygen and nonrebreather mask, he is leaning on his left side, he states he seems to be breathing easier, and oxygenating better when he's laying on his left side, his pulse ox is ranging between 91-95%, afebrile, blood pressure is been stable. Coarse crackles over left upper and lower lung, clear on the right side. Patient has had no acute events overnight, today's labs have been reviewed, d-dimer is improving and is down to 5.15, with blood cell count is 17.1, hemoglobin is 16. On 08/13/2021 patient seen in follow-up on medical surgical floor, he is breathing fairly comfortably, he is currently on 15 L per high flow nasal cannula, and the nonrebreather mask, he is eating lunch, he does desaturate with eating and speaking, but overall he is breathing comfortably, he states he feels better, does occasionally cough, no phlegm production, no chest discomfort, no fever or chills, less tachypneic and looks quite comfortable. He remains on Decadron 6 mg twice daily, he is on Lovenox for milligrams twice daily, and he is on vitamin C, vitamin D and zinc. His chest x-ray from yesterday showing bilateral left greater than right patchy airspace and interstitial opacities that appeared more prominent compared to the prior study. No new labs today, his d-dimer from yesterday approving it was down to 3.18, his LDH was 439, and CRP was improving and down to 1.9. On 08/14/2021 patient seen in follow-up on medical surgical floor. He is accompanied to bed, breathing comfortably, patient still remains on 15 L of oxygen per high flow nasal cannula, and nonrebreather mask, he does desaturate with eating, attempts have been made to wean down the FiO2 however during times of desaturation during meals FiO2 is turned back up. Otherwise he denies any worsening dyspnea, he states overall he is feeling better, lung sounds reveal mild crackles over right base. No fever or chills, repositioning self in bed, is on Decadron 6 mg twice daily, he remains on multivitamins and Lovenox 40 mg twice daily. On 08/18/2001 patient in follow-up on medical surgical floor. He is currently on 13 L per high flow nasal cannula and nonrebreather mask. Yesterday nonrebreather mask was removed however patient subsequently became very short of breath, desatted, and he is currently back on both high flow nasal cannula and nonrebreather mask, he is dyspneic with conversation, dyspnea with exertion, but no acute distress, he states he feels that overall his breathing has improved since admission although he is still requiring high flow oxygen. His been repositioning self in bed from side to side. He remains on Decadron 6 mg twice daily, he is on Lovenox 40 mg twice daily, and COVID-19 vitamins. No new labs for last couple of days. His chest x-ray from 08/16/2021 showed persistent bilateral left greater than right multifocal and confluent opacities. Overall his inflammatory markers were improving compared admission levels On 08/20/2021 patient seen in follow-up on surgical surgical floor, he continues on 15 L per high flow nasal cannula, and 100% nonrebreather mask, and his pulse ox is 90-94%, afebrile, vital signs have been stable, no worsening dyspnea, still reports exertional dyspnea and desaturation with any exertion, even with eating. Today's chest x-ray shows improving bilateral infiltrates. Today's labs have been reviewed, his blood blood cell count is fairly stable at 10.2, hemoglobin stable at 14.3, d-dimer is 2.5, electrolytes and renal profile were unremarkable, of inflammatory markers have significantly improved since their peak, and LDH is currently at 315, and CRP at 0.40. Decadron has been cut back to once daily dosing and currently patient is receiving 6 mg daily, patient is on COVID-19 vitamins, and Lovenox 40 mg subcu daily. On 08/21/2021 patient seen in follow-up on medical surgical floor, he remains on 15 L per high flow nasal cannula and 100% nonrebreather mask, his pulse ox is 92-93%. He looks the same, although he quickly desaturates to 59% with any exertion and when he got up to use the commode earlier he desaturated down to 59% per nursing staff and it took him a long time to recover. He is dyspneic with conversation, and any lightening exertion, however he he states is no worse then he has been. No complaints of chest discomfort, he does have occasional cough, yesterday's chest x-ray was showing improvement in the appearance of bilateral infiltrates, lung sounds revealed coarse crackles mainly at the left posterior lower base. No fever or chills, he remains on Decadron 6 mg daily, he is on Lovenox 40 mg daily, vitamin C, zinc, and vitamin D. His inflammatory markers were improving and yesterday's labs, his LDH was down to 315, and CRP was 0.40. On 08/22/2001 patient seen in follow-up on medical surgical floor, he still requires high flow oxygen via 15 L high flow nasal cannula and nonrebreather mask, his pulse ox is 96%, hold with any exertion patient does desaturate, clinically he states his breathing is about the same, no worsening, CTA chest has been repeated and showed no evidence of pulmonary embolism, it did not scattered groundglass and airspace infiltrates and interval development of fibrotic change. Lower extremity Dopplers were repeated and showed no evidence of DVT, patient remains on Lovenox 40 mg daily, and he is on Decadron 6 mg daily in addition to multivitamins, today's labs have been reviewed, white blood cell count is 10.3, hemoglobin is 13.9, d-dimer is 3.1, slightly obtunded compared to yesterday's value, and his electrolytes are unremarkable, renal profile is within normal limits. His inflammatory markers are improving, LDH is down to 271 and CRP is 1.5. No nausea vomiting or diarrhea, he is tolerating oral intake, his appetite is very good. On 08/23/2021 patient seen in follow-up on medical surgical floor, overnight rapid response team was called, patient had fever spikes, worsening dyspnea, and there was a concern for early sepsis and patient was started on vancomycin. Blood cultures have been sent, patient has not been able to produce any sputum, he remains on Decadron, prophylactic Lovenox, yesterday he had a repeat CT angiogram of the chest and lower extremity Dopplers were repeated and there was no evidence of pulmonary embolism or DVT. Lung windows showed persistent bilateral infiltrates with interval development of pulmonary fibrosis. Today's labs have been reviewed, his white blood cell, 12.4, hemoglobin is 15.9, his d- dimer is stable at 3.14, serum sodium is 130, potassium is 5.5, chloride is 95, BUN of 28, creatinine of 0.95, his LDH is increased on today's labs up to 798, and CRP is 6.4 also an increase from previous value. The pro calcitonin has been sent, today's chest x-ray has been reviewed showing low lung volumes with worsening multifocal and confluent reticulonodular opacities left greater than right, consistent with progressive COVID-19 infection. Patient was quite dyspneic, tachypneic, and he was placed on BiPAP support with pressures of 12 and 6 and 100%, his respiratory rate currently is 32, and his minute ventilation is 17 L/m. Patient is awake and alert, he looks a bit tired, lung sounds reveal crackles at the left mid and lower lung zones. Patient states that BiPAP is very drying. Has not been able to take in much by mouth related to worsening dyspnea in the last 24 hours, no IV fluids, he has been avoiding per urinal, however in view of recent IV contrast and vancomycin initiation will start the patient on IV fluids with plan as saline at 75 ML per hour. Objective - Vital Signs Vital signs: Vital Signs Temp 98.2 F 08/23/21 10:00 Pulse 117 H 08/23/21 10:00 Resp 32 H 08/23/21 08:00 BP 94/59 08/23/21 10:00 Pulse Ox 92 L 08/23/21 10:00 Intake & Output 08/22/21 08/23/21 08/23/21 18:59 06:59 18:59 Output Total 500 275 Balance -500 -275 Output: Urine 500 275 Other: Voiding Method Urinal # Voids 2 - Exam GENERAL EXAM: Alert, very pleasant, 65-year-old white male, tachypneic, on BiPAP support with pressures of 12 and 6 and FiO2 of 100%, HEAD: Normocephalic/atraumatic. EYES: Normal reaction of pupils, equal size. Conjunctiva pink, sclera white. NOSE: Clear with pink turbinates. THROAT: No erythema or exudates. NECK: No masses, no JVD, no thyroid enlargement, no adenopathy. CHEST: No chest wall deformity. Symmetrical expansion. LUNGS: Equal air entry with bilateral crackles CVS: Regular rate and rhythm, normal S1 and S2, no gallops, no murmurs, no rubs ABDOMEN: Soft, nontender. No hepatosplenomegaly, normal bowel sounds, no guarding or rigidity. EXTREMITIES: No clubbing, no edema, no cyanosis, 2+ pulses and upper and lower extremities. MUSCULOSKELETAL: Muscle strength and tone normal. SPINE: No scoliosis or deformity SKIN: No rashes CENTRAL NERVOUS SYSTEM: Alert and oriented -3. No focal deficits, tone is normal in all 4 extremities. PSYCHIATRIC: Alert and oriented -3. Appropriate affect. Intact judgment and insight. - Labs CBC & Chem 7: 08/23/21 08:59 08/23/21 08:59 Labs: Abnormal Lab Results - Last 24 Hours (Table) 08/22/21 08/22/21 08/23/21 Range/Units 16:48 20:36 08:03 WBC (3.8-10.6) k/uL D-Dimer (<0.60) mg/L FEU Sodium (137-145) mmol/L Potassium (3.5-5.1) mmol/L Chloride (98-107) mmol/L BUN (9-20) mg/dL Glucose (74-99) mg/dL POC Glucose (mg/dL) 189 H 143 H 138 H (75-99) mg/dL ALT (4-49) U/L Lactate Dehydrogenase (313-618) U/L C-Reactive Protein (<1.0) mg/dL Albumin (3.5-5.0) g/dL 08/23/21 08/23/21 08/23/21 Range/Units 08:59 08:59 08:59 WBC 12.4 H (3.8-10.6) k/uL D-Dimer 3.14 H (<0.60) mg/L FEU Sodium 130 L (137-145) mmol/L Potassium 5.5 H (3.5-5.1) mmol/L Chloride 95 L (98-107) mmol/L BUN 28 H (9-20) mg/dL Glucose 153 H (74-99) mg/dL POC Glucose (mg/dL) (75-99) mg/dL ALT 127 H (4-49) U/L Lactate Dehydrogenase 798 H (313-618) U/L C-Reactive Protein 6.4 H (<1.0) mg/dL Albumin 3.1 L (3.5-5.0) g/dL 08/23/21 Range/Units 11:45 WBC (3.8-10.6) k/uL D-Dimer (<0.60) mg/L FEU Sodium (137-145) mmol/L Potassium (3.5-5.1) mmol/L Chloride (98-107) mmol/L BUN (9-20) mg/dL Glucose (74-99) mg/dL POC Glucose (mg/dL) 117 H (75-99) mg/dL ALT (4-49) U/L Lactate Dehydrogenase (313-618) U/L C-Reactive Protein (<1.0) mg/dL Albumin (3.5-5.0) g/dL Assessment and Plan Plan: Assessment: #1. Acute hypoxic respiratory failure related to acute COVID-19 pneumonia. Patient received a single dose of Remdesivir in the emergency department, however in view of rapid progression of his hypoxemia he was started on a combination of Decadron and baricitinib. Baricitinib discontinued on 08/06/2021 related to increase in LFTs. Today on 09/02/2021 patient had worsening hypoxia and dyspnea, was placed on BiPAP support, CT angiogram of the chest on 08/22/2021 showed no evidence of pulmonary embolism however there was interval development of pulmonary fibrosis in addition to persistent bilateral infiltrates. Exhalation was transferred to the intensive care unit today on 09/02/2021 #2. Interval development of pulmonary fibrosis in addition to persistent bilateral infiltrates related to COVID-19 pneumonia #3. Fever on 08/23/2021, rule out possibility of superinfection, vancomycin has been started sepsis workup is in progress #4. Increased inflammatory markers related to the above, continue improved since admission #4. Elevated d-dimer, CTA of the chest showed no evidence of pulmonary embolism, and lower extremity Dopplers were negative #5. Diabetes mellitus type II #6. Hypertension #7. Hyperlipidemia #8. Obesity with BMI of 39.70 #9. Increased LFTs, related to viral pneumonia or medication related, Barici tinib discontinued on 08/06/2021, improving Plan: Transfer the patient to the intensive care unit Today's chest x-ray has been reviewed showing interval worsening of bilateral foot fractures, yesterday his CT angiogram of the chest showed interval development of pulmonary fibrosis but no evidence of PE, explaining persistent and worsening hypoxia We'll repeat COVID-19 PCR Patient had fever elevation last night with worsening in overall condition There was concern for early sepsis, vancomycin has been started Blood cultures have been sent, sputum and urinalysis will be sent We'll stop the vancomycin to avoid kidney injury especially in view of recent IV contrast yesterday Start IV fluids with 0.9 at 75 ML per hour Insert Saleh cath, accurate intake and output We'll attempt to give the patient a break of BiPAP and will attempt Airvo and the patient is agreeable to try We'll continue current dose Decadron, will await results of the pro calcitonin Patient's spouse has been updated Overall prognosis is guarded I performed a history & physical examination of the patient and discussed their management with my nurse practitioner, Mari Le. I reviewed the nurse practitioner's note and agree with the documented findings and plan of care. Lung sounds are positive for diffuse crackles throughout the lung dai. The findings and the impression was discussed with the patient. I attest to the documentation by the nurse practitioner. Time with Patient: Greater than 30
[2021-08-23] MEDS: SODIUM CHLORIDE 0.9% 1,000 ML IV SCH (13:20)
[2021-08-23 14:36] LABS: Glucose,Whole Blood 129 mg/dL (75-99)
--- NOTE | 2021-08-23 16:02 | P.PN ---
<Jaquan Torrez - Last Filed: 08/23/21 15:33> Subjective Progress Note Date: 08/23/21 Hospital course: Patient is a 65-year-old male with a past medical history of hypertension, hyp erlipidemia, and type II bia-yuytocm-hrfgqpluo diabetes mellitus. He presented to the hospital on 08/02/21 with a chief complaint of shortness of breath and coughing. Patient was unvaccinated for Covid and reports he began experiencing complaints of shortness of breath and wheezing around July 23 and after these symptoms progressively worsened he was seen and evaluated on July 30 and tested positive for Covid 19 virus infection. upon arrival to the emergency department, patient found to be significantly hypoxic requiring oxygen supplementation. Patient initially 86% on room air. Chest x-ray revealed bilateral mid to lower lung multifocal opacities consistent with Covid 19 infection. Pt admitted under our services with consultation to pulmonology. Patient underwent bilateral lower extremity which were negative for DVT. CTA chest negative for PE showing extensive bilateral pulmonary infiltrates consistent with Covid 19 pneumonia. Physical examination: Patient seen and fully evaluated at the bedside this morning. Patient became hypoxic overnight with oxygen saturations dropping to 80% on 15 L high flow nasal cannula +100% nonrebreather mask accompanied by fever with elevated axillary temp of 103.1F, tachypnea with respiratory rate of 42, tachycardia with heart rate of 146, and. Hypotension with blood pressure dropping as low as 83/50. Patient was hydrated with fluids and placed on BiPAP. Upon assessment this morning patient appears uncomfortable, he remains on BiPAP at 100% FiO2 with SpO2 between 88 and 92% and respiratory rate 26-28 breaths per minute. He continues to be slightly tachycardic in the 110s and is now afebrile with temperature of 98.2. Blood pressure remains low but has improved to 94/59. Discussed with patient need for transfer to ICU. Called and spoke with patient's , Nancy and updated her on patient's worsening respiratory status. Orders placed for stat blood cultures, sputum culture, chest x-ray and pro- calcitonin. CT PE and bilateral lower extremity Dopplers completed yesterday w ere negative for pulmonary embolism or DVTs. CTA did show continued scattered groundglass and infiltrates with development of fibrosis. Repeat chest x-ray completed this morning showing worsening multifocal and confluent reticulonodular opacities left greater than right consistent with Covid 19 in fection progression. Morning labs reveal inflammatory markers stable with d- dimer of 3.14, LDH 798, and CRP of 6.4. Patient to be transferred to ICU General: Nontoxic patient appeared uncomfortable and in mild to moderate distress Derm: Skin warm and dry, normal coloration for ethnicity. Head: Atraumatic, normocephalic and symmetric. Eyes: EOMs intact, no lid lag, and anicteric sclera Mouth: no lip lesions, mucus membranes moist Cardiovascular: regular rate and rhythm with normal S1S2, no murmur, positive posterior tibial pulses bilaterally, and cap refill < 2 seconds. Lungs: increased respiratory effort, moderate conversational dyspnea. Continued soft bibasilar crackles worse on the left. Patient on BiPAP at 100% FiO2. Abdominal: soft, nontender to palpation, no guarding, no appreciable organomegaly Ext: ROM intact. No gross muscle atrophy, no edema, no contractures. pt with amputation Neuro: Speech clear, face symmetrical and CN II-XII grossly intact with no noted focal neuro deficits Psych: Alert and oriented to person, place, time, and situation. Appropriate and pleasant affect. Assessment and Plan of Care: Acute respiratory failure with hypoxia secondary to COVID 19 pneumonia -Oxygenation to be administered and titrated as needed to maintain SPO2 equal to or greater than 90% -Telemetry monitoring. -Continue trending inflammatory markers. -Pt received two doses of Baricitinib, remainder of doses held secondary to elevated liver enzymes -Encourage Incentive Spirometry 10-15x hourly while awake. -Steroids: Decadron 6 mg daily -Continue vitamin C, Vitamin D, and Zinc. -Pulmonology following, appreciate further recommendations. -Continue DVT prophylaxis with Lovenox 40 mg subcu daily Type II vlz-infighf-xjreokjon diabetes mellitus Hold Glucophage at this time and place patient on glycemic protocol with NovoLog sliding scale. Hypertension Monitor vital signs and continue daily medication regimen with lisinopril. CODE STATUS: Full code DVT prophylaxis: Lovenox Discussed with: Pt, RN, and patient's Anticipated discharge date: clinical course to determine Anticipated discharge place: Clinical course to determine. A total of 45 minutes was spent on the care of this complex patient more than 50% of the time was spent in counseling and care coordination. Objective - Vital Signs Vital signs: Vital Signs Temp 101.8 F H 08/23/21 05:58 Pulse 131 H 08/23/21 05:58 Resp 42 H 08/23/21 05:58 BP 116/70 08/23/21 05:58 Pulse Ox 94 L 08/23/21 07:49 Intake & Output 08/22/21 08/23/21 08/23/21 18:59 06:59 18:59 Output Total 500 275 Balance -500 -275 Output: Urine 500 275 Other: # Voids 2 - Labs CBC & Chem 7: 08/23/21 08:59 08/23/21 08:59 Labs: Abnormal Lab Results - Last 24 Hours (Table) 08/22/21 08/22/21 08/22/21 Range/Units 05:50 05:50 11:30 WBC 10.32 H (4.50-10.00) X 10*3/uL MCHC 30.6 L (32.0-37.0) g/dL Immature Gran # 0.11 H (0.00-0.04) X 10*3/uL Neutrophils # 7.72 H (1.80-7.70) X 10*3/uL Lymphocytes # 0.89 L (0.90-5.00) X 10*3/uL Eosinophils # 0.81 H (0.04-0.35) X 10*3/uL Carbon Dioxide 28.1 H (20.0-27.5) mmol/L BUN/Creatinine Ratio 27.41 H (12.00-20.00) Ratio Glucose 116 H (70-110) mg/dL POC Glucose (mg/dL) 162 H (75-99) mg/dL Calcium 8.6 L (8.7-10.3) mg/dL Lactate Dehydrogenase 271 H (120-246) U/L C-Reactive Protein 1.50 H (0.00-0.80) mg/dL 08/22/21 08/22/21 08/23/21 Range/Units 16:48 20:36 08:03 WBC (4.50-10.00) X 10*3/uL MCHC (32.0-37.0) g/dL Immature Gran # (0.00-0.04) X 10*3/uL Neutrophils # (1.80-7.70) X 10*3/uL Lymphocytes # (0.90-5.00) X 10*3/uL Eosinophils # (0.04-0.35) X 10*3/uL Carbon Dioxide (20.0-27.5) mmol/L BUN/Creatinine Ratio (12.00-20.00) Ratio Glucose (70-110) mg/dL POC Glucose (mg/dL) 189 H 143 H 138 H (75-99) mg/dL Calcium (8.7-10.3) mg/dL Lactate Dehydrogenase (120-246) U/L C-Reactive Protein (0.00-0.80) mg/dL <Adrian Spear - Last Filed: 08/23/21 17:35> Subjective Patient seen and examined independently. Patient was also seen by Jaquan Torrez NP and case was discussed. I am in agreement with subjective, physical exam, assessment and plan as written above and amended below. General: [appears at stated age], mild to moderate respiratory distress Derm: [warm], [dry] Head: [atraumatic], [normocephalic], [symmetric] Eyes: [EOMI], [no lid lag], [anicteric sclera] Mouth: [no lip lesion], [mucus membranes moist] Cardiovascular: [S1S2 reg], [no murmur], [positive posterior tibial pulse bilateral], Lungs: [diminished breath sounds bilaterally Abdominal: [soft], [ nontender to palpation], [no guarding], [no appreciable organomegaly] Ext: [no gross muscle atrophy], [no edema], [no contractures] Neuro: [ CN II-XI grossly intact], [no focal neuro deficits] Psych: [anxious Objective - Vital Signs Vital signs: Vital Signs Temp 99.1 F 08/23/21 17:00 Pulse 112 H 08/23/21 17:00 Resp 24 08/23/21 17:00 BP 102/61 08/23/21 17:00 Pulse Ox 84 L 08/23/21 17:00 Intake & Output 08/22/21 08/23/21 08/23/21 18:59 06:59 18:59 Intake Total 400 Output Total 500 762 655 Balance -500 -275 -255 Weight 111.4 kg Intake: IV 150 Sodium Chloride 0.9% 1, 150 000 ml @ 75 mls/hr IV . [id number] [facility] Rx#:[id number] Oral 250 Output: Urine 500 275 655 Other: Voiding Method Indwelling Catheter # Voids 2 - Labs CBC & Chem 7: 08/23/21 08:59 08/23/21 08:59 Labs: Abnormal Lab Results - Last 24 Hours (Table) 08/22/21 08/23/21 08/23/21 Range/Units 20:36 08:03 08:59 WBC 12.4 H (3.8-10.6) k/uL D-Dimer (<0.60) mg/L FEU Sodium (137-145) mmol/L Potassium (3.5-5.1) mmol/L Chloride (98-107) mmol/L BUN (9-20) mg/dL Glucose (74-99) mg/dL POC Glucose (mg/dL) 143 H 138 H (75-99) mg/dL ALT (4-49) U/L Lactate Dehydrogenase (313-618) U/L C-Reactive Protein (<1.0) mg/dL Albumin (3.5-5.0) g/dL Procalcitonin (0.02-0.09) ng/mL 08/23/21 08/23/21 08/23/21 Range/Units 08:59 08:59 08:59 WBC (3.8-10.6) k/uL D-Dimer 3.14 H (<0.60) mg/L FEU Sodium 130 L (137-145) mmol/L Potassium 5.5 H (3.5-5.1) mmol/L Chloride 95 L (98-107) mmol/L BUN 28 H (9-20) mg/dL Glucose 153 H (74-99) mg/dL POC Glucose (mg/dL) (75-99) mg/dL ALT 127 H (4-49) U/L Lactate Dehydrogenase 798 H (313-618) U/L C-Reactive Protein 6.4 H (<1.0) mg/dL Albumin 3.1 L (3.5-5.0) g/dL Procalcitonin 0.53 H (0.02-0.09) ng/mL 08/23/21 08/23/21 Range/Units 11:45 14:34 WBC (3.8-10.6) k/uL D-Dimer (<0.60) mg/L FEU Sodium (137-145) mmol/L Potassium (3.5-5.1) mmol/L Chloride (98-107) mmol/L BUN (9-20) mg/dL Glucose (74-99) mg/dL POC Glucose (mg/dL) 117 H 129 H (75-99) mg/dL ALT (4-49) U/L Lactate Dehydrogenase (313-618) U/L C-Reactive Protein (<1.0) mg/dL Albumin (3.5-5.0) g/dL Procalcitonin (0.02-0.09) ng/mL
[2021-08-23 19:56] LABS: Glucose,Whole Blood 114 mg/dL (75-99)
[2021-08-23] MEDS: CEFEPIME 2 GM in SODIUM CHLORIDE 0.9% 100 ML IVPB SCH (20:09)
[2021-08-23] MEDS: MELATONIN 5 MG TABLET PO PRN (20:09)
[2021-08-23] MEDS: ALPRAZolam 0.5 MG TAB PO PRN (20:09)
[2021-08-23] MEDS ORDERED: VANCOMYCIN 2,500 MG in SODIUM CHLORIDE 0.9% 500 ML 500 ML IVPB SCH (21:00)
[2021-08-24] MEDS: SODIUM CHLORIDE 0.9% 1,000 ML IV SCH ×2 (02:51→14:00)
[2021-08-24] MEDS: ACETAMINOPHEN TAB 325 MG TAB PO PRN (02:54)
[2021-08-24 05:17] LABS: Basophils # (A) 0.1 k/uL (0-0.2); Basophils % (A) 1 %; Eosinophils # (A) 0.9 k/uL (0-0.7); Eosinophils % (A) 9 %; HCT 40.4 % (39.0-53.0); HGB 13.2 gm/dL (13.0-17.5); Lymphocytes # (A) 0.5 k/uL (1.0-4.8); Lymphocytes % (A) 5 %; MCH 29.6 pg (25.0-35.0); MCHC 32.7 g/dL (31.0-37.0); MCV 90.6 fL (80.0-100.0); Mean Platelet Volume 8.7; Monocytes # (A) 0.5 k/uL (0-1.0); Monocytes % (A) 5 %; Neutrophils # (A) 7.8 k/uL (1.3-7.7); Neutrophils % (A) 78 %; Platelet Count 190 k/uL (150-450); RBC 4.46 m/uL (4.30-5.90); RDW 13.4 % (11.5-15.5); WBC 9.9 k/uL (3.8-10.6)
[2021-08-24 05:37] LABS: ALT 104 U/L (4-49); AST 34 U/L (17-59); African American GFR (CKD) >90 (>60 ml/min/1.73 sqM); Albumin 2.7 g/dL (3.5-5.0); Alkaline Phosphatase 85 U/L (38-126); Anion Gap 5 mmol/L; Blood Urea Nitrogen 23 mg/dL (9-20); Carbon Dioxide 25 mmol/L (22-30); Chloride 97 mmol/L (98-107); Glucose 112 mg/dL (74-99); Non-African American GFR(CKD) >90 (>60 ml/min/1.73 sqM); Potassium 4.7 mmol/L (3.5-5.1); Sodium 127 mmol/L (137-145); Total Bilirubin 0.5 mg/dL (0.2-1.3); Total Protein 6.3 g/dL (6.3-8.2)
[2021-08-24 06:28] LABS: Glucose,Whole Blood 111 mg/dL (75-99)
[2021-08-24] MEDS: INSULIN ASPART (NovoLOG) 100 UNIT/ML VIAL SQ SCH ×7 (06:46→20:18)
--- NOTE | 2021-08-24 08:01 | XR ---
EXAMINATION TYPE: XR chest 1V portable DATE OF EXAM: 08/24/2021 COMPARISON: 08/23/2021 INDICATION: Covid TECHNIQUE: Single frontal view of the chest is obtained. FINDINGS: The heart size is normal. The pulmonary vasculature is indistinct. Diffuse increased lung markings are present bilaterally. Findings are improving over the interval. IMPRESSION: 1. Improving diffuse bilateral lung infiltrates can be compatible with atypical pneumonia.
[2021-08-24] MEDS: ASCORBIC ACID 500 MG TAB PO SCH (08:32)
[2021-08-24] MEDS: dexAMETHasone 2 MG TAB PO SCH (08:32)
[2021-08-24] MEDS: CHOLECALCIFEROL 25 MCG (1000 IU) TABLET PO SCH (08:32)
[2021-08-24] MEDS: ENOXAPARIN 40 MG/0.4 ML SYRINGE SQ SCH (08:33)
[2021-08-24] MEDS: CEFEPIME 2 GM in SODIUM CHLORIDE 0.9% 100 ML IVPB SCH ×2 (08:33→20:21)
[2021-08-24] MEDS: ZINC SULFATE 220 MG CAP PO SCH (08:33)
--- NOTE | 2021-08-24 09:03 | P.PN ---
Subjective Progress Note Date: 08/24/21 08/24/2021, the patient is in today intensive care unit. We'll have to transfer him yesterday back to the ICU because of ongoing shortness of breath and hypoxemia. Note that his chest x-ray still showing diffuse bilateral pulmonary infiltrates and the CAT scan of the chest showed fibrotic changes in the mid and lower lung his bilaterally consistent with COVID 19 related complications. At this point in time, the patient is essentially bedbound. He is on 100% nonrebreather facemask in addition to Airvo 60 L with an FiO2 of 90%. He has coarse crackles in the mid and lower lung dai bilaterally. Chest x-ray from today remains unchanged. He remains on Decadron. He remains on Lovenox for DVT prophylaxis. Propofol level was at 0.5 and the patient was covered empiric antibiotics pending further cultures. Repeat COVID 19 testing was negative and the patient will be allowed to come out of isolation. He has COPD, he has hypertension and hyperlipidemia and diabetes mellitus comorbidities. His blood work shows a sodium level of 127 and a BUN is at 23 with a creatinine of 0.8. He has a Saleh catheter in place. The white cell count currently is at 9.9 with a hemoglobin of 15.2. No other significant events. Note that the patient has been in the hospital for more than 3 weeks. He is not a vaccinated individual. Objective - Vital Signs Vital signs: Vital Signs Temp 98.4 F 08/24/21 08:00 Pulse 92 08/24/21 08:00 Resp 26 H 08/24/21 08:00 BP 92/53 08/24/21 08:00 Pulse Ox 85 L 08/24/21 08:00 Intake & Output 08/23/21 08/24/21 08/24/21 18:59 06:59 18:59 Intake Total 550 1000 150 Output Total 880 510 60 Balance -330 490 90 Weight 111.4 kg 108.8 kg Intake: IV 300 1000 150 Cefepime 2 gm In Sodium 100 Chloride 0.9% 100 ml @ 200 mls/hr IVPB ONCE ONE Rx#:[id number] Sodium Chloride 0.9% 1, 300 900 150 000 ml @ 75 mls/hr IV . [id number] [facility] Rx#:[id number] Oral 250 Output: Urine 880 510 60 Other: Voiding Method Indwelling Catheter Indwelling Catheter - Exam GENERAL EXAM: Alert, very pleasant, 65-year-old white male, patient has a labored breathing. The patient is on Avapro 60 L an FiO2 of 90% in addition to 100% nonrebreather facemask. HEAD: Normocephalic/atraumatic. EYES: Normal reaction of pupils, equal size. Conjunctiva pink, sclera white. NOSE: Clear with pink turbinates. THROAT: No erythema or exudates. NECK: No masses, no JVD, no thyroid enlargement, no adenopathy. CHEST: No chest wall deformity. Symmetrical expansion. LUNGS: Equal air entry with bilateral crackles, the tach is a rather coarse in lower lung bilaterally CVS: Regular rate and rhythm, normal S1 and S2, no gallops, no murmurs, no rubs ABDOMEN: Soft, nontender. No hepatosplenomegaly, normal bowel sounds, no guarding or rigidity. EXTREMITIES: No clubbing, no edema, no cyanosis, 2+ pulses and upper and lower extremities. MUSCULOSKELETAL: Muscle strength and tone normal. SPINE: No scoliosis or deformity SKIN: No rashes CENTRAL NERVOUS SYSTEM: Alert and oriented -3. No focal deficits, tone is normal in all 4 extremities. PSYCHIATRIC: Alert and oriented -3. Appropriate affect. Intact judgment and insight. - Labs CBC & Chem 7: 08/24/21 04:10 08/24/21 04:10 Labs: Abnormal Lab Results - Last 24 Hours (Table) 08/23/21 08/23/21 08/23/21 Range/Units 08:59 08:59 08:59 WBC 12.4 H (3.8-10.6) k/uL Neutrophils # (1.3-7.7) k/uL Lymphocytes # (1.0-4.8) k/uL Eosinophils # (0-0.7) k/uL D-Dimer 3.14 H (<0.60) mg/L FEU Sodium 130 L (137-145) mmol/L Potassium 5.5 H (3.5-5.1) mmol/L Chloride 95 L (98-107) mmol/L BUN 28 H (9-20) mg/dL Glucose 153 H (74-99) mg/dL POC Glucose (mg/dL) (75-99) mg/dL Calcium (8.4-10.2) mg/dL ALT 127 H (4-49) U/L Lactate Dehydrogenase 798 H (313-618) U/L C-Reactive Protein 6.4 H (<1.0) mg/dL Albumin 3.1 L (3.5-5.0) g/dL Procalcitonin (0.02-0.09) ng/mL 08/23/21 08/23/21 08/23/21 Range/Units 08:59 11:45 14:34 WBC (3.8-10.6) k/uL Neutrophils # (1.3-7.7) k/uL Lymphocytes # (1.0-4.8) k/uL Eosinophils # (0-0.7) k/uL D-Dimer (<0.60) mg/L FEU Sodium (137-145) mmol/L Potassium (3.5-5.1) mmol/L Chloride (98-107) mmol/L BUN (9-20) mg/dL Glucose (74-99) mg/dL POC Glucose (mg/dL) 117 H 129 H (75-99) mg/dL Calcium (8.4-10.2) mg/dL ALT (4-49) U/L Lactate Dehydrogenase (313-618) U/L C-Reactive Protein (<1.0) mg/dL Albumin (3.5-5.0) g/dL Procalcitonin 0.53 H (0.02-0.09) ng/mL 08/23/21 08/24/21 08/24/21 Range/Units 19:54 04:10 04:10 WBC (3.8-10.6) k/uL Neutrophils # 7.8 H (1.3-7.7) k/uL Lymphocytes # 0.5 L (1.0-4.8) k/uL Eosinophils # 0.9 H (0-0.7) k/uL D-Dimer (<0.60) mg/L FEU Sodium 127 L (137-145) mmol/L Potassium (3.5-5.1) mmol/L Chloride 97 L (98-107) mmol/L BUN 23 H (9-20) mg/dL Glucose 112 H (74-99) mg/dL POC Glucose (mg/dL) 114 H (75-99) mg/dL Calcium 8.0 L (8.4-10.2) mg/dL ALT 104 H (4-49) U/L Lactate Dehydrogenase (313-618) U/L C-Reactive Protein (<1.0) mg/dL Albumin 2.7 L (3.5-5.0) g/dL Procalcitonin (0.02-0.09) ng/mL 08/24/21 Range/Units 06:27 WBC (3.8-10.6) k/uL Neutrophils # (1.3-7.7) k/uL Lymphocytes # (1.0-4.8) k/uL Eosinophils # (0-0.7) k/uL D-Dimer (<0.60) mg/L FEU Sodium (137-145) mmol/L Potassium (3.5-5.1) mmol/L Chloride (98-107) mmol/L BUN (9-20) mg/dL Glucose (74-99) mg/dL POC Glucose (mg/dL) 111 H (75-99) mg/dL Calcium (8.4-10.2) mg/dL ALT (4-49) U/L Lactate Dehydrogenase (313-618) U/L C-Reactive Protein (<1.0) mg/dL Albumin (3.5-5.0) g/dL Procalcitonin (0.02-0.09) ng/mL Assessment and Plan Plan: #1. Acute hypoxic respiratory failure related to acute COVID-19 pneumonia. Patient received a single dose of Remdesivir in the emergency department, however in view of rapid progression of his hypoxemia he was started on a combination of Decadron and baricitinib. Baricitinib discontinued on 08/06/2021 related to increase in LFTs. Today on 09/02/2021 patient had worsening hypoxia and dyspnea, was placed on BiPAP support, CT angiogram of the chest on 09/2020 showed no evidence of pulmonary embolism however there was interval development of pulmonary fibrosis in addition to persistent bilateral infiltrates. Exhalation was transferred to the intensive care unit today on 09/02/2021 , currently 60 L FiO2 of 90% with 100% on a beta facemask. Chest x- ray shows no major interval change. Superinfection is doubtful. Covered with empiric antibiotics. #2. Interval development of pulmonary fibrosis in addition to persistent bilateral infiltrates related to COVID-19 pneumonia #3. Fever on 08/23/2021, rule out possibility of superinfection, vancomycin has been started sepsis workup is in progress #4. Increased inflammatory markers related to the above, continue improved since admission #4. Elevated d-dimer, CTA of the chest showed no evidence of pulmonary embolism, and lower extremity Dopplers were negative #5. Diabetes mellitus type II #6. Hypertension #7. Hyperlipidemia #8. Obesity with BMI of 39.70 #9. Increased LFTs, related to viral pneumonia or medication related, Baricitinib discontinued on 08/06/2021, improving Plan: Keep the same oxygen flow with 60 L an FiO2 of 90% with 100% on a beta facemasks Continued empiric antibiotic coverage With IV cefepime continue normal saline at the rate of 75 mL an hour and monitor the sodium level Repeat pro calcitonin level was 0.5 and a chest x-ray findings were stable. The prognosis is essentially poor as the patient has developed significant respiratory compromise post COVID 19 infection the patient has extensive fibrotic changes in the mid and lower lung his bilaterally. He is not showing any improvement in his oxygenation. As far as his overall pulmonary status, it has been unchanged for the past 10 days and the patient seems not to be improving at this point in time. Continue Decadron. Continue Lovenox. Alternatives need to be discussed including the potential transferring this patient to another center where he can be considered for other treatments such as lung transplantation which may not be needed tests with ongoing hyperbaric. We'll do some more investigation. We'll get back to the patient. We'll continue to follow. Keep in ICU for now. Note that his repeat COVID 19 testing came back negative. Overall prognosis is guarded
--- NOTE | 2021-08-24 09:32 | P.PN ---
Subjective Progress Note Date: 08/24/21 Principal diagnosis: CC: shortness of breath Patient was seen in the ICU. I was present during ICU rounds. Patient currently on OptiFlow as well as nonrebreather mask. He is satting in the high 80s. Patient is awake and alert. He states that he has no appetite. Per nurse patient is short of breath getting up to use the bathroom. Patient's PCR was negative. He is now off isolation. Family were allowed to meet the patient however patient refused to have family members visiting because it made him too emotional. Objective - Vital Signs Vital signs: Vital Signs Temp 98.4 F 08/24/21 08:00 Pulse 92 08/24/21 08:00 Resp 26 H 08/24/21 08:00 BP 92/53 08/24/21 08:00 Pulse Ox 85 L 08/24/21 08:00 Intake & Output 08/23/21 08/24/21 08/24/21 18:59 06:59 18:59 Intake Total 550 1000 150 Output Total 880 510 60 Balance -330 490 90 Weight 111.4 kg 108.8 kg Intake: IV 300 1000 150 Cefepime 2 gm In Sodium 100 Chloride 0.9% 100 ml @ 200 mls/hr IVPB ONCE ONE Rx#:[id number] Sodium Chloride 0.9% 1, 300 900 150 000 ml @ 75 mls/hr IV . 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 spontaneously Psych - anxious - Labs CBC & Chem 7: 08/24/21 04:10 08/24/21 04:10 Labs: Abnormal Lab Results - Last 24 Hours (Table) 08/23/21 08/23/21 08/23/21 Range/Units 08:59 08:59 08:59 Neutrophils # (1.3-7.7) k/uL Lymphocytes # (1.0-4.8) k/uL Eosinophils # (0-0.7) k/uL D-Dimer 3.14 H (<0.60) mg/L FEU Sodium 130 L (137-145) mmol/L Potassium 5.5 H (3.5-5.1) mmol/L Chloride 95 L (98-107) mmol/L BUN 28 H (9-20) mg/dL Glucose 153 H (74-99) mg/dL POC Glucose (mg/dL) (75-99) mg/dL Calcium (8.4-10.2) mg/dL ALT 127 H (4-49) U/L Lactate Dehydrogenase 798 H (313-618) U/L C-Reactive Protein 6.4 H (<1.0) mg/dL Albumin 3.1 L (3.5-5.0) g/dL Procalcitonin 0.53 H (0.02-0.09) ng/mL 08/23/21 08/23/21 08/23/21 Range/Units 11:45 14:34 19:54 Neutrophils # (1.3-7.7) k/uL Lymphocytes # (1.0-4.8) k/uL Eosinophils # (0-0.7) k/uL D-Dimer (<0.60) mg/L FEU Sodium (137-145) mmol/L Potassium (3.5-5.1) mmol/L Chloride (98-107) mmol/L BUN (9-20) mg/dL Glucose (74-99) mg/dL POC Glucose (mg/dL) 117 H 129 H 114 H (75-99) mg/dL Calcium (8.4-10.2) mg/dL ALT (4-49) U/L Lactate Dehydrogenase (313-618) U/L C-Reactive Protein (<1.0) mg/dL Albumin (3.5-5.0) g/dL Procalcitonin (0.02-0.09) ng/mL 08/24/21 08/24/21 08/24/21 Range/Units 04:10 04:10 06:27 Neutrophils # 7.8 H (1.3-7.7) k/uL Lymphocytes # 0.5 L (1.0-4.8) k/uL Eosinophils # 0.9 H (0-0.7) k/uL D-Dimer (<0.60) mg/L FEU Sodium 127 L (137-145) mmol/L Potassium (3.5-5.1) mmol/L Chloride 97 L (98-107) mmol/L BUN 23 H (9-20) mg/dL Glucose 112 H (74-99) mg/dL POC Glucose (mg/dL) 111 H (75-99) mg/dL Calcium 8.0 L (8.4-10.2) mg/dL ALT 104 H (4-49) U/L Lactate Dehydrogenase (313-618) U/L C-Reactive Protein (<1.0) mg/dL Albumin 2.7 L (3.5-5.0) g/dL Procalcitonin (0.02-0.09) ng/mL Assessment and Plan Assessment: Acute respiratory failure with hypoxia secondary to COVID 19 pneumonia and pulmonary fibrosis -Oxygenation to be administered and titrated as needed to maintain SPO2 equal to or greater than 90% -Patient currently an Opti-Flow and nonrebreather mask -Telemetry monitoring. -Pt received two doses of Baricitinib, remainder of doses held secondary to elevated liver enzymes -Encourage Incentive Spirometry 10-15x hourly while awake. -Steroids: Decadron 6 mg daily -Continue vitamin C, Vitamin D, and Zinc. -Pulmonology following, appreciate further recommendations. -Continue DVT prophylaxis with Lovenox 40 mg subcu daily Type II cgd-lgjjdio-pqcsibttn diabetes mellitus Hold Glucophage at this time and place patient on glycemic protocol with NovoLog sliding scale. Hypertension Monitor vital signs and continue daily medication regimen with lisinopril. 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 A total of 30 minutes was spent on the care of this complex patient more than 50% of the time was spent in counseling and care coordination.
[2021-08-24 11:22] LABS: Glucose,Whole Blood 114 mg/dL (75-99)
[2021-08-24] MEDS: ALPRAZolam 0.5 MG TAB PO PRN (16:10)
[2021-08-24 16:58] LABS: Glucose,Whole Blood 184 mg/dL (75-99)
[2021-08-24] MEDS: PANTOPRAZOLE 40 MG TABLET PO SCH (17:00)
[2021-08-24] MEDS: DEXMEDETOMIDINE/0.9% NACL(PMX) 400 MCG in EMPTY BAG 1 BAG IV SCH (18:52)
[2021-08-24 20:18] LABS: Glucose,Whole Blood 82 mg/dL (75-99)
[2021-08-24] MEDS: MELATONIN 5 MG TABLET PO PRN (20:21)
[2021-08-25] MEDS: SODIUM CHLORIDE 0.9% 1,000 ML IV SCH (03:00)
[2021-08-25] MEDS ORDERED: ACETAMINOPHEN IV (For NPO) 1,000 MG in EMPTY BAG 1 BAG IVPB ONE (03:34)
[2021-08-25 06:00] LABS: Basophils % (A) 0 %; Eosinophils # (A) 0.4 k/uL (0-0.7); Eosinophils % (A) 4 %; HCT 39.1 % (39.0-53.0); HGB 12.7 gm/dL (13.0-17.5); Lymphocytes # (A) 0.4 k/uL (1.0-4.8); Lymphocytes % (A) 4 %; MCH 29.7 pg (25.0-35.0); MCHC 32.6 g/dL (31.0-37.0); MCV 91.3 fL (80.0-100.0); Mean Platelet Volume 8.6; Monocytes # (A) 0.5 k/uL (0-1.0); Monocytes % (A) 5 %; Neutrophils # (A) 9.2 k/uL (1.3-7.7); Neutrophils % (A) 85 %; Platelet Count 166 k/uL (150-450); RBC 4.29 m/uL (4.30-5.90); RDW 13.1 % (11.5-15.5); WBC 10.8 k/uL (3.8-10.6)
[2021-08-25] MEDS: DEXMEDETOMIDINE/0.9% NACL(PMX) 400 MCG in EMPTY BAG 1 BAG IV SCH (06:03)
[2021-08-25] MEDS: INSULIN ASPART (NovoLOG) 100 UNIT/ML VIAL SQ SCH ×7 (06:09→21:24)
[2021-08-25 06:10] LABS: Glucose,Whole Blood 100 mg/dL (75-99)
[2021-08-25 06:19] LABS: ALT 80 U/L (4-49); AST 32 U/L (17-59); African American GFR (CKD) >90 (>60 ml/min/1.73 sqM); Albumin 2.5 g/dL (3.5-5.0); Alkaline Phosphatase 90 U/L (38-126); Anion Gap 6 mmol/L; Blood Urea Nitrogen 18 mg/dL (9-20); Calcium 8.1 mg/dL (8.4-10.2); Carbon Dioxide 25 mmol/L (22-30); Chloride 100 mmol/L (98-107); Glucose 91 mg/dL (74-99); Non-African American GFR(CKD) >90 (>60 ml/min/1.73 sqM); Potassium 4.5 mmol/L (3.5-5.1); Sodium 131 mmol/L (137-145); Total Bilirubin 0.5 mg/dL (0.2-1.3); Total Protein 6.3 g/dL (6.3-8.2)
[2021-08-25] MEDS: PANTOPRAZOLE 40 MG TABLET PO SCH (06:54)
--- NOTE | 2021-08-25 09:21 | P.PN ---
Subjective Progress Note Date: 08/25/21 08/25/2021 the patient is currently in the intensive care unit. He got tra nsferred to the ICU again yesterday because of worsening shortness of breath. He is a post COVID 19 related hypoxic respiratory failure the patient was requiring high flow oxygen in the form of Airvo 60 L with an FiO2 of 90% in combination with 100% nonrebreather facemask. Nevertheless, overnight, he desaturated and had to be switched to a BiPAP for respiratory support. His chest x-ray was still showing diffuse bilateral pulmonary infiltrates. Follow- up chest x-ray from today still pending. Meanwhile, the patient is still short of breath and quite tachypneic while on the BiPAP and his aspiration is in the low 30s. Is able to generate a tidal volume of 600 while in the BiPAP. Despite all this, his breathing is labored. He gets typically very anxious and wants on the BiPAP and the patient was started on Precedex which is currently running at 0.2 mics respiratory event per hour. Saleh catheter is in place. He remains on Decadron. He remains on Lovenox for DVT prophylaxis. Blood work from today shows a white cell count of 10.8 and a hemoglobin of 12.7 and a platelet count of 166, sodium is at 131, BUN is 18 with a creatinine of 0.72, his LDH level was as low as 798 and 11 has not been checked since 08/23/2021. The d-dimer was at 6.67. In terms of medication, the patient is currently on Precedex to control some of his agitation and maintain basically with mechanical ventilator. The patient is also on Decadron 6 mg and this will be switched IV. He was also covered with Cefepime. He has neen on Lovenox 40 mg SC for DVT prophylaxis . I had a discussion with the patient regarding the code status and patient wants a full code status for now Objective - Vital Signs Vital signs: Vital Signs Temp 100.2 F H 08/25/21 05:00 Pulse 83 08/25/21 07:00 Resp 22 08/25/21 07:00 BP 76/46 08/25/21 07:00 Pulse Ox 84 L 08/25/21 08:29 Intake & Output 08/24/21 08/25/21 08/25/21 18:59 06:59 18:59 Intake Total 1300 1100.000 225 Output Total 695 665 140 Balance 605 435.000 85 Weight 110.5 kg Intake: IV 900 1000 225 Cefepime 2 gm In Sodium 100 Chloride 0.9% 100 ml @ 25 mls/hr IVPB Q12HR [facility] Rx #:[id number] Sodium Chloride 0.9% 1, 900 900 225 000 ml @ 75 mls/hr IV . [id number] [facility] Rx#:[id number] Intake, IV Titration 100.000 Amount Dexmedetomidine/0.9% NaCl 100.000 (Pmx) 400 mcg In Empty Bag 1 bag @ 0.2 MCG/KG/HR 5.44 mls/hr IV .[id number] [facility] Rx#:[id number] Oral 400 Output: Urine 695 665 140 Other: Voiding Method Indwelling Catheter Indwelling Catheter - Exam GENERAL EXAM: Alert, very pleasant, 65-year-old white male, patient has a labored breathing. Continue BiPAP for respiratory support for now depression 12/6 cm of water. I highly doubt that the patient will tolerate any high flow oxygen system. He is currently also on Precedex running at 0.2 mcg/kg/h. He is a bit anxious. Breathing is labored and the patient is in [id number] degree of respiratory distress even on a BiPAP at the above-mentioned settings. HEAD: Normocephalic/atraumatic. EYES: Normal reaction of pupils, equal size. Conjunctiva pink, sclera white. NOSE: Clear with pink turbinates. THROAT: No erythema or exudates. NECK: No masses, no JVD, no thyroid enlargement, no adenopathy. CHEST: No chest wall deformity. Symmetrical expansion. LUNGS: Equal air entry with bilateral crackles, rather coarse in lower lung bilaterally CVS: Regular rate and rhythm, normal S1 and S2, no gallops, no murmurs, no rubs ABDOMEN: Soft, nontender. No hepatosplenomegaly, normal bowel sounds, no guar ding or rigidity. EXTREMITIES: No clubbing, no edema, no cyanosis, 2+ pulses and upper and lower extremities. MUSCULOSKELETAL: Muscle strength and tone normal. SPINE: No scoliosis or deformity SKIN: No rashes CENTRAL NERVOUS SYSTEM: Alert and oriented -3. No focal deficits, tone is normal in all 4 extremities. PSYCHIATRIC: Alert and oriented -3. Appropriate affect. Intact judgment and insight. - Labs CBC & Chem 7: 08/25/21 04:57 08/25/21 04:57 Labs: Abnormal Lab Results - Last 24 Hours (Table) 08/24/21 08/24/21 08/25/21 Range/Units 11:19 16:57 04:57 WBC 10.8 H (3.8-10.6) k/uL RBC 4.29 L (4.30-5.90) m/uL Hgb 12.7 L (13.0-17.5) gm/dL Neutrophils # 9.2 H (1.3-7.7) k/uL Lymphocytes # 0.4 L (1.0-4.8) k/uL D-Dimer (<0.60) mg/L FEU Sodium (137-145) mmol/L POC Glucose (mg/dL) 114 H 184 H (75-99) mg/dL Calcium (8.4-10.2) mg/dL ALT (4-49) U/L Albumin (3.5-5.0) g/dL 08/25/21 08/25/21 08/25/21 Range/Units 04:57 04:57 06:09 WBC (3.8-10.6) k/uL RBC (4.30-5.90) m/uL Hgb (13.0-17.5) gm/dL Neutrophils # (1.3-7.7) k/uL Lymphocytes # (1.0-4.8) k/uL D-Dimer 6.67 H (<0.60) mg/L FEU Sodium 131 L (137-145) mmol/L POC Glucose (mg/dL) 100 H (75-99) mg/dL Calcium 8.1 L (8.4-10.2) mg/dL ALT 80 H (4-49) U/L Albumin 2.5 L (3.5-5.0) g/dL Microbiology - Last 24 Hours (Table) 08/23/21 16:11 Blood Culture - Preliminary Blood No Growth after 24 hours Assessment and Plan Plan: #1. Acute hypoxic respiratory failure related to acute COVID-19 pneumonia. Patient received a single dose of Remdesivir in the emergency department, however in view of rapid progression of his hypoxemia he was started on a combination of Decadron and baricitinib. Baricitinib discontinued on 08/06/2021 related to increase in LFTs. Today on 09/02/2021 patient had worsening hypoxia and dyspnea, was placed on BiPAP support, CT angiogram of the chest on 08/22/2021 showed no evidence of pulmonary embolism however there was interval development of pulmonary fibrosis in addition to persistent bilateral infiltrates. Patient was transferred to the ICU yesterday because of respiratory decompensation. He is currently on BiPAP at a pressure of 12/6 cm of water. He is also on Precedex at 0.2 g. He is anxious. Breathing is labored. Pulse ox is in the low 80s. Follow-up chest x-rays pending. Unable to tolerate high flow oxygen system. Obviously, his condition decompensated. Upon further questioning, he wants to maintain his full CODE STATUS. #2. Interval development of pulmonary fibrosis in addition to persistent bilateral infiltrates related to COVID-19 pneumonia #3. Fever on 08/23/2021, rule out possibility of superinfection, vancomycin has been started sepsis workup is in progress #4. Increased inflammatory markers related to the above, continue improved since admission #4. Elevated d-dimer, CTA of the chest showed no evidence of pulmonary embolism, and lower extremity Dopplers were negative #5. Diabetes mellitus type II #6. Hypertension #7. Hyperlipidemia #8. Obesity with BMI of 39.70 #9. Increased LFTs, related to viral pneumonia or medication related, Ba ricitinib discontinued on 08/06/2021, improving Plan: Keep the patient on BiPAP for node pressure of 12/6 cm of water with an FiO2 of 100% Continue Precedex Continued empiric antibiotic coverage with IV cefepime Continue normal saline 75 mL an hour The prognosis is essentially poor as the patient has developed significant respiratory compromise post COVID 19 infection the patient has extensive fibrotic changes in the mid and lower lung his bilaterally. He is not showing any improvement in his oxygenation. As far as his overall pulmonary status, it has been unchanged for the past 10 days and the patient seems not to be improving at this point in time. Continue Decadron. Continue Lovenox. High likelihood that the patient may further decompensated requiring intubation mechanical ventilation over the next 24 hours. He wanted to be a full CODE STATUS. Continue same management. Keep the patient ICU for now. Chest x-ray will be repeated. Antibiotics will be continued. Decadron will be continued. Maintain Lovenox for DVT prophylaxis the same dose. Overall prognosis is poor, critically care evaluation more than 30 minutes. Time with Patient: Greater than 30
[2021-08-25] MEDS: ZINC SULFATE 220 MG CAP PO SCH (09:24)
[2021-08-25] MEDS: ASCORBIC ACID 500 MG TAB PO SCH (09:24)
[2021-08-25] MEDS: dexAMETHasone 2 MG TAB PO SCH (09:24)
[2021-08-25] MEDS: CHOLECALCIFEROL 25 MCG (1000 IU) TABLET PO SCH (09:24)
[2021-08-25] MEDS: CEFEPIME 2 GM in SODIUM CHLORIDE 0.9% 100 ML IVPB SCH ×2 (09:27→21:24)
[2021-08-25] MEDS: ENOXAPARIN 40 MG/0.4 ML SYRINGE SQ SCH (09:27)
[2021-08-25] MEDS ORDERED: propofoL 100 ML IV ONE (11:07)
--- NOTE | 2021-08-25 11:14 | XR ---
EXAMINATION TYPE: XR chest 1V portable DATE OF EXAM: 08/25/2021 COMPARISON: 09/21/21 HISTORY: SOB TECHNIQUE: Single frontal view of the chest is obtained. FINDINGS: There is diffuse air space opacity unchanged. No pleural effusion, or pneumothorax seen. The cardiac silhouette size is within normal limits. The osseous structures are intact. IMPRESSION: No change in the acute process.
[2021-08-25] MEDS ORDERED: CISATRACURIUM 2 MG/ML 5 ML VIAL IV ONE (11:31)
[2021-08-25 11:40] LABS: Glucose,Whole Blood 118 mg/dL (75-99)
--- NOTE | 2021-08-25 12:01 | P.PN ---
Subjective Progress Note Date: 08/25/21 Principal diagnosis: CC: shortness of breath Patient decompensated overnight. He continues to have fevers and T-max was 100.9. Patient's inflammatory markers are also increasing. Patient currently on BiPAP with labored breathing. He is D satting in the low 80s. I discussed with ICU nurse. Plan is to intubate the patient. Objective - Vital Signs Vital signs: Vital Signs Temp 98.4 F 08/25/21 08:00 Pulse 90 08/25/21 10:00 Resp 26 H 08/25/21 10:00 BP 81/56 08/25/21 10:00 Pulse Ox 82 L 08/25/21 10:00 Intake & Output 08/24/21 08/25/21 08/25/21 18:59 06:59 18:59 Intake Total 1300 1100.000 225 Output Total 695 665 140 Balance 605 435.000 85 Weight 110.5 kg Intake: IV 900 1000 225 Cefepime 2 gm In Sodium 100 Chloride 0.9% 100 ml @ 25 mls/hr IVPB Q12HR [facility] Rx #:[id number] Sodium Chloride 0.9% 1, 900 900 225 000 ml @ 75 mls/hr IV . 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 Psych - anxious - Labs CBC & Chem 7: 08/25/21 04:57 08/25/21 04:57 Labs: Abnormal Lab Results - Last 24 Hours (Table) 08/24/21 08/24/21 08/25/21 Range/Units 11:19 16:57 04:57 WBC 10.8 H (3.8-10.6) k/uL RBC 4.29 L (4.30-5.90) m/uL Hgb 12.7 L (13.0-17.5) gm/dL Neutrophils # 9.2 H (1.3-7.7) k/uL Lymphocytes # 0.4 L (1.0-4.8) k/uL D-Dimer (<0.60) mg/L FEU Sodium (137-145) mmol/L POC Glucose (mg/dL) 114 H 184 H (75-99) mg/dL Calcium (8.4-10.2) mg/dL ALT (4-49) U/L Albumin (3.5-5.0) g/dL 08/25/21 08/25/21 08/25/21 Range/Units 04:57 04:57 06:09 WBC (3.8-10.6) k/uL RBC (4.30-5.90) m/uL Hgb (13.0-17.5) gm/dL Neutrophils # (1.3-7.7) k/uL Lymphocytes # (1.0-4.8) k/uL D-Dimer 6.67 H (<0.60) mg/L FEU Sodium 131 L (137-145) mmol/L POC Glucose (mg/dL) 100 H (75-99) mg/dL Calcium 8.1 L (8.4-10.2) mg/dL ALT 80 H (4-49) U/L Albumin 2.5 L (3.5-5.0) g/dL Microbiology - Last 24 Hours (Table) 08/23/21 16:11 Blood Culture - Preliminary Blood No Growth after 24 hours Assessment and Plan Assessment: Acute respiratory failure with hypoxia secondary to COVID 19 pneumonia and pulmonary fibrosis -Oxygenation to be administered and titrated as needed to maintain SPO2 equal to or greater than 90% -Patient currently an Opti-Flow and nonrebreather mask -> plan to intubate the patient -Telemetry monitoring. -Pt received two doses of Baricitinib, remainder of doses held secondary to elevated liver enzymes -Encourage Incentive Spirometry 10-15x hourly while awake. -Steroids: Decadron 6 mg daily -Continue vitamin C, Vitamin D, and Zinc. -Pulmonology following, appreciate further recommendations. -Continue DVT prophylaxis with Lovenox 40 mg subcu daily -Patient currently on IV cefepime. Continue to monitor patient's inflammatory markers and fevers. Type II [id number] diabetes mellitus Hold Glucophage at this time and place patient on glycemic protocol with NovoLog sliding scale. Hypertension Monitor vital signs and continue daily medication regimen with lisinopril. Prognosis is guarded CODE STATUS: Full code DVT prophylaxis: Lovenox Discussed with: Pt, RN, speech clinician Anticipated discharge date: clinical course to determine Anticipated discharge place: Clinical course to determine. A total of 30 minutes was spent on the care of this complex patient more than 50% of the time was spent in counseling and care coordination.
[2021-08-25] MEDS: CISATRACURIUM 200 MG in SODIUM CHLORIDE 0.9% 180 ML IV SCH (12:16)
[2021-08-25] MEDS: ARTIFICIAL TEARS-HYPROMELLOSE DROPS 15 ML BTL BOTH EYES SCH ×4 (12:16→23:16)
--- NOTE | 2021-08-25 12:29 | XR ---
EXAMINATION TYPE: XR chest 1V portable DATE OF EXAM: 08/25/2021 COMPARISON: Chest radiograph 08/25/2021 at 10:18 AM. HISTORY: Status post intubation TECHNIQUE: Single frontal view of the chest is obtained. FINDINGS: Interval placement of endotracheal tube distal tip projecting 4.6 cm above the ines. The re remains multifocal airspace opacities throughout the lungs. No evidence of pleural effusion or pne umothorax. The cardiac silhouette size is within normal limits. The osseous structures are intact. IMPRESSION: 1. Interval placement of a tracheal tube with distal tip in appropriate position. 2. Similar multifocal pneumonia.
[2021-08-25] MEDS: fentaNYL (PF). 1,000 MCG in SODIUM CHLORIDE 0.9% 80 ML IV SCH (13:38)
[2021-08-25 14:00] LABS: ABG Oxygen Saturation 75.1 % (94-97); ABG PO2 61 mmHg (83-108); Allen Test Performed? Yes
[2021-08-25 14:14] LABS: ABG PCO2 >120 mmHg (35-45); ABG PH 6.96 (7.35-7.45)
[2021-08-25] MEDS ORDERED: NOREPINEPHRINE 8 MG in SODIUM CHLORIDE 0.9% 250 ML IV SCH (15:00)
--- NOTE | 2021-08-25 15:47 | P.PCN ---
Date of Procedure: 08/25/21 Preoperative Diagnosis: COVID 19 pneumonia with respiratory failure Postoperative Diagnosis: Same Procedure(s) Performed: Central line and arterial line insertion Operative Findings: Arterial Line: Indication: Hemodynamic monitoring. A time-out was completed verifying correct patient, procedure, site, positioning, and implant(s) or special equipment if applicable. Allens test was performed to ensure adequate perfusion. The patients right wrist was prepped and draped in sterile fashion. 1% Lidocaine was used to anesthetize the area. An 18G Arrow arterial line was introduced into the radial artery. The catheter was threaded over the guide wire and the needle was removed with appropriate pulsatile blood return. Blood loss was minimal. The catheter was then sutured in place to the skin and a sterile dressing applied. Perfusion to the extremity distal to the point of catheter insertion was checked and found to be adequate. The patient tolerated the procedure well and there were no complications. central line Indication: Hemodynamic monitoring/Intravenous access. A time-out was completed verifying correct patient, procedure, site, positioning, and implant(s) or special equipment if applicable. The patient was placed in a dependent position appropriate for central line placement based on the vein to be cannulated. The patients left shoulder was prepped and draped in sterile fashion. 1% Lidocaine was used to anesthetize the surrounding skin area. A triple lumen 9F Cordis catheter was introduced into the left subclavian vein using Seldinger technique. The catheter was threaded smoothly over the guide wire and appropriate blood return was obtained. Each lumen of the catheter was evacuated of air and flushed with sterile saline. The catheter was then sutured in place to the skin and a sterile dressing applied. Perfusion to the extremity distal to the point of catheter insertion was checked and found to be adequate. The patient tolerated the procedure well and there were no complications. With a
--- NOTE | 2021-08-25 16:10 | XR ---
INDICATION: Patient age:Male; 65 years old; Reason for study: line placement; H. COMPARISON: Chest radiograph same day. TECHNIQUE: Frontal view of the chest. FINDINGS: Lungs/Pleura: Similar multifocal airspace opacities. No evidence of pneumothorax or pleural effusion. Pulmonary vascularity: Unremarkable. Heart/mediastinum: Cardiomediastinal silhouette is unremarkable. Musculoskeletal: No acute osseous pathology. Lines/Tubes: Interval placement of endotracheal tube with distal tip XX cm from the ines. Interval placement of nasogastric and side-port projecting under the diaphragm. Left central venous catheter with distal tip of the superior vena cava/brachiocephalic vein confluenc e. IMPRESSION: 1. Interval placement of left central venous catheter with distal tip near the superior vena cava/bra chiocephalic vein confluence. No evidence for pneumothorax 2. Similar multifocal pneumonia. 3. Support lines and tubes in appropriate position..
[2021-08-25] MEDS ORDERED: SODIUM BICARB 8.4% 50 ML SYR (1 MEQ/ML) IV STA ×3 (16:51→19:28)
[2021-08-25 18:10] LABS: Glucose,Whole Blood 192 mg/dL (75-99)
[2021-08-25 18:13] LABS: ABG Oxygen Saturation 83.1 % (94-97); ABG PO2 64 mmHg (83-108); Allen Test Performed? Yes
[2021-08-25 18:22] LABS: ABG PCO2 >120 mmHg (35-45); ABG PH 6.94 (7.35-7.45)
[2021-08-25] MEDS: DEXTROSE 5% IN WATER 1,000 ML with SODIUM BICARB (1 MEQ/ML) 150 ML IV SCH (18:39)
[2021-08-25] MEDS ORDERED: EPINEPHrine 10 ML SYRINGE (0.1 MG/ML) ONE (19:00)
[2021-08-25] MEDS ORDERED: SODIUM BICARB 8.4% 50 ML SYR (1 MEQ/ML) ONE (19:00)
[2021-08-25 19:21] LABS: Glucose,Whole Blood 193 mg/dL (75-99)
--- NOTE | 2021-08-25 19:47 | P.EN ---
Code Blue Note Activated at 7:13 pm. Arrived on the scene shortly after. The patient was intubated earlier today for acute hypoxic and hypercapnic respiratory failure in setting of COVID pneumonia with background pulmonary fibrosis. The case was discussed with the RN and the chart was reviewed in detail. The patient developed PEA and ACLS protocol was initiated immediately with high quality CPR. He was given Epinephrine IVP x 2, and sodium bicarbonate x 2 with subsequent ROSC with total downtime of 6 minutes. The vascular specialists was notified. The patient's was notified via phone by the com writer. She wishes for him to continue to be full code and receive CPR as needed. Please refer to code sheet for further details.
[2021-08-25] MEDS: NOREPINEPHRINE 32 MG in SODIUM CHLORIDE 0.9% 218 ML IV SCH (19:55)
[2021-08-25 21:13] LABS: Glucose,Whole Blood 167 mg/dL (75-99)
[2021-08-25] MEDS: CHLORHEXIDINE GLUCONATE 15 ML CUP MUCOUS MEM SCH (21:24)
[2021-08-25] MEDS: SODIUM CHLORIDE 0.9% 50 ML with VASOPRESSIN 20 UNIT IVPB SCH ×2 (23:21)
[2021-08-26] MEDS: NOREPINEPHRINE 32 MG in SODIUM CHLORIDE 0.9% 218 ML IV SCH ×5 (00:03→18:28)
[2021-08-26 00:31] LABS: ABG Oxygen Saturation 88.5 % (94-97); ABG PO2 63 mmHg (83-108); Allen Test Performed? Yes
[2021-08-26 00:34] LABS: ABG PCO2 >120 mmHg (35-45); ABG PH 6.98 (7.35-7.45)
[2021-08-26 02:18] LABS: Glucose,Whole Blood 246 mg/dL (75-99)
[2021-08-26] MEDS: ARTIFICIAL TEARS-HYPROMELLOSE DROPS 15 ML BTL BOTH EYES SCH ×5 (03:26→21:56)
[2021-08-26] MEDS: fentaNYL (PF). 1,000 MCG in SODIUM CHLORIDE 0.9% 80 ML IV SCH (03:26)
[2021-08-26] MEDS: ACETAMINOPHEN TAB 325 MG TAB PO PRN (03:58)
[2021-08-26] MEDS: DEXTROSE 5% IN WATER 1,000 ML with SODIUM BICARB (1 MEQ/ML) 150 ML IV SCH ×2 (04:36→15:45)
[2021-08-26 04:47] LABS: Albumin 2.6 g/dL (3.5-5.0); Calcium 7.5 mg/dL (8.4-10.2); Potassium 5.6 mmol/L (3.5-5.1); Total Bilirubin 0.5 mg/dL (0.2-1.3); Total Protein 6.4 g/dL (6.3-8.2)
[2021-08-26 05:06] LABS: HCT 44.5 % (39.0-53.0); Hypochromasia Slight; MCH 31.5 pg (25.0-35.0); MCHC 31.5 g/dL (31.0-37.0); Mean Platelet Volume 8.9; Platelet Count 303 k/uL (150-450); RBC 4.44 m/uL (4.30-5.90); RDW 13.4 % (11.5-15.5); WBC 17.4 k/uL (3.8-10.6)
[2021-08-26 05:07] LABS: MCV 100.1 fL (80.0-100.0)
[2021-08-26 05:15] LABS: C Reactive Protein 25.5 mg/dL (<1.0)
[2021-08-26 05:30] LABS: ABG Oxygen Saturation 91.3 % (94-97); ABG PO2 68 mmHg (83-108); Allen Test Performed? Yes
[2021-08-26 05:33] LABS: ABG PCO2 >120 mmHg (35-45); ABG PH 6.99 (7.35-7.45)
[2021-08-26 05:53] LABS: Band Neutrophils % 6 %; Eosinophils # (M) 0.17 k/uL (0-0.7); Lymphocytes # (M) 1.04 k/uL (1.0-4.8); Metamyelocytes # (M) 0.17 k/uL (0); Metamyelocytes % 1 %; Myelocytes # (M) 0.35 k/uL (0); Myelocytes % 2 %; Neutrophils % (M) 82 %; Nucleated Red Blood Cells 0 /100 WBC (0-0); Total Cells Counted 200
[2021-08-26 05:55] LABS: Basophilic Stippling Present
[2021-08-26 06:27] LABS: Glucose,Whole Blood 203 mg/dL (75-99)
[2021-08-26] MEDS: INSULIN ASPART (NovoLOG) 100 UNIT/ML VIAL SQ SCH ×7 (06:28→21:57)
--- NOTE | 2021-08-26 06:29 | XR ---
EXAMINATION TYPE: XR chest 1V portable DATE OF EXAM: 08/26/2021 COMPARISON: 08/25/2021 HISTORY: Tube placement. TECHNIQUE: Single frontal view of the chest is obtained. FINDINGS: There is an ET tube 4.3 cm above the ines. There is an NG tube within the stomach. There is a left-sided PICC line at the SVC/RA junction. The discs diffuse fluffy interstitial and airspace opacity is unchanged. There are probable small donavon ateral pleural effusions. There is no pneumothorax. Heart size is normal. IMPRESSION: No change in the NG tube, ET tube or PICC line. No change in the diffuse infiltrates.
[2021-08-26] MEDS: SODIUM CHLORIDE 0.9% 50 ML with VASOPRESSIN 20 UNIT IVPB SCH ×2 (06:30)
[2021-08-26] MEDS: PANTOPRAZOLE 40 MG TABLET PO SCH (07:05)
[2021-08-26] MEDS: CHOLECALCIFEROL 25 MCG (1000 IU) TABLET PO SCH (08:01)
[2021-08-26] MEDS: ASCORBIC ACID 500 MG TAB PO SCH (08:01)
[2021-08-26] MEDS: dexAMETHasone 2 MG TAB PO SCH (08:02)
[2021-08-26] MEDS: ZINC SULFATE 220 MG CAP PO SCH (08:02)
[2021-08-26] MEDS: CEFEPIME 2 GM in SODIUM CHLORIDE 0.9% 100 ML IVPB SCH ×2 (08:11→21:57)
[2021-08-26] MEDS: ENOXAPARIN 40 MG/0.4 ML SYRINGE SQ SCH (08:11)
[2021-08-26] MEDS: CHLORHEXIDINE GLUCONATE 15 ML CUP MUCOUS MEM SCH ×2 (08:12→21:57)
--- NOTE | 2021-08-26 09:24 | P.PN ---
Subjective Progress Note Date: 08/26/21 08/25/2021 the patient is currently in the intensive care unit. He got tra nsferred to the ICU again yesterday because of worsening shortness of breath. He is a post COVID 19 related hypoxic respiratory failure the patient was requiring high flow oxygen in the form of Airvo 60 L with an FiO2 of 90% in combination with 100% nonrebreather facemask. Nevertheless, overnight, he desaturated and had to be switched to a BiPAP for respiratory support. His chest x-ray was still showing diffuse bilateral pulmonary infiltrates. Follow- up chest x-ray from today still pending. Meanwhile, the patient is still short of breath and quite tachypneic while on the BiPAP and his aspiration is in the low 30s. Is able to generate a tidal volume of 600 while in the BiPAP. Despite all this, his breathing is labored. He gets typically very anxious and wants on the BiPAP and the patient was started on Precedex which is currently running at 0.2 mics respiratory event per hour. Saleh catheter is in place. He remains on Decadron. He remains on Lovenox for DVT prophylaxis. Blood work from today shows a white cell count of 10.8 and a hemoglobin of 12.7 and a platelet count of 166, sodium is at 131, BUN is 18 with a creatinine of 0.72, his LDH level was as low as 798 and 11 has not been checked since 08/23/2021. The d-dimer was at 6.67. In terms of medication, the patient is currently on Precedex to control some of his agitation and maintain basically with mechanical ventilator. The patient is also on Decadron 6 mg and this will be switched IV. He was also covered with Cefepime. He has neen on Lovenox 40 mg SC for DVT prophylaxis . I had a discussion with the patient regarding the code status and patient wants a full code status for now 08/26/2021, the patient is currently intubated on a mechanical ventilator. As mentioned earlier, the patient got transferred to the ICU and subsequently at around noon, the patient had to be intubated and placed on a mechanical ventilator. He developed further respiratory distress and oxygen desaturation to the point where the patient was unable to tolerate the BiPAP and subsequently had to be intubated. He consented for the intubation process. The was aware. Post intubation, the patient developed significant issues with hypercapnia and respiratory acidosis. He was given a total of 7 doses of bicarb infusion to contracted acidosis. For now, he is sedated and paralyzed. He is currently on propofol running at 50 mcg/kg per minute and he is also on fentanyl at 0, . .5 mcg/kg/h and he is also Nimbex at 1 mcg/kg per minute. He is quite symptomatic is a mechanical ventilator. He is an assist-control mode at the rate of 36 with a tidal volume of 325, PEEP is currently at 18, and the blood gases from today showed a pH of 6.7 with a pCO2 of 120 and a pO2 of 68. Chest is consistent with diffuse but the pulmonary infiltrates related to COVID 19 related pneumonia. Patient also developed an acute kidney injury, creatinine is up to 2.8 with a BUN of 38, rest of the electrolytes are stable and there is a mild component of hyperkalemia secondary to underlying severe acidosis. Potassium level is at 5.6. White cell count 17.4 with a hemoglobin of 14. He remains on IV cefepime. He remains on Lovenox 40 mg subcu for DVT prophylaxis. He remains on Decadron 6 mg IV. Progressively more hypotensive. Overnight, the norepinephrine dose had to be titrated and currently is on 1 mcg/kg per minute. Urine output is 0. Vasopressin was also added at physiologic dose to support his pressure. Unfortunately, he has decompensated significantly and he has signs of multisystem organ failure related to COVID 19 related pneumonia/ARDS. Objective - Vital Signs Vital signs: Vital Signs Temp 100 F H 08/26/21 08:00 Pulse 125 H 08/26/21 08:00 Resp 36 H 08/26/21 08:00 BP 82/53 08/26/21 07:00 Pulse Ox 91 L 08/26/21 08:00 Intake & Output 08/25/21 08/26/21 08/26/21 18:59 06:59 18:59 Intake Total 0305.502 0991.389 175 Output Total 460 725 5 Balance 415.115 5038.389 170 Weight 119.7 kg Intake: IV 900 1175 175 Sodium Chloride 0.9% 1, 900 1175 175 000 ml @ 75 mls/hr IV . [id number] [facility] Rx#:[id number] Intake, IV Titration 323.015 949.389 Amount Norepinephrine 32 mg In 390.635 Sodium Chloride 0.9% 218 ml @ 0.05 MCG/KG/MIN 2.59 mls/hr IV .Q24H [facility] Rx#: [id number] Norepinephrine 8 mg In 157.264 100.736 Sodium Chloride 0.9% 250 ml @ 0.05 MCG/KG/MIN 10. 691 mls/hr IV .Q24H [facility] Rx#:[id number] fentaNYL (PF). 1,000 mcg 76.245 In Sodium Chloride 0.9% 80 ml @ 0.5 MCG/KG/HR 5. 525 mls/hr IV .Q18H6M [facility] Rx#:[id number] propofoL 1,000 mg In 165.751 381.773 Empty Bag 1 bag @ Titrate IV .Q0M [facility] Rx#: [id number] Output: Gastric Drainage 700 Urine 460 25 5 Other: Voiding Method Indwelling Catheter Indwelling Catheter ABP, PAP, CO, CI - Last Documented Arterial Blood Pressure 58/40 - Exam GENERAL EXAM: Alert, very pleasant, 65-year-old white male, sedated, paralyzed on a mechanical ventilator. HEAD: Normocephalic/atraumatic. EYES: Normal reaction of pupils, equal size. Conjunctiva pink, sclera white. NOSE: Clear with pink turbinates. THROAT: No erythema or exudates. NECK: No masses, no JVD, no thyroid enlargement, no adenopathy. CHEST: No chest wall deformity. Symmetrical expansion. LUNGS: Equal air entry with bilateral crackles, rather coarse in lower lung bilaterally CVS: Regular rate and rhythm, normal S1 and S2, no gallops, no murmurs, no rubs ABDOMEN: Soft, nontender. No hepatosplenomegaly, normal bowel sounds, no guarding or rigidity. EXTREMITIES: No clubbing, no edema, no cyanosis, 2+ pulses and upper and lower extremities. MUSCULOSKELETAL: Muscle strength and tone normal. SPINE: No scoliosis or deformity SKIN: No rashes CENTRAL NERVOUS SYSTEM: Sedated, paralyzed PSYCHIATRIC: Alert and oriented -3. Appropriate affect. Intact judgment and insight. - Labs CBC & Chem 7: 08/26/21 03:45 08/26/21 03:45 Labs: Abnormal Lab Results - Last 24 Hours (Table) 08/25/21 08/25/21 08/25/21 Range/Units 04:57 11:38 13:58 WBC (3.8-10.6) k/uL MCV (80.0-100.0) fL Neutrophils # (Manual) (1.3-7.7) k/uL Metamyelocytes # (Man) (0) k/uL Myelocytes # (Manual) (0) k/uL D-Dimer (<0.60) mg/L FEU ABG pH 6.96 L* (7.35-7.45) ABG pCO2 >120 H* (35-45) mmHg ABG pO2 61 L (83-108) mmHg ABG O2 Saturation 75.1 L (94-97) % Sodium (137-145) mmol/L Potassium (3.5-5.1) mmol/L Chloride (98-107) mmol/L Carbon Dioxide (22-30) mmol/L BUN (9-20) mg/dL Creatinine (0.66-1.25) mg/dL Glucose (74-99) mg/dL POC Glucose (mg/dL) 118 H (75-99) mg/dL Calcium (8.4-10.2) mg/dL ALT (4-49) U/L Lactate Dehydrogenase (313-618) U/L C-Reactive Protein (<1.0) mg/dL Albumin (3.5-5.0) g/dL Procalcitonin 0.28 H (0.02-0.09) ng/mL 08/25/21 08/25/21 08/25/21 Range/Units 18:07 18:08 19:20 WBC (3.8-10.6) k/uL MCV (80.0-100.0) fL Neutrophils # (Manual) (1.3-7.7) k/uL Metamyelocytes # (Man) (0) k/uL Myelocytes # (Manual) (0) k/uL D-Dimer (<0.60) mg/L FEU ABG pH 6.94 L* (7.35-7.45) ABG pCO2 >120 H* (35-45) mmHg ABG pO2 64 L (83-108) mmHg ABG O2 Saturation 83.1 L (94-97) % Sodium (137-145) mmol/L Potassium (3.5-5.1) mmol/L Chloride (98-107) mmol/L Carbon Dioxide (22-30) mmol/L BUN (9-20) mg/dL Creatinine (0.66-1.25) mg/dL Glucose (74-99) mg/dL POC Glucose (mg/dL) 192 H 193 H (75-99) mg/dL Calcium (8.4-10.2) mg/dL ALT (4-49) U/L Lactate Dehydrogenase (313-618) U/L C-Reactive Protein (<1.0) mg/dL Albumin (3.5-5.0) g/dL Procalcitonin (0.02-0.09) ng/mL 08/25/21 08/26/21 08/26/21 Range/Units 21:11 00:26 02:15 WBC (3.8-10.6) k/uL MCV (80.0-100.0) fL Neutrophils # (Manual) (1.3-7.7) k/uL Metamyelocytes # (Man) (0) k/uL Myelocytes # (Manual) (0) k/uL D-Dimer (<0.60) mg/L FEU ABG pH 6.98 L* (7.35-7.45) ABG pCO2 >120 H* (35-45) mmHg ABG pO2 63 L (83-108) mmHg ABG O2 Saturation 88.5 L (94-97) % Sodium (137-145) mmol/L Potassium (3.5-5.1) mmol/L Chloride (98-107) mmol/L Carbon Dioxide (22-30) mmol/L BUN (9-20) mg/dL Creatinine (0.66-1.25) mg/dL Glucose (74-99) mg/dL POC Glucose (mg/dL) 167 H 246 H (75-99) mg/dL Calcium (8.4-10.2) mg/dL ALT (4-49) U/L Lactate Dehydrogenase (313-618) U/L C-Reactive Protein (<1.0) mg/dL Albumin (3.5-5.0) g/dL Procalcitonin (0.02-0.09) ng/mL 08/26/21 08/26/21 08/26/21 Range/Units 03:45 03:45 03:45 WBC 17.4 H (3.8-10.6) k/uL MCV 100.1 H D (80.0-100.0) fL Neutrophils # (Manual) 15.30 H (1.3-7.7) k/uL Metamyelocytes # (Man) 0.17 H (0) k/uL Myelocytes # (Manual) 0.35 H (0) k/uL D-Dimer 7.96 H (<0.60) mg/L FEU ABG pH (7.35-7.45) ABG pCO2 (35-45) mmHg ABG pO2 (83-108) mmHg ABG O2 Saturation (94-97) % Sodium 136 L (137-145) mmol/L Potassium 5.6 H (3.5-5.1) mmol/L Chloride 93 L (98-107) mmol/L Carbon Dioxide 36 H (22-30) mmol/L BUN 38 H (9-20) mg/dL Creatinine 2.80 H (0.66-1.25) mg/dL Glucose 252 H (74-99) mg/dL POC Glucose (mg/dL) (75-99) mg/dL Calcium 7.5 L (8.4-10.2) mg/dL ALT 85 H (4-49) U/L Lactate Dehydrogenase 1420 H (313-618) U/L C-Reactive Protein 25.5 H (<1.0) mg/dL Albumin 2.6 L (3.5-5.0) g/dL Procalcitonin (0.02-0.09) ng/mL 08/26/21 08/26/21 Range/Units 05:26 06:25 WBC (3.8-10.6) k/uL MCV (80.0-100.0) fL Neutrophils # (Manual) (1.3-7.7) k/uL Metamyelocytes # (Man) (0) k/uL Myelocytes # (Manual) (0) k/uL D-Dimer (<0.60) mg/L FEU ABG pH 6.99 L* (7.35-7.45) ABG pCO2 >120 H* (35-45) mmHg ABG pO2 68 L (83-108) mmHg ABG O2 Saturation 91.3 L (94-97) % Sodium (137-145) mmol/L Potassium (3.5-5.1) mmol/L Chloride (98-107) mmol/L Carbon Dioxide (22-30) mmol/L BUN (9-20) mg/dL Creatinine (0.66-1.25) mg/dL Glucose (74-99) mg/dL POC Glucose (mg/dL) 203 H (75-99) mg/dL Calcium (8.4-10.2) mg/dL ALT (4-49) U/L Lactate Dehydrogenase (313-618) U/L C-Reactive Protein (<1.0) mg/dL Albumin (3.5-5.0) g/dL Procalcitonin (0.02-0.09) ng/mL Microbiology - Last 24 Hours (Table) 08/23/21 16:11 Blood Culture - Preliminary Blood No Growth after 48 hours Assessment and Plan Plan: #1. Acute hypoxic respiratory failure related to acute COVID-19 pneumonia. Patient received a single dose of Remdesivir in the emergency department, however in view of rapid progression of his hypoxemia he was started on a combination of Decadron and baricitinib. Baricitinib discontinued on 08/06/2021 related to increase in LFTs. Today on 09/02/2021 patient had worsening hypoxia and dyspnea, was placed on BiPAP support, CT angiogram of the chest on 08/22/2021 showed no evidence of pulmonary embolism however there was interval development of pulmonary fibrosis in addition to persistent bilateral infiltrates. Patient was transferred to the ICU yesterday because of respiratory decompensation. The patient was placed on BiPAP for respiratory support and subsequently had to be intubated and placed on a mechanical v entilator. Lungs are extremely noncompliant. Peak and static pressure were quite elevated. We were unable to oxygenate and ventilate the patient appropriately. His pH is currently at 6.9. His pO2 is above 120. He is quite acidotic. He is profoundly hypotensive and he has developed signs of mu ltisystem organ failure and the patient is currently on high doses of pressors including norepinephrine infusion and vasopressin. #2. Interval development of pulmonary fibrosis in addition to persistent bilateral infiltrates related to COVID-19 pneumonia #3. Fever on 08/23/2021, rule out possibility of superinfection, vancomycin has been started sepsis workup is in progress #4. Increased inflammatory markers related to the above, continue improved since admission #4. Elevated d-dimer, CTA of the chest showed no evidence of pulmonary embolism, and lower extremity Dopplers were negative #5. Diabetes mellitus type II #6. Hypertension #7. Hyperlipidemia #8. Obesity with BMI of 39.70 #9. Increased LFTs, related to viral pneumonia or medication related, Baricitinib discontinued on 08/06/2021, improving #10 acute kidney failure #11 shock with multisystem organ failure. The patient is profoundly hypotensive, high doses of pressors. #12 brief cardiopulmonary arrest Plan: I had a discussion with the . She is aware of the events of the carotid yesterday. The patient went into significant respiratory distress, respiratory failure, shock and multisystem organ failure. The patient's remains in shock this morning. He had a brief cardiac pulmonary arrest yesterday. He is essentially added into further hypotension and possibly mortality within the next few hours. Family is at the bedside. Changes CODE STATUS to DNR/DNI. Answered all questions were satisfaction. She understands the prognosis critically care evaluation more than 30 minutes.
--- NOTE | 2021-08-26 10:43 | P.PN ---
Subjective Progress Note Date: 08/26/21 Patient was in cardiac arrest last night and achieved ROSC. Patient is now maximized on levo fed and remains hypotensive. He is also now and multiorgan failure. is at bedside. Wastewater Technician discussed with her life is poor prognosis. made him DNR/DNI. Objective - Vital Signs Vital signs: Vital Signs Temp 100 F H 08/26/21 08:00 Pulse 125 H 08/26/21 10:00 Resp 36 H 08/26/21 10:00 BP 82/53 08/26/21 07:00 Pulse Ox 92 L 08/26/21 10:00 Intake & Output 08/25/21 08/26/21 08/26/21 18:59 06:59 18:59 Intake Total 6908.913 5562.389 699.45 Output Total 460 725 5 Balance 981.047 8290.389 694.45 Weight 119.7 kg Intake: IV 900 1175 350 Dextrose 5% in Water 1, 100 000 ml @ 100 mls/hr IV . [id number] [facility] with Sodium Bicarb (1 Meq/ml) 150 ml Rx#:[id number] Sodium Chloride 0.9% 1, 900 1175 250 000 ml @ 75 mls/hr IV . Q22M28G [facility] Rx#:[id number] Intake, IV Titration 323.015 949.389 349.45 Amount Norepinephrine 32 mg In 390.635 250 Sodium Chloride 0.9% 218 ml @ 0.05 MCG/KG/MIN 2.59 mls/hr IV .Q24H [facility] Rx#: [id number] Norepinephrine 8 mg In 157.264 100.736 Sodium Chloride 0.9% 250 ml @ 0.05 MCG/KG/MIN 10. 691 mls/hr IV .Q24H [facility] Rx#:[id number] fentaNYL (PF). 1,000 mcg 76.245 In Sodium Chloride 0.9% 80 ml @ 0.5 MCG/KG/HR 5. 525 mls/hr IV .Q18H6M [facility] Rx#:[id number] propofoL 1,000 mg In 165.751 381.773 99.45 Empty Bag 1 bag @ Titrate IV .Q0M [facility] Rx#: [id number] Output: Gastric Drainage 700 Urine 460 25 5 Other: Voiding Method Indwelling Catheter Indwelling Catheter Indwelling Catheter ABP, PAP, CO, CI - Last Documented Arterial Blood Pressure 59/40 - Exam General examination - intubated and sedated Heart - + S1S2 no murmurs Lungs - diminished but does bilaterally, Abdomen soft NT ND +ve BS Extremities - No edema SPECIAL EVENTS MANAGER -unable to assess Psych -unable to assess - Labs CBC & Chem 7: 08/26/21 03:45 08/26/21 03:45 Labs: Abnormal Lab Results - Last 24 Hours (Table) 08/25/21 08/25/21 08/25/21 Range/Units 04:57 11:38 13:58 WBC (3.8-10.6) k/uL MCV (80.0-100.0) fL Neutrophils # (Manual) (1.3-7.7) k/uL Metamyelocytes # (Man) (0) k/uL Myelocytes # (Manual) (0) k/uL D-Dimer (<0.60) mg/L FEU ABG pH 6.96 L* (7.35-7.45) ABG pCO2 >120 H* (35-45) mmHg ABG pO2 61 L (83-108) mmHg ABG O2 Saturation 75.1 L (94-97) % Sodium (137-145) mmol/L Potassium (3.5-5.1) mmol/L Chloride (98-107) mmol/L Carbon Dioxide (22-30) mmol/L BUN (9-20) mg/dL Creatinine (0.66-1.25) mg/dL Glucose (74-99) mg/dL POC Glucose (mg/dL) 118 H (75-99) mg/dL Calcium (8.4-10.2) mg/dL ALT (4-49) U/L Lactate Dehydrogenase (313-618) U/L C-Reactive Protein (<1.0) mg/dL Albumin (3.5-5.0) g/dL Procalcitonin 0.28 H (0.02-0.09) ng/mL 08/25/21 08/25/21 08/25/21 Range/Units 18:07 18:08 19:20 WBC (3.8-10.6) k/uL MCV (80.0-100.0) fL Neutrophils # (Manual) (1.3-7.7) k/uL Metamyelocytes # (Man) (0) k/uL Myelocytes # (Manual) (0) k/uL D-Dimer (<0.60) mg/L FEU ABG pH 6.94 L* (7.35-7.45) ABG pCO2 >120 H* (35-45) mmHg ABG pO2 64 L (83-108) mmHg ABG O2 Saturation 83.1 L (94-97) % Sodium (137-145) mmol/L Potassium (3.5-5.1) mmol/L Chloride (98-107) mmol/L Carbon Dioxide (22-30) mmol/L BUN (9-20) mg/dL Creatinine (0.66-1.25) mg/dL Glucose (74-99) mg/dL POC Glucose (mg/dL) 192 H 193 H (75-99) mg/dL Calcium (8.4-10.2) mg/dL ALT (4-49) U/L Lactate Dehydrogenase (313-618) U/L C-Reactive Protein (<1.0) mg/dL Albumin (3.5-5.0) g/dL Procalcitonin (0.02-0.09) ng/mL 08/25/21 08/26/21 08/26/21 Range/Units 21:11 00:26 02:15 WBC (3.8-10.6) k/uL MCV (80.0-100.0) fL Neutrophils # (Manual) (1.3-7.7) k/uL Metamyelocytes # (Man) (0) k/uL Myelocytes # (Manual) (0) k/uL D-Dimer (<0.60) mg/L FEU ABG pH 6.98 L* (7.35-7.45) ABG pCO2 >120 H* (35-45) mmHg ABG pO2 63 L (83-108) mmHg ABG O2 Saturation 88.5 L (94-97) % Sodium (137-145) mmol/L Potassium (3.5-5.1) mmol/L Chloride (98-107) mmol/L Carbon Dioxide (22-30) mmol/L BUN (9-20) mg/dL Creatinine (0.66-1.25) mg/dL Glucose (74-99) mg/dL POC Glucose (mg/dL) 167 H 246 H (75-99) mg/dL Calcium (8.4-10.2) mg/dL ALT (4-49) U/L Lactate Dehydrogenase (313-618) U/L C-Reactive Protein (<1.0) mg/dL Albumin (3.5-5.0) g/dL Procalcitonin (0.02-0.09) ng/mL 08/26/21 08/26/21 08/26/21 Range/Units 03:45 03:45 03:45 WBC 17.4 H (3.8-10.6) k/uL MCV 100.1 H D (80.0-100.0) fL Neutrophils # (Manual) 15.30 H (1.3-7.7) k/uL Metamyelocytes # (Man) 0.17 H (0) k/uL Myelocytes # (Manual) 0.35 H (0) k/uL D-Dimer 7.96 H (<0.60) mg/L FEU ABG pH (7.35-7.45) ABG pCO2 (35-45) mmHg ABG pO2 (83-108) mmHg ABG O2 Saturation (94-97) % Sodium 136 L (137-145) mmol/L Potassium 5.6 H (3.5-5.1) mmol/L Chloride 93 L (98-107) mmol/L Carbon Dioxide 36 H (22-30) mmol/L BUN 38 H (9-20) mg/dL Creatinine 2.80 H (0.66-1.25) mg/dL Glucose 252 H (74-99) mg/dL POC Glucose (mg/dL) (75-99) mg/dL Calcium 7.5 L (8.4-10.2) mg/dL ALT 85 H (4-49) U/L Lactate Dehydrogenase 1420 H (313-618) U/L C-Reactive Protein 25.5 H (<1.0) mg/dL Albumin 2.6 L (3.5-5.0) g/dL Procalcitonin (0.02-0.09) ng/mL 08/26/21 08/26/21 Range/Units 05:26 06:25 WBC (3.8-10.6) k/uL MCV (80.0-100.0) fL Neutrophils # (Manual) (1.3-7.7) k/uL Metamyelocytes # (Man) (0) k/uL Myelocytes # (Manual) (0) k/uL D-Dimer (<0.60) mg/L FEU ABG pH 6.99 L* (7.35-7.45) ABG pCO2 >120 H* (35-45) mmHg ABG pO2 68 L (83-108) mmHg ABG O2 Saturation 91.3 L (94-97) % Sodium (137-145) mmol/L Potassium (3.5-5.1) mmol/L Chloride (98-107) mmol/L Carbon Dioxide (22-30) mmol/L BUN (9-20) mg/dL Creatinine (0.66-1.25) mg/dL Glucose (74-99) mg/dL POC Glucose (mg/dL) 203 H (75-99) mg/dL Calcium (8.4-10.2) mg/dL ALT (4-49) U/L Lactate Dehydrogenase (313-618) U/L C-Reactive Protein (<1.0) mg/dL Albumin (3.5-5.0) g/dL Procalcitonin (0.02-0.09) ng/mL Microbiology - Last 24 Hours (Table) 08/23/21 16:11 Blood Culture - Preliminary Blood No Growth after 48 hours Assessment and Plan Assessment: Acute respiratory failure with hypoxia secondary to COVID 19 pneumonia and pulmonary fibrosis Septic shock Multiorgan failure -Oxygenation to be administered and titrated as needed to maintain SPO2 equal to or greater than 90% -Intubated and sedated -Telemetry monitoring. -Pt received two doses of Baricitinib, remainder of doses held secondary to elevated liver enzymes -Encourage Incentive Spirometry 10-15x hourly while awake. -Steroids: Decadron 6 mg daily -Continue vitamin C, Vitamin D, and Zinc. -Pulmonology following, appreciate further recommendations. -Continue DVT prophylaxis with Lovenox 40 mg subcu daily -Patient currently on IV cefepime. Continue to monitor patient's inflammatory markers and fevers. -Prognosis is guarded. may patient DNR/DNI. Type II [id number] diabetes mellitus Sliding scale insulin Hypertension Patient now hypotensive. Discontinue all BP meds. Prognosis is guarded CODE STATUS: Full code DVT prophylaxis: Lovenox Discussed with: Pt, RN, senior ui ux designer Anticipated discharge date: clinical course to determine Anticipated discharge place: Clinical course to determine..
[2021-08-26 11:56] LABS: Glucose,Whole Blood 250 mg/dL (75-99)
[2021-08-26] MEDS: CISATRACURIUM 200 MG in SODIUM CHLORIDE 0.9% 180 ML IV SCH (11:57)
[2021-08-26 16:16] VITALS: BP 74/48; TEMP 100.9
[2021-08-26 18:04] VITALS: RESP 36
[2021-08-26 19:05] VITALS: PULSE 121
[2021-08-26] MEDS ORDERED: MORPHINE SULFATE 4 MG/ML SYRINGE IV PRN (19:59)
--- NOTE | 2021-08-27 07:28 | P.DS ---
Providers Date of admission: 08/02/21 14:40 Expected date of discharge: 08/26/21 Attending physician: Kristina Locke MD Consults: 08/02/21 14:40 Consult Physician Urgent Consulting Provider: Marlena Grimaldo Consult Reason/Comments: COVID pneumonia Do you want consulting provider notified?: Yes Primary care physician: Jayden Gould MD Hospital Course: Discharge Diagnosis: Acute respiratory failure with hypoxia secondary to COVID-19 pneumonia on the 5 doses Septic shock Multiorgan failure Type II [id number]-aqnpptybq diabetes mellitus Hypertension Hospital Course: Patient came into the ED with shortness of breath. He was found to have COVID- 19 pneumonia. Unfortunately patient condition started to deteriorate and he was transferred to the ICU where he had to be intubated and sedated on 08/26/2021. Overnight code blue was called on the patient for PEA arrest. ROSC was achieved on the patient. However he went into multiorgan failure. Family made the patient DNR/DNI. He on 08/26/2021 at 20:22 Patient Condition at Discharge: Undetermined Plan - Discharge Summary New Discharge Prescriptions: No Action Atorvastatin [Lipitor] 10 mg PO HS lisinopriL [Zestril] 2.5 tab PO DAILY Dexamethasone 6 mg PO DAILY Canagliflozin/Metformin HCl [Invokamet Xr 150-1,000 mg Tab] 1 tab PO HS Azithromycin [Zithromax] 500 mg PO DAILY Albuterol Sulfate [Proair Hfa] 2 puff INHALATION RT-Q6H PRN PRN Reason: Shortness Of Breath Discharge Medication List Atorvastatin [Lipitor] 10 mg PO HS 12/24/15 [History] lisinopriL [Zestril] 2.5 tab PO DAILY 12/24/15 [History] Albuterol Sulfate [Proair Hfa] 2 puff INHALATION RT-Q6H PRN 08/02/21 [History] Azithromycin [Zithromax] 500 mg PO DAILY 08/02/21 [History] Canagliflozin/Metformin HCl [Invokamet Xr 150-1,000 mg Tab] 1 tab PO HS 08/02/21 [History] Dexamethasone 6 mg PO DAILY 08/02/21 [History] Follow up Appointment(s)/Referral(s): Jayden Gould MD [Primary Care Provider] - 1-2 days Marlena Grimaldo MD [STAFF PHYSICIAN] - 2 Weeks Discharge Disposition: - Preliminary Cause of Preliminary Cause of : COVID 19
--- NOTE | 2021-08-28 12:30 | CDI ---
Documentation Clarification Form Date: 08/28/2021 12:24:03 PM From: Milton De La Cruz Admit Date: 08/02/2021 02:40:00 PM Patient Name: Matthew Walker Visit Number: [id number] Discharge Date: 08/26/2021 10:30:00 PM ATTENTION: The Clinical Documentation Specialists (CDI) and [facility] Coding Staff appreciate your assistance in clarifying documentation. Please respond to the clarification below the line at the bottom and electronically sign. The CDI & [facility] Coding staff will review the response and follow-up if needed. Please note: Queries are made part of the Legal Health Record. If you have any questions, please contact the author of this message via ITS. Dr. Adrian Spear Sepsis is documented in your discharge summary. For each diagnosis, documentation must be clear to determine if the condition was present at the time of the patients inpatient admission or developed during the hospital stay. Additional clarification regarding the sepsis is requested. Patient was admitted 08/02/21 but sepsis is not mentioned in the chart until 08/26/21. History/Risk Factors: COVID PNA Clinical Indicators: ED: temp 100, B/P 115/69, pulse 86, resp 24 Treatment: IV abx and COVID drugs Definition of Present on Admission (POA): A diagnosis present at the time the order for admission to inpatient status was written. Please clarify if the sepsis was POA [ ] Y = Yes, the condition was present at the time of the order for inpatient admission. [ ] N = No, the condition was not present at the time of the order for inpatient admission. [ ] W = Clinically undetermined if the condition was present at the time of the order for inpatient admission. MTDD
== END 2021-08-26 22:30 | disposition expired | DRG 208 ==
LOC: EC 10:50 → 4SSUR 14:40 → 2SICU 08-23 14:30
PROVIDERS: ADMIT Internal Medicine; ATTEND Internal Medicine
PROC: XW033E5 Introduction of Remdesivir Anti-infective into Peripheral Vein, Percutaneous Approach, New Technology Group 5 (ICD-10-PCS; 2021-08-02)
PROC: XW0DXM6 Introduction of Baricitinib into Mouth and Pharynx, External Approach, New Technology Group 6 (ICD-10-PCS; 2021-08-03)
PROC: 5A09357 Assistance with Respiratory Ventilation, Less than 24 Consecutive Hours, Continuous Positive Airway Pressure (ICD-10-PCS; 2021-08-22)
PROC: 5A0945A Assistance with Respiratory Ventilation, 24-96 Consecutive Hours, High Flow/Velocity Cannula (ICD-10-PCS; 2021-08-23)
PROC: 05HF33Z Insertion of Infusion Device into Left Cephalic Vein, Percutaneous Approach (ICD-10-PCS; 2021-08-24)
PROC: 5A1945Z Respiratory Ventilation, 24-96 Consecutive Hours (ICD-10-PCS; principal; 2021-08-25)
PROC: 3E033XZ Introduction of Vasopressor into Peripheral Vein, Percutaneous Approach (ICD-10-PCS; 2021-08-25)
PROC: 0BH17EZ Insertion of Endotracheal Airway into Trachea, Via Natural or Artificial Opening (ICD-10-PCS; 2021-08-25)
PROC: 5A12012 Performance of Cardiac Output, Single, Manual (ICD-10-PCS; 2021-08-25)
PROC: 03HY32Z Insertion of Monitoring Device into Upper Artery, Percutaneous Approach (ICD-10-PCS; 2021-08-25)
PROC: 4A133B1 Monitoring of Arterial Pressure, Peripheral, Percutaneous Approach (ICD-10-PCS; 2021-08-25)
PROC: 4A133J1 Monitoring of Arterial Pulse, Peripheral, Percutaneous Approach (ICD-10-PCS; 2021-08-25)
PROC: 02HV33Z Insertion of Infusion Device into Superior Vena Cava, Percutaneous Approach (ICD-10-PCS; 2021-08-25)
DX: U07.1 COVID-19 (principal); A41.89 Other specified sepsis; J12.82 Pneumonia due to coronavirus disease 2019; J80 Acute respiratory distress syndrome; R65.21 Severe sepsis with septic shock; E87.2 Acidosis; N17.9 Acute kidney failure, unspecified; J44.0 Chronic obstructive pulmonary disease with (acute) lower respiratory infection; E11.9 Type 2 diabetes mellitus without complications; E66.9 Obesity, unspecified; Z68.39 Body mass index [BMI] 39.0-39.9, adult; E78.5 Hyperlipidemia, unspecified; E87.5 Hyperkalemia; I10 Essential (primary) hypertension; I46.9 Cardiac arrest, cause unspecified; J84.10 Pulmonary fibrosis, unspecified; Z66 Do not resuscitate; Z51.5 Encounter for palliative care; Z79.01 Long term (current) use of anticoagulants; Z79.84 Long term (current) use of oral hypoglycemic drugs; Z79.899 Other long term (current) drug therapy; Z82.49 Family history of ischemic heart disease and other diseases of the circulatory system; Z87.01 Personal history of pneumonia (recurrent); R74.8 Abnormal levels of other serum enzymes
CPT/HCPCS: 36410; 36415; 36600; 71045; 71046; 71275; 76937; 80048; 80053; 80076; 82805; 83036; 83615; 83735; 84145; 85025; 85027; 85379; 86140; 87040; 87635; 92950; 93970; 94003; 94640; 94660; 94760; 99285